=== PATIENT | female | born 1960 | race Caucasian/White ===

== ENCOUNTER 2019-07-05 10:53 | Outpatient (CLI) | payer MEDICARE, OTHER, SELFPAY ==
[2019-07-05 13:50] LABS: Hemoglobin A1C 6.2 % (<5.7)
[2019-07-05 13:51] LABS: Alanine Aminotransferase 25 U/L (4-35); Albumin Level 3.9 g/dL (3.5-5.1); Alkaline Phosphatase 64 U/L (38-126); Aspartate Amino Transferase 26 U/L (14-36); Bilirubin,Total 0.5 mg/dL (0.2-1.3); Blood Urea Nitrogen 26 mg/dL (7-17); Calcium 9.3 mg/dL (8.4-10.2); Carbon Dioxide 28 mmol/L (22-30); Chloride 97 mmol/L (98-107); Cholesterol 132 mg/dL (0-200); Estimated Glomerular Filt Rate 57; Glucose 81 mg/dL (65-105); HDL Direct 62 mg/dL; Potassium 3.7 mmol/L (3.4-5.0); Sodium 137 mmol/L (137-145); Triglycerides 83 mg/dL (<150)
[2019-07-05 14:02] LABS: LDL Cholesterol Direct 63 mg/dL
[2019-07-08 00:56] LABS: Homocysteine 11.9 umol/L (<10.4)
== END 2019-07-05 10:54 | disposition home or self-care (01) ==
LOC: ANHWCLAB 10:58
PROVIDERS: PCP Internal Medicine; Visit Provider Internal Medicine
DX: E78.5 Hyperlipidemia, unspecified (principal); R73.03 Prediabetes; Z79.899 Other long term (current) drug therapy
CPT/HCPCS: 36415; 80048; 80061; 80076; 83036; 83090; 84443

== ENCOUNTER 2019-11-07 08:48 | Outpatient (CLI) | payer MEDICARE, OTHER, SELFPAY ==
[2019-11-07 10:18] LABS: Add Urine Microscopic? NO; Appearance Urine Clear (Clear); Bilirubin Urine Negative (Negative); Blood Urine Negative (Negative); Color Urine Straw (Yellow); Glucose Urine UA Negative (Negative); Ketones Urine Negative (Negative); Leukocyte Esterase Ur Negative LEU/UL (NEGATIVE); Nitrate Urine Negative (Negative); Protein Urine Negative (Negative); Specific Grav Ur 1.011 (1.001-1.035); Urobilinogen Urine Negative mg/dL (<2.0)
[2019-11-07 10:36] LABS: Alanine Aminotransferase 21 U/L (4-35); Albumin Level 4.3 g/dL (3.5-5.1); Alkaline Phosphatase 62 U/L (38-126); Aspartate Amino Transferase 26 U/L (14-36); Bilirubin,Total 0.4 mg/dL (0.2-1.3); Blood Urea Nitrogen 21 mg/dL (7-17); Calcium 8.8 mg/dL (8.4-10.2); Carbon Dioxide 30 mmol/L (22-30); Chloride 102 mmol/L (98-107); Cholesterol 155 mg/dL (0-200); Estimated Glomerular Filt Rate > 60; Glucose 97 mg/dL (65-105); HDL Direct 71 mg/dL; Potassium 3.8 mmol/L (3.4-5.0); Sodium 137 mmol/L (137-145); Triglycerides 60 mg/dL (<150)
[2019-11-07 10:47] LABS: LDL Cholesterol Direct 71 mg/dL
[2019-11-07 11:01] LABS: Hemoglobin A1C 6.2 % (<5.7)
[2019-11-11 04:50] LABS: Homocysteine 9.7 umol/L (<10.4)
== END 2019-11-07 08:49 | disposition home or self-care (01) ==
PROVIDERS: PCP Internal Medicine; Visit Provider Internal Medicine
DX: R73.03 Prediabetes (principal); Z79.899 Other long term (current) drug therapy; E78.2 Mixed hyperlipidemia; R79.89 Other specified abnormal findings of blood chemistry
CPT/HCPCS: 36415; 80048; 80061; 80076; 81003; 83036; 83090

== ENCOUNTER 2019-12-25 01:11 | Outpatient (CLI) | payer MEDICARE, OTHER, SELFPAY ==
[2019-12-25 19:35] LABS: SARS-CoV-2 RNA PCR Negative
== END 2019-12-25 01:12 | disposition home or self-care (01) ==
LOC: ANHCOVIDDT 01:11
PROVIDERS: PCP Internal Medicine; Visit Provider Internal Medicine Gastroenterology
DX: Z01.812 Encounter for preprocedural laboratory examination (principal); Z11.59 Encounter for screening for other viral diseases
CPT/HCPCS: 87635; C9803; U0003

== ENCOUNTER 2019-12-27 01:48 | Day surgery (SDC) | payer MEDICARE, OTHER, SELFPAY ==
[2019-12-20 14:50] VITALS: BMI 27.0
[2019-12-27 06:16] VITALS: BP 123/73; PULSE 94; RESP 18; TEMP 37.1; O2SAT 99; BMI 26.4
[2019-12-27] MEDS: LACTATED RINGERS 1,000 ML 150 ML IV CONT (06:45)
--- NOTE | 2019-12-27 07:09 | WPDANESEPPF ---
Anes - Initial Pre Proc Eval Procedure: Operation Date: 12/27/19 07:30 Proposed Procedures p Screening Colonoscopy - Chad Lagos DO Date/Time: 12/27/19 07:09 Surgeon: Chad Lagos DO Pre Op Diagnosis: Neoplasm Screening Patient Data Age: 59 Gender: F Height: 5 ft 6 in Weight: 74.2 kg Last Vital Signs Temp 98.8 F 12/27/19 06:16 Pulse 94 12/27/19 06:16 Resp 18 12/27/19 06:16 BP 123/73 12/27/19 06:16 Pulse Ox 99 12/27/19 06:16 Allergies Allergy/AdvReac Type Severity Reaction Status Date / Time Sulfa (Sulfonamide Allergy Mild Hives Verified 12/27/19 06:29 Antibiotics) Home Medications Medication Instructions Recorded Confirmed Type diclofenac sodium 75 mg 75 mg PO BID #180 tablet 04/13/19 12/20/19 Rx tablet,delayed release famotidine 40 mg tablet 40 mg PO BID #180 tablet 04/16/19 12/20/19 Rx indapamide 2.5 mg tablet 2.5 mg PO DAILY #90 tablet 06/26/19 12/20/19 Rx montelukast 10 mg tablet 10 mg PO DAILY #90 tablet 06/26/19 12/20/19 Rx albuterol sulfate 90 mcg/actuation 1 puff INHALATION Q4H PRN 06/27/19 12/20/19 History aerosol inhaler budesonide-formoterol HFA 160 2 puff INHALATION Q12H 06/27/19 12/20/19 History mcg-4.5 mcg/actuation aerosol inhaler esterified 1 tablet PO DAILY 06/27/19 12/20/19 History estrogens-methyltestosterone 0.625 mg-1.25 mg tablet fluticasone propionate 50 2 spray NASAL DAILY #15.8 ml 06/27/19 12/20/19 Rx mcg/actuation nasal spray,suspension zolpidem 10 mg tablet 10 mg PO .COMPLEX PRN #90 tablet 07/19/19 12/20/19 Rx magnesium 250 mg tablet 250 mg PO DAILY 11/13/19 12/20/19 History niacin 500 mg capsule,extended 500 mg PO QAM 11/13/19 12/20/19 History release omega-3 fatty acids 1,000 mg 2,000 mg PO BID cap 11/13/19 12/20/19 History capsule pravastatin 80 mg tablet 80 mg PO DAILY #90 tablet 12/19/19 12/20/19 Rx cetirizine 10 mg tablet 10 mg PO DAILY #90 tablet 12/20/19 12/20/19 Rx Patient hx anesthesia problems: none Family hx anesthesia problems: none PMFSH Past Medical History Medical History (Updated 12/13/19 @ 13:59 by Oma Rodriguez) BMI 26.0-26.9,adult BMI 27.0-27.9,adult Colon cancer screening DJD (degenerative joint disease), multiple sites Elevated homocysteine Encounter for routine adult health examination without abnormal findings FHx: colon cancer GERD (gastroesophageal reflux disease) Hx of fracture of foot Hyperlipidemia On snf drug therapy Otitis media Pre-diabetes Reactive airway disease Sinusitis Trochanteric bursitis of right hip URI (upper respiratory infection) Social History Social History Second hand tobacco smoke exposure: No Alcohol intake: never Anes - Eval Final PreProcedure Day of Procedure 12/27/19 07:09 Patient weight: normal Heart: regular rate and rhythm Lungs: clear to auscultation Airway: Mallampati scale class III Neurological: alert and oriented Last oral intake: >/= 8 hours ASA classification: II Emergent: no Anesthetic plan: proceed Anesthesia type and monitoring: general GIVS and standard monitoring Informed Consent: The patient's anesthetic plan and its attendant risks and benefits were discussed with the patient/family/POA. Questions were solicited and answers provided to the satisfaction of the patient/family/POA.
--- NOTE | 2019-12-27 07:16 | PM.IMHP ---
H&P: HPI History of Present Illness Date/Time: 12/27/19 07:16 Chief complaint: Neoplasm Screening Narrative: Reason for visit colonoscopy. Impression: This very pleasant lady's here for screening and surveillance colonoscopy. She has a history of adenomatous colon polyps and family history colorectal cancer. GERD well controlled on medication. Recommendation: Colonoscopy. History: This very pleasant lady's here for screening and surveillance colonoscopy. She has a family history colorectal cancer and a history of adenomatous colon polyps. The patient's GI review systems essentially unremarkable. She does have a history of GERD well controlled on medication. Physical examination: General: very pleasant patient in no acute distress. HEENT: Head was normocephalic sclerae is clear mouth without masses neck was supple. Heart: Rate rhythm regular without S3 or S4. Lungs: CTA. Abdomen: Soft with no guarding or rigidity. Bowel sounds were active. Neurologic: Cranial nerves 2 through 12 intact. No focal defects. No clonus. Musculoskeletal system: Revealed no joint tenderness or swelling no muscle atrophy. Extremities: Reveal no significant edema. Skin: Warm and dry with normal turgor. Mental status: intact. Patient is alert and oriented. Review of Systems Review of Systems: All systems reviewed & are unremarkable except as noted in HPI and below PMFSH Past Medical History Medical History Adenomatous colon polyp Asthma BMI 27.0-27.9,adult DJD (degenerative joint disease), multiple sites GERD (gastroesophageal reflux disease) HLD (hyperlipidemia) Otitis media Pre-diabetes Sinusitis Surgical History Surgical History H/O colonoscopy Family History Family History Other Carcinoma of colon Hypertension Social History Social History Second hand tobacco smoke exposure: No Alcohol intake: never Meds Home Medications and Allergies Home Medications Medication Instructions Recorded Confirmed Type diclofenac sodium 75 mg 75 mg PO BID #180 tablet 04/13/19 12/20/19 Rx tablet,delayed release famotidine 40 mg tablet 40 mg PO BID #180 tablet 04/16/19 12/20/19 Rx indapamide 2.5 mg tablet 2.5 mg PO DAILY #90 tablet 06/26/19 12/20/19 Rx montelukast 10 mg tablet 10 mg PO DAILY #90 tablet 06/26/19 12/20/19 Rx albuterol sulfate 90 mcg/actuation 1 puff INHALATION Q4H PRN 06/27/19 12/20/19 History aerosol inhaler budesonide-formoterol HFA 160 2 puff INHALATION Q12H 06/27/19 12/20/19 History mcg-4.5 mcg/actuation aerosol inhaler esterified 1 tablet PO DAILY 06/27/19 12/20/19 History estrogens-methyltestosterone 0.625 mg-1.25 mg tablet fluticasone propionate 50 2 spray NASAL DAILY #15.8 ml 06/27/19 12/20/19 Rx mcg/actuation nasal spray,suspension zolpidem 10 mg tablet 10 mg PO .COMPLEX PRN #90 tablet 07/19/19 12/20/19 Rx magnesium 250 mg tablet 250 mg PO DAILY 11/13/19 12/20/19 History niacin 500 mg capsule,extended 500 mg PO QAM 11/13/19 12/20/19 History release omega-3 fatty acids 1,000 mg 2,000 mg PO BID cap 11/13/19 12/20/19 History capsule pravastatin 80 mg tablet 80 mg PO DAILY #90 tablet 12/19/19 12/20/19 Rx cetirizine 10 mg tablet 10 mg PO DAILY #90 tablet 12/20/19 12/20/19 Rx Allergies Allergy/AdvReac Type Severity Reaction Status Date / Time Sulfa (Sulfonamide Allergy Mild Hives Verified 12/27/19 06:29 Antibiotics) Vital Signs Vital Signs - 24 hr 12/27/19 06:16 Temperature 37.1 C Pulse Rate 94 Respiratory Rate 18 Blood Pressure 123/73 Pulse Oximetry 99
[2019-12-27 07:53] VITALS: BP 102/62; PULSE 78; RESP 18; O2SAT 96
[2019-12-27 08:03] VITALS: BP 111/69; PULSE 76; RESP 18; O2SAT 96
[2019-12-27 08:13] VITALS: BP 113/73; PULSE 75; RESP 18; O2SAT 98
[2019-12-27 08:31] VITALS: BP 113/73; PULSE 75; RESP 18; O2SAT 98
== END 2019-12-27 08:40 | disposition home or self-care (01) ==
PROVIDERS: PCP Internal Medicine; Visit Provider Internal Medicine Gastroenterology
PROC: 0DJD8ZZ Inspection of Lower Intestinal Tract, Via Natural or Artificial Opening Endoscopic (ICD-10-PCS; CPT 45378; principal; 2019-12-27 07:30)
DX: Z12.11 Encounter for screening for malignant neoplasm of colon (principal); Z86.010 Personal history of colon polyps; Z80.0 Family history of malignant neoplasm of digestive organs; K21.9 Gastro-esophageal reflux disease without esophagitis; E78.5 Hyperlipidemia, unspecified; R73.03 Prediabetes
CPT/HCPCS: G0105; J2001; J2704; J7120

== ENCOUNTER 2020-03-06 12:10 | Emergency (ER) | payer MEDICARE, OTHER, SELFPAY ==
[2020-03-06 12:21] VITALS: BP 141/80; PULSE 73; RESP 16; TEMP 36.5; O2SAT 97
--- NOTE | 2020-03-06 12:28 | ED.GENADULT ---
HPI - General Adult General Chief complaint: Wound/Laceration Stated complaint: R/knee pain Time Seen by Provider: 03/06/20 12:29 Source: patient and RN notes reviewed Mode of arrival: ambulatory Limitations: no limitations History of Present Illness HPI narrative: 59-year-old female presents with complaints of laceration to right knee, caused by hitting knee against something during a fall in the laundry room for the past 13.5 hours. Dahlia says she was doing laundry and tripped over a pile of dirt clothing, unable to stop the bleeding to RT knee. Denies focal weakness, altered sensation, and rash. Denies pain, numbness or tingling, or loss of mobility. No foreign body sensation. Tetanus up to date. The patient reports she have not been diagnosed with COVID-19. The patient reports she is not waiting for the results of a COVID-19 lab test. The patient reports she do not have fever, chills, weakness, or fatigue. The patient reports she do not have a new or worsening cough or shortness of breath. Denies chest pain. The patient reports she do not have any rhinorrhea, congestion, sore throat, loss of taste, nausea, vomiting, abdominal pain, and diarrhea. Tolerating po intake well. Denies recent traveling. Denies concerns for COVID-19 or exposures been home with limited outdoor exposure except for essential household needs and return home. At this time, patient is not suspected of having COVID-19. Some parts of this dictation were generated by voice recognition software and may contain typographical and/or grammatical inaccuracies. Related Data Home Medications Medication Instructions Recorded Confirmed albuterol sulfate 90 mcg/actuation 1 puff INHALATION Q4H PRN 06/27/19 03/06/20 aerosol inhaler esterified 1 tablet PO DAILY 06/27/19 03/06/20 estrogens-methyltestosterone 0.625 mg-1.25 mg tablet magnesium 250 mg tablet 250 mg PO DAILY 11/13/19 03/06/20 niacin 500 mg capsule,extended 500 mg PO QAM 11/13/19 03/06/20 release omega-3 fatty acids 1,000 mg 2,000 mg PO BID cap 11/13/19 03/06/20 capsule calcium carbonate [Calcium 500] 1,250 mg PO DAILY 03/06/20 03/06/20 fluticasone furoate-vilanterol 1 ea INHALATION DAILY 03/06/20 03/06/20 [Breo Ellipta] zolpidem 10 mg PO HS PRN 03/06/20 03/06/20 Allergies Allergy/AdvReac Type Severity Reaction Status Date / Time Sulfa (Sulfonamide Allergy Mild Hives Verified 03/06/20 12:31 Antibiotics) Review of Systems Review of Systems: Narrative: CONSTITUTIONAL: Denies fever, chills, sweats. EYES: Denies visual changes, redness, discharge. ENT: Denies rhinorrhea, congestion, sore throat, otalgia. CARDIOVASCULAR: Denies chest pain, palpitations, edema. RESPIRATORY: Denies dyspnea, wheezing, cough. GASTROINTESTINAL: Denies abdominal pain, nausea, vomiting, or diarrhea. SKIN: Denies rash or itching. Complains of laceration to RT knee. MUSCULOSKELETAL: Denies acute back pain, joint pain, or myalgia. NEUROLOGIC: Denies numbness or focal weakness. PSYCHIATRIC: Denies anxiety or depression. All systems reviewed & are unremarkable except as noted in HPI and below. [facility] Past Medical History Medical History (Updated 03/07/20 @ 00:00 by Background Daemon) Adenomatous colon polyp Asthma BMI 27.0-27.9,adult DJD (degenerative joint disease), multiple sites Ganglion cyst of both wrists GERD (gastroesophageal reflux disease) HLD (hyperlipidemia) Hx of fracture of foot Otitis media Pre-diabetes Sinusitis Trochanteric bursitis of right hip Surgical History Surgical History (Updated 03/06/20 @ 17:12 by RICHA Cullen) H/O colonoscopy removal of ganglion cysts from wrist History of foot surgery 3 surgeries on LT foot History of removal of cyst Family History Family History (Updated 03/06/20 @ 17:14 by RICHA Cullen) Father Esophageal cancer Lung cancer Mother , Due to breathing unsure what Respiratory a
--- NOTE | 2020-03-06 13:08 | PC.NURSE ---
Lidocaine administered by provider.
== END 2020-03-06 13:24 | disposition home or self-care (01) ==
PROVIDERS: Emergency Provider Nurse Practitioner Family; PCP Internal Medicine
DX: S81.011A Laceration without foreign body, right knee, initial encounter (principal); W18.09XA Striking against other object with subsequent fall, initial encounter; Z87.891 Personal history of nicotine dependence; J45.909 Unspecified asthma, uncomplicated; K21.9 Gastro-esophageal reflux disease without esophagitis; E78.5 Hyperlipidemia, unspecified; R73.03 Prediabetes
CPT/HCPCS: 12001; 99212; G0463

== ENCOUNTER 2020-03-10 07:49 | Outpatient (CLI) | payer MEDICARE, OTHER, SELFPAY ==
[2020-03-10 08:39] LABS: Potassium 3.9 mmol/L (3.4-5.0)
[2020-03-10 08:41] LABS: Anion Gap 6 mmol/L (8-16); Blood Urea Nitrogen 27 mg/dL (7-17); Calcium 9.6 mg/dL (8.4-10.2); Carbon Dioxide 33 mmol/L (22-30); Chloride 99 mmol/L (98-107); Cholesterol 148 mg/dL (0-200); Estimated Glomerular Filt Rate 56; Glucose 103 mg/dL (65-105); HDL Direct 53 mg/dL; Sodium 138 mmol/L (137-145); Triglycerides 120 mg/dL (<150)
[2020-03-10 08:44] LABS: Hemoglobin A1C 5.8 % (<5.7)
[2020-03-10 08:51] LABS: LDL Cholesterol Direct 76 mg/dL
== END 2020-03-10 07:50 | disposition home or self-care (01) ==
PROVIDERS: PCP Internal Medicine; Visit Provider Internal Medicine
DX: Z79.899 Other long term (current) drug therapy (principal); Z80.0 Family history of malignant neoplasm of digestive organs; Z12.11 Encounter for screening for malignant neoplasm of colon; R73.03 Prediabetes; E78.2 Mixed hyperlipidemia
CPT/HCPCS: 36415; 80048; 80061; 83036; 84443

== ENCOUNTER 2020-04-04 14:52 | Outpatient (CLI) | payer MEDICARE, OTHER, SELFPAY ==
--- NOTE | ~2020-04-04 | CT_ITS ---
EXAMINATION: CT lung screening DATE: 04/04/2020 15:21 INDICATION: Z87.891 - Personal history of nicotine dependence TECHNIQUE: Computed tomography (CT) of the chest was performed without intravenous contrast. Addition al 3D reconstructions utilizing coronal maximum intensity projection (MIP) were performed. Automated exposure control and iterative reconstruction technique were employed. The dose-length product was 96 .45 mGy-cm. COMPARISON: 02/19/2015 FINDINGS: Moderate emphysema with mild to moderate biapical pleural-parenchymal scarring, right greater than le ft. 4 mm triangular likely intrafissural lymph node along the right minor fissure unchanged since ruthie or study. A few scattered 2 mm smaller calcified nodules in the right lower and left upper lobes. 3-4 mm nodule in the left lower lobe also unchanged. Small region of discoid atelectasis/scarring in the right middle lobe. No pleural effusion. Heart size is normal. No pericardial effusion. Small amount of aortic valve calcification. Thoracic aorta is normal in caliber. No pathologically enlarged thorac ic lymphadenopathy. Small sliding-type hiatal hernia. Visualized upper abdomen is unremarkable. Mild thoracic spondylosis. C6-C7 anterior spinal fusion with anterior plate and screw fixation. IMPRESSION: 1. . Lung-RADS category 2: Benign appearance or behavior. Continue annual screening with noncontrast low-dose chest CT in 12 months. Reviewed, dictated and finalized at location . RVISOR SAWMILL IMPRESSION: 1. . Lung-RADS category 2: Benign appearance or behavior. Continue annual scree chelsey with noncontrast low-dose chest CT in 12 months.
== END 2020-04-04 14:53 | disposition home or self-care (01) ==
PROVIDERS: PCP Internal Medicine; Visit Provider Internal Medicine
DX: Z12.2 Encounter for screening for malignant neoplasm of respiratory organs (principal); Z87.891 Personal history of nicotine dependence
CPT/HCPCS: G0297

== ENCOUNTER 2020-06-29 20:00 | Inpatient (IN) | payer MEDICARE, OTHER, SELFPAY ==
[2020-06-29] VITALS (24 sets, daily range): BP systolic 97–143; BP diastolic 58–80; PULSE 107–130; RESP 16–31; TEMP 37.3–38.2; O2SAT 91–97; BMI 27.6
--- NOTE | ~2020-06-29 | XR_ITS ---
EXAMINATION: XR chest 1V portable 06/29/2020 20:34 INDICATION: Fever. Leg infection. PROCEDURE: AP portable chest COMPARISON: Comparison to multiple prior studies sequentially, with oldest reviewed study dated 03/24. FINDINGS: The lungs are clear. The cardiomediastinal silhouette is within normal limits. There are no pleural effusions. There is no pneumothorax suspected. IMPRESSION: 1: NO ACUTE CARDIOPULMONARY DISEASE. Reviewed, dictated and finalized at location A. [employer] DESIGNER
--- NOTE | ~2020-06-29 | US_ITS ---
EXAMINATION: US soft tissue LE RT DATE: 07/02/2020 12:00 INDICATION: Right lower limb wound. TECHNIQUE: Multiple grayscale and Doppler ultrasound images of the right lower limb were obtained. COMPARISON: None FINDINGS: In the right lateral calf in the patient's area of concern, there is subcutaneous edema wit h echogenic fat, consistent with inflammation. No drainable fluid collection. IMPRESSION: 1. Subcutaneous edema and inflammation in right lateral calf. No drainable fluid collection. Reviewed, dictated and finalized at location A. BUILDER IMPRESSION: 1. Subcutaneous edema and inflammation in right lateral calf. No drainable flui d collection.
--- NOTE | 2020-06-29 20:15 | ECG_ITS ---
Measurements Intervals [place] Rate: 123 P: 42 AL: 160 QRS: -11 QRSD: 68 T: 34 QT: 325 QTc: 467 Interpretive Statements SINUS TACHYCARDIA LOW QRS VOLTAGE IN PRECORDIAL LEADS CANNOT RULE OUT SEPTAL INFARCT, AGE INDETERMINATE BASELINE WANDER- I, II, AVR, AVL, AVF, V1, V5-V6 ABNORMAL ECG Electronically Signed On 06-30-2020 7:01:18 [employer]ONEM[employer]ON HELPER by Juan M Sy D.O.
[2020-06-29 20:40] LABS: Basophils Absolute Auto 0.1 K/mm3 (0.0-0.1); Basophils Percent Auto 0.3 % (0.2-1.2); Hematocrit 41.1 % (37.0-47.0); Immature Granulocyte Absolute 0.26 K/mm3 (0.00-0.031); Immature Granulocyte Percent A 1.1 % (0-0.5); Lymphocytes Absolute Auto 0.99 K/mm3 (0.9-3.2); Mean Corpuscular HGB Conc 34.1 g/dl (32-36); Mean Corpuscular Hemoglobin 30.8 pg (26-34); Mean Corpuscular Volume 90.3 fl (80-100); Mean Platelet Volume 10.4 fl (7.4-10.4); Monocytes Absolute Auto 1.3 K/mm3 (0.1-0.6); Monocytes Percent Auto 5.2 % (2.6-8.5); Neutrophils Absolute Auto 21.9 K/mm3 (1.3-6.7); Neutrophils Percent Auto 89.4 % (45.5-73.1); Platelet Count Result 286 k/mm3 (150-375); Red Blood Count 4.55 M/mm3 (4.2-5.4); Red Cell Distribution Width 13.6 % (11.5-14.5); White Blood Count 24.6 K/mm3 (4.5-10.0)
[2020-06-29 20:50] LABS: Prothrombin Time 13.7 Seconds (11.1-14.7)
[2020-06-29] MEDS: IBUPROFEN IV 400 MG in SODIUM CHLORIDE 0.9% IV 100 ML 200 MG IVPB (20:50)
[2020-06-29] MEDS: SODIUM CHLORIDE 0.9% IV 1,000 ML 999 ML IV CONT (20:50)
[2020-06-29 20:51] LABS: Partial Thromboplastin Time 28.3 SECONDS (22.3-36.8)
[2020-06-29 20:52] LABS: Lactic Acid Reflex 1.1 mmol/L (0.7-2.1)
[2020-06-29 20:54] LABS: Alanine Aminotransferase 22 U/L (4-35); Albumin Level 4.2 g/dL (3.5-5.1); Alkaline Phosphatase 66 U/L (38-126); Anion Gap 9 mmol/L (8-16); Aspartate Amino Transferase 35 U/L (14-36); Bilirubin,Total 0.6 mg/dL (0.2-1.3); Blood Urea Nitrogen 19 mg/dL (7-17); CRP 5.2 mg/dL (<1.0); Calcium 9.6 mg/dL (8.4-10.2); Carbon Dioxide 25 mmol/L (22-30); Chloride 101 mmol/L (98-107); Estimated CRCL calculation 60 ml/min; Estimated Glomerular Filt Rate > 60; Glucose 124 mg/dL (65-105); Potassium 3.4 mmol/L (3.4-5.0); Sodium 135 mmol/L (137-145)
[2020-06-29 20:59] LABS: Add Urine Microscopic? YES; Appearance Urine Clear (Clear); Bilirubin Urine Negative (Negative); Blood Urine 1+ (Negative); Color Urine Yellow (Yellow); Glucose Urine UA Negative (Negative); Ketones Urine 2+ mg/dL (Negative); Leukocyte Esterase Ur Negative LEU/UL (Negative); Mucus Urine Rare /lpf; Nitrate Urine Negative (Negative); Protein Urine 1+ mg/dL (Negative); Squamous Epithelial Cell Urine Many /hpf (Few); Urobilinogen Urine Negative mg/dL (<2.0); WBC Urine 0-3 /hpf
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
--- NOTE | 2020-06-29 23:40 | ADMGEN ---
This patient, Dahlia Bacon, was admitted to 2 Medical Room 256-01. Patient/family oriented to hospital policies and general routines including ID bracelet, bed and alarms, visiting hours, pain management, procedures, bathroom and other care routines, personal items, smoking policy, room service/diet, and visiting hours. Information on how to activate the Rapid Response Team has been discussed. Patient/Family are encouraged to report perceived risks to care and to ask questions if they do not understand what they are told or what they should do.
[2020-06-30] VITALS (8 sets, daily range): BP systolic 97–124; BP diastolic 48–69; PULSE 68–111; RESP 16–18; TEMP 36.4–37.8; O2SAT 96–98; BMI 27.6
[2020-06-30] MEDS: ACETAMINOPHEN 325 MG TABLET 650 MG PO ×5 (00:18→21:48)
[2020-06-30] MEDS: SODIUM CHLORIDE 0.9% IV 1,000 ML 125 ML IV CONT ×3 (00:20→20:37)
[2020-06-30] MEDS: ZOLPIDEM TARTRATE (*CRX) 5 MG TABLET 10 MG PO ×2 (01:22→21:45)
[2020-06-30] MEDS: SODIUM CHLORIDE 0.9% IV 1,000 ML 999 ML IV CONT (03:37)
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
[2020-06-30 06:25] LABS: Basophils Absolute Auto 0.1 K/mm3 (0.0-0.1); Basophils Percent Auto 0.3 % (0.2-1.2); Eosinophils Absolute Auto 0.1 K/mm3 (0-0.3); Eosinophils Percent Auto 0.4 % (0-4.4); Hematocrit 33.6 % (37.0-47.0); Hemoglobin 11.5 g/dL (12.0-15.0); Immature Granulocyte Absolute 0.17 K/mm3 (0.00-0.031); Immature Granulocyte Percent A 0.8 % (0-0.5); Lymphocytes Absolute Auto 0.95 K/mm3 (0.9-3.2); Lymphocytes Percent Auto 4.6 % (18.3-44.2); Mean Corpuscular HGB Conc 34.2 g/dl (32-36); Mean Corpuscular Hemoglobin 30.6 pg (26-34); Mean Corpuscular Volume 89.4 fl (80-100); Mean Platelet Volume 9.9 fl (7.4-10.4); Monocytes Absolute Auto 0.6 K/mm3 (0.1-0.6); Monocytes Percent Auto 3.1 % (2.6-8.5); Neutrophils Absolute Auto 18.7 K/mm3 (1.3-6.7); Neutrophils Percent Auto 90.8 % (45.5-73.1); Platelet Count Result 223 k/mm3 (150-375); Red Blood Count 3.76 M/mm3 (4.2-5.4); Red Cell Distribution Width 13.7 % (11.5-14.5); White Blood Count 20.6 K/mm3 (4.5-10.0)
[2020-06-30 06:41] LABS: Anion Gap 6 mmol/L (8-16); Blood Urea Nitrogen 13 mg/dL (7-17); Calcium 7.6 mg/dL (8.4-10.2); Carbon Dioxide 24 mmol/L (22-30); Chloride 104 mmol/L (98-107); Estimated CRCL calculation 68 ml/min; Estimated Glomerular Filt Rate > 60; Glucose 125 mg/dL (65-105); Potassium 3.1 mmol/L (3.4-5.0); Sodium 134 mmol/L (137-145)
[2020-06-30] MEDS: DICLOFENAC SOD 75 MG TABLET.EC PO ×2 (07:58→17:07)
[2020-06-30] MEDS: CALCIUM CARBONATE (OSCAL) 500 MG TABLET 1000 MG PO (07:59)
[2020-06-30] MEDS: FAMOTIDINE 20 MG TABLET 40 MG PO ×2 (08:00→17:07)
[2020-06-30] MEDS: ENOXAPARIN 40 MG/0.4 ML SYRINGE SUB-Q (08:00)
[2020-06-30] MEDS: FLUTICASONE PROPIONATE 0.05% NA SPR 16 GM BTL (*BKC) 2 SPRAY NASAL (08:00)
[2020-06-30] MEDS: INDAPAMIDE 2.5 MG TABLET PO (08:02)
[2020-06-30] MEDS: OMEGA 3 POLYUNSAT FATTY ACIDS 1 GM CAP 2 GM PO ×2 (08:02→17:07)
[2020-06-30] MEDS: MONTELUKAST SODIUM 10 MG TABLET PO (08:02)
[2020-06-30] MEDS: LORATADINE 10 MG TABLET PO (08:02)
[2020-06-30] MEDS: MAGNESIUM OXIDE 200 MG TABLET PO (08:02)
[2020-06-30] MEDS: NIACIN SA 500 MG TABLET PO (08:02)
[2020-06-30 08:34] LABS: Magnesium 1.6 mg/dL (1.6-2.3)
--- NOTE | 2020-06-30 09:36 | PM.IMPN ---
Progress Note: A&P Assessment and Plan (1) Sepsis: Qualifiers: Sepsis acute organ dysfunction status: without acute organ dysfunction Sepsis type: sepsis due to unspecified organism Qualified Code(s): A41.9 - Sepsis, unspecified organism Code(s): A41.9 - Sepsis, unspecified organism Status: Acute Assessment and Plan: Sepsis based on criteria of leukocytosis, fever, tachycardia and tachypnea. Sepsis likely due to cellulitis of the right lower extremity. Patient does appear mildly volume depleted. Were mildly low but she was not truly hypotensive. Her blood pressures were 97/58. An additional 1 L fluid bolus was ordered. The patient's blood pressures have rebounded up to 106 systolic. She was started on Ancef on admission. It has been almost 12 hours since 1st dose of Ancef, and she does have signs of erythema and warmth extending outside of the initial marker lines. However, her vitals at 0800 show she is afebrile, nontachycardic for the first time, improved blood pressure and normal respiration/oxygenation and improvement of leukocytosis. The patients primary care provider, Dr. Grace, recommended adding on MRSA coverage antibiotics. Patients vitals, labs seem to be improving in just the short 12 hours she has been here, but since her cellulitis has still spread, will add Vancomycin IV for broader spectrum of coverage. Blood cultures are pending. Told the nurse if she sees drainage from her wound to order a Culture. I have left her wound open to air to see if a sample can be taken. Otherwise, we will rewrap the wound. Continue monitoring vitals, labs, improvement (2) Cellulitis of leg, right: Code(s): L03.115 - Cellulitis of right lower limb Status: Acute Assessment and Plan: Acute. She was started on Ancef on admission. It has been almost 12 hours since 1st dose of Ancef, and she does have signs of erythema and warmth extending outside of the initial marker lines. However, her vitals at 0800 show she is afebrile, nontachycardic for the first time, improved blood pressure and normal respiration/oxygenation and improvement of leukocytosis. The patients primary care provider, Dr. Grace, recommended adding on MRSA coverage antibiotics. Patients vitals, labs seem to be improving in just the short 12 hours she has been here, but since her cellulitis has still spread, will add Vancomycin IV for broader spectrum of coverage. Blood cultures are pending. Told the nurse if she sees drainage from her wound to order a Culture. I have left her wound open to air to see if a sample can be taken. Otherwise, we will rewrap the wound. Continue monitoring. IV antibiotics. (3) Hypokalemia: Code(s): E87.6 - Hypokalemia Status: Acute Assessment and Plan: Patient's potassium was 3.1 this morning and was replenished. Patient's magnesium was 1.6 which is on the low normal side. Will give IV magnesium as well. Will recheck these labs in the morning. (4) Pre-diabetes: Code(s): R73.03 - Prediabetes Status: Acute Assessment and Plan: Chronic. Patient is prediabetic but her glucoses are within target range. Her last hemoglobin A1c was 5.8 on 02/2020. She is not on diabetic medications. Glucose this morning was 125. Will continue monitoring along with infection. (5) Asthma: Code(s): J45.909 - Unspecified asthma, uncomplicated Status: Acute Assessment and Plan: Chronic. Will continue her home inhalers. Lungs are clear at this time without any respiratory symptoms. Continue monitoring. (6) Microscopic hematuria: Code(s): R31.29 - Other microscopic hematuria Status: Acute Assessment and
[2020-06-30] MEDS: CALCIUM CARBONATE (OSCAL) 250 MG TABLET PO (09:55)
[2020-06-30] MEDS: POTASSIUM CHLORIDE 20 MEQ TABLET 40 MEQ PO (10:27)
[2020-06-30] MEDS: MAGNESIUM SULF 2 GM/WATER 50ML 2 GM/50 ML BAG IVPB (12:08)
[2020-06-30] MEDS: PRAVASTATIN SODIUM 20 MG TABLET 80 MG PO (20:34)
[2020-07-01 05:08] VITALS: BP 104/54; PULSE 86; RESP 16; TEMP 36.9; O2SAT 96
[2020-07-01 05:48] LABS: Basophils Percent Auto 0.2 % (0.2-1.2); Eosinophils Absolute Auto 0.1 K/mm3 (0-0.3); Eosinophils Percent Auto 0.8 % (0-4.4); Hematocrit 34.2 % (37.0-47.0); Hemoglobin 11.3 g/dL (12.0-15.0); Immature Granulocyte Absolute 0.08 K/mm3 (0.00-0.031); Immature Granulocyte Percent A 0.6 % (0-0.5); Lymphocytes Absolute Auto 1.54 K/mm3 (0.9-3.2); Lymphocytes Percent Auto 11.4 % (18.3-44.2); Mean Corpuscular Hemoglobin 30.2 pg (26-34); Mean Corpuscular Volume 91.4 fl (80-100); Mean Platelet Volume 10.3 fl (7.4-10.4); Monocytes Absolute Auto 0.7 K/mm3 (0.1-0.6); Neutrophils Absolute Auto 11.1 K/mm3 (1.3-6.7); Platelet Count Result 202 k/mm3 (150-375); Red Blood Count 3.74 M/mm3 (4.2-5.4); Red Cell Distribution Width 14.3 % (11.5-14.5); White Blood Count 13.5 K/mm3 (4.5-10.0)
[2020-07-01 06:04] LABS: Alanine Aminotransferase 16 U/L (4-35); Albumin Level 3.1 g/dL (3.5-5.1); Alkaline Phosphatase 50 U/L (38-126); Anion Gap 5 mmol/L (8-16); Aspartate Amino Transferase 24 U/L (14-36); Bilirubin,Total 0.2 mg/dL (0.2-1.3); Blood Urea Nitrogen 11 mg/dL (7-17); Calcium 7.9 mg/dL (8.4-10.2); Carbon Dioxide 26 mmol/L (22-30); Chloride 106 mmol/L (98-107); Estimated CRCL calculation 68 ml/min; Estimated Glomerular Filt Rate > 60; Glucose 131 mg/dL (65-105); Potassium 3.2 mmol/L (3.4-5.0); Sodium 137 mmol/L (137-145)
[2020-07-01] MEDS: SODIUM CHLORIDE 0.9% IV 1,000 ML 125 ML IV CONT (06:33)
[2020-07-01 06:35] LABS: CRP 30.7 mg/dL (<1.0)
[2020-07-01 08:00] VITALS: BP 109/52; PULSE 93; RESP 16; TEMP 37.1; O2SAT 95
[2020-07-01] MEDS: POTASSIUM CHLORIDE 20 MEQ TABLET PO (08:25)
[2020-07-01] MEDS: CALCIUM CARBONATE (OSCAL) 500 MG TABLET 1000 MG PO (08:26)
[2020-07-01] MEDS: DICLOFENAC SOD 75 MG TABLET.EC PO ×2 (08:26→17:07)
[2020-07-01] MEDS: INDAPAMIDE 2.5 MG TABLET PO (08:28)
[2020-07-01] MEDS: ENOXAPARIN 40 MG/0.4 ML SYRINGE SUB-Q (08:28)
[2020-07-01] MEDS: FAMOTIDINE 20 MG TABLET 40 MG PO ×2 (08:28→17:07)
[2020-07-01] MEDS: OMEGA 3 POLYUNSAT FATTY ACIDS 1 GM CAP 2 GM PO ×2 (08:28→17:07)
[2020-07-01] MEDS: MAGNESIUM OXIDE 200 MG TABLET PO (08:28)
[2020-07-01] MEDS: LORATADINE 10 MG TABLET PO (08:28)
[2020-07-01] MEDS: NIACIN SA 500 MG TABLET PO (08:28)
[2020-07-01] MEDS: MONTELUKAST SODIUM 10 MG TABLET PO (08:29)
[2020-07-01] MEDS: CALCIUM CARBONATE (OSCAL) 250 MG TABLET PO (08:32)
[2020-07-01] MEDS: ACETAMINOPHEN 325 MG TABLET 650 MG PO (08:40)
[2020-07-01 08:42] VITALS: TEMP 37.3
[2020-07-01] MEDS: FLUTICASONE PROPIONATE 0.05% NA SPR 16 GM BTL (*BKC) 2 SPRAY NASAL (11:24)
--- NOTE | 2020-07-01 13:41 | PM.IMPN ---
Progress Note: A&P Assessment and Plan (1) Sepsis: Qualifiers: Sepsis type: sepsis due to unspecified organism Sepsis acute organ dysfunction status: without acute organ dysfunction Qualified Code(s): A41.9 - Sepsis, unspecified organism Code(s): A41.9 - Sepsis, unspecified organism Status: Acute Assessment and Plan: Met SIRS criteria with leukocytosis, fever, tachycardia, and tachypnea on arrival, lactic acid WNL; Right lower leg cellulitis as suspected source. Patient has been on Ancef and Vanc since 06/30. BCx NGTD x 2 after 2 days; wound culture pending; wound gram stain shows few WBCs and no organisms seen Continue treatment of cellulitis of right leg as detailed below Will d/c IV fluids as she appears euvolemic Monitor VS, leukocytosis (2) Cellulitis of leg, right: Code(s): L03.115 - Cellulitis of right lower limb Status: Acute Assessment and Plan: Cellulitis of right lower leg. She has been on Ancef and Vanc since 06/30. Appears to be improving. Leukocytosis improved overnight. No fevers since early 06/30. Continue IV vanc and ancef for now; likely discharge on PO doxy and Keflex when ready for discharge to complete abx course Monitor keep leg elevated (3) Hypokalemia: Code(s): E87.6 - Hypokalemia Status: Acute Assessment and Plan: K+ 3.2 today; replaced this morning. Likely from poor PO intake Monitor daily Replace as needed. (4) Pre-diabetes: Code(s): R73.03 - Prediabetes Status: Chronic Assessment and Plan: A1c 5.8 on 02/2020. Serum BGL 131 this morning. She is not on diabetic medications. Will continue to monitor (5) Asthma: Code(s): J45.909 - Unspecified asthma, uncomplicated Status: Chronic Assessment and Plan: No acute issues Continue home medications Monitor (6) Microscopic hematuria: Code(s): R31.29 - Other microscopic hematuria Status: Acute Assessment and Plan: No symptoms. UA otherwise not indicative to UTI. F/u with PCP as outpatient Consider Urology consultation Subjective Date/time seen: 07/01/20 13:41 Interval history: Patient is a 59 yo F with history of hyperlipidemia, asthma and prediabetes who is seen in follow up for treatment of right lower leg cellulitis. Patient states she feels somewhat better today. Her right lower leg is still red and a bit swollen, but she thinks this has improved. She felt slight subjective fevers/chills this morning, but overall feels better. She has no other complaints at this time. Denies cp/palpitations, sob/cough, n/v/d/c, abd pain, changes in BMs, dysuria, gross hematuria, cloudy urine, calf pain/swelling. Review of Systems Review of Systems: All systems reviewed & are unremarkable except as noted in HPI and below Exam Narrative: Exam Narrative: General: Patient sitting upright in bed in no acute distress. HEENT: Normocephalic, EOMI, oral mucosa moist. Cardiovascular: Rate and rhythm are regular. No notable murmur, rub, or gallop. Respiratory: Lungs clear to auscultation all ferraro; diminished breath sounds b/l. Non-labored breathing. Abdomen: Soft, non-tender, non-distended, bowel sounds present. Extremities: Peripheral pulses intact. right lower leg has a irregularly shaped roughly 2x3 cm sized healing wound with dried clear discharge to surface, there is surrounding erythema and warmth which looks improved compared to outlined area of concern. She is NVI in b/l LE. NTTP b/l calves Neuro: No focal neurological deficits. Speech is clear. Objective Data Vital Signs Vital Signs: Last Vital Signs Temp 99.1 F 07/01/20 08:
[2020-07-01 14:20] VITALS: BP 104/51; PULSE 88; RESP 16; TEMP 36.4; O2SAT 98
[2020-07-01 20:00] VITALS: PULSE 83; RESP 14; O2SAT 98
[2020-07-01] MEDS: PRAVASTATIN SODIUM 20 MG TABLET 80 MG PO (20:42)
[2020-07-01 21:34] VITALS: BP 104/57; PULSE 83; RESP 14; TEMP 37; O2SAT 98
[2020-07-01] MEDS: ZOLPIDEM TARTRATE (*CRX) 5 MG TABLET 10 MG PO (22:10)
[2020-07-02 05:07] VITALS: BP 102/55; PULSE 85; RESP 18; TEMP 37.1; O2SAT 98
[2020-07-02 06:09] LABS: Anion Gap 7 mmol/L (8-16); Blood Urea Nitrogen 10 mg/dL (7-17); Calcium 8.7 mg/dL (8.4-10.2); Carbon Dioxide 26 mmol/L (22-30); Chloride 105 mmol/L (98-107); Estimated CRCL calculation 68 ml/min; Estimated Glomerular Filt Rate > 60; Glucose 93 mg/dL (65-105); Magnesium 1.7 mg/dL (1.6-2.3); Potassium 3.5 mmol/L (3.4-5.0); Sodium 138 mmol/L (137-145)
[2020-07-02 06:13] LABS: Basophils Percent Auto 0.3 % (0.2-1.2); Eosinophils Absolute Auto 0.2 K/mm3 (0-0.3); Eosinophils Percent Auto 2.6 % (0-4.4); Hematocrit 36.1 % (37.0-47.0); Hemoglobin 11.9 g/dL (12.0-15.0); Immature Granulocyte Absolute 0.03 K/mm3 (0.00-0.031); Immature Granulocyte Percent A 0.3 % (0-0.5); Lymphocytes Absolute Auto 1.55 K/mm3 (0.9-3.2); Lymphocytes Percent Auto 16.7 % (18.3-44.2); Mean Corpuscular Hemoglobin 30.7 pg (26-34); Mean Platelet Volume 10.8 fl (7.4-10.4); Monocytes Absolute Auto 0.8 K/mm3 (0.1-0.6); Monocytes Percent Auto 8.7 % (2.6-8.5); Neutrophils Absolute Auto 6.6 K/mm3 (1.3-6.7); Neutrophils Percent Auto 71.4 % (45.5-73.1); Platelet Count Result 218 k/mm3 (150-375); Red Blood Count 3.88 M/mm3 (4.2-5.4); Red Cell Distribution Width 14.1 % (11.5-14.5); White Blood Count 9.3 K/mm3 (4.5-10.0)
[2020-07-02 06:15] LABS: CRP 21.6 mg/dL (<1.0)
[2020-07-02] MEDS: DICLOFENAC SOD 75 MG TABLET.EC PO ×2 (07:43→16:57)
[2020-07-02] MEDS: CALCIUM CARBONATE (OSCAL) 500 MG TABLET 1000 MG PO (07:44)
[2020-07-02] MEDS: ENOXAPARIN 40 MG/0.4 ML SYRINGE SUB-Q (07:45)
[2020-07-02] MEDS: FLUTICASONE PROPIONATE 0.05% NA SPR 16 GM BTL (*BKC) 2 SPRAY NASAL (07:45)
[2020-07-02] MEDS: FAMOTIDINE 20 MG TABLET 40 MG PO ×2 (07:45→16:57)
[2020-07-02] MEDS: LORATADINE 10 MG TABLET PO (07:46)
[2020-07-02] MEDS: MAGNESIUM OXIDE 200 MG TABLET PO (07:46)
[2020-07-02] MEDS: OMEGA 3 POLYUNSAT FATTY ACIDS 1 GM CAP 2 GM PO ×2 (07:46→16:57)
[2020-07-02] MEDS: NIACIN SA 500 MG TABLET PO (07:46)
[2020-07-02] MEDS: INDAPAMIDE 2.5 MG TABLET PO (07:46)
[2020-07-02] MEDS: MONTELUKAST SODIUM 10 MG TABLET PO (07:47)
[2020-07-02] MEDS: CALCIUM CARBONATE (OSCAL) 250 MG TABLET PO (10:05)
--- NOTE | 2020-07-02 10:14 | PM.IMPN ---
Progress Note: A&P Assessment and Plan (1) Sepsis: Qualifiers: Sepsis type: sepsis due to unspecified organism Sepsis acute organ dysfunction status: without acute organ dysfunction Qualified Code(s): A41.9 - Sepsis, unspecified organism Code(s): A41.9 - Sepsis, unspecified organism Status: Acute Assessment and Plan: Met SIRS criteria with leukocytosis, fever, tachycardia, and tachypnea on arrival, lactic acid WNL; Right lower leg cellulitis as suspected source. Patient has been on Ancef and Vanc since 06/30. BCx NGTD x 2 after 3 days; wound culture pending; wound gram stain shows few WBCs and no organisms seen. Leukocytosis appears improved/resolved Continue treatment of cellulitis of right leg as detailed below Monitor VS, leukocytosis (2) Cellulitis of leg, right: Code(s): L03.115 - Cellulitis of right lower limb Status: Acute Assessment and Plan: Cellulitis of right lower leg. She has been on Ancef and Vanc since 06/30. Appears to be overall improving, although wound itself appears more purulent/wet compared to yesterday. Underlying abscess seems less likely but will obtain imaging to reevaluate. Leukocytosis improved overnight. No fevers since early 06/30. Will obtain US of right le to assess for underlying abscess Will consult anchor tack puller for further input and to advise if patient needs bedside debridement Pending above evaluations, considering General Surgery consultation Continue IV vanc and ancef for now; likely discharge on PO doxy and Keflex when ready for discharge to complete abx course Monitor keep leg elevated (3) Hypokalemia: Code(s): E87.6 - Hypokalemia Status: Acute Assessment and Plan: K+ 3.5 today; replaced this morning. Likely from poor PO intake Monitor daily Replace as needed. (4) Pre-diabetes: Code(s): R73.03 - Prediabetes Status: Chronic Assessment and Plan: A1c 5.8 on 02/2020. Serum BGL 93 this morning. She is not on diabetic medications. Will continue to monitor (5) Asthma: Code(s): J45.909 - Unspecified asthma, uncomplicated Status: Chronic Assessment and Plan: No acute issues Continue home medications Monitor (6) Microscopic hematuria: Code(s): R31.29 - Other microscopic hematuria Status: Acute Assessment and Plan: No symptoms. UA otherwise not indicative to UTI. F/u with PCP as outpatient Consider Urology referral as outpatient Subjective Date/time seen: 07/02/20 10:14 Interval history: Patient is a 59 yo F with history of hyperlipidemia, asthma and prediabetes who is seen in follow up for treatment of right lower leg cellulitis. Patient states she overall feels somewhat better today, although now is concerned that the redness/swelling is moving distally towards her ankle. When examining it with her, the new area of concern appeared similar color/warmth to noninfected areas, or maybe slightly more red. She disagrees with this assessment. She has full sensation in right lower leg/foot and is able to dorsiflex right foot, but with some pain. She has no other complaints at this time. Denies subjective f/c/s, cp/palpitations, sob/cough, n/v/d/c, abd pain, changes in BMs, dysuria, gross hematuria, cloudy urine, calf pain/swelling. Review of Systems Review of Systems: All systems reviewed & are unremarkable except as noted in HPI and below Exam Narrative: Exam Narrative: General: Patient sitting upright in bed in no acute distress. HEENT: Normocephalic, EOMI, oral mucosa moist. Cardiovascular: Rate and rhythm are regular. No notable murmur, rub, or gallop. Respiratory
[2020-07-02 14:00] VITALS: BP 102/59; PULSE 80; RESP 18; TEMP 36.7; O2SAT 98
[2020-07-02 16:48] LABS: Vancomycin Trough < 5.0 ug/mL (10.0-20.0)
[2020-07-02] MEDS: SILVERGEL (ELTA) 45 ML 1 APPLIC TOPICAL (17:40)
[2020-07-02] MEDS: PRAVASTATIN SODIUM 20 MG TABLET 80 MG PO (21:00)
[2020-07-02] MEDS: ZOLPIDEM TARTRATE (*CRX) 5 MG TABLET 10 MG PO (21:01)
[2020-07-02 22:00] VITALS: BP 128/82; PULSE 84; RESP 16; TEMP 36.9; O2SAT 98
[2020-07-03 05:21] VITALS: BP 101/56; PULSE 67; RESP 18; TEMP 37.1; O2SAT 98
[2020-07-03 05:59] LABS: Basophils Absolute Auto 0.1 K/mm3 (0.0-0.1); Basophils Percent Auto 0.7 % (0.2-1.2); Eosinophils Absolute Auto 0.2 K/mm3 (0-0.3); Eosinophils Percent Auto 2.9 % (0-4.4); Hematocrit 37.4 % (37.0-47.0); Hemoglobin 12.4 g/dL (12.0-15.0); Immature Granulocyte Absolute 0.03 K/mm3 (0.00-0.031); Immature Granulocyte Percent A 0.4 % (0-0.5); Lymphocytes Absolute Auto 2.23 K/mm3 (0.9-3.2); Lymphocytes Percent Auto 31.8 % (18.3-44.2); Mean Corpuscular HGB Conc 33.2 g/dl (32-36); Mean Corpuscular Hemoglobin 30.1 pg (26-34); Mean Corpuscular Volume 90.8 fl (80-100); Mean Platelet Volume 10.3 fl (7.4-10.4); Monocytes Absolute Auto 0.7 K/mm3 (0.1-0.6); Neutrophils Absolute Auto 3.8 K/mm3 (1.3-6.7); Neutrophils Percent Auto 54.2 % (45.5-73.1); Platelet Count Result 278 k/mm3 (150-375); Red Blood Count 4.12 M/mm3 (4.2-5.4); Red Cell Distribution Width 13.7 % (11.5-14.5)
[2020-07-03 06:09] LABS: Anion Gap 6 mmol/L (8-16); Blood Urea Nitrogen 16 mg/dL (7-17); Calcium 8.9 mg/dL (8.4-10.2); Carbon Dioxide 29 mmol/L (22-30); Chloride 104 mmol/L (98-107); Estimated CRCL calculation 68 ml/min; Estimated Glomerular Filt Rate > 60; Glucose 120 mg/dL (65-105); Magnesium 1.5 mg/dL (1.6-2.3); Potassium 3.2 mmol/L (3.4-5.0); Sodium 139 mmol/L (137-145)
[2020-07-03 06:19] LABS: CRP 13.3 mg/dL (<1.0)
[2020-07-03] MEDS: ACETAMINOPHEN 325 MG TABLET 650 MG PO (08:11)
[2020-07-03] MEDS: MAGNESIUM OXIDE 200 MG TABLET PO (08:12)
[2020-07-03] MEDS: FAMOTIDINE 20 MG TABLET 40 MG PO ×2 (08:12→17:09)
[2020-07-03] MEDS: POTASSIUM CHLORIDE 20 MEQ TABLET 40 MEQ PO (08:12)
[2020-07-03] MEDS: OMEGA 3 POLYUNSAT FATTY ACIDS 1 GM CAP 2 GM PO ×2 (08:12→17:09)
[2020-07-03] MEDS: LORATADINE 10 MG TABLET PO (08:13)
[2020-07-03] MEDS: CALCIUM CARBONATE (OSCAL) 500 MG TABLET 1000 MG PO (08:13)
[2020-07-03] MEDS: MONTELUKAST SODIUM 10 MG TABLET PO (08:13)
[2020-07-03] MEDS: FLUTICASONE PROPIONATE 0.05% NA SPR 16 GM BTL (*BKC) 2 SPRAY NASAL (08:13)
[2020-07-03] MEDS: INDAPAMIDE 2.5 MG TABLET PO (08:13)
[2020-07-03] MEDS: ENOXAPARIN 40 MG/0.4 ML SYRINGE SUB-Q (08:14)
[2020-07-03] MEDS: NIACIN SA 500 MG TABLET PO (08:14)
[2020-07-03] MEDS: CALCIUM CARBONATE (OSCAL) 250 MG TABLET PO (08:14)
[2020-07-03] MEDS: SILVERGEL (ELTA) 45 ML 1 APPLIC TOPICAL (08:15)
[2020-07-03] MEDS: MAGNESIUM SULF 1 GM/D5W 100 ML 1 GM/100 ML BAG IVPB (09:17)
[2020-07-03] MEDS: DICLOFENAC SOD 75 MG TABLET.EC PO ×2 (09:17→17:09)
--- NOTE | 2020-07-03 12:21 | PM.IMPN ---
Progress Note: A&P Assessment and Plan (1) Sepsis: Qualifiers: Sepsis type: sepsis due to unspecified organism Sepsis acute organ dysfunction status: without acute organ dysfunction Qualified Code(s): A41.9 - Sepsis, unspecified organism Code(s): A41.9 - Sepsis, unspecified organism Status: Acute Assessment and Plan: Met SIRS criteria with leukocytosis, fever, tachycardia, and tachypnea on arrival, lactic acid WNL; Right lower leg cellulitis as suspected source. Patient has been on Ancef and Vanc since 06/30 with good response to the cellulitis. BCx NGTD x 2 after 3 days; wound culture isolated group a strep; wound gram stain shows few WBCs and no organisms seen. Leukocytosis appears improved/resolved Continue treatment of cellulitis of right leg as detailed below Monitor VS, leukocytosis (2) Cellulitis of leg, right: Code(s): L03.115 - Cellulitis of right lower limb Status: Acute Assessment and Plan: Cellulitis of right lower leg. She has been on Ancef and Vanc since 06/30. Appears to be overall improving, including wound. acid polymerization operator evaluated wound and rec silver gel. Soft tissue US of are shows no evidence of fluid collection. Leukocytosis resolved. No fevers since early 06/30. Continue local wound care with silver gel daily Switch to PO doxycycline BID tonight. D/c IV vanc and ancef; see below Monitor keep leg elevated Likely discharge tomorrow if improved rash; see below (3) Generalized rash: Code(s): R21 - Rash and other nonspecific skin eruption Status: Acute Assessment and Plan: New macular erythematous rash overlying b/l LE, UE and chest. Does not have pruritus or pain to rash. No history of topical allergies. [place] this may be allergy to possibly Ancef. Denies difficulty swallowing/breathing. Will d/c vanc and ancef will do benadryl 50 mg PO once and Prednisone 40 mg PO once Monitor rash overnight (4) Hypokalemia: Code(s): E87.6 - Hypokalemia Status: Acute Assessment and Plan: K+ 3.2 today; replaced this morning. Likely from poor PO intake Monitor daily Replace as needed. (5) Pre-diabetes: Code(s): R73.03 - Prediabetes Status: Chronic Assessment and Plan: A1c 5.8 on 02/2020. Serum BGL 120this morning. She is not on diabetic medications. Will continue to monitor (6) Asthma: Code(s): J45.909 - Unspecified asthma, uncomplicated Status: Chronic Assessment and Plan: No acute issues Continue home medications Monitor (7) Microscopic hematuria: Code(s): R31.29 - Other microscopic hematuria Status: Acute Assessment and Plan: No symptoms. UA otherwise not indicative to UTI. F/u with PCP as outpatient Consider Urology referral as outpatient Subjective Date/time seen: 07/03/20 12:21 Interval history: Patient is a 59 yo F with history of hyperlipidemia, asthma and prediabetes who is seen in follow up for treatment of right lower leg cellulitis. Patient states she overall feels better again today. Thinks her swelling, redness, and warmth in right lower leg has improved overnight. Thinks the wound is about the same. She now has noticed a generalized rash on her extremities and chest; they are not painful/itchy and she denies difficulty breathing/swallowing or any swelling in mouth/throat. She has no other complaints at this time. Denies subjective f/c/s, cp/palpitations, sob/cough, n/v/d/c, abd pain, changes in BMs, dysuria, gross hematuria, cloudy urine, calf pain/swelling. Review of Systems Review of Systems: All systems reviewed & are unrem
[2020-07-03] MEDS: diphenhydrAMINE HCl CAP 25 MG CAPSULE 50 MG PO (13:15)
[2020-07-03] MEDS: predniSONE 20 MG TABLET 40 MG PO (13:15)
[2020-07-03 14:00] VITALS: BP 108/66; PULSE 84; RESP 20; TEMP 36.4; O2SAT 96
[2020-07-03] MEDS: DOXYCYCLINE HYCLATE 100 MG TABLET PO (17:09)
[2020-07-03 20:00] VITALS: PULSE 84; RESP 20; O2SAT 96
[2020-07-03] MEDS: PRAVASTATIN SODIUM 20 MG TABLET 80 MG PO (20:37)
[2020-07-03] MEDS: ZOLPIDEM TARTRATE (*CRX) 5 MG TABLET 10 MG PO (20:38)
[2020-07-03 22:00] VITALS: BP 141/79; PULSE 90; RESP 20; TEMP 36.2; O2SAT 98
[2020-07-04 06:00] VITALS: BP 107/54; PULSE 80; RESP 20; TEMP 36.3; O2SAT 97
[2020-07-04 06:26] LABS: Hematocrit 39.1 % (37.0-47.0); Hemoglobin 12.9 g/dL (12.0-15.0); Mean Corpuscular Hemoglobin 29.8 pg (26-34); Mean Corpuscular Volume 90.3 fl (80-100); Mean Platelet Volume 10.2 fl (7.4-10.4); Platelet Count Result 308 k/mm3 (150-375); Red Blood Count 4.33 M/mm3 (4.2-5.4); Red Cell Distribution Width 13.5 % (11.5-14.5); White Blood Count 10.1 K/mm3 (4.5-10.0)
[2020-07-04 06:40] LABS: Anion Gap 8 mmol/L (8-16); Blood Urea Nitrogen 20 mg/dL (7-17); CRP 6.1 mg/dL (<1.0); Calcium 9.2 mg/dL (8.4-10.2); Carbon Dioxide 29 mmol/L (22-30); Chloride 103 mmol/L (98-107); Estimated CRCL calculation 61 ml/min; Estimated Glomerular Filt Rate > 60; Glucose 117 mg/dL (65-105); Magnesium 1.7 mg/dL (1.6-2.3); Sodium 140 mmol/L (137-145)
[2020-07-04 06:51] LABS: Potassium 3.9 mmol/L (3.4-5.0)
[2020-07-04] MEDS: SILVERGEL (ELTA) 45 ML 1 APPLIC TOPICAL (07:33)
[2020-07-04] MEDS: OMEGA 3 POLYUNSAT FATTY ACIDS 1 GM CAP 2 GM PO (08:03)
[2020-07-04] MEDS: CALCIUM CARBONATE (OSCAL) 500 MG TABLET 1000 MG PO (08:03)
[2020-07-04] MEDS: FAMOTIDINE 20 MG TABLET 40 MG PO (08:03)
[2020-07-04] MEDS: CALCIUM CARBONATE (OSCAL) 250 MG TABLET PO (08:03)
[2020-07-04] MEDS: NIACIN SA 500 MG TABLET PO (08:03)
[2020-07-04] MEDS: INDAPAMIDE 2.5 MG TABLET PO (08:03)
[2020-07-04] MEDS: MONTELUKAST SODIUM 10 MG TABLET PO (08:03)
[2020-07-04] MEDS: MAGNESIUM OXIDE 200 MG TABLET PO (08:03)
[2020-07-04] MEDS: DICLOFENAC SOD 75 MG TABLET.EC PO (08:03)
[2020-07-04] MEDS: DOXYCYCLINE HYCLATE 100 MG TABLET PO (08:03)
[2020-07-04] MEDS: FLUTICASONE PROPIONATE 0.05% NA SPR 16 GM BTL (*BKC) 2 SPRAY NASAL (08:04)
[2020-07-04] MEDS: ENOXAPARIN 40 MG/0.4 ML SYRINGE SUB-Q (08:04)
[2020-07-04] MEDS: LORATADINE 10 MG TABLET PO (08:12)
--- NOTE | 2020-07-04 09:32 | PM.DS ---
DS: Admitting Diagnosis Admitting Diagnosis Admitting Diagnosis: Right leg cellulitis/wound, sepsis DS: Discharge Diagnosis Discharge Diagnosis (1) Sepsis: Qualifiers: Sepsis acute organ dysfunction status: without acute organ dysfunction Sepsis type: sepsis due to unspecified organism Qualified Code(s): A41.9 - Sepsis, unspecified organism Code(s): A41.9 - Sepsis, unspecified organism Status: Acute Assessment and Plan: Met SIRS criteria with leukocytosis, fever, tachycardia, and tachypnea on arrival, lactic acid WNL; Right lower leg cellulitis as suspected source. Patient has been on Ancef and Vanc since 06/30-07/03 with good response to the cellulitis; switched to PO doxy on 07/03. BCx NGTD x 2 after 5 days; wound culture isolated group a strep; wound gram stain shows few WBCs and no organisms seen. Leukocytosis appears improved, mildly elevated today likely from steroids yesterday Continue treatment of cellulitis of right leg as detailed below Monitor VS, leukocytosis (2) Cellulitis of leg, right: Code(s): L03.115 - Cellulitis of right lower limb Status: Acute Assessment and Plan: Cellulitis of right lower leg. She had been on Ancef and Vanc 06/30-07/03; switched to doxycycline on 07/03 due to apparent rash likely from vanc or ancef. Appears to be overall improving, including wound. wardrobe specialty worker evaluated wound and rec silver gel daily. Soft tissue US of area shows no evidence of fluid collection. Leukocytosis improved. No fevers since early 06/30. Continue local wound care with silver gel daily Continue Doxy at discharge F/u with PCP for recommendations on duration of antibiotics keep leg elevated (3) Generalized rash: Code(s): R21 - Rash and other nonspecific skin eruption Status: Acute Assessment and Plan: Macular erythematous rash overlying b/l LE, UE and chest found on 07/03. No pruritus or pain to rash. No history of topical allergies. [place] this may be allergy to possibly vanc or Ancef; these have been added to drug allergy list. Denies difficulty swallowing/breathing. Rash has resolved since yesterday after benadyrl 50 mg PO once and prednisone 40 mg PO once f/u with PCP (4) Hypokalemia: Code(s): E87.6 - Hypokalemia Status: Acute Assessment and Plan: K+ 3.9 today (5) Pre-diabetes: Code(s): R73.03 - Prediabetes Status: Chronic Assessment and Plan: A1c 5.8 on 02/2020. Serum BGL 117 this morning. She is not on diabetic medications; diet controlled Follow up with PCP (6) Asthma: Code(s): J45.909 - Unspecified asthma, uncomplicated Status: Chronic Assessment and Plan: No acute issues Continue home medications (7) Microscopic hematuria: Code(s): R31.29 - Other microscopic hematuria Status: Acute Assessment and Plan: No symptoms. UA otherwise not indicative to UTI. F/u with PCP as outpatient Consider Urology referral as outpatient DS: Summary Hospital Course Reason for hospitalization: Right lower leg wound with associated cellulitis, sepsis Hospital Course: Date of arrival: 06/29/20 Date of discharge: 07/04/20 Patient is a 59 year old female with a past medical history of hyperlipidemia, asthma and prediabetes who presented to the ER on 06/29 with right lower leg infection after being sent under direction of her PCP. Patient suffered an injury to the right lower leg the week prior and the day of arrival noticed acute development of associated cellulitis to the injured extremity. She had taken one dose of doxycycline prescribed by her PCP prior to arrival to the
[2020-07-04 09:51] VITALS: BP 122/77; PULSE 83; RESP 16; TEMP 35.7; O2SAT 96
--- NOTE | 2020-07-04 15:14 | PC.NURSE ---
On 07/04/20, the student, [ Gregorio Trejo], provided care and completed [facility] documentation on this patient. I have reviewed the student's documentation and agree with the findings.
== END 2020-07-04 12:00 | disposition home or self-care (01) | DRG 872 ==
LOC: ANHED 22:39 → ANH2MED 22:51
PROVIDERS: Physician Assistant; Admitting Provider Internal Medicine; Emergency Provider Emergency Medicine; PCP Internal Medicine; Visit Provider Internal Medicine
DX: A41.9 Sepsis, unspecified organism (principal); L03.115 Cellulitis of right lower limb; E87.6 Hypokalemia; R73.03 Prediabetes; J45.909 Unspecified asthma, uncomplicated; R31.29 Other microscopic hematuria; L27.0 Generalized skin eruption due to drugs and medicaments taken internally; T36.8X5A Adverse effect of other systemic antibiotics, initial encounter; T36.1X5A Adverse effect of cephalosporins and other beta-lactam antibiotics, initial encounter; M15.9 Polyosteoarthritis, unspecified; E78.5 Hyperlipidemia, unspecified; M70.61 Trochanteric bursitis, right hip; K21.9 Gastro-esophageal reflux disease without esophagitis; R91.1 Solitary pulmonary nodule; Z85.828 Personal history of other malignant neoplasm of skin; Z90.710 Acquired absence of both cervix and uterus; Z98.1 Arthrodesis status; Z87.891 Personal history of nicotine dependence
CPT/HCPCS: 36415; 71045; 76882; 80048; 80053; 80202; 81001; 83605; 83735; 85025; 85027; 85610; 85730; 86140; 87040; 87070; 87147; 87186; 87205; 93005; 96361; 96365; 96366; 96367; 96372; 96375; 99285; A9270; G0378; J0690; J1650; J1741; J3370; J3475; J3480; J7030; J7512

== ENCOUNTER 2020-07-18 15:20 | Outpatient (CLI) | payer MEDICARE, OTHER, SELFPAY ==
--- NOTE | ~2020-07-18 | CT_ITS ---
EXAMINATION: CT abdomen pelvis wo con DATE: 07/18/2020 15:35 INDICATION: Microscopic hematuria TECHNIQUE: Computed tomography (CT) of the abdomen and pelvis was performed without intravenous contr ast. Automated exposure control and iterative reconstruction technique were employed. Exam dose: 478 .87 mGy-cm total exam DLP. COMPARISON: 01/17/[address] abdomen pelvis FINDINGS: The lung bases are clear of consolidation. Normal heart size. No pericardial or pleural eff usion. Small sliding hiatal hernia. The liver, gallbladder, bile ducts, spleen, pancreas, pancreatic duct, and adrenal glands and kidneys are unremarkable on this limited noncontrast examination. No bile duct or pancreatic duct dilatation . No urinary tract calculus or hydroureteronephrosis. The urinary bladder is unremarkable. Status post hysterectomy. There is calcification of the abdominal aorta and calcifications at the origins of both renal arterie s. No abdominal aortic aneurysm. No intraperitoneal or retroperitoneal or pelvic mass lesion or adeno fletcher or ascites. Diverticulosis of the sigmoid colon; no CT evidence of diverticulitis. No bowel obstruction, bowel wa ll thickening, pneumatosis or intraperitoneal free air. No evidence of appendicitis. No suspicious osteolytic or osteoblastic lesions are noted. Transitional L5 lumbosacral vertebra with bilateral sacralization and pseudoarthrosis.. Degenerative change at the apophyseal joints, with associated grade 1 anterolisthesis at L4-5. Severe degenerative disc disease at L1-2. IMPRESSION: No cause for microhematuria is identified on this limited noncontrast examination Diverticulosis of the sigmoid colon Small sliding hiatal hernia Reviewed, dictated and finalized at [facility] Reviewed, dictated and finalized at [facility] IMPRESSION: No cause for microhematuria is identified on this limited noncontr ast examination Diverticulosis of the sigmoid colon Small sliding hiatal hernia
== END 2020-07-18 15:21 | disposition home or self-care (01) ==
LOC: ANHIMG 15:23
PROVIDERS: PCP Internal Medicine; Visit Provider Internal Medicine
DX: R31.29 Other microscopic hematuria (principal); K57.30 Diverticulosis of large intestine without perforation or abscess without bleeding; K44.9 Diaphragmatic hernia without obstruction or gangrene
CPT/HCPCS: 74176

== ENCOUNTER 2020-08-04 08:32 | Outpatient (CLI) | payer MEDICARE, OTHER, SELFPAY ==
[2020-08-04 08:48] LABS: Basophils Absolute Auto 0.1 K/mm3 (0.0-0.1); Basophils Percent Auto 0.7 % (0.2-1.2); Eosinophils Absolute Auto 0.3 K/mm3 (0-0.3); Eosinophils Percent Auto 3.4 % (0-4.4); Hemoglobin 13.1 g/dL (12.0-15.0); Immature Granulocyte Absolute 0.04 K/mm3 (0.00-0.031); Immature Granulocyte Percent A 0.5 % (0-0.5); Lymphocytes Percent Auto 38.5 % (18.3-44.2); Mean Corpuscular HGB Conc 32.8 g/dl (32-36); Mean Corpuscular Hemoglobin 29.8 pg (26-34); Mean Corpuscular Volume 90.9 fl (80-100); Mean Platelet Volume 9.9 fl (7.4-10.4); Monocytes Absolute Auto 0.6 K/mm3 (0.1-0.6); Monocytes Percent Auto 7.2 % (2.6-8.5); Neutrophils Absolute Auto 4.4 K/mm3 (1.3-6.7); Neutrophils Percent Auto 49.7 % (45.5-73.1); Platelet Count Result 266 k/mm3 (150-375); Red Cell Distribution Width 14.2 % (11.5-14.5); White Blood Count 8.8 K/mm3 (4.5-10.0)
[2020-08-04 08:54] LABS: Add Urine Microscopic? YES; Appearance Urine Cloudy (Clear); Bacteria Urine Trace /hpf; Bilirubin Urine Negative (Negative); Blood Urine Negative (Negative); Color Urine Yellow (Yellow); Glucose Urine UA Negative (Negative); Ketones Urine Negative (Negative); Leukocyte Esterase Ur 3+ LEU/UL (NEGATIVE); Mucus Urine Rare /lpf; Nitrate Urine Negative (Negative); Protein Urine 1+ mg/dL (Negative); RBC Urine 21-50 /hpf (0-2); Squamous Epithelial Cell Urine Many /hpf (Few); Urobilinogen Urine Negative mg/dL (<2.0); WBC Urine 21-30 /hpf (0-3)
[2020-08-04 09:03] LABS: Alanine Aminotransferase 19 U/L (4-35); Albumin Level 3.9 g/dL (3.5-5.1); Alkaline Phosphatase 57 U/L (38-126); Anion Gap 3 mmol/L (8-16); Aspartate Amino Transferase 25 U/L (14-36); Bilirubin,Total 0.3 mg/dL (0.2-1.3); Blood Urea Nitrogen 25 mg/dL (7-17); Calcium 8.4 mg/dL (8.4-10.2); Carbon Dioxide 33 mmol/L (22-30); Chloride 102 mmol/L (98-107); Cholesterol 141 mg/dL (0-200); Estimated Glomerular Filt Rate > 60; Glucose 100 mg/dL (65-105); HDL Direct 54 mg/dL; Potassium 3.7 mmol/L (3.4-5.0); Sodium 138 mmol/L (137-145); Triglycerides 77 mg/dL (<150)
[2020-08-04 09:14] LABS: LDL Cholesterol Direct 67 mg/dL
[2020-08-04 13:13] LABS: Hemoglobin A1C 5.8 % (<5.7)
[2020-08-06 13:49] LABS: Homocysteine 9.2 umol/L (<10.4)
[2020-08-06 23:21] LABS: Vitamin D 1,25 (OH)2 Total 26 pg/mL (18-72); Vitamin D2 1,25 (OH)2 <8 pg/mL; Vitamin D3 1,25 (OH)2 26 pg/mL
== END 2020-08-04 08:33 | disposition home or self-care (01) ==
PROVIDERS: PCP Internal Medicine; Visit Provider Internal Medicine
DX: E55.9 Vitamin D deficiency, unspecified (principal); R79.89 Other specified abnormal findings of blood chemistry; Z51.81 Encounter for therapeutic drug level monitoring; R73.03 Prediabetes; E78.2 Mixed hyperlipidemia; R82.81 Pyuria
CPT/HCPCS: 36415; 80053; 80061; 81001; 82652; 83036; 83090; 85025; 87086; 87088

== ENCOUNTER 2020-08-05 09:45 | Outpatient (RCR) | payer MEDICARE, OTHER, SELFPAY ==
[2020-08-05 10:00] VITALS: BMI 27.0
== END 2020-10-21 14:10 | disposition home or self-care (01) ==
LOC: ANHWOC 09:45
PROVIDERS: PCP Internal Medicine; Visit Provider Internal Medicine
DX: L03.115 Cellulitis of right lower limb (principal); T14.8XXD Other injury of unspecified body region, subsequent encounter
CPT/HCPCS: 99212; G0463

== ENCOUNTER 2020-12-15 08:31 | Outpatient (CLI) | payer MEDICARE, OTHER, SELFPAY ==
[2020-12-15 09:42] LABS: Anion Gap 7 mmol/L (8-16); Blood Urea Nitrogen 14 mg/dL (7-17); Calcium 9.1 mg/dL (8.4-10.2); Carbon Dioxide 24 mmol/L (22-30); Chloride 106 mmol/L (98-107); Cholesterol 154 mg/dL (0-200); Estimated Glomerular Filt Rate > 60; Glucose 96 mg/dL (65-110); HDL Direct 58 mg/dL; Potassium 4.3 mmol/L (3.4-5.0); Sodium 137 mmol/L (137-145); Triglycerides 129 mg/dL (<150)
[2020-12-15 09:53] LABS: LDL Cholesterol Direct 76 mg/dL
[2020-12-15 11:40] LABS: Hemoglobin A1C 6.1 % (<5.7)
== END 2020-12-15 08:32 | disposition home or self-care (01) ==
PROVIDERS: PCP Internal Medicine; Visit Provider Internal Medicine
DX: E78.2 Mixed hyperlipidemia (principal); R73.03 Prediabetes; Z79.899 Other long term (current) drug therapy
CPT/HCPCS: 36415; 80048; 80061; 83036

== ENCOUNTER → 2021-01-10 01:19 | Outpatient (CLI) | payer MEDICARE, OTHER, SELFPAY ==
[2021-01-11 02:40] LABS: SARS-CoV-2 RNA PCR Negative
== END ==
PROVIDERS: PCP Internal Medicine; Visit Provider Internal Medicine
DX: Z20.822 Contact with and (suspected) exposure to COVID-19 (principal)
CPT/HCPCS: 87426; C9803; U0003; U0005

== ENCOUNTER 2021-02-16 10:01 | Emergency (ER) | payer MEDICARE, OTHER, SELFPAY ==
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
[2021-02-16 10:12] VITALS: BP 109/71; PULSE 84; RESP 18; TEMP 36.8; O2SAT 98
== END 2021-02-16 11:10 | disposition home or self-care (01) ==
PROVIDERS: Emergency Provider Nurse Practitioner; PCP Internal Medicine
DX: S61.012A Laceration without foreign body of left thumb without damage to nail, initial encounter (principal); E78.5 Hyperlipidemia, unspecified; Z87.891 Personal history of nicotine dependence; W45.8XXA Other foreign body or object entering through skin, initial encounter
CPT/HCPCS: 12001; 99213; G0463

== ENCOUNTER 2021-04-28 10:50 | Outpatient (CLI) | payer MEDICARE, OTHER, SELFPAY ==
--- NOTE | ~2021-04-28 | CT_ITS ---
EXAMINATION: CT lung screening EXAM DATE: 04/28/2021 11:23 INDICATION: Z87.891 - Personal history of nicotine dependence. TECHNIQUE: Spiral low dose CT of the chest without contrast. Axial, coronal and sagittal images were reviewed. The dose-length product (DLP) for this examination was 81.25 mGy-cm. The exposure was ta ilored according to patient size (auto mA exposure control), and iterative reconstruction (ASIR) was used as additional dose reduction technique. Comparison is made to prior examination from 04/04/2020. FINDINGS: The lungs are clear. Small amount of right basilar endobronchial debris without discrete focal nodule. There is moderate emphysema. Biapical opacities, appearance consistent with scarring, unchanged There is no mediastinal, hilar or axillary lymphadenopathy. There are no pleural or sherrill cardial effusions. There is no pneumothorax. Heart normal in size. There is mild coronary arter ial calcification, arterial sclerosis. There is small sliding gastroesophageal hiatal hernia. Upper abdomen is unremarkable. There is thoracic spondylosis without osteoblastic or osteolytic lesions i dentified. IMPRESSION: Lung-RADS category 2, benign appearance or behavior (<1% chance of malignancy); recommend continued LDCT screening in 1 year. > Reviewed, dictated and finalized at location A. ENGINEER
== END 2021-04-28 10:51 | disposition home or self-care (01) ==
LOC: ANHIMG 10:51
PROVIDERS: PCP Internal Medicine; Visit Provider Internal Medicine
DX: Z12.2 Encounter for screening for malignant neoplasm of respiratory organs (principal); Z87.891 Personal history of nicotine dependence
CPT/HCPCS: 71271

== ENCOUNTER 2021-05-26 08:19 | Outpatient (CLI) | payer MEDICARE, SELFPAY ==
[2021-05-26 09:31] LABS: Add Urine Microscopic? YES; Appearance Urine Cloudy (Clear); Bacteria Urine Trace /hpf; Bilirubin Urine Negative (Negative); Blood Urine Negative (Negative); Color Urine Yellow (Yellow); Glucose Urine UA Negative (Negative); Ketones Urine Negative (Negative); Leukocyte Esterase Ur Negative LEU/UL (NEGATIVE); Mucus Urine Rare /lpf; Nitrate Urine Negative (Negative); Protein Urine Negative (Negative); RBC Urine 0-2 /hpf (0-2); Specific Grav Ur 1.021 (1.001-1.035); Squamous Epithelial Cell Urine Many /hpf (Few); Urobilinogen Urine Negative mg/dL (<2.0); WBC Urine 0-3 /hpf (0-3)
[2021-05-26 10:13] LABS: Alanine Aminotransferase 28 U/L (4-35); Albumin Level 4.3 g/dL (3.5-5.1); Alkaline Phosphatase 66 U/L (38-126); Anion Gap 9 mmol/L (8-16); Aspartate Amino Transferase 33 U/L (14-36); Bilirubin,Total 0.4 mg/dL (0.2-1.3); Blood Urea Nitrogen 27 mg/dL (7-17); Calcium 9.1 mg/dL (8.4-10.2); Carbon Dioxide 27 mmol/L (22-30); Chloride 102 mmol/L (98-107); Cholesterol 140 mg/dL (0-200); Estimated Glomerular Filt Rate 50; Glucose 99 mg/dL (65-110); HDL Direct 50 mg/dL; Potassium 4.2 mmol/L (3.4-5.0); Sodium 138 mmol/L (137-145); Triglycerides 117 mg/dL (<150)
[2021-05-26 10:24] LABS: Free T4 Free Thyroxine 1.16 ng/mL (0.78-2.19)
[2021-05-26 10:35] LABS: LDL Cholesterol Direct 75 mg/dL
[2021-05-26 10:37] LABS: Hemoglobin A1C 6.3 % (<5.7)
[2021-05-26 11:22] LABS: Folic Acid > 20.0 ng/mL (2.76->20)
== END 2021-05-26 08:20 | disposition home or self-care (01) ==
PROVIDERS: PCP Internal Medicine; Visit Provider Internal Medicine
DX: R73.03 Prediabetes (principal); E78.5 Hyperlipidemia, unspecified; Z51.81 Encounter for therapeutic drug level monitoring; Z79.899 Other long term (current) drug therapy; R79.89 Other specified abnormal findings of blood chemistry; E78.2 Mixed hyperlipidemia; E55.9 Vitamin D deficiency, unspecified
CPT/HCPCS: 36415; 80053; 80061; 81001; 82607; 82746; 83036; 84439; 84443

== ENCOUNTER 2021-06-08 10:50 | Outpatient (CLI) | payer MEDICARE, SELFPAY ==
[2021-06-08 11:07] LABS: Basophils Absolute Auto 0.1 K/mm3 (0.0-0.1); Basophils Percent Auto 0.9 % (0.2-1.2); Eosinophils Absolute Auto 0.2 K/mm3 (0-0.3); Eosinophils Percent Auto 1.7 % (0-4.4); Hematocrit 44.9 % (37.0-47.0); Hemoglobin 14.8 g/dL (12.0-15.0); Immature Granulocyte Absolute 0.04 K/mm3 (0.00-0.031); Immature Granulocyte Percent A 0.4 % (0-0.5); Lymphocytes Absolute Auto 3.16 K/mm3 (0.9-3.2); Mean Corpuscular Hemoglobin 29.7 pg (26-34); Mean Platelet Volume 10.4 fl (7.4-10.4); Monocytes Absolute Auto 0.9 K/mm3 (0.1-0.6); Monocytes Percent Auto 8.2 % (2.6-8.5); Neutrophils Absolute Auto 6.2 K/mm3 (1.3-6.7); Neutrophils Percent Auto 58.8 % (45.5-73.1); Platelet Count Result 373 k/mm3 (150-375); Red Blood Count 4.99 M/mm3 (4.2-5.4); Red Cell Distribution Width 14.7 % (11.5-14.5); White Blood Count 10.6 K/mm3 (4.5-10.0)
== END 2021-06-08 10:51 | disposition home or self-care (01) ==
PROVIDERS: PCP Internal Medicine; Visit Provider Internal Medicine
DX: R00.0 Tachycardia, unspecified (principal)
CPT/HCPCS: 36415; 83735; 85025; 85380

== ENCOUNTER 2021-06-08 13:01 | Outpatient (CLI) | payer MEDICARE, SELFPAY ==
--- NOTE | ~2021-06-08 | CT_ITS ---
EXAMINATION: CTA chest PE protocol DATE: 06/08/2021 13:46 INDICATION: Shortness of breath. Tachycardia. Recent surgery. Elevated d-dimer. TECHNIQUE: Computed tomography angiography (CTA) of the chest was performed with 100 mL Omnipaque-350 intravenous contrast timed to evaluate the pulmonary arteries. Coronal maximum intensity projection 3D-reconstructions were created by the technologist. Automated exposure control and iterative reconst ruction technique were employed. Exam dose: 309.03 mGy-cm total exam DLP. COMPARISON: 04/28/2021 CT lung screening FINDINGS: There is diagnostic contrast enhancement of the pulmonary arteries and no evidence of pulmo nary embolism. Normal heart size. No pericardial effusion. No thoracic aortic aneurysm or dissection. No hilar or me diastinal mass lesion or lymphadenopathy. No pleural effusion. Prominent emphysematous changes of the lungs. Bilateral apical scarring. No pulmonary consolidation. No pneumothorax. The adrenal glands are of normal morphology. Small sliding hiatal hernia. Status post lower anterior cervical spine surgical fusion. IMPRESSION: Emphysema No evidence of pulmonary embolism Reviewed, dictated and finalized at Location A. Reviewed, dictated and finalized at location A. RVISOR ASSEMBLY ROOM
== END 2021-06-08 13:02 | disposition home or self-care (01) ==
LOC: ANHIMG 13:02
PROVIDERS: PCP Internal Medicine; Visit Provider Internal Medicine
DX: R00.0 Tachycardia, unspecified (principal); R06.02 Shortness of breath; R79.89 Other specified abnormal findings of blood chemistry; J43.9 Emphysema, unspecified
CPT/HCPCS: 36415; 71275; 83735; 85025; 85380; Q9967

== ENCOUNTER 2021-08-28 09:18 | Outpatient (CLI) | payer MEDICARE, SELFPAY ==
[2021-08-28 09:32] LABS: Basophils Absolute Auto 0.1 K/mm3 (0.0-0.1); Basophils Percent Auto 0.8 % (0.2-1.2); Eosinophils Absolute Auto 0.2 K/mm3 (0-0.3); Eosinophils Percent Auto 2.5 % (0-4.4); Hematocrit 40.8 % (37.0-47.0); Hemoglobin 13.1 g/dL (12.0-15.0); Immature Granulocyte Absolute 0.02 K/mm3 (0.00-0.031); Immature Granulocyte Percent A 0.3 % (0-0.5); Lymphocytes Absolute Auto 3.25 K/mm3 (0.9-3.2); Lymphocytes Percent Auto 41.2 % (18.3-44.2); Mean Corpuscular HGB Conc 32.1 g/dl (32-36); Mean Corpuscular Hemoglobin 29.8 pg (26-34); Mean Corpuscular Volume 92.9 fl (80-100); Mean Platelet Volume 10.2 fl (7.4-10.4); Monocytes Absolute Auto 0.7 K/mm3 (0.1-0.6); Monocytes Percent Auto 8.6 % (2.6-8.5); Neutrophils Absolute Auto 3.7 K/mm3 (1.3-6.7); Neutrophils Percent Auto 46.6 % (45.5-73.1); Platelet Count Result 330 k/mm3 (150-375); Red Blood Count 4.39 M/mm3 (4.2-5.4); Red Cell Distribution Width 15.3 % (11.5-14.5); White Blood Count 7.9 K/mm3 (4.5-10.0)
[2021-08-28 10:15] LABS: Vitamin D 25 Hydroxy 82.1 ng/mL
[2021-08-28 10:47] LABS: Anion Gap 7 mmol/L (8-16); Blood Urea Nitrogen 22 mg/dL (7-17); Calcium 8.9 mg/dL (8.4-10.2); Carbon Dioxide 25 mmol/L (22-30); Chloride 104 mmol/L (98-107); Cholesterol 155 mg/dL (0-200); Estimated Glomerular Filt Rate 50; Glucose 106 mg/dL (65-110); HDL Direct 47 mg/dL; Potassium 4.3 mmol/L (3.4-5.0); Sodium 136 mmol/L (137-145); Triglycerides 143 mg/dL (<150)
[2021-08-28 10:56] LABS: LDL Cholesterol Direct 70 mg/dL
== END 2021-08-28 09:19 | disposition home or self-care (01) ==
LOC: ANHLAB 09:21
PROVIDERS: PCP Internal Medicine; Visit Provider Internal Medicine
DX: E55.9 Vitamin D deficiency, unspecified (principal); Z51.81 Encounter for therapeutic drug level monitoring; Z79.899 Other long term (current) drug therapy; R73.03 Prediabetes; E78.2 Mixed hyperlipidemia
CPT/HCPCS: 36415; 80048; 80061; 82306; 85025

== ENCOUNTER 2021-09-03 11:22 | Outpatient (CLI) | payer MEDICARE, SELFPAY ==
[2021-09-03 12:16] LABS: Hemoglobin A1C 5.6 % (<5.7)
== END 2021-09-03 11:23 | disposition home or self-care (01) ==
PROVIDERS: PCP Internal Medicine; Visit Provider Internal Medicine
DX: R73.03 Prediabetes (principal); Z51.81 Encounter for therapeutic drug level monitoring; Z79.899 Other long term (current) drug therapy
CPT/HCPCS: 36415; 83036

== ENCOUNTER 2021-10-23 13:08 | Outpatient (CLI) | payer MEDICARE, SELFPAY ==
--- NOTE | ~2021-10-23 | XR_ITS ---
XR hip LT min 2V 10/23/2021 13:42 Indication: Left hip pain Procedure: 2 views left hip Comparison: 01/31/2012 Findings: No fracture, subluxation or dislocation. There is mild osteoarthritis of the left hip. Ther e is anatomic alignment. No significant soft tissue abnormality. No foreign body. Impression: 1: Mild osteoarthritis of the left hip. Reviewed, dictated and finalized at location A. Impression: 1: Mild osteoarthritis of the left hip.
--- NOTE | ~2021-10-23 | XR_ITS ---
EXAMINATION: XR lumbar spine 2-3V DATE: 10/23/2021 13:42 INDICATION: Left hip pain TECHNIQUE: Anteroposterior and lateral views of the lumbar spine, and cone-down lateral view of the l umbosacral junction were obtained. COMPARISON: 01/31/2012 FINDINGS: There are 6 mm of stable anterolisthesis of L4 on L5. Bone alignment is otherwise normal. T here is severe loss of intervertebral disc space height at L1-2 and moderate loss of intervertebral d isc space height at L5-S1. The vertebral body heights are maintained. There is no fracture. There is moderate facet osteoarthritis of the lower lumbar spine. IMPRESSION: 1. Interval worsening of now severe spondylosis at L1-2, otherwise moderate lumbar spondylosis. Reviewed, dictated and finalized at location F. IMPRESSION: 1. Interval worsening of now severe spondylosis at L1-2, otherwise moderate lum bar spondylosis.
== END 2021-10-23 13:09 | disposition home or self-care (01) ==
PROVIDERS: PCP Internal Medicine; Visit Provider Internal Medicine
DX: M54.50 Low back pain, unspecified (principal); M47.816 Spondylosis without myelopathy or radiculopathy, lumbar region; M16.12 Unilateral primary osteoarthritis, left hip
CPT/HCPCS: 72100; 73502

== ENCOUNTER 2022-01-11 09:16 | Outpatient (CLI) | payer MEDICARE, SELFPAY ==
[2022-01-11 11:46] LABS: Anion Gap 5 mmol/L (8-16); Blood Urea Nitrogen 24 mg/dL (7-17); Calcium 8.9 mg/dL (8.4-10.2); Carbon Dioxide 28 mmol/L (22-30); Chloride 103 mmol/L (98-107); Cholesterol 134 mg/dL (0-200); Estimated Glomerular Filt Rate 50; Glucose 91 mg/dL (65-110); HDL Direct 50 mg/dL; Potassium 4.1 mmol/L (3.4-5.0); Sodium 136 mmol/L (137-145); Triglycerides 135 mg/dL (<150)
[2022-01-11 11:57] LABS: LDL Cholesterol Direct 62 mg/dL
[2022-01-11 12:08] LABS: Hemoglobin A1C 5.6 % (<5.7)
== END 2022-01-11 09:17 | disposition home or self-care (01) ==
LOC: ANHLAB 09:19
PROVIDERS: PCP Internal Medicine; Visit Provider Internal Medicine
DX: E78.2 Mixed hyperlipidemia (principal); R73.03 Prediabetes; Z79.899 Other long term (current) drug therapy
CPT/HCPCS: 36415; 80048; 80061; 83036

== ENCOUNTER 2022-03-31 15:04 | Outpatient (CLI) | payer MEDICARE, SELFPAY ==
--- NOTE | ~2022-03-31 | CT_ITS ---
EXAMINATION: CT sinus wo con DATE: 03/31/2022 15:27 INDICATION: Chronic sinus infections TECHNIQUE: Computed tomography (CT) of the paranasal sinuses was performed without contrast. Iterativ e reconstruction technique was employed. Exam dose: 300.40 mGy-cm total exam DLP. COMPARISON: 08/31/2016 CT sinuses FINDINGS: Status post left frontal craniotomy with bone flap secured in place by plates and screws. There is postoperative change of the paranasal sinuses as well, with bilateral partial ethmoidectomi es, left nasal antral window and resection of the uncinate processes. There is rightward bowing of the anterior portion of the nasal septum and leftward bowing of the post erior nasal septum. Intralamellar cell of left middle nasal turbinate. There is prominent symmetric soft tissue thickenin g of the middle and inferior nasal turbinates. The frontal sinuses, ethmoid air cells, maxillary and sphenoid sinuses are well aerated. No opacifica tion or air-fluid level. The mastoid air cells are normally developed and aerated. IMPRESSION: Status post bilateral partial ethmoidectomies, resection of uncinate processes, left rosio al antral window Patent paranasal sinuses and mastoid air cells Reviewed, dictated and finalized at Location A. Reviewed, dictated and finalized at location A. ERSAL BANKER IMPRESSION: Status post bilateral partial ethmoidectomies, resection of uncina te processes, left nasal antral window Patent paranasal sinuses and mastoid air cells
== END 2022-03-31 15:05 | disposition home or self-care (01) ==
LOC: ANHIMG 15:07
PROVIDERS: PCP Internal Medicine; Visit Provider Internal Medicine
DX: J32.9 Chronic sinusitis, unspecified (principal); Z98.890 Other specified postprocedural states
CPT/HCPCS: 70486

== ENCOUNTER 2022-05-20 08:38 | Outpatient (CLI) | payer MEDICARE, SELFPAY ==
[2022-05-20 09:22] LABS: Alanine Aminotransferase 19 U/L (6-35); Alkaline Phosphatase 69 U/L (38-126); Anion Gap 5 mmol/L (8-16); Aspartate Amino Transferase 22 U/L (14-36); Bilirubin,Total 0.4 mg/dL (0.2-1.3); Blood Urea Nitrogen 21 mg/dL (7-17); Calcium 8.4 mg/dL (8.4-10.2); Carbon Dioxide 29 mmol/L (22-30); Chloride 106 mmol/L (98-107); Cholesterol 136 mg/dL (0-200); Estimated Glomerular Filt Rate 45; Glucose 101 mg/dL (65-110); HDL Direct 45 mg/dL; Potassium 4.2 mmol/L (3.4-5.0); Sodium 140 mmol/L (137-145); Triglycerides 132 mg/dL (<150)
[2022-05-20 09:34] LABS: LDL Cholesterol Direct 64 mg/dL
[2022-05-20 10:11] LABS: Hemoglobin A1C 6.2 % (<5.7)
[2022-05-20 10:54] LABS: Free T4 Free Thyroxine 1.16 ng/mL (0.78-2.19); Vitamin D 25 Hydroxy 65.9 ng/mL
[2022-05-20 11:14] LABS: Bacteria Urine Trace /hpf; Mucus Urine Rare /lpf; Squamous Epithelial Cell Urine Many /hpf (Few); WBC Urine 0-3 /hpf
[2022-05-20 11:23] LABS: Add Urine Microscopic? YES; Appearance Urine Slightly Cloudy (Clear); Bilirubin Urine Negative (Negative); Blood Urine Negative (Negative); Color Urine Yellow (Yellow); Glucose Urine UA Negative (Negative); Ketones Urine Trace mg/dL (Negative); Leukocyte Esterase Ur Negative LEU/UL (Negative); Nitrate Urine Negative (Negative); Protein Urine Negative (Negative); Specific Grav Ur 1.015 (1.001-1.035); Urobilinogen Urine 0.2 mg/dL (<2.0)
== END 2022-05-20 08:39 | disposition home or self-care (01) ==
LOC: ANHLAB 08:40
PROVIDERS: PCP Internal Medicine; Visit Provider Internal Medicine
DX: E55.9 Vitamin D deficiency, unspecified (principal); R79.89 Other specified abnormal findings of blood chemistry; E78.5 Hyperlipidemia, unspecified; R73.03 Prediabetes; Z13.29 Encounter for screening for other suspected endocrine disorder; Z79.899 Other long term (current) drug therapy
CPT/HCPCS: 36415; 80053; 80061; 81001; 82306; 83036; 84439; 84443

== ENCOUNTER 2022-09-09 08:29 | Outpatient (CLI) | payer MEDICARE, SELFPAY ==
--- NOTE | ~2022-09-09 | NM_ITS ---
EXAMINATION: NM lj stress w perfusion DATE: 09/09/2022 10:24 INDICATION: Chest discomfort TECHNIQUE: Rest images were obtained following intravenous administration of 10.6 mCi Tc99m tetrofosm in (Myoview). The patient was infused intravenously with Lexiscan (Regadenoson). Then, 33.2 mCi Tc99m tetrofosmin (Myoview) was administered intravenously, and stress images were obtained. Data was yu nstructed into short axis and horizontal and vertical long axis SPECT images. Gated SPECT images were also obtained. COMPARISON: None. FINDINGS: There is no definite reversible or fixed perfusion abnormality to suggest ischemia or infar ction. There is normal left ventricular chamber size, wall motion and ejection fraction. Left ventr icular ejection fraction measures >70%. IMPRESSION: 1. Normal myocardial perfusion at rest and during stress. 2. Left ventricular ejection fraction measuring >70%. Reviewed, dictated and finalized at location A.
--- NOTE | 2022-09-09 08:44 | EST_ITS ---
Patient Info Name: Dahlia Bacon Age: 62 years : 1960 Gender: Female Ht: 66 in Wt: 173 lbs BSA: 1.93 m2 HR: 60 bpm BP: 11 / 69 mmHg Heart Rhythm: Sinus Rhythm Exam Date: 09/09/2022 9:25 AM Exam Location: [facility] Stress Patient Status: Outpatient Admit Date: 09/09/2022 Staff Ordering Physician: Jose Grace MD Attending Provider: Jose Grace MD Exercise Technologist: Clara Pollock CT Exercise Physician: Juan M Sy DO Exam Type: CA stress jl w NM Study Info Indications R06.02 - Shortness of breath R07.89 - Other chest pain A regadenoson stress test was performed. Summary 1. 1. Negative lexiscan stress test for ischemic ST changes by ECG criteria. 2. 2. Stable hemodynamics throughout the test. 3. 3. Nuclear scan to follow and will be reported separately. Please correlate with it. 4. 4. Patient informed of the above results. Protocol: Lexiscan Stress ECG Details Stage: REST Duration (min): 0 min : 51 sec HR (bpm): 62 SBP (mmHg): 111 DBP (mmHg): 69 Stage: REST Duration (min): 6 min : 41 sec HR (bpm): 66 SBP (mmHg): 111 DBP (mmHg): 69 Stage: STAGE 1 Duration (min): 0 min : 59 sec HR (bpm): 81 SBP (mmHg): 128 DBP (mmHg): 72 Stage: RECOVERY Duration (min): 1 min : 0 sec HR (bpm): 92 SBP (mmHg): 128 DBP (mmHg): 72 Stage: RECOVERY Duration (min): 2 min : 0 sec HR (bpm): 90 SBP (mmHg): 128 DBP (mmHg): 72 Stage: RECOVERY Duration (min): 2 min : 55 sec HR (bpm): 81 SBP (mmHg): 112 DBP (mmHg): 69 Rest HR: 66 bpm Peak HR: 94 bpm Rest Sys BP: 111 mmHg Peak Sys BP: 128 mmHg Max Pred HR: 156 bpm % Max Pred HR: 60 % Target HR: 133 bpm Max RPP: 12,032 bpm*mmHg Termination Reason: Completed protocol Cardiac Symptoms: Shortness of breath Total Time: 1 min : 0 sec Rest Day BP: 69 mmHg Peak Day BP: 72 mmHg Total Dose: 0.4 mg Resting ECG Sinus rhythm. Stress ECG No ST changes. Arrhythmias None. Report Signatures
== END 2022-09-09 08:30 | disposition home or self-care (01) ==
LOC: ANHCARD 08:34
PROVIDERS: PCP Internal Medicine; Visit Provider Internal Medicine
DX: R07.89 Other chest pain (principal); R07.9 Chest pain, unspecified; R53.83 Other fatigue
CPT/HCPCS: 78452; 93017; A9502; J2785

== ENCOUNTER 2022-10-13 09:47 | Outpatient (CLI) | payer MEDICARE, SELFPAY ==
[2022-10-13 10:20] LABS: Hemoglobin A1C 6.1 % (<5.7)
[2022-10-13 10:26] LABS: Alanine Aminotransferase 23 U/L (6-35); Albumin Level 3.9 g/dL (3.5-5.1); Alkaline Phosphatase 71 U/L (38-126); Anion Gap 6 mmol/L (8-16); Aspartate Amino Transferase 27 U/L (14-36); Bilirubin,Total 0.4 mg/dL (0.2-1.3); Blood Urea Nitrogen 21 mg/dL (7-17); Calcium 8.3 mg/dL (8.4-10.2); Carbon Dioxide 28 mmol/L (22-30); Chloride 103 mmol/L (98-107); Cholesterol 131 mg/dL (0-200); Estimated Glomerular Filt Rate 41; Glucose 98 mg/dL (65-110); HDL Direct 41 mg/dL; Potassium 4.2 mmol/L (3.4-5.0); Sodium 137 mmol/L (137-145); Triglycerides 153 mg/dL (<150)
[2022-10-13 10:37] LABS: LDL Cholesterol Direct 70 mg/dL
== END 2022-10-13 09:48 | disposition home or self-care (01) ==
PROVIDERS: PCP Internal Medicine; Visit Provider Internal Medicine
DX: R73.03 Prediabetes (principal); Z79.899 Other long term (current) drug therapy; R79.89 Other specified abnormal findings of blood chemistry; E78.5 Hyperlipidemia, unspecified
CPT/HCPCS: 36415; 80053; 80061; 83036

== ENCOUNTER 2022-10-28 09:36 | Outpatient (CLI) | payer MEDICARE, SELFPAY ==
--- NOTE | ~2022-10-28 | XR_ITS ---
EXAMINATION: XR UGI w barium swallow DATE: 10/28/2022 10:06 INDICATION: Gastroesophageal reflux disease. Chest pain. TECHNIQUE: The patient drank thick barium, gas-producing crystals, and thin barium. Fluoroscopy of th e esophagus, stomach, and proximal small bowel was performed. Fluoroscopy exposure time was 0.7 minut es. The total number of images was 434. Total dose-area product was 2.22 Gy-cm^2. COMPARISON: Chest CT 06/08/2021 FINDINGS: There are changes of anterior fusion procedure in cervical spine. There is no mass or stric ture of the esophagus. Esophageal motility is normal. There is no hiatal hernia. There was no gastroe sophageal reflux with provocative maneuvers. The stomach and proximal small bowel show normal folding patterns. IMPRESSION: 1. Normal upper gastrointestinal series and esophagram. Reviewed, dictated and finalized at location A.
== END 2022-10-28 09:37 | disposition home or self-care (01) ==
LOC: ANHIMG 09:37
PROVIDERS: PCP Internal Medicine; Visit Provider Internal Medicine
DX: K21.9 Gastro-esophageal reflux disease without esophagitis (principal); R07.89 Other chest pain
CPT/HCPCS: 74240

== ENCOUNTER → 2023-01-17 14:33 | Outpatient (CLI) | payer MEDICARE, SELFPAY ==
--- NOTE | ~2023-01-17 | MR_ITS ---
MRI of the cervical spine Clinical History: Cervicalgia Technique: Axial T2-weighted and gradient images, and sagittal T1-weighted, T2-weighted, and STIR claudia ges were acquired. Following intravenous administration of 17 cc MultiHance gadolinium, T1-weighted f at-sat imaging was performed in the axial and sagittal planes. Findings: There is no acute fracture the cervical spine. There is minimal grade 1 retrolisthesis of C 4 over C5. There is anterior fusion extending from C5 through C7, with associated susceptibility madina fact. No suspicious bone marrow signal abnormality seen. At C2-C3, there is no disc bulge or herniation. There is mild facet arthropathy in the right side. No spinal canal stenosis, cord compression, or definite neural foraminal narrowing. At C3-C4, there is no significant disc bulge or herniation. There is bilateral facet arthropathy, rig ht worse than left. There is right neural foraminal narrowing. No central canal stenosis or cord comp ression. Left neural foramen preserved. At C4-C5, there is severe degenerative disc narrowing with mild disc osteophyte complex. No heavenly spi nal canal stenosis or cord compression. There is probable left neural foraminal narrowing. Right neur al foramen preserved. At C5-C6, there is no disc bulge or herniation. No spinal canal stenosis, cord compression, or defini te neural foraminal narrowing. At C6-C7, there is no disc bulge or herniation. No spinal canal stenosis, cord compression, or defini te neural foraminal narrowing. No abnormal signal seen in the spinal cord. Paravertebral soft tissues are otherwise unremarkable. No abnormal postcontrast enhancement identified. Impression: Mild degenerative spondylosis in the upper cervical spine, as detailed above. Anterior fusion from C5 through C7. Reviewed, dictated and finalized at [facility]. Impression: Mild degenerative spondylosis in the upper cervical spine, as detailed above. Anterior fusion from C5 through C7.
== END ==
PROVIDERS: PCP Internal Medicine; Visit Provider Internal Medicine
DX: M47.892 Other spondylosis, cervical region (principal); Z98.1 Arthrodesis status
CPT/HCPCS: 72156; A9577

== ENCOUNTER 2023-02-15 08:17 | Outpatient (CLI) | payer MEDICARE, SELFPAY ==
[2023-02-15 09:30] LABS: Appearance Urine Clear (Clear); Bilirubin Urine Negative (Negative); Blood Urine Negative (Negative); Color Urine Yellow (Yellow); Glucose Urine UA Negative (Negative); Ketones Urine Negative (Negative); Leukocyte Esterase Ur Negative LEU/UL (Negative); Nitrate Urine Negative (Negative); Protein Urine Negative (Negative); Specific Grav Ur 1.011 (1.001-1.035); Urobilinogen Urine 0.2 mg/dL (<2.0)
[2023-02-15 09:33] LABS: Add Urine Microscopic? NO
[2023-02-15 09:34] LABS: Basophils Absolute Auto 0.1 K/mm3 (0.0-0.1); Basophils Percent Auto 0.8 % (0.2-1.2); Eosinophils Absolute Auto 0.3 K/mm3 (0-0.3); Eosinophils Percent Auto 4.7 % (0-4.4); Hematocrit 39.9 % (37.0-47.0); Hemoglobin 12.5 g/dL (12.0-15.0); Immature Granulocyte Absolute 0.02 K/mm3 (0.00-0.031); Immature Granulocyte Percent A 0.3 % (0-0.5); Lymphocytes Absolute Auto 2.58 K/mm3 (0.9-3.2); Mean Corpuscular HGB Conc 31.3 g/dl (32-36); Mean Corpuscular Hemoglobin 29.3 pg (26-34); Mean Corpuscular Volume 93.7 fl (80-100); Mean Platelet Volume 10.9 fl (7.4-10.4); Monocytes Absolute Auto 0.5 K/mm3 (0.1-0.6); Monocytes Percent Auto 7.6 % (2.6-8.5); Neutrophils Absolute Auto 3.2 K/mm3 (1.3-6.7); Neutrophils Percent Auto 47.6 % (45.5-73.1); Platelet Count Result 310 k/mm3 (150-375); Red Blood Count 4.26 M/mm3 (4.2-5.4); Red Cell Distribution Width 13.5 % (11.5-14.5); White Blood Count 6.6 K/mm3 (4.5-10.0)
[2023-02-15 09:45] LABS: Sodium 136 mmol/L (137-145)
[2023-02-15 09:46] LABS: Alanine Aminotransferase 20 U/L (6-35); Alkaline Phosphatase 75 U/L (38-126); Anion Gap 5 mmol/L (8-16); Aspartate Amino Transferase 27 U/L (14-36); Bilirubin,Total 0.4 mg/dL (0.2-1.3); Blood Urea Nitrogen 25 mg/dL (7-17); Calcium 8.6 mg/dL (8.4-10.2); Carbon Dioxide 27 mmol/L (22-30); Chloride 104 mmol/L (98-107); Cholesterol 145 mg/dL (0-200); Estimated Glomerular Filt Rate 45; Glucose 98 mg/dL (65-110); HDL Direct 32 mg/dL; Potassium 4.1 mmol/L (3.4-5.0); Triglycerides 155 mg/dL (<150)
[2023-02-15 09:57] LABS: LDL Cholesterol Direct 79 mg/dL
[2023-02-15 10:10] LABS: Vitamin D 25 Hydroxy 79.5 ng/mL
== END 2023-02-15 08:18 | disposition home or self-care (01) ==
PROVIDERS: PCP Internal Medicine; Visit Provider Internal Medicine
DX: E55.9 Vitamin D deficiency, unspecified (principal); E78.5 Hyperlipidemia, unspecified; R73.03 Prediabetes; Z79.899 Other long term (current) drug therapy
CPT/HCPCS: 36415; 80053; 80061; 81003; 82306; 83036; 85025

== ENCOUNTER 2023-06-01 09:05 | Outpatient (CLI) | payer MEDICARE, SELFPAY ==
[2023-06-01 09:37] LABS: Add Urine Microscopic? NO; Appearance Urine Clear (Clear); Blood Urine Negative (Negative); Color Urine Yellow (Yellow); Glucose Urine UA Negative (Negative); Ketones Urine Negative (Negative); Nitrate Urine Negative (Negative); Protein Urine Negative (Negative)
[2023-06-01 09:38] LABS: Bilirubin Urine Negative (Negative); Leukocyte Esterase Ur Negative LEU/UL (Negative); Urobilinogen Urine 0.2 mg/dL (<2.0)
[2023-06-01 09:44] LABS: Hemoglobin A1C 6.4 % (<5.7)
[2023-06-01 09:51] LABS: Anion Gap 7 mmol/L (8-16); Blood Urea Nitrogen 27 mg/dL (7-17); Calcium 8.7 mg/dL (8.4-10.2); Carbon Dioxide 26 mmol/L (22-30); Chloride 105 mmol/L (98-107); Cholesterol 153 mg/dL (0-200); Estimated Glomerular Filt Rate 45; Glucose 97 mg/dL (65-110); HDL Direct 40 mg/dL; Potassium 4.5 mmol/L (3.4-5.0); Sodium 138 mmol/L (137-145); Triglycerides 141 mg/dL (<150)
[2023-06-01 10:03] LABS: LDL Cholesterol Direct 88 mg/dL
[2023-06-01 10:05] LABS: Free T4 Free Thyroxine 1.22 ng/mL (0.78-2.19); Vitamin D 25 Hydroxy 74.3 ng/mL
== END 2023-06-01 09:06 | disposition home or self-care (01) ==
LOC: ANHLAB 09:07
PROVIDERS: PCP Internal Medicine; Visit Provider Internal Medicine
DX: E78.5 Hyperlipidemia, unspecified (principal); E55.9 Vitamin D deficiency, unspecified; R73.03 Prediabetes; R79.89 Other specified abnormal findings of blood chemistry; Z79.899 Other long term (current) drug therapy; Z13.29 Encounter for screening for other suspected endocrine disorder
CPT/HCPCS: 36415; 80048; 80061; 81003; 82306; 83036; 84439; 84443

== ENCOUNTER 2023-06-29 14:59 | Outpatient (CLI) | payer MEDICARE, OTHER, SELFPAY ==
--- NOTE | ~2023-06-29 | CT_ITS ---
EXAMINATION:CT lung screening DATE: 06/29/2023 15:16 INDICATION: Personal history of nicotine dependence. Smoker who quit 14 years ago with 20 pack year h istory. TECHNIQUE: Computed tomography (CT) of the chest was performed without intravenous contrast. Automate d exposure control and iterative reconstruction technique were employed. The dose-length product (DLP ) was 134.62 mGy-cm. COMPARISON: Chest CT 06/08/2021 FINDINGS: There is moderate emphysema. There is chronic scarring at the lung apices. There are a few scattered nodules in the lungs measuring up to 3 mm. There is mild atelectasis bilaterally. No pleura l effusion. The heart size is normal. No pericardial effusion. There is a small sliding hiatal hernia . There are changes of anterior fusion procedure in cervical spine. There is severe lumbar spondylosi s. IMPRESSION: 1. Lung-RADS category 2: Benign appearance or behavior. Continue annual screening with noncontrast lo w-dose chest CT in 12 months. Reviewed, dictated and finalized at location E. L CLERK IMPRESSION: 1. Lung-RADS category 2: Benign appearance or behavior. Continue annual screeni ng with noncontrast low-dose chest CT in 12 months.
== END 2023-06-29 15:00 | disposition home or self-care (01) ==
LOC: ANHIMG 15:02
PROVIDERS: PCP Internal Medicine; Visit Provider Internal Medicine
DX: Z12.2 Encounter for screening for malignant neoplasm of respiratory organs (principal); R91.1 Solitary pulmonary nodule; Z87.891 Personal history of nicotine dependence
CPT/HCPCS: 71271

== ENCOUNTER 2023-08-20 13:45 | Emergency (ER) | payer MEDICARE, OTHER, SELFPAY ==
--- NOTE | ~2023-08-20 | XR_ITS ---
EXAMINATION: XR knee RT min 4V DATE: 08/20/2023 14:58 INDICATION: Right knee pain. Injury. TECHNIQUE: 5 views of right knee were obtained. COMPARISON: None. FINDINGS: Bone alignment is normal. No fracture. There is a benign bone island in proximal tibia. The re is mild tricompartmental osteoarthritis. No knee joint effusion. There is prepatellar soft tissue swelling. IMPRESSION: 1. Mild right knee osteoarthritis. Reviewed, dictated and finalized at location A.
[2023-08-20 14:05] VITALS: BP 114/72; PULSE 80; RESP 18; TEMP 36.7; O2SAT 96
--- NOTE | 2023-08-20 14:43 | ED.GENADULT ---
HPI - General Adult General Chief complaint: Extremity Injury, Lower Stated complaint: fall / rt knee injury Time Seen by Provider: 08/20/23 14:43 Source: patient, RN notes reviewed and old records reviewed Mode of arrival: ambulatory Limitations: no limitations History of Present Illness HPI narrative: 63-year-old female presents to the [facility] with complaints of right knee injury post fall. Abrasions noted. Patient states that she was walking down the bleachers, must have tripped over something landing on her right knee on some concrete. 3 x 3 abrasion noted to the right knee with a hematoma. Abrasion that measures 12 cm to left anterior lower anthony. Bleeding is controlled. No treatment prior to Related Data Home Medications Medication Instructions Recorded Confirmed magnesium 250 mg tablet 250 mg PO DAILY 11/13/19 08/20/23 omega-3 fatty acids 1,000 mg 2,000 mg PO BID 11/13/19 08/20/23 capsule (Fish Oil Concentrate) calcium carbonate 500 mg calcium 1,250 mg PO DAILY 03/06/20 08/20/23 (1,250 mg) tablet (Calcium 500) aspirin 81 mg tablet,delayed 81 mg PO DAILY 12/01/22 08/20/23 release Allergies Allergy/AdvReac Type Severity Reaction Status Date / Time Sulfa (Sulfonamide Allergy Mild Hives Verified 08/20/23 14:24 Antibiotics) Cephalosporins Allergy Rash Verified 08/20/23 14:24 vancomycin Allergy Rash Verified 08/20/23 14:24 Review of Systems Review of Systems: All systems reviewed & are unremarkable except as noted in HPI and below Constitutional: Constitutional: Reports no additional constitutional complaints Eyes: Eyes: Reports no additional eye complaints ENT: Reports system reviewed and no additional complaints, except as documented Cardiovascular: Cardiovascular: Reports no additional cardiovascular complaints, Denies chest pain and Denies dyspnea Respiratory: Respiratory: Reports no additional respiratory complaints, Denies chest congestion, Denies cough and Denies dyspnea Gastrointestinal: Gastrointestinal: Reports no additional gastrointestinal complaints, Denies abdominal pain, Denies nausea and Denies vomiting Musculoskeletal: Musculoskeletal: Reports as per HPI, Reports arthralgias and Reports joint swelling Integumentary/Breasts: Skin/Breast: Reports as per HPI Neurologic: Reports system reviewed and no additional complaints, except as documented Psychiatric: Psychiatric: Reports no additional psychiatric complaints Allergic/Immunologic: Allergic/Immunologic: Reports no additional allergic/immunologic complaints PMFSH Past Medical History Medical History MONA-inhibitor cough Acute recurrent pansinusitis Adenomatous colon polyp Asthma Basal cell carcinoma BMI 26.0-26.9,adult BMI 28.0-28.9,adult BMI 29.0-29.9,adult Breast cancer screening Bronchitis with chronic airway obstruction Cellulitis Cellulitis of left upper extremity Cervicalgia Chest discomfort Chronic ankle pain Colon cancer screening Contact dermatitis Cough DJD (degenerative joint disease), multiple sites Elevated glucose Elevated homocysteine Encounter for Medicare annual wellness exam Encounter for preventive health examination Encounter for routine adult health examination with abnormal findings Encounter for routine adult health examination without abnormal findings Follow up Generalized rash GERD (gastroesophageal reflux disease) Grade I diastolic dysfunction History of colon polyps History of tobacco abuse Hyperlipidemia Infected skin tear Insomnia Left otitis media Lung nodule Microscopic hematuria Microscopic hematuria Muscle spasm Non-healing wound of right lower extremity Osteoarthritis involving multiple joints on both sides of body Otitis media Paresthesia Pre-diabetes Puncture wound Pyuria Right hip pain Seasonal allergies Sepsis Sinusitis Solitary pulmonary nodule Stasis ulcer of right ankle Tachycardia Trochanteric bursit
== END 2023-08-20 15:57 | disposition home or self-care (01) ==
PROVIDERS: Emergency Provider Nurse Practitioner; PCP Internal Medicine
DX: S80.01XA Contusion of right knee, initial encounter (principal); S80.211A Abrasion, right knee, initial encounter; S80.811A Abrasion, right lower leg, initial encounter; W19.XXXA Unspecified fall, initial encounter; J45.909 Unspecified asthma, uncomplicated; K21.9 Gastro-esophageal reflux disease without esophagitis; E78.5 Hyperlipidemia, unspecified; R73.03 Prediabetes; M15.9 Polyosteoarthritis, unspecified; Z87.891 Personal history of nicotine dependence; Z79.82 Long term (current) use of aspirin; Z85.828 Personal history of other malignant neoplasm of skin
CPT/HCPCS: 73564; 99213; G0463

== ENCOUNTER 2023-10-24 08:32 | Outpatient (CLI) | payer MEDICARE, OTHER, SELFPAY ==
[2023-10-24 09:19] LABS: Basophils Percent Auto 0.5 % (0.2-1.2); Eosinophils Absolute Auto 0.2 K/mm3 (0-0.3); Eosinophils Percent Auto 2.7 % (0-4.4); Hematocrit 39.9 % (37.0-47.0); Hemoglobin 12.9 g/dL (12.0-15.0); Immature Granulocyte Absolute 0.02 K/mm3 (0.00-0.031); Immature Granulocyte Percent A 0.3 % (0-0.5); Lymphocytes Absolute Auto 3.03 K/mm3 (0.9-3.2); Lymphocytes Percent Auto 39.1 % (18.3-44.2); Mean Corpuscular HGB Conc 32.3 g/dl (32-36); Mean Corpuscular Hemoglobin 30.4 pg (26-34); Mean Corpuscular Volume 93.9 fl (80-100); Mean Platelet Volume 10.8 fl (7.4-10.4); Monocytes Absolute Auto 0.6 K/mm3 (0.1-0.6); Neutrophils Absolute Auto 3.8 K/mm3 (1.3-6.7); Neutrophils Percent Auto 49.4 % (45.5-73.1); Platelet Count Result 281 k/mm3 (150-375); Red Blood Count 4.25 M/mm3 (4.2-5.4); Red Cell Distribution Width 14.8 % (11.5-14.5); White Blood Count 7.7 K/mm3 (4.5-10.0)
[2023-10-24 09:28] LABS: Alanine Aminotransferase 16 U/L (6-35); Albumin Level 3.9 g/dL (3.5-5.1); Alkaline Phosphatase 68 U/L (38-126); Anion Gap 4 mmol/L (4-12); Aspartate Amino Transferase 24 U/L (14-36); Bilirubin,Total 0.5 mg/dL (0.2-1.3); Blood Urea Nitrogen 24 mg/dL (7-17); Calcium 9.2 mg/dL (8.4-10.2); Carbon Dioxide 28 mmol/L (22-30); Chloride 105 mmol/L (98-107); Cholesterol 115 mg/dL (0-200); Estimated Glomerular Filt Rate 41; Glucose 91 mg/dL (65-110); HDL Direct 45 mg/dL; Potassium 4.1 mmol/L (3.4-5.0); Sodium 137 mmol/L (137-145); Triglycerides 96 mg/dL (<150)
[2023-10-24 09:38] LABS: LDL Cholesterol Direct 68 mg/dL
[2023-10-24 09:50] LABS: Hemoglobin A1C 5.9 % (<5.7)
[2023-10-24 10:23] LABS: Free T4 Free Thyroxine 1.14 ng/mL (0.78-2.19)
== END 2023-10-24 08:33 | disposition home or self-care (01) ==
LOC: ANHLAB 08:35
PROVIDERS: PCP Internal Medicine; Visit Provider Internal Medicine
DX: E78.2 Mixed hyperlipidemia (principal); Z13.29 Encounter for screening for other suspected endocrine disorder; R73.03 Prediabetes; Z79.899 Other long term (current) drug therapy
CPT/HCPCS: 36415; 80053; 80061; 83036; 84439; 84443; 85025

== ENCOUNTER 2023-11-03 09:43 | Outpatient (CLI) | payer MEDICARE, OTHER, SELFPAY ==
--- NOTE | ~2023-11-03 | US_ITS ---
Renal-Bladder ultrasound Clinical History: Chronic kidney disease Technique: Real-time sonographic imaging of the kidneys and urinary bladder was performed. Findings: The right kidney measures 7.3 cm in length and the left kidney measures 7.9 cm. There is no hydronephrosis or renal calculus identified. Renal cortical echogenicity is within normal limits. No renal mass lesion is identified. The urinary bladder is moderately distended at the time of this exam. No intraluminal echoes are iden tified. No abnormal wall thickening is seen. Impression: Unremarkable ultrasound of the kidneys and urinary bladder. Reviewed, dictated and finalized at location M. Impression: Unremarkable ultrasound of the kidneys and urinary bladder.
== END 2023-11-03 09:44 ==
PROVIDERS: PCP Internal Medicine; Visit Provider Internal Medicine
DX: N18.9 Chronic kidney disease, unspecified (principal)
CPT/HCPCS: 76775

== ENCOUNTER 2023-11-30 10:41 | Outpatient (CLI) | payer MEDICARE, OTHER, SELFPAY ==
[2023-11-30 11:51] LABS: Anion Gap 9 mmol/L (4-12); Blood Urea Nitrogen 27 mg/dL (7-17); Calcium 8.6 mg/dL (8.4-10.2); Carbon Dioxide 26 mmol/L (22-30); Chloride 105 mmol/L (98-107); Estimated Glomerular Filt Rate 35; Glucose 104 mg/dL (65-110); Potassium 3.8 mmol/L (3.4-5.0); Sodium 140 mmol/L (137-145)
[2023-11-30 14:27] LABS: Appearance Urine Clear (Clear); Bilirubin Urine Negative (Negative); Blood Urine Negative (Negative); Color Urine Yellow (Yellow); Glucose Urine UA 3+ mg/dL (Negative); Ketones Urine Trace mg/dL (Negative); Leukocyte Esterase Ur Negative LEU/UL (Negative); Nitrate Urine Negative (Negative); Protein Urine Negative (Negative); Specific Grav Ur 1.024 (1.001-1.035); pH Urine 6.5 (5.0-9.0)
[2023-11-30 14:34] LABS: Add Urine Microscopic? NO
== END 2023-11-30 10:42 | disposition home or self-care (01) ==
PROVIDERS: PCP Internal Medicine; Visit Provider Internal Medicine
DX: R79.89 Other specified abnormal findings of blood chemistry (principal); Z79.899 Other long term (current) drug therapy
CPT/HCPCS: 36415; 80048; 81003

== ENCOUNTER 2023-12-12 09:38 | Outpatient (CLI) | payer MEDICARE, OTHER, SELFPAY ==
[2023-12-12 10:37] LABS: Hematocrit 41.1 % (37.0-47.0); Hemoglobin 13.1 g/dL (12.0-15.0); Mean Corpuscular HGB Conc 31.9 g/dl (32-36); Mean Corpuscular Hemoglobin 29.6 pg (26-34); Mean Corpuscular Volume 92.8 fl (80-100); Mean Platelet Volume 10.8 fl (7.4-10.4); Platelet Count Result 344 k/mm3 (150-375); Red Blood Count 4.43 M/mm3 (4.2-5.4); Red Cell Distribution Width 14.6 % (11.5-14.5); White Blood Count 7.5 K/mm3 (4.5-10.0)
[2023-12-12 10:40] LABS: Appearance Urine Turbid (Clear); Bacteria Urine 4+ /hpf; Bilirubin Urine 1+ (Negative); Blood Urine Negative (Negative); Color Urine Dark Yellow (Yellow); Glucose Urine UA 1+ mg/dL (Negative); Hyaline Casts Urine Present /lpf; Ketones Urine 1+ mg/dL (Negative); Leukocyte Esterase Ur 3+ LEU/UL (Negative); Mucus Urine Present /lpf; Nitrate Urine Negative (Negative); Non Pathogenic Casts >20; Protein Urine 1+ mg/dL (Negative); Specific Grav Ur 1.019 (1.001-1.035); Squamous Epithelial Cell Urine Many /hpf (Few); WBC Urine >100 /hpf (0-3); pH Urine 5.5 (5.0-9.0)
[2023-12-12 10:52] LABS: Albumin Level 4.4 g/dL (3.5-5.1); Anion Gap 9 mmol/L (4-12); Blood Urea Nitrogen 29 mg/dL (7-17); Calcium 9.1 mg/dL (8.4-10.2); Carbon Dioxide 28 mmol/L (22-30); Chloride 99 mmol/L (98-107); Creatine Kinase 69 U/L (30-135); Estimated Glomerular Filt Rate 27; Glucose 91 mg/dL (65-110); Phosphorus 2.6 mg/dL (2.5-4.5); Potassium 4.2 mmol/L (3.4-5.0); Sodium 136 mmol/L (137-145)
[2023-12-12 10:57] LABS: Add Urine Microscopic? YES
[2023-12-12 10:58] LABS: Complement C3 128 mg/dL (88-165)
[2023-12-12 11:00] LABS: Parathyroid Intact 91.2 pg/mL (7.5-53.5)
[2023-12-12 11:14] LABS: Erythrocyte Sedimentation Rate 15 mm/hr (0-20)
[2023-12-14 15:17] LABS: Complement Total CH50 >60 U/mL (31-60)
[2023-12-15 15:45] LABS: Kappa\\Lambda Light Chains 1.61 (0.26-1.65)
[2023-12-17 20:08] LABS: Immunofixation, Serum Normal pattern.
[2023-12-28 14:15] LABS: Add Urine Microscopic? NO
== END 2023-12-12 09:39 | disposition home or self-care (01) ==
PROVIDERS: PCP Internal Medicine; Visit Provider Internal Medicine Nephrology
DX: R79.89 Other specified abnormal findings of blood chemistry (principal); N18.32 Chronic kidney disease, stage 3b; E78.2 Mixed hyperlipidemia
CPT/HCPCS: 36415; 80069; 81001; 81003; 82550; 82570; 83883; 83970; 84156; 85027; 85652; 86038; 86039; 86160; 86162; 86334; 87077; 87086; 87088; 87186

== ENCOUNTER 2023-12-14 09:29 | Outpatient (CLI) | payer MEDICARE, OTHER, SELFPAY ==
[2023-12-14 12:34] LABS: Total Volume 24 Hour Urine 2100 ml; Urea Nitrogen 24 Hour Urine 6.2 G/DAY (12-20)
[2023-12-15 11:53] LABS: Creat 24 Hr 1.22 g/24 h (0.50-2.15); Pro/Creat Ratio 86 mg/g creat (<150); Pro/Creat Ratio mg/mg 0.086 (<0.150); Protein,total, 24 Hr Ur 105 mg/24 h (<150)
[2023-12-16 15:33] LABS: Albumin 0 %
== END 2023-12-14 09:30 | disposition home or self-care (01) ==
PROVIDERS: PCP Internal Medicine; Visit Provider Internal Medicine Nephrology
DX: N18.32 Chronic kidney disease, stage 3b (principal); N39.0 Urinary tract infection, site not specified
CPT/HCPCS: 81050; 84540; 86335; 87086

== ENCOUNTER 2024-01-05 10:01 | Outpatient (CLI) | payer MEDICARE, OTHER, SELFPAY ==
[2024-01-05 10:31] LABS: Add Urine Microscopic? NO; Appearance Urine Clear (Clear); Bilirubin Urine Negative (Negative); Blood Urine Negative (Negative); Color Urine Yellow (Yellow); Glucose Urine UA Negative (Negative); Ketones Urine Negative (Negative); Leukocyte Esterase Ur Negative LEU/UL (Negative); Nitrate Urine Negative (Negative); Protein Urine Negative (Negative); Specific Grav Ur 1.013 (1.001-1.035); Urobilinogen Urine 0.2 mg/dL (<2.0)
[2024-01-05 10:44] LABS: Anion Gap 9 mmol/L (4-12); Blood Urea Nitrogen 18 mg/dL (7-17); Calcium 8.8 mg/dL (8.4-10.2); Carbon Dioxide 26 mmol/L (22-30); Chloride 98 mmol/L (98-107); Estimated Glomerular Filt Rate 50; Glucose 126 mg/dL (65-110); Phosphorus 1.9 mg/dL (2.5-4.5); Potassium 3.9 mmol/L (3.4-5.0); Sodium 133 mmol/L (137-145)
== END 2024-01-05 10:02 | disposition home or self-care (01) ==
LOC: ANHLAB 10:08
PROVIDERS: PCP Internal Medicine; Visit Provider Internal Medicine Nephrology
DX: R73.03 Prediabetes (principal); N18.32 Chronic kidney disease, stage 3b; N39.0 Urinary tract infection, site not specified
CPT/HCPCS: 36415; 80069; 81003; 87086

== ENCOUNTER 2024-04-02 10:28 | Outpatient (CLI) | payer MEDICARE, OTHER, SELFPAY ==
--- NOTE | ~2024-04-02 | XR_ITS ---
XR chest 2V Ordering provider: Jose Grace MD History: 63 years Female with . R05.9 - Cough, unspecified . Comparison: None. FINDINGS: MEDIASTINUM: The cardiac silhouette is not enlarged. Slightly prominent hoang. LUNGS: No effusions or pneumothorax. Opacification in the left lower lobe area suggestive of atelecta sis versus pneumonia. Minimal opacification in the right lung base suggestive of early pneumonia. OTHER: No free air under the diaphragm. Postoperative changes in the lower cervical area. IMPRESSION: Highly suggestive bilateral basal pneumonia. Follow-up advised. Reviewed, dictated and finalized at location A. SHEARER
[2024-04-02 11:05] LABS: Basophils Percent Auto 0.3 % (0.2-1.2); Eosinophils Absolute Auto 0.1 K/mm3 (0-0.3); Eosinophils Percent Auto 0.9 % (0-4.4); Hematocrit 36.5 % (37.0-47.0); Hemoglobin 11.7 g/dL (12.0-15.0); Immature Granulocyte Absolute 0.07 K/mm3 (0.00-0.031); Immature Granulocyte Percent A 0.5 % (0-0.5); Lymphocytes Absolute Auto 1.94 K/mm3 (0.9-3.2); Mean Corpuscular HGB Conc 32.1 g/dl (32-36); Mean Corpuscular Volume 90.3 fl (80-100); Monocytes Absolute Auto 1.2 K/mm3 (0.1-0.6); Monocytes Percent Auto 9.6 % (2.6-8.5); Neutrophils Absolute Auto 9.5 K/mm3 (1.3-6.7); Neutrophils Percent Auto 73.7 % (45.5-73.1); Platelet Count Result 352 k/mm3 (150-375); Red Blood Count 4.04 M/mm3 (4.2-5.4); Red Cell Distribution Width 14.5 % (11.5-14.5); White Blood Count 12.9 K/mm3 (4.5-10.0)
== END 2024-04-02 10:29 | disposition home or self-care (01) ==
PROVIDERS: PCP Internal Medicine; Visit Provider Internal Medicine
DX: R73.03 Prediabetes (principal); R05.9 Cough, unspecified
CPT/HCPCS: 36415; 71046; 85025

== ENCOUNTER 2024-04-10 07:06 | Outpatient (CLI) | payer MEDICARE, OTHER, SELFPAY ==
[2024-04-10 07:56] LABS: Basophils Absolute Auto 0.1 K/mm3 (0.0-0.1); Basophils Percent Auto 0.7 % (0.2-1.2); Eosinophils Absolute Auto 0.3 K/mm3 (0-0.3); Eosinophils Percent Auto 2.9 % (0-4.4); Hematocrit 35.6 % (37.0-47.0); Hemoglobin 11.3 g/dL (12.0-15.0); Immature Granulocyte Absolute 0.04 K/mm3 (0.00-0.031); Immature Granulocyte Percent A 0.4 % (0-0.5); Lymphocytes Absolute Auto 2.43 K/mm3 (0.9-3.2); Lymphocytes Percent Auto 26.8 % (18.3-44.2); Mean Corpuscular HGB Conc 31.7 g/dl (32-36); Mean Corpuscular Hemoglobin 28.6 pg (26-34); Mean Corpuscular Volume 90.1 fl (80-100); Mean Platelet Volume 9.4 fl (7.4-10.4); Monocytes Absolute Auto 0.7 K/mm3 (0.1-0.6); Monocytes Percent Auto 7.4 % (2.6-8.5); Neutrophils Absolute Auto 5.6 K/mm3 (1.3-6.7); Neutrophils Percent Auto 61.8 % (45.5-73.1); Platelet Count Result 472 k/mm3 (150-375); Red Blood Count 3.95 M/mm3 (4.2-5.4); Red Cell Distribution Width 14.2 % (11.5-14.5); White Blood Count 9.1 K/mm3 (4.5-10.0)
[2024-04-10 08:05] LABS: Alanine Aminotransferase 30 U/L (6-35); Albumin Level 3.6 g/dL (3.5-5.1); Alkaline Phosphatase 64 U/L (38-126); Anion Gap 7 mmol/L (4-12); Aspartate Amino Transferase 27 U/L (14-36); Bilirubin,Total 0.3 mg/dL (0.2-1.3); Blood Urea Nitrogen 13 mg/dL (7-17); Calcium 8.6 mg/dL (8.4-10.2); Carbon Dioxide 31 mmol/L (22-30); Chloride 97 mmol/L (98-107); Cholesterol 86 mg/dL (0-200); Estimated Glomerular Filt Rate 56; Glucose 97 mg/dL (65-110); HDL Direct 34 mg/dL; Potassium 3.9 mmol/L (3.4-5.0); Sodium 135 mmol/L (137-145); Triglycerides 94 mg/dL (<150)
[2024-04-10 08:16] LABS: LDL Cholesterol Direct 33 mg/dL
[2024-04-10 08:51] LABS: Hemoglobin A1C 6.5 % (<5.7)
[2024-04-10 10:11] LABS: Creatinine Urine 94.4 mg/dL
[2024-04-10 10:18] LABS: Microalbumin Urine Random < 6.0 mg/L (0-16.7)
[2024-04-10 10:19] LABS: MALB Creatinine Ratio < 6.4 mg/g (0-30)
== END 2024-04-10 07:07 | disposition home or self-care (01) ==
PROVIDERS: PCP Internal Medicine; Visit Provider Internal Medicine
DX: R73.03 Prediabetes (principal); N18.9 Chronic kidney disease, unspecified; E78.5 Hyperlipidemia, unspecified; I10 Essential (primary) hypertension; Z13.29 Encounter for screening for other suspected endocrine disorder; Z79.899 Other long term (current) drug therapy
CPT/HCPCS: 36415; 80053; 80061; 82043; 83036; 84439; 84443; 85025

== ENCOUNTER 2024-04-11 11:10 | Outpatient (CLI) | payer MEDICARE, OTHER, SELFPAY ==
[2024-04-11 22:01] LABS: Iron 70 ug/dL (37-170)
[2024-04-11 22:10] LABS: Percent Iron Saturation 20 % (20-50)
== END 2024-04-11 11:11 | disposition home or self-care (01) ==
PROVIDERS: PCP Internal Medicine; Visit Provider Internal Medicine
DX: D64.9 Anemia, unspecified (principal); R79.89 Other specified abnormal findings of blood chemistry
CPT/HCPCS: 36415; 82728; 83540; 83550

== ENCOUNTER 2024-08-15 08:33 | Outpatient (CLI) | payer MEDICARE, OTHER, SELFPAY ==
--- OUTSIDE RECORDS SUMMARY | 2024-08-15 08:57 | XMS_ITS | Clinical Summary ---
Author Organization [facility] Address [address] [place] [address] Care Team Providers Care Vice President Business Development Name Role Phone Jose Grace MD Primary Care Provider [phone] Source Comments [facility],non-[facility] Affiliates and Associated Physician Practices is amultiple site organization consisting of ambulatory clinics and hospital sitesin [place], [place], [place] and [place]. This disclosure is being madepursuant to the Care Everywhere program and may not contain all information available regarding this patient. Last updated 18.[facility] Allergies Active Allergy Reactions Criticality Noted Date Comments Sulfa Drugs Urticaria,Rash Medium 02/14/2018 Encounters Date Type Department Care Team Description 08/14/2024 Lab Requisition [facility] [address] [place] [id number] Jocelynn Gotti PA from Last 3 Months Immunizations Name Administration Dates Next Due iNFLUENZA VACCINE, RECOM-ESPARZA, QUADR. (FLUBLOCK QUADRIVALENT; 18Y+) (RIV4) 02/14/2018 Social History Tobacco Use Types Packs/Day Years Used Date Smoking Tobacco: Never Assessed Sex and Gender Information Value Date Recorded Sex Assigned at Not on file Gender Identity Not on file Sexual Orientation Not on file Plan of Treatment Health Maintenance Due Date Last Done Comments BONE DENSITY TESTING 1960 COLOGUARD (AGES 45-75) - COL ON CA SCREENING 1960 COLON MONITORING 1960 COLONOSCOPY - COLON CA SCREENING 1960 CT COLONOGRAPHY - COLON CA SCREENING 1960 Colorectal Cancer Screening 1960 FIT - COLON CA SCREENING 1960 FLEX SIG - COLON CA SCREENING 1960 LIPID TESTING 1960 MAMMOGRAM 1960 MEDICARE AWV 12 MONTHS 1960 PAP SMEAR 1960 HIV SCREENING 1973 HEPATITIS C SCREENING 07/05/1976 DTAP/TDAP/TD VACCINES (1 - Tdap) 1977 PNEUMOCOCCAL VACCINE 50+ (1 of 1 - PCV) 2008 ZOSTER VACCINE (1 of 2) 2008 COVID-19 VACCINE (1 - 2023-2 5 season) 2024 INFLUENZA VACCINE (#1) 2024 02/14/2018 DEPRESSION SCREENING 05/23/2024 Respiratory Syncytial Virus (RSV) Vaccine Pt: or over 60 yrs (1 - 1-dose 75+ series) 2033 HEPATITIS B VACCINE Aged Out No longe r eligible based on patient's age to complete this topic HIB VACCINE Aged Out No longer eligi ble based on patient's age to complete this topic HPV VACCINE Aged Out No longer eligi ble based on patient's age to complete this topic MENINGOCOCCAL (Group B) VACC INE SHARED DECISION-MAKING Aged Out No longer eligibl e based on patient's age to complete this topic MENINGOCOCCAL GROUPS A/C/Y/W VACCINE Aged Out No longer eligible b ased on patient's age to complete this topic Care Teams Vice President Business Development Relationship Specialty Start Date End Date Jose Grace MD [address] [place] [id number] PCP - General Internal Medicine 02/14/18
--- OUTSIDE RECORDS SUMMARY | 2024-08-15 08:57 | XMS_ITS | Encounter Summary ---
Author Organization [facility] Address [address] [place] [address] Phone Care Team Providers Care Recovery Advocate Name Role Phone Jose Grace MD Primary Care Provider [phone] Llao Mejia MD Unavailable [phone] Encounter Details Date Type Department Care Team (Latest Contact Info) Description 04/02/2024 Orders Only [facility] Scanning, Provider Social History Tobacco Use Types Packs/Day Years Used Date Smoking Tobacco: Former Cigarettes 1.3 33 0 05/23/1976 - 11/04/2009 Smokeless Tobacco: Never Alcohol Use Standard Drinks/Week Comments Yes 0 (1 standard drink = 0.6 oz pur e alcohol) 1 per month AUDIT-C Answer Date Recorded Q1: How often do you have a drink containing alc ohol? Monthly or less 09/27/2023 Q2: How many drinks containi ng alcohol do you have on a typical day when you are drinking? 1 or 2 09/27/2023 Q3: How often do you have si x or more drinks on one occasion? Never 09/27/2023 Personal Safety Answer Date Recorded Have you ever been in or are you currently in a harmful physical or emotional relationship or is someone making you feel afraid or unsafe? Denies 05/03/2023 Comments No Sex and Gender Information Value Date Recorded Sex Assigned at Not on file Legal Sex Female 1:38 PM BEATER OUT Gender Identity Not on file Sexual Orientation Straight 11/05/2019 9: 49 AM CDT documented as of this encounter Plan of Treatment Not on file documented as of this encounter Goals Goal Patient Goal Type Associated Problems Recent Progress Patient-Stated? Author CCM Chronic Pain Care Plan Chronic Care Management No Yael Bean, RN Note: Problem: Chronic Pain Goals: 1. Minimize further functional decline 2. Maximize quality of life 3. Control pain Strategies: - Activity/exercise program recommendation - Conservative stepwise pain medicine strategy with multi-disciplinary approach - Recommend healthy lifestyle strategies and compensatory methods as needed Reduce the likelihood of falling Lifestyle No Yael Bean, DONAVAN Note: Below are four things you can do to prevent falls: Begin an exercise program to improve your leg strength & balance Ask your doctor or pharmacist to review your medicines Get annual eye check-ups & update your eyeglasses Make your home safer by: Removing clutter & tripping hazards Putting railings on all stairs & adding grab bars in the bathroom Having good lighting, especially on stairs Contact your local community or [facility] for information on exercise, fall prevention programs, or options for improving home safety. documented as of this encounter Procedures Procedure Name Priority Date/Time Associated Diagnosis Comments SCAN - LABS 04/02/2024 documented in this encounter Results * SCAN - LABS (04/02/2024) us Provider Scanning Edited Result - Final documented in this encounter Visit Diagnoses Not on filedocumented in this encounter Care Teams Recovery Advocate Relationship Specialty Start Date End Date Jose Grace MD [address] [facility] [address] [place] [address] PCP - General 09/23/16 Lalo Mejia MD [address] [place] [address] Rn Shift Mgr Nephrology 03/12/24 documented as of this encounter
--- OUTSIDE RECORDS SUMMARY | 2024-08-15 08:57 | XMS_ITS | Encounter Summary ---
Author Organization [facility] Address [address] [place] [address] Care Team Providers Care Caseworker Intake Name Role Phone Emily French MD Primary Care Provider + Encounter Details Date Type Department Care Team (Latest Contact Info) Description 01/03/[address] 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 Gender Identity Not on file Sexual Orientation Not on file documented as of this encounter Plan of Treatment Upcoming Encounters Date Type Department Care Team (Late st Contact Info) Description 08/08/2025 10:10 AM CDT Appointment [address] [place] [address] Randy Lunsford MD [address] [place] [phone] 08/08/2025 11:00 AM CDT Office Visit [facility] GLUTEN SETTLING TENDER - [facility] [address] [place] [phone] Jai Callaway MD [address] [place] [phone] documented as of this encounter Procedures Procedure Name Priority Date/Time Associated Diagnosis Comments MAMMO SCREEN BILAT W OR WO CAD Routine 01/03/2009 10:16 AM CDT documented in this encounter Results * MAMMO DIGITAL SCREEN BILAT (01/03/2009 10:16 AM CDT) Anatomical Region Laterality Modality Breast Bilateral Other 01/03/2009 10:1 6 AM CDT Narrative 01/05/2009 7:34 PM CDT [id number] [place], [place] [address] Admit Date: 01/03/2009 DAHLIA BACON Sex: F Admit Prov: CHEMO MCMAHON Date: 1960 Primary Care Prov: EMILY FRENCH CMRN: [id number] Room: Noe [facility]: [id number] IMAGING SERVICES Ordering Prov: CHEMO MCMAHON Accession Number: [id number] Interpretation BILATERAL SCREENING DIGITAL MAMMOGRAMS WITH COMPUTER ASSISTED DIAGNOSIS 01/02/09 HISTORY: Annual screening study. Comparison mammograms dating back to 2006 FINDINGS: The parenchyma is moderately dense bilaterally. There is no mass, malignant calcification, lymphadenopathy or other sign of malignancy. The images were reviewed using the CAD system. IMPRESSION: No mammographic evidence of malignancy. OVERALL ASSESSMENT: BIRADS category 1 - Negative Assessment BIRADS: 1-Negative Recommendation: Normal interval follow-up Dictated by: ALYSON DELEON Electronically signed by: ALYSON DELEON 01/05/2009 19:32 Transcribed: 01/03/2009 10:41 AMK Procedure Note Alyson Deleon MD - 01/05/2009 [id number] [place], [place] [address] Admit Date: 01/03/2009 DAHLIA BACON Sex: F Admit Prov: CHEMO MCMAHON Date: 1960 Primary Care Prov: EMILY FRENCH CMRN: [id number] Room: [facility] N: [id number] IMAGING SERVICES Ordering Prov: CHEMO MCMAHON Interpretation BILATERAL SCREENING DIGITAL MAMMOGRAMS WITH COMPUTER ASSISTEDDIAGNOSIS 01/02/09 HISTORY: Annual screening study. Comparison mammograms dating back to 2006 FINDINGS: The parenchyma is moderately dense bilaterally. There isno mass, malignant calcification, lymphadenopathy or other sign ofmalignancy. The images were reviewed using the CAD system. IMPRESSION: No mammographic evidence of malignancy. OVERALL ASSESSMENT: BIRADS category 1 - Negative Assessment BIRADS: 1-Negative Recommendation: Normal interval follow-up Dictated by: ALYSON DELEON Electronically signed by: ALYSON DELEON 01/05/2009 19:32 Transcribed: 01/03/2009 10:41 AMK us Chemo Mcmahon MD MAMMO ORDERABLES Final Result documented in this encounter Visit Diagnoses Diagnosis Other screening mammogram documented in this encounter Care Teams Caseworker Intake Relationship Specialty Start Date End Date Emily French MD [address] [place] [address] PCP - General 03/30/04 documented as of this encounter
--- OUTSIDE RECORDS SUMMARY | 2024-08-15 08:57 | XMS_ITS | Encounter Summary ---
Author Organization [facility] Address 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 Gender Identity Not on file Sexual Orientation Not on file documented as of this encounter Plan of Treatment Upcoming Encounters Date Type Department Care Team (Late st Contact Info) Description 08/08/2025 10:10 AM CDT Appointment [address] [place] [address] Randy Lunsford MD [address] [place] [phone] 08/08/2025 11:00 AM CDT Office Visit [facility] MEDICAL ASSISTING INSTRUCTOR - [facility] [address] [place] [phone] Jai Callaway MD [address] [place] [phone] documented as of this encounter Procedures Procedure Name Priority Date/Time Associated Diagnosis Comments XR DEXA BONE DENSITY AXIAL 1 OR MORE SITES Routine 01/03/2009 9:30 AM CDT documented in this encounter Results * XR DEXA BONE DENSITY AXIAL 1 OR MORE SITES (01/03/2009 9:30 AM CDT) Anatomical Region Laterality Modality Other 01/03/2009 9:30 AM CDT Narrative 01/03/2009 9:44 AM CDT [facility] [place] [address], [place] [address] Admit Date: 01/03/2009 BINA BACONROCK [place] Sex: F Admit Prov: CHEMO MCMAHON Date: 1960 Primary Care Prov: JOSE FRENCH CMRN: [id number] [facility] [address] [place] [address] IMAGING SERVICES Ordering Prov: N/A Accession Number: [id number] Interpretation Examination: Bone Density Study (DEXA) Clinical History: 48 year-old menopausal female. Monitor for osteoporosis. Findings: Lateral radiograph of the lumbar spine: No evidence of fracture. Comparison values to prior exams: Lumbar Spine (L 1-4 ) bone mineral density is 1.41 g/sq cm which corresponds to a T-score of +1.9. The prior spine bone mineral density on 07/27/2006 was 1.25 g/sq cm which represents an increase of 0.016 g/sq cm or +12.8 %. Left femoral neck bone mineral density is 0.88 g/sq cm which corresponds to a T-score of -1.1. The prior femoral neck bone mineral density on 07/27/2006 was 0.87 g/sq cm which represents an increase of 0.01 g/sq cm or +1.1 %. Right femoral neck bone mineral density is 0.85 g/sq cm which corresponds to a T-score of -1.3. Impressions: Lumbar spine: This patient's bone mineral density of the spine is normal when compared to the normal range of young adults and present fracture risk is considered to be very low. Hips: This patient's bone mineral density of the hip is mildly osteopenic when compared to the normal range of young adults and present fracture risk is considered to be very low but could increase by age 65. Comments: Substantial improvement in spine bone mineral density. Detailed report to follow. . Dictated by: JUSTINE THAKKAR 01/03/2009 09:40 Electronically signed by: JUSTINE THAKKAR 01/03/2009 09:42 Procedure Note Justine Thakkar MD - 01/03/2009 [facility] [place] [address], [place] [address] Admit Date: 01/03/2009 ABMONESRRAT AMBER J Sex: F Admit Prov: CHEMO MCMAHON Date: 1960 Primary Care Prov: JOSE FRENCH CMRN: [id number] Room: [facility] SSN: [address] [place] [address] IMAGING SERVICES Ordering Prov: N/A Interpretation Examination: Bone Density Study (DEXA) Clinical History: 48 year-old menopausal female. Monitor forosteoporosis. Findings: Lateral radiograph of the lumbar spine: No evidence of fracture. Comparison values to prior exams: Lumbar Spine (L 1-4 ) bone mineral density is 1.41 g/sq cm which corresponds to a T-score of +1.9. The prior spine bone mineraldensity on 07/27/2006 was 1.25 g/sq cm which represents an increase of 0.016 g/sqcm or +12.8 %. Left femoral neck bone mineral density is 0.88 g/sq cm whichcorresponds to a T-score of -1.1. The prior femoral neck bone mineral density on07/27/2006 was 0.87 g/sq cm which represents an increase of 0.01 g/sq cm or+1.1 %. Right femoral neck bone mineral density is 0.85 g/sq cm whichcorresponds to a T-score of -1.3. Impressions: Lumbar spine: This patient's bone mineral density of the spine isnormal when compared to the normal range of young adults and presentfracture risk is considered to be very low. Hips: This patient's bone mineral density of the hip is mildlyosteopenic when compared to the normal range of young adults and presentfracture risk is considered to be very low but could increase by age 65. Comments: Substantial improvement in spine bone mineral density. Detailed report to follow. . Dictated by: JUSTINE THAKKAR 01/03/2009 09:40 Electronically signed by: JUSTINE THAKKAR 01/03/2009 09:42 us Chemo Mcmahon MD DIAGNOSTIC IMAGING ORDERABLES Final Result documented in this encounter Visit Diagnoses Diagnosis Special screening for osteoporosis Premenopausal menorrhagia documented in this encounter Care Teams Press Tender Short Goods Relationship Specialty Start Date End Date Jose French MD [address] [place] [address] PCP - General 03/30/04 documented as of this encounter
--- OUTSIDE RECORDS SUMMARY | 2024-08-15 08:57 | XMS_ITS | Encounter Summary ---
Author Organization [facility] Address 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 Gender Identity Not on file Sexual Orientation Not on file documented as of this encounter Plan of Treatment Upcoming Encounters Date Type Department Care Team (Late st Contact Info) Description 08/08/2025 10:10 AM CDT Appointment [address] [place] [address] Randy Lunsford MD [address] [place] [phone] 08/08/2025 11:00 AM CDT Office Visit [facility] OPERA SINGER - [facility] [address] [address] [address] Jai Callaway MD [address] [place] [phone] documented as of this encounter Procedures Procedure Name Priority Date/Time Associated Diagnosis Comments MAMMO SCREEN BILAT W OR WO CAD Routine 08/21/2007 1:12 PM CDT documented in this encounter Results * MAMMO DIGITAL SCREEN BILAT (08/21/2007 1:12 PM CDT) Anatomical Region Laterality Modality Breast Bilateral Other 08/21/2007 1:12 PM CDT Narrative 08/23/2007 2:38 PM CDT [address] [place], [place] [address] Admit Date: 08/21/2007 ABMONSERRATDAHLIA Sex: F Admit Prov: GABINO MCMAHONIN Vickie Date: 1960 Primary Care Prov: EMILY FRENCH CMRN: [id number] Room: [facility]: [id number] IMAGING SERVICES Ordering Prov: CHEMO MCMAHON Accession Number: [id number] Interpretation BILATERAL SCREENING DIGITAL MAMMOGRAMS WITH COMPUTER ASSISTED DIAGNOSIS 08/21/07 Findings: The parenchyma is moderately dense bilaterally. There is no mass, malignant calcification, lymphadenopathy or other sign of malignancy. No change since 07/2006. The films were reviewed using the CAD system. Summary: No mammographic evidence of malignancy. Assessment BIRADS: 1-Negative Recommendation: Normal interval follow-up Dictated by: KOBE CALLAWAY Electronically signed by: KOBE CALLAWAY 08/23/2007 14:38 Transcribed: 08/23/2007 14:27 AMK Procedure Note Kobe Callaway MD - 08/23/2007 [address] [place], [place] [address] Admit Date: 08/21/2007 DAHLIA BACON Sex: F Admit Prov: CHEMO MCMAHON Date: 1960 Primary Care Prov: EMILY FRENCH CMRN: [id number] Room: Noe N: [id number] IMAGING SERVICES Ordering Prov: CHEMO MCMAHON Interpretation BILATERAL SCREENING DIGITAL MAMMOGRAMS WITH COMPUTER ASSISTEDDIAGNOSIS 08/21/07 Findings: The parenchyma is moderately dense bilaterally. There isno mass, malignant calcification, lymphadenopathy or other sign ofmalignancy. No change since 07/2006. The films were reviewed using the [place]. Summary: No mammographic evidence of malignancy. Assessment BIRADS: 1-Negative Recommendation: Normal interval follow-up Dictated by: KOBE CALLAWAY Electronically signed by: KOBE CALLAWAY 08/23/2007 14:38 Transcribed: 08/23/2007 14:27 AMK us Chemo Mcmahon MD MAMMO ORDERABLES Final Result documented in this encounter Visit Diagnoses Diagnosis Other screening mammogram documented in this encounter Care Teams Adolescent Medicine Specialist Relationship Specialty Start Date End Date Emily French MD [address] [place] [address] PCP - General 03/30/04 documented as of this encounter
--- OUTSIDE RECORDS SUMMARY | 2024-08-15 08:57 | XMS_ITS | Encounter Summary ---
Author Organization [facility] Address 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 HONEST JOHN ROCKET CREW MEMBER - [facility] [address] [place] [address] Jai Callaway MD [address] [place] [phone] documented as of this encounter Visit Diagnoses Diagnosis Other screening mammogram- Primary documented in this encounter Care Teams Medical Liaison Relationship Specialty Start Date End Date Jose Grace MD [address] [place] [address] PCP - General 03/30/04 documented as of this encounter
--- OUTSIDE RECORDS SUMMARY | 2024-08-15 08:57 | XMS_ITS | Encounter Summary ---
Author Organization [facility] Address 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 Gender Identity Not on file Sexual Orientation Not on file documented as of this encounter Plan of Treatment Upcoming Encounters Date Type Department Care Team (Late st Contact Info) Description 08/08/2025 10:10 AM CDT Appointment [address] [place] [address] Randy Lunsford MD [address] [place], [place] [address] [place] [address] 08/08/2025 11:00 AM CDT Office Visit [facility] ENVIRONMENT ARTIST - [facility] [address] [place] [phone] Jai Callaway MD [address] [place] [phone] documented as of this encounter Visit Diagnoses Diagnosis Screening mammogram for high-risk patient- Primary documented in this encounter Care Teams Hand Tire Trimmer Relationship Specialty Start Date End Date Jose Grace MD [address] [place] [address] PCP - General 03/30/04 documented as of this encounter
--- OUTSIDE RECORDS SUMMARY | 2024-08-15 08:57 | XMS_ITS | Encounter Summary ---
Author Organization [facility] Address [address] [place] [address] Care Team Providers Care Technical Aide Name Role Phone oJse Grace MD Primary Care Provider [phone] Encounter Details Date Type Department Care Team (Late st Contact Info) Description 08/14/2024 Lab Requisition [facility] [address] [facility] [place] [address] KalpeshJocelynn PA [address] [place] [address] Social History Tobacco Use Types Packs/Day Years Used Date Smoking Tobacco: Never Assessed Sex and Gender Information Value Date Recorded Sex Assigned at Not on file Gender Identity Not on file Sexual Orientation Not on file documented as of this encounter Plan of Treatment Scheduled Orders Name Type Priority Associated Diagnoses Orde r Schedule DERMATOPATHOLOGY Pathology Cytology Routine Ordered: 08/14/2024 documented as of this encounter Visit Diagnoses Not on filedocumented in this encounter Care Teams Technical Aide Relationship Specialty Start Date End Date Jose Grace MD [address] [place] [address] PCP - General Internal Medicine 02/14/18 documented as of this encounter
--- OUTSIDE RECORDS SUMMARY | 2024-08-15 08:57 | XMS_ITS | Encounter Summary ---
Author Organization [facility] Address [address] [place] [place] [address] Care Team Providers Care Pressure Vessel Inspector Name Role Phone Jose Grace MD Primary Care Provider [phone] Encounter Details Date Type Department Care Team (Late st Contact Info) Description 07/26/2023 Lab Requisition [facility] - DermPath Lab [address] [facility] [place] [phone] Letty Dixon DO [address] [facility] [address] [place] [address] Social History Tobacco Use Types Packs/Day Years Used Date Smoking Tobacco: Never Assessed Sex and Gender Information Value Date Recorded Sex Assigned at Not on file Gender Identity Not on file Sexual Orientation Not on file documented as of this encounter Plan of Treatment Not on file documented as of this encounter Procedures Procedure Name Priority Date/Time Associated Diagnosis Comments DERMATOPATHOLOGY Routine 07/26/2023 10:5 8 AM ASSISTANT DIRECTOR OF ADMISSIONS documented in this encounter Results * DERMATOPATHOLOGY (07/26/2023 10:58 AM ASSISTANT DIRECTOR OF ADMISSIONS) Case Report Dermatopathology Report Case: [id number] Authorizing Provider: Letty Dixon DO Collected: 07/26/2023 10:58 AM Ordering Location: [facility] Physician [facility] - Received: 07/26/2023 04:24 PM DermPath Lab Pathologist: Lily Carrera MD Specimens: A) - Skin, right thigh B) - Skin, right forehead 2:48 PM [facility] Final Diagnosis Specimen A. 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 Lent r/o Atypia 2:48 PM [facility] Gross Description Specimen A: Received is one formalin filled container labeled with the patient's name and designated right thigh. The specimen consists of a shave biopsy measuring 15x7x1 mm. Jar 0. Specimen B: Received is one formalin filled container labeled with the patient's name and designated right forehead. The specimen consists of a shave biopsy measuring 3x3x1 mm. Jar 0. 2:48 PM [facility] Microscopic Description Specimen A. SKIN, right thigh: There is orthokeratosis. There is a slight increase in epidermal thickness with lentiginous buds of hyperpigmented keratinocytes. The number of melanocytes, highlighted by MART-1/Melan-A immunohistochemical staining, is only mildly increased. In the dermis, there is basophilic degeneration of elastic fibers. In the dermis, there are also focal dilated vascular spaces surrounded by widely spaced endothelial cells. Specimen B. SKIN, right forehead: The epidermis shows parakeratosis, full thickness disorderly maturation of keratinocytes, mitoses at different levels, and dyskeratotic cells. There is prominent pigmentation in some of the keratinocytes. Charlotte-1/Melan-A immunohistochemical stain fails to highlight a melanocytic proliferation. Ki-67 stain highlights an increased proliferative index in throughout the epidermis. 2:48 PM [facility] Disclaimer An external and internal positive and negative controls are appropriate for the histochemical, immunohistochemical and immunofluorescence stain(s) in this case (if any), except where stated explicitly. The performance characteristics of the stain(s) cited in this report were developed and its performance characteristic determined by the Dermatopathology Laboratory at [facility], directed by Dr. Deric Nascimento. These tests need not be, and therefore are not, approved by the [place] Food and Drug Administration. The tests are used for clinical purposes. Billing Codes Specimen Charges Stain Charges 03843 28091 1 1 33760 22161 31904 1 1 1 4 2:48 PM ASSISTANT DIRECTOR OF ADMISSIONS DERMATOPATHOLOGY LABORATORY Embedded Images 2:48 PM ASSISTANT DIRECTOR OF ADMISSIONS DERMATOPATHOLOGY LABORATORY Pathology/Cytology TISSUE SPECIMEN FROM SKIN / Unknown 07/26/2023 10:58 AM ASSISTANT DIRECTOR OF ADMISSIONS 07/26/2023 4:24 PM ASSISTANT DIRECTOR OF ADMISSIONS Miscellaneous samples (specimen) TISSUE SPECIMEN FROM SKIN / Unknown 07/26/2023 10:58 AM ASSISTANT DIRECTOR OF ADMISSIONS 07/26/2023 4:24 PM ASSISTANT DIRECTOR OF ADMISSIONS Letty Dixon DO LAB - PATHOLOGY/C YTOLOGY ORDERABLES DERMATOPATHOLOGY LABORATORY [facility] - Department of Dermatology [facility] [address] [place] [address] [phone] documented in this encounter Visit Diagnoses Not on filedocumented in this encounter Care Teams Pressure Vessel Inspector Relationship Specialty Start Date End Date Jose Grace MD [address] [place] [phone] PCP - General Internal Medicine 02/14/18 documented as of this encounter
--- OUTSIDE RECORDS SUMMARY | 2024-08-15 08:57 | XMS_ITS | Encounter Summary ---
Author Organization [facility] Address [address] [place] [address] Care Team Providers Care Laydown Machine Operator Name Role Phone Jose Grace MD Primary Care Provider + Encounter Details Date Type Department Care Team (Latest Contact Info) Description 07/26/2000 Outpatient Historical [facility] Dolan, Luis Johnston MD NO ADDRESS ON FILE Other screening mammogram (Primary Dx) Social History Tobacco Use Types Packs/Day Years Used Date Smoking Tobacco: Never Assessed Comments Unknown Sex and Gender Information Value Date Recorded Sex Assigned at Not on file Legal Sex Female 3:49 AM REGIONAL DIRECTOR Gender Identity Not on file Sexual Orientation Not on file documented as of this encounter Plan of Treatment Upcoming Encounters Date Type Department Care Team (Late st Contact Info) Description 08/08/2025 10:10 AM CDT Appointment [address] [place] [address] Randy Lunsford MD [address] [place] [address] [place] [phone] 08/08/2025 11:00 AM CDT Office Visit [facility] SENIOR SHAREPOINT ARCHITECT - [facility] [address] [place] [phone] Jai Callaway MD [address] [place] [address] [place] [phone] documented as of this encounter Visit Diagnoses Diagnosis Other screening mammogram- Primary documented in this encounter Care Teams Laydown Machine Operator Relationship Specialty Start Date End Date Jose Grace MD [address] [place] [address] PCP - General 03/30/04 documented as of this encounter
--- OUTSIDE RECORDS SUMMARY | 2024-08-15 08:57 | XMS_ITS | Encounter Summary ---
Author Organization [facility] Address [address] [place] [address] Care Team Providers Care Economic Specialist Name Role Phone Jose Grace MD Primary Care Provider + Encounter Details Date Type Department Care Team (Late st Contact Info) Description 01/11/2003 Outpatient Historical HIS [facility] Luis Mendoza MD NO ADDRESS ON FILE SCREENING MAMM-MAILG NEOPL-OTHER (Primary Dx) Social History Tobacco Use Types Packs/Day Years Used Date Smoking Tobacco: Never Assessed Comments Unknown Sex and Gender Information Value Date Recorded Sex Assigned at Not on file Legal Sex Female 3:49 AM COLORED LIQUID PLASTIC APPLIER Gender Identity Not on file Sexual Orientation Not on file documented as of this encounter Plan of Treatment Upcoming Encounters Date Type Department Care Team (Late st Contact Info) Description 08/08/2025 10:10 AM CDT Appointment [address] [place] [address] Randy Lunsford MD [address] [place], [place] [address] [address] 08/08/2025 11:00 AM CDT Office Visit [facility] JOB TRAINING SUPERVISOR - [facility] [address] [place] [phone] Jai Callaway MD [address] [place] [phone] documented as of this encounter Visit Diagnoses Diagnosis Other screening mammogram- Primary documented in this encounter Care Teams Economic Specialist Relationship Specialty Start Date End Date Jose Grace MD [address] [place] [phone] PCP - General 03/30/04 documented as of this encounter
--- OUTSIDE RECORDS SUMMARY | 2024-08-15 08:57 | XMS_ITS | Encounter Summary ---
Author Organization [facility] Address [address] [place] [address] Care Team Providers Care Wet Cleaner Machine Name Role Phone Jose Grace MD Primary Care Provider + Encounter Details Date Type Department Care Team (Late st Contact Info) Description 11/21/2001 Outpatient Historical HIS [facility] Luis Mendoza MD NO ADDRESS ON FILE SCREENING MAMM-MALIG NEOPL-HI RISK (Primary Dx) Social History Tobacco Use Types Packs/Day Years Used Date Smoking Tobacco: Never Assessed Comments Unknown Sex and Gender Information Value Date Recorded Sex Assigned at Not on file Legal Sex Female 3:49 AM FITNESS/WELLNESS DIRECTOR Gender Identity Not on file Sexual Orientation Not on file documented as of this encounter Plan of Treatment Upcoming Encounters Date Type Department Care Team (Late st Contact Info) Description 08/08/2025 10:10 AM CDT Appointment [address] [place] [address] Randy Lunsford MD [address] [place], [place] [address] [place] [address] 08/08/2025 11:00 AM CDT Office Visit [facility] [place] TRAVELING ENGINEER - [facility] [address] [place] [phone] Jai Callaway MD [address] [place] [phone] documented as of this encounter Visit Diagnoses Diagnosis Screening mammogram for high-risk patient- Primary documented in this encounter Care Teams Wet Cleaner Machine Relationship Specialty Start Date End Date Jose Grace MD [address] [place] [phone] PCP - General 03/30/04 documented as of this encounter
--- OUTSIDE RECORDS SUMMARY | 2024-08-15 08:57 | XMS_ITS | Encounter Summary ---
Author Organization [facility] Address [address] [place] [address] Phone Care Team Providers Care Instructor Ballroom Dancing Name Role Phone Jose Grace MD Primary Care Provider [phone] Lalo Mejia MD Unavailable [phone] Encounter Details Date Type Department Care Team (Latest Contact Info) Description 04/10/2024 Orders Only [facility] Scanning, Provider [...] on file Legal Sex Female 1:38 PM MEDICAL CASE MANAGER Gender Identity Not on file Sexual Orientation [...] on stairs Contact your local community or [facility] for information on exercise, fall prevention programs, or options for improving home safety. documented as of this encounter Procedures Procedure Name Priority Date/Time Associated Diagnosis Comments SCAN - LABS 04/10/2024 documented in this encounter Results * SCAN - LABS (04/10/2024) us Provider Scanning Edited Result - Final documented in this encounter Visit Diagnoses Not on filedocumented in this encounter Care Teams Instructor Ballroom Dancing Relationship Specialty Start Date End Date Jose Grace MD [address] [facility] [address] [place] [address] PCP - General 09/23/16 Lalo Mejia MD [address] [place] [address] Hands And Dial Inspector Nephrology 03/12/24 documented as of this encounter
--- OUTSIDE RECORDS SUMMARY | 2024-08-15 08:57 | XMS_ITS | Clinical Summary ---
Author Organization [facility] Address [address] [place] [address] Phone Care Team Providers Care Pantry Goods Worker Name Role Phone Emily French MD Primary Care Provider + Allergies Active Allergy Reactions Criticality Noted Date Comments Cephalexin Rash Medium 07/07/2020 09/26/[address] Lino Edward - patient has tolerated cefazolin in the past (2015); however, cephalexin allergy added to profile Jun 2020; [facility] PharmD Sulfa (Sulfonamide Antibiotics) Rash Low 06/04/2014 Vancomycin Rash Medium 07/07/2020 Medications montelukast (SINGULAIR) 10 mg tablet TK 1 T PO D 9 Active diclofenac sodium (VOLTAREN) 75 mg Tablet, Delayed Release (E.C.) TK 1 T PO BID 9 Active zolpidem (AMBIEN) 10 mg tablet Take 10 mg by mouth daily at bedtime. Active valACYclovir (VALTREX) 1 gram tablet Take 1,000 mg by mouth. 1 Active pravastatin (PRAVACHOL) 80 mg tablet Take 80 mg by mouth daily at bedtime. 1 Active cetirizine (ZyrTEC) 10 mg tablet Take 10 mg by mouth. 9 Active albuterol sulfate 90 mcg/Actuation inhaler Take 2 Puffs by inhalation. Active niacin SR 500 mg capsule Take 500 mg by mouth. Active multivitamin (DAILY-MAGED) tablet Take 1 Tablet by mouth daily in the morning. Active metoprolol succinate (TOPROL XL) 25 mg Extended Release 24 hour tablet 2 Active metFORMIN (GLUCOPHAGE) 500 mg tablet Take 500 mg by mouth daily with breakfast. Active lisinopril-hydr oCHLOROthiazide (ZESTORETIC) 10-12.5 mg tablet 2 Active fluticasone-ume clidinium-vilan terol (Trelegy Ellipta) 100-62.5-25 mcg Disk with Device Take 1 Puff by inhalation daily before breakfast. Active fluticasone propionate (FLONASE) 50 mcg/spray [place], Suspension nasal inhaler Administer 2 Sprays in each nostril daily before breakfast. 1 Active calcium carb and citrate-vitD3 600 mg-12.5 mcg (500 unit) Tablet Sustained Release Take 2 Tablets by mouth. Active omega-3 fatty acids-fish oil 300-1,000 mg Capsule Take 2 Tablets by mouth. Active MAGNESIUM CITRATE ORAL Take 1 Tablet by mouth daily in the morning. Active pantoprazole (PROTONIX) 40 mg Tablet, Delayed Release (E.C.) Take 40 mg by mouth 2 times daily. Active losartan-hydroC HLOROthiazide (HYZAAR) 50-12.5 mg tablet Take 1 Tablet by mouth daily. Active nitroglycerin (NITROSTAT) 0.4 mg Tablet, Sublingual Place 0.4 mg under tongue every 5 minutes as needed. 3 Active amLODIPine (NORVASC) 2.5 mg tablet Take 2.5 mg by mouth daily. 3 Active ezetimibe (ZETIA) 10 mg tablet Take 10 mg by mouth daily. Active isosorbide mononitrate (IMDUR) 30 mg Extended Release 24 hour tablet Take 30 mg by mouth daily. Active TURMERIC ORAL Take 1,000 mg by mouth daily. 4 Active aspirin (ECOTRIN EC) 81 mg Tablet, Delayed Release (E.C.) Take 81 mg by mouth daily. Active est estrogens-methy lTESTOSTERone (ESTRATEST H.S.) 0.625-1.25 mg tabletIndicatio ns:Menopausal symptoms Take 1 Tablet by mouth daily. 90 Tablet 1 5 Active est estrogens-methy lTESTOSTERone (ESTRATEST H.S.) 0.625-1.25 mg tabletIndicatio ns:Menopausal symptoms TAKE 1 TABLET BY MOUTH EVERY DAY 90 Tablet 5 08/08/19 25 Discontin ued(Reord er) Active Problems Problem Noted Date Diagnosed Date Chest pain 11/25/2022 Essential hypertension 11/25/2022 Gastroesophageal reflux disease without esophagi tis 08/11/2020 Overview (10/10/2023): Last Assessment & Plan: Followed by her PCP and controlled on a PPI. Dislocation of metatarsophalangeal joint of righ t great toe 06/24/2020 Overview (10/10/2023): Added automatically from request for surgery [id number] Spinal stenosis of cervical region 12/24/2016 TTS (tarsal tunnel syndrome) 02/06/2015 Encounters Date Type Department Care Team Description 08/08/2024 External Device Data STL ABSTRACTION Provider, Abstract 08/07/2024 1:00 PM CDT Office Visit [facility] CONTROLLER REPAIRER AND TESTER - [facility] [address] [facility] [address] [place] [phone] Randy Lunsford MD Encounter for gynecological examination with abnormal finding (Primary Dx); Body mass index 30.0-30.9, adult; Breast cancer screening by mammogram; Menopausal symptoms 08/02/2024 Results Follow-Up [facility] CONTROLLER REPAIRER AND TESTER - [facility] [address] [facility] [address] [place] [phone] Randy Lunsford MD MAMMO 3D CHUNG SCREEN BILAT W OR WO CAD 08/01/2024 2:19 PM CDT - 08/01/2024 11:59 PM CDT Hospital Encounter [facility] A [address] [facility] [facility] [address] [place] [phone] Randy Lunsford MD Discharge Disposition: Home or Self Care 07/28/2024 External Device Data STL ABSTRACTION Provider, Abstract 07/27/2024 External Device Data STL ABSTRACTION Provider, Abstract 07/25/2024 External Device Data STL ABSTRACTION Provider, Abstract 07/11/2024 External Device Data STL ABSTRACTION Provider, Abstract 07/11/2024 External Device Data STL ABSTRACTION Provider, Abstract 07/05/2024 [facility] CONTROLLER REPAIRER AND TESTER - [facility] [address] [facility] [address] [place] [address] Randy Lunsford MD Menopausal symptoms 06/14/2024 External Device Data STL ABSTRACTION Provider, Abstract from Last 3 Months Immunizations Immunization Administration Dates Next Due (PNEUMOVAX 23)(50 YRS UP) PN EUMOCOCCAL POLYSACCHARIDE (PPV23) 0.5 ML, IM 04/17/2017 INFLUENZA VACCINE QUADRIVALENT 3 YR UP PF IM ,01/11/2019 INFLUENZA VACCINE QUADRIVALE NT 6 MOS UP CELL DERIVED PF IM 02/08/2017 INFLUENZA VACCINE QUADRIVALENT 6 MOS UP IM 01/11 INFLUENZA VACCINE QUADRIVALENT RECOMB 18 YR UP P F IM 02/14/2018 Influenza Seasonal Unspecified Formulation IM Influenza Seasonal Unspecified Formulation PF IM 02/22/2016,03/06/2015 Influenza, Unspecified Formulation 03/06/2013, Family History Medical History Relation Name Comments Cancer - Other Brother Miroslava gandara Hypertension Father Breast Cancer Mother early 60s 65 or 66 Hypertension Sister Maia Ovarian Cancer Sister Maia Uterine or Endometrial Cance r, Not Including Cervical Sister Maia Cancer - Other Son Bon Right Kidney Cancer Relation Name Status Comments Brother Miroslava Alive Father Mother early 60s Sister Maia Son Bon Alive Social History Tobacco Use Types Packs/Day Years Used Date Smoking Tobacco: Former Cigarettes Q uit: 11/04/2009 Passive Smoke Exposure: Past Smokeless Tobacco: Never Tobacco Cessation:Counseling Given: Not Answered Alcohol Use Standard Drinks/Week Comments Yes 1 (1 standard drink = 0.6 oz pur e alcohol) occasional Comments No Sex and Gender Information Value Date Recorded Sex Assigned at Not on file Legal Sex Female 3:49 AM APPLIANCE ADJUSTER Gender Identity Not on file Sexual Orientation Not on file Occupation Industry Job Start Date Job End Date Not on file Not on file Not on file Not on file Not on file Not on file Not on file Not on file Last Filed Vital Signs Vital Sign Reading Time Taken Comments Blood Pressure 122/78 08/07/2024 12:48 PM CDT Pulse - - Temperature - - Respiratory Rate - - Oxygen Saturation - - Inhaled Oxygen Concentration - - Weight 79.8 kg (176 lb) 08/07/2024 12:48 PM CDT Height 161.9 cm (5' 3.75 ) 08/07/2024 12:48 PM C DT Body Mass Index 30.45 08/07/2024 12:48 PM CDT Plan of Treatment Upcoming Encounters Date Type Department Care Team (Late st Contact Info) Description 08/08/2025 10:10 AM CDT Appointment [facility] A [address] [facility] [facility] [address] [place] [phone] Randy Lunsford MD [address] [place] [address] [address] [phone] 08/08/2025 11:00 AM CDT Office Visit [facility] CONTROLLER REPAIRER AND TESTER - [facility] [address] [facility] [address] [place] [phone] Jai Callaway MD [address] [place] [address] [place] [phone] Health Maintenance Due Date Last Done Comments Pre-Diabetes and Diabetes Screening 1960 DTAP/TDAP/TD VACCINES (1 - Tdap) 1977 Traditional Medicare (ACO) A nnual Wellness Visit 1977 FIT-DNA Q 3 years 2003 Flex Sig/CT Colonography Q 5 years 2003 ZOSTER VACCINE (1 of 2) 2008 PNEUMOCOCCAL VACCINE 50+ YEA RS (2 of 2 - PCV) 04/17/2018 04/17/2017 FIT/FOBT Q 1 year 06/09/2021 06/09/2020, 06/05/2019 BREAST CANCER SCREENING 08/01/2025 08/02/19 25, 07/11/2023, 07/07/2022, Additional history exists COLORECTAL SCREENING 12/26/2029 12/27/2019 Colorectal Cancer Screening 12/26/2029 RSV VACCINE (60+ or ) (1 - 1-dose 75+ series) 2033 OSTEOPOROSIS SCREENING Completed , 10/27/2023, 10/21/2022, Additional history exists INFLUENZA VACCINE Completed 02/21/2024, , 01/11/2019, Additional history exists Procedures Procedure Name Priority Date/Time Associated Diagnosis Comments MAMMO 3D CHUNG SCREEN BILAT W OR WO CAD Routine 08/01/2024 2:35 PM CDT Breast cancer screening by mammogram POC OCCULT BLOOD, IMMUNO, QUAL, STOOL Routine 06/09/2020 11:53 AM APPLIANCE ADJUSTER Screening for malignant neoplasm of the rectum XR DEXA BONE DENSITY AXIAL 1 OR MORE SITES Routine 01/03/2009 9:30 AM CDT from Last 3 Months or Most Recently Relevant to Health Maintenance Results * MAMMO 3D CHUNG SCREEN BILAT W OR WO CAD (08/01/2024 2:35 PM CDT) Anatomical Region Laterality Modality Breast Bilateral Mammography 08/01/2024 2:36 PM CDT Impressions 08/01/2024 2:50 PM CDT IMPRESSION: No mammographic evidence of malignancy in the bilateral breasts. Routine screening mammography is recommended in one year. OVERALL FINAL ASSESSMENT: BI-RADS CATEGORY 1 - Negative DICTATION LOCATION: [facility] 08/01/2024 2:50 PM CDT EXAMINATION: BILATERAL SCREENING DIGITAL MAMMOGRAPHY WITH TOMOSYNTHESIS AND CAD DATE: 08/01/2024 2:35 PM HISTORY: Routine screening mammography. COMPARISON: Mammography with dates ranging from 07/11/2023 to 06/05/2019. TECHNIQUE: A bilateral screening mammogram was performed. Low-dose full-field digital breast tomosynthesis examination was performed with 2D and 3D acquisitions. Examination is read in conjunction with computer aided detection. BREAST COMPOSITION: There are scattered areas of fibroglandular density. FINDINGS: There are no suspicious masses, suspicious calcifications, or other suspicious findings in either breast. There has been no suspicious interval change. us Randy Lunsford MD MAMMO ORDERABLES Final Resul t * POC OCCULT BLOOD, IMMUNO, QUAL, STOOL (06/09/2020 11:53 AM APPLIANCE ADJUSTER) OCCULT BLOOD, IMMUNOASSAY POC Negative Negative [facility] CONTROLLER REPAIRER AND TESTER TOWER A [address] INTERNAL KIT QC Pass Pass [facility] CONTROLLER REPAIRER AND TESTER TOWER A [address] KIT LOT NUMBER POC [phone] [facility] CONTROLLER REPAIRER AND TESTER TOWER A [address] KIT EXPIRATION DATE POC 07/25/21 [facility] CONTROLLER REPAIRER AND TESTER TOWER A [address] Stool STOOL SPECIMEN / Unknown 06/09/2020 11:53 AM APPLIANCE ADJUSTER us Randy Lunsford MD POINT OF CARE TESTING Final Result Performing Organization Address City/State/[facility] Co de Phone Number [facility] CONTROLLER REPAIRER AND TESTER TOWER A [address] CLIA# [id number] [address] [facility] [address] [place] [address] * XR DEXA BONE DENSITY AXIAL 1 OR MORE SITES (01/03/2009 9:30 AM CDT) Anatomical Region Laterality Modality Other 01/03/2009 9:30 AM CDT Narrative 01/03/2009 9:44 AM CDT [facility] [address] [place], [place] [address] Admit Date: 01/03/2009 BELINDABERRYDAHLIA Sex: F Admit Prov: CHEMO MCMAHON Date: 1960 Primary Care Prov: EMILY FRENCH CMRN: [id number] Room: [facility] SSN: [id number] IMAGING SERVICES Ordering Prov: N/A Accession Number: [id number] Interpretation Examination: Bone Density Study (DEXA) Clinical [...] Procedure Note Justine Thakkar MD - 01/03/[address] [address] Admit Date: 01/03/2009 DAHLIA BACON Sex: F Admit Prov: CHEMO MCMAHON Date: 1960 Primary Care Prov: EMILY FRENCH CMRN: [id number] Room: [facility] SSN: [id number] IMAGING SERVICES Ordering Prov: N/A Interpretation Examination: [...] Mcmahon MD DIAGNOSTIC IMAGING ORDERABLES Final Result from Last 3 Months or Most Recently Relevant to [place] [address] MEDICARE PART A AND B [facility] [place] [id number] Care Teams Pantry Goods Worker Relationship Specialty Start Date End Date Emily French MD [address] [place] [address] PCP - General 03/30/04
--- OUTSIDE RECORDS SUMMARY | 2024-08-15 08:57 | XMS_ITS | Encounter Summary ---
Author Organization [facility] Address [address] [place] [address] Phone Care Team Providers Care Rouge Miller Name Role Phone Jose Grace MD Primary Care Provider [phone] Lalo Mejia MD Unavailable Encounter Details Date Type Department Care Team (Latest Contact Info) Description 12/12/2023 Orders Only [facility] Scanning, Provider Social History Tobacco Use Types Packs/Day Years Used Date Smoking Tobacco: Former Cigarettes 1.3 33 1 977 - 2010 Smokeless Tobacco: Never Alcohol Use Standard Drinks/Week [...] on file Legal Sex Female 1:38 PM PATTERNMAKER SAMPLE Gender Identity Not on file Sexual Orientation [...] likelihood of falling Lifestyle No Yael Bean, RN Note: Below are four things you can [...] on stairs Contact your local community or [facility] for information on exercise, fall prevention programs, or options for improving home safety. documented as of this encounter Procedures Procedure Name Priority Date/Time Associated Diagnosis Comments SCAN - LABS 12/12/2023 documented in this encounter Results * SCAN - LABS (12/12/2023) Provider Scanning Final Result documented in this encounter Visit Diagnoses Not on filedocumented in this encounter Care Teams Rouge Miller Relationship Specialty Start Date End Date Jose Grace MD [address] [facility] [address] [place] [address] PCP - General 09/23/16 Lalo Mejai MD [address] [facility] [address] [place] [address] Biophysics Scientist Nephrology 03/12/24 documented as of this encounter
--- OUTSIDE RECORDS SUMMARY | 2024-08-15 08:57 | XMS_ITS | Encounter Summary ---
Author Organization [facility] Address 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 Gender Identity Not on file Sexual Orientation Not on file documented as of this encounter Plan of Treatment Upcoming Encounters Date Type Department Care Team (Late st Contact Info) Description 08/08/2025 10:10 AM CDT Appointment [address] [place] [address] Randy Lunsford MD [address] [place] [address] [place] [phone] 08/08/2025 11:00 AM CDT Office Visit [facility] 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
--- OUTSIDE RECORDS SUMMARY | 2024-08-15 08:57 | XMS_ITS | Clinical Summary ---
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 Gender Identity Not on file Sexual Orientation Not on file Plan of Treatment Health Maintenance Due Date Last Done Comments DEXA Bone Density 1960 Hepatitis C Virus (HCV) Screening 1960 TdaP Immunization 1960 Pap Smear 1979 Cervical Cancer Screening (CCS) 1988 HPV/Cotest 1988 Cologuard 2008 Immunochemical Fecal Occult Blood 2008 Mammogram 2008 Pneumococcal Immunization (5 0+ years) (1 of 1 - PCV) 2008 Zoster Immunization (1 of 2) 2008 Influenza Immunization (#1) 2024 SARS-COV-2 Immunization ( - season) 2024 Colonoscopy 12/26/2024 12/27/2019 Colorectal Cancer Screening 12/26/2024 Respiratory Syncytial Virus (RSV) Immunization (Adult) (1 - 1-dose 75+ series) 2033 12/27/2019 Hepatitis B Immunization Aged Out No longer eligible based on patient's age to complete this topic Meningococcal Immunization (ACWY) Aged Out No longer eligible based on patient's age to complete this topic Rotavirus Immunization Aged Out No lo nger eligible based on patient's age to complete this topic Procedures Procedure Name Priority Date/Time Associated Diagnosis Comments COLONOSCOPY Routine 12/27/2019 from Last 3 Months or Most Recently Relevant to Health Maintenance Results * COLONOSCOPY (12/27/2019) Chad Carlos Lagos DO PROCEDURE/MINOR SURGICAL ORDERA BLES Final Result from Last 3 Months or Most Recently Relevant to Health Maintenance Insurance MEDICARE Care Teams Overhead Foreman Relationship Specialty Start Date End Date Jose Grace MD [address] [place] [address] PCP - General Internal Medicine 07/19/19
--- OUTSIDE RECORDS SUMMARY | 2024-08-15 08:57 | XMS_ITS | Clinical Summary ---
Author Organization [facility] Address [address] [address] Care Team Providers Care Training And Development Professional Name Role Phone Jose Grace MD Primary Care Provider [phone] Lalo Mejia MD Unavailable [phone] Allergies Active Allergy Reactions Criticality Noted Date Comments Cephalexin Rash Medium 07/07/2020 09/26/[address] Lino Edward - patient has tolerated cefazolin in the past (2015); however, cephalexin allergy added to profile Jun 2020; [facility] PharmD Sulfa (Sulfonamide Antibiotics) Hives,Rash Medium 06/04/2014 Vancomycin Rash Medium 07/07/2020 Medications zolpidem (AMBIEN) 10 mg tabletIndication s:Sleep-Onset Insomnia Take 1 tablet (10 mg total) by mouth nightly as needed for sleep Active estrogens-methyl TESTOSTERone (EEMT,COVARYX) 0.625-1.25 mg per tabletIndication s:Vasomotor Symptoms associated with Menopause Take 1 tablet by mouth every morning Active montelukast (SINGULAIR) 10 mg tabletIndication s:Maintenance Therapy for Asthma Take 1 tablet (10 mg total) by mouth nightly 8 Active multivitamin tabletIndication s:Vitamin Deficiency Prevention Take 1 tablet by mouth every morning Active albuterol HFA (PROVENTIL HFA,VENTOLIN HFA,PROAIR HFA) 90 mcg/actuation inhalerIndicatio ns:Acute Asthma Attack Inhale 2 puffs every 4 (four) hours as needed for wheezing or shortness of breath Active cetirizine (ZyrTEC) 10 mg tabletIndication s:Perennial Allergic Rhinitis,Seasona l Allergic Rhinitis Take 1 tablet (10 mg total) by mouth every morning 1 9 Active calcium carb, citrate/vit D3 (CALCIUM CARB AND CITRATE-VITD3 ORAL)Indications :Hypocalcemia Prevention,Preve ntion of Vitamin D Deficiency Take 2 tablets by mouth every morning 1200 mg + 500 iu's Active pravastatin (PRAVACHOL) 80 mg tabletIndication s:hyperlipidemia Take 1 tablet (80 mg total) by mouth nightly 1 Active fluticasone propionate (FLONASE) 50 mcg/actuation nasal sprayIndications :Chronic Non-Allergic Rhinitis Administer 2 sprays into each nostril every morning 1 Active fluticasone-umec lidin-vilanter (Trelegy Ellipta) 100-62.5-25 mcg inhalerIndicatio ns:Maintenance Therapy for Asthma Inhale 1 puff every morning Active metFORMIN (GLUCOPHAGE) 500 mg tabletIndication s:type 2 diabetes mellitus Take 1 tablet (500 mg total) by mouth nightly Active metoprolol XL (TOPROL-XL) 25 mg extended release tabletIndication s:Atrial Arrhythmia Take 1 tablet (25 mg total) by mouth every morning Elevated HR 2 Active MAGNESIUM ORALIndications: hypomagnesemia Take 250 mg by mouth every morning Active losartan-hydroCH LOROthiazide (HYZAAR) 50-12.5 mg per tabletIndication s:hypertension Take 1 tablet by mouth every morning 3 Active nitroglycerin (NITROSTAT) 0.[address] 1 tablet (0.4 mg total) under the tongue every 5 (five) minutes as needed for chest pain [address] (PROTONIX) 40 mg EC tabletIndication s:gerd Take 1 tablet (40 mg total) by mouth 2 (two) times a day 3 Active ezetimibe (ZETIA) 10 mg tablet Take 1 tablet (10 mg total) by mouth daily 4 Active turmeric root extract 1,053 mg tablet Take by mouth daily Active aspirin 81 mg enteric coated tablet Take 1 tablet (81 mg total) by mouth daily Active TURMERIC ORAL Take 1,000 mg by mouth daily Active isosorbide mononitrate ER (IMDUR) 30 mg 24 hr tablet Take 1 tablet (30 mg total) by mouth daily 30 tablet 11 4 03/08/20 25 Active Active Problems Problem Noted Date Diagnosed Date Coronary artery vasospasm 03/08/2024 Myalgia 09/27/2023 Spondylosis of cervical jatinder on without myelopathy or radiculopathy 06/03/2023 Left foot pain 04/12/2023 Former smoker 11/25/2022 Prediabetes 11/25/2022 Chest pain 11/25/2022 Essential hypertension 11/25/2022 Hallux valgus of left foot 04/24/2021 Overview (04/24/2021): Added automatically from request for surgery [id number] Open wound of right lower leg 08/11/2020 Assessment & Plan (08/11/2020 9:24 AM CDT): Patient has a nonhealing right lateral leg wound. There are no perforators seen underneath this wound and she has no leg swelling. Plan will be for Santyl to this wound as well as compression therapy for the next 2 weeks. I will have her follow up at that time for wound check. Mild intermittent asthma without complication Assessment & Plan (08/11/2020 9:07 AM CDT): Followed by her PCP and controlled on inhalers at this time. Gastroesophageal reflux disease without esophagi tis 08/11/2020 Assessment & Plan (08/11/2020 9:07 AM CDT): Followed by her PCP and controlled on a PPI. Dislocation of metatarsophalangeal joint of righ t great toe 06/24/2020 Overview (06/24/2020): Added automatically from request for surgery [id number] Postlaminectomy syndrome of cervical region 08/2016 Spinal stenosis of cervical region 12/24/2016 Osteopenia 12/09/2016 Overview (10/27/2023): Ms. BOATENG is here for follow-up on her bones and a history of a non-healing second metatarsal fractures. She's had no fractures in her feet >5 years. She's had an arthrodesis on her left great toe per Dr. Edward and has a healed fusion now. For treatment of bone disease she still takes calcium 1200 mg per day and vitamin D 1000 units per day in her MVI. She remains on low dose hormone replacement since her total hysterectomy at age 34. She remains off of other bone modifying agents at this juncture. She's had 0 falls in the past year and no falls. She exercises with biking because her feet have too much pain with any weight-bearing. 07/2023 [facility] [address] [place] [id number] XR Foot Left 3+ View Status: Final result Study Result Narrative & Impression XR FOOT LEFT 3 OR MORE VIEWS HISTORY: Left foot pain. FINDINGS: 3 weightbearing views of the left foot are obtained and compared with 06/13/2023. There is unchanged healed and fused 1st metatarsophalangeal arthrodesis with previous hardware removal. A screw fragment remains present in the metatarsal head. There is unchanged internally fixated 2nd tarsometatarsal arthrodesis with dorsal plate and screw construct and single retrograde longitudinal screw. Hardware is intact. There is no acute fracture. Joint spaces are preserved. There is a small plantar calcaneal spur. IMPRESSION: 1. Healed 1st metatarsophalangeal arthrodesis with hardware removal and retained screw fragment. 2. Internally fixated 2nd tarsometatarsal arthrodesis in expected position. Electronically signed by: Corona Berrios M.D. Assessment & Plan (10/27/2023 3:47 PM CDT): Ms. BOATENG has a history of a slow healing metatarsal fractures (but has had none for >5 years) and now has a a 1st MTP arthrodesis that has healed and she's doing well. Continue calcium and vitamin D and exercise and follow up with a repeat bone density in 3 years. Assessment & Plan (01/21/2022 3:45 PM CDT): Ms. BOATENG has a history of a slow healing metatarsal fractures (but has had none for >5 years) and now has a non-union of her 1st MTP arthrodesis requiring a bone stimulato per Dr. Edward. Her bone density is stable with mild osteopenia in her femoral neck only. If she requires a revision then it would be ok to try an anabolic therapy at the time of the revision and I've told her she can get the medication at that time if we have samples available. Assessment & Plan (01/18/2019 2:48 PM CDT): Ms. BOATENG has a history of a slow healing metatarsal fracture and has had a 2nd metatarsal ORIF and bone graft and a TMT arthrodesis. Her bone density remains stable with mild osteopenia in her femoral neck only. She can follow-up in 3 years and avoid falls in the meantime. TTS (tarsal tunnel syndrome) 02/06/2015 Hyperlipidemia LDL goal <70 10/07/2014 Assessment & Plan (08/11/2020 9:07 AM CDT): Followed by her PCP and controlled on a statin at this time. Meningioma 10/15/2008 Resolved Problems Problem Noted Date Diagnosed Date Resolved Date Brachial neuritis 12/24/2016 11/22/2019 Neck pain 09/06/2016 11/22/2019 Left shoulder pain 06/21/2016 0 Swelling of extremity 06/23/20152019 Chronic pain 02/06/2015 11/22/2019 Neuralgia 02/06/2015 11/22/2019 Bronchitis 10/07/2014 11/22/2019 Injury of nerve of lower extremity 10/07/2014 11/22/2019 Pneumonia 10/07/2014 11/22/2019 Lumbago 06/11/2014 11/22/2019 Pain of foot 06/04/2013 11/22/2019 Subdeltoid bursitis 12/29/2011 11/22/19 20 Sprain of rotator cuff capsule 11/11/2011 11/22/2019 Complete tear of rotator cuff 08/17/2011 11/22/2019 Rotator cuff tendonitis 04/20/201106/2019 Arthralgia of shoulder 04/12/201111/21 Encounter for preventive health examination 10/02/2008 11/22/2019 Encounters Date Type Department Care Team Description 06/14/2024 Orders Only [facility] Archana Haas NP Primary osteoarthritis of right knee 05/24/2024 Telephone [facility] - [facility] [address] [place] [address] Archana Haas NP 05/17/2024 Orders Only [facility] Orthopa[facility] Surgery [address] [place] [id number] Archana Haas NP Primary osteoarthritis of right knee (Primary Dx) from Last 3 Months Immunizations Immunization Administration Dates Next Due Flucelvax Influenza Quad 02/08/2017 Influenza, Quadrivalent, Rec ombinant, Egg Free, Preservative Free, Intramuscular 02/14/2018 Influenza, Quadrivalent, Split, Intramuscular Influenza, Quadrivalent, Spl it, Preservative Free, Intramuscular 01/17/2020,01/11/2019 Influenza, Trivalent, Preservative Free, Intramu scular 02/22/2016,03/06/2015 Influenza, Unspecified 03/06/2013,05/07/2012 Pneumococcal Polysaccharide PPV23 04/17/2017 Surgical History Surgery Date Site/Laterality Comments ASPIRATION OF ABSCESS HEMATOMA CYST 06/26/2015 N/A FLUORO GUIDED ASPIRATION OR INJECTION INTERMEDIATE JOINT RIGHT 03/03/2018 Right FLUORO GUIDED ASPIRATION OR INJECTION INTERMEDIATE JOINT RIGHT 02/06/2019 Right FOOT SURGERY 05/23/2013 - 05/22/[address];2015 and 2016 LEG SURGERY 05/23/2009 - 05/22/2010 Left nerve surgery BRAIN MENINGIOMA EXCISION 05/23/2006 - 05/22/2007 meningioma head- hardware in place CERVICAL FUSION 05/23/2008 - 05/22/2009 anterior - hardware in place HYSTERECTOMY 05/23/1989 - 05/22/1990 WRIST SURGERY 05/23/2009 - 05/22/2010 Bilateral x5 surgeries ganglion cyst related COLONOSCOPY 05/23/2018 - 05/22/2019 BASAL CELL CARCINOMA EXCISION 05/23/2019 - 05/22/2020 nose RESECTION RIB PARTIAL 05/23/1982 - 05/22/1983 rib removed ARTHRODESIS 09/26/2020 Right right foot- hardware in place ARTHRODESIS 05/29/2021 Left and 05/05/2022 BREAST BIOPSY 06/04/2014 Right FRACTURE SURGERY Left foot 2nd medatorsal Medical History Medical History Date Comments Cellulitis 06/2020 Right leg- resol fallon. Mild intermittent asthma well co ntrolled PONV (postoperative nausea and vomiting) sucess with scoplamine GERD (gastroesophageal reflux disease) well controlled Diabetes mellitus (HCC) on metfo rmin- started ~1mo ago. Reports A1C 6.3 05/2021 Insomnia Allergic rhinitis Edema occ BLE- takes L ozol daily HLD (hyperlipidemia) statin Chest pain Shortness of breath Neck pain Family History Medical History Relation Name Comments Cancer Brother Les Colon cancer Brother Les w/ liver mets Hypertension Brother Jaime Cancer Father Donavon Esophageal cancer Father Donavon Respiratory failure Mother Diabetes Paternal Grandmother Amelia Cancer Sister 1 Maia Diabetes Sister 1 Maia Hypertension Sister 1 Maia Hypertension Sister 2 Anesthesia problems Neg Hx Broken bones Neg Hx Hip fracture Neg Hx Kyphosis Neg Hx Osteoporosis Neg Hx Scoliosis Neg Hx Relation Name Status Comments Brother Jaime (Age 52) Father Donavon (Age 66 ) Mother (Age 73) Paternal Grandmother Amelia Sister 1 Maia (Age 55) Sister 2 Alive Social History Tobacco Use Types Packs/Day Years Used Date Smoking Tobacco: Former Cigarettes 1.3 33 0 05/23/1976 - 11/04/2009 Smokeless Tobacco: Never Tobacco Cessation:Counseling Given: Not Answered Alcohol Use Standard Drinks/Week Comments Yes 0 [...] on file Legal 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 Gender Identity Not on file Sexual Orientation Straight 11/05/2019 9: 49 AM CDT Obstetrics History Last Filed Vital Signs Vital Sign Reading Time Taken Comments Blood Pressure 132/80 05/03/2024 10:30 AM SOIL FERTILITY SPECIALIST Pulse 63 05/03/2024 10:30 AM SOIL FERTILITY SPECIALIST Temperature 36.4 C (97.5 F) 03/07/2024 8:34 AM CDT Respiratory Rate 16 09/27/2023 1:26 PM CDT Oxygen Saturation 98% 05/03/2024 10:30 AM SOIL FERTILITY SPECIALIST Inhaled Oxygen Concentration - - Weight 80 kg (176 lb 4.8 oz) 05/03/2024 10:30 AM SOIL FERTILITY SPECIALIST Height 167.6 cm (5' 6 ) 05/03/2024 10:30 AM SOIL FERTILITY SPECIALIST Body Mass Index 28.46 05/03/2024 10:30 AM SOIL FERTILITY SPECIALIST Plan of Treatment Health Maintenance Due Date Last Done Comments Colon Cancer Screening-Colonoscopy 1960 Depression Screening 1960 Hepatitis C Screening 1960 DTaP/Tdap/Td Vaccine (1 - Tdap) 1969 Hepatitis B Screening 1976 Lung Cancer Screening 2008 Zoster Vaccine (1 of 2) 2008 Pneumococcal vaccine 65+ (2 of 2 - PCV) 04/17/2018 04/17/2017 Well Visit 65+ 2023 Covid-19 Vaccine (6 - 2023-2 5 season) 2024 02/02/2022, 09/09/2021, 04/05/2021, Additional history exists Influenza Vaccine (#1) 2024 2, 02/05/2021, 01/17/2020, Additional history exists Breast Cancer Screening-Mammogram 07/11/2024 07/11/2023, 07/11/2023, 07/07/2022, Additional history exists Fall Risk Assessment 09/26/2024 09/27/2023, 08/23/2023, 07/22/2023, Additional history exists Osteoporosis Screening-Bone Density Scan 10/26/2025 10/27/2023, 10/21/2022, 10/21/2022, Additional history exists Goals Goal Patient Goal Type Associated Problems [...] on stairs Contact your local community or channing home for information on exercise, fall prevention programs, or options for improving home safety. Medical Devices Implanted Type Area Pillowcase Sewer Device Identifier Shelf Expiration Date Model / Serial / Lot Connecture [id number] Ortholoc 3.5mm 2.5mm 18mm Low Profile Head Self Tap Midfoot - S00 - [id number] Implanted:Qty: 1 on 09/26/2020 by Lino Edward MD at [facility] Screw Right: Foot Connecture [id number] / Orthohelix [id number] Maxtorque 4mm 30mm Cannulated Blunt Foot Long Thread Screw Bone Latex Free - S00 - [id number] Implanted:Qty: 1 on 09/26/2020 by Lino Edward MD at [facility] Screw Right: Foot Orthohelix CSS-011-40- [id number] / Orthohelix Maxtorque 4mm 35mm Cannulated Self Drill Foot Ankle Short Thread [id number] - [id number] - [id number] Implanted:Qty: 1 on 05/05/2022 by Lino Edward MD at [facility] Screw Left: Ankle Orthohelix MSD--40- 035S / MSD--40- 035S / Hardware From Fusion N/A: Neck Orthohelix [id number] Maxtorque 4mm 35mm Cannulated Self Drill Foot Ankle Long Thread - [id number] Implanted:Qty: 1 on 05/29/2021 by Lino Edward MD at [facility] Left: Foot Orthohelix MSD--40- 035L / / [employer] [id number] Ortholoc 47mm 3di Fusion Low Profile Compression Slot Foot Left - [id number] Implanted:Qty: 1 on 05/29/2021 by Lino Edward MD at [facility] [place] Left: Foot [employer] [id number] / / [employer] [id number] Ortholoc 2.7mm 2mm 18mm Lock On [place] Polyaxial Self Tap Midfoot - [id number] Implanted:Qty: 3 on 05/29/2021 by Lino Edward MD at [facility] Left: Foot [employer] [id number] / / [employer] [id number] Ortholoc 3.5mm 2.5mm 18mm Low Profile Head Self Tap Midfoot - [id number] Implanted:Qty: 1 on 05/29/2021 by Lino Edward MD at [facility] Left: Foot [employer] [id number] / / [employer] Ortholoc [id number] Fusion Low Profile Revision Foot Left First [id number] - [id number] Implanted:Qty: 1 on 05/05/2022 by Lino Edward MD at [facility] [employer] [id number] / / [employer] Ortholoc 3.5mm 2.8mm 14mm Lock On [place] Polyaxial Self Tap Midfoot [id number] - [id number] Implanted:Qty: 1 on 05/05/2022 by Lino Edward MD at [facility] Left: Ankle [employer] [id number] / / [employer] Ortholoc 2.7mm 2mm 12mm Lock On [place] Polyaxial Self Tap Midfoot [id number] - [id number] Implanted:Qty: 2 on 05/05/2022 by Lino Edward MD at [facility] Left: Ankle [employer] [id number] / / [employer] Ortholoc 3.5mm 2.5mm 18mm Low Profile Head Self Tap Midfoot [id number] - [id number] Implanted:Qty: 2 on 05/05/2022 by Lino Edward MD at [facility] Left: Ankle [employer] [id number] / / [employer] Ortholoc 2.7mm 2mm 16mm Lock On [place] Polyaxial Self Tap Midfoot [id number] - [id number] Implanted:Qty: 1 on 05/05/2022 by Lino Edward MD at [facility] Left: Ankle Connecture [id number] / / [employer] Angio-Seal Vip 6fr Closere Device [id number] - [id number] Implanted:Qty: 1 on 12/13/2022 by Jerardo Myles MD at [facility] [employer] 05/22/2023 [id number] / / [id number] Explanted Type Area Pillowcase Sewer Device Identifier Shelf Expiration Date Model / Serial / Lot [employer] [id number] Ortholoc 2.7mm 2mm 14mm Lock On [place] Polyaxial Self Tap Midfoot - S00 - [id number] Implanted:Qty: 1 on 09/26/2020 by Lino Edward MD at [facility] Explanted:Qty: 1 on 05/03/2023 at [facility] Screw Right: Foot [employer] [id number] / 00 [employer] [id number] Ortholoc 2.7mm 2mm 18mm Lock On [place] Polyaxial Self Tap Midfoot - S00 - [id number] Implanted:Qty: 2 on 09/26/2020 by Lino Edward MD at [facility] Explanted:Qty: 2 on 05/03/2023 at [facility] Screw Right: Foot [employer] [id number] / 00 / 00 [employer] [id number] Ortholoc 2.7mm 2mm 16mm Lock On [place] Polyaxial Self Tap Midfoot - S00 - [id number] Implanted:Qty: 2 on 09/26/2020 by Lino Edward MD at [facility] [place] Explanted:Qty: 2 on 05/03/2023 at [facility] Screw Right: Foot [employer] [id number] / 00 [employer] [id number] Rolo .062in 9in 1 Trocar Smooth Wire Fixation - [id number] Explanted:Qty: 2 on 05/29/2021 by Lino Edward MD at [facility] Left: Foot [employer] [id number] / / [employer] [id number] Ortholoc 47mm 3di Fusion Low Profile Compression Slot Foot Right - S00 - [id number] Implanted:Qty: 1 on 09/26/2020 by Lino Edward MD at [facility] Explanted:Qty: 1 on 05/03/2023 at [facility] Right: Foot [employer] [id number] / 00 00 [employer] [id number] Ortholoc 2.7mm 2mm 14mm Lock On [place] Polyaxial Self Tap Midfoot - [id number] Implanted:Qty: 1 on 05/29/2021 by Lino Edward MD at [facility] [place] Explanted:Qty: 1 on 05/03/2023 at [facility] Left: Foot [employer] [id number] / / [employer] [id number] Ortholoc 2.7mm 2mm 16mm Lock On [place] Polyaxial Self Tap Midfoot - [id number] Implanted:Qty: 1 on 05/29/2021 by Lino Edward MD at [facility] [place] Explanted:Qty: 1 on 05/03/2023 at [facility] Left: Foot [employer] [id number] / / Procedures Procedure Name Priority Date/Time Associated Diagnosis Comments MRI KNEE RIGHT WO CONTRAST Schedule Routine, Read Routine (OP Routine) 06/01/2024 3:21 PM [employer]IL [employer]ILITY [employer]IST Primary osteoarthritis of right knee DEXA TBS AXIAL SKELETON BONE DENSITY 1 OR MORE SITES Schedule Routine, Read Routine (OP Routine) 10/27/2023 11:19 AM CDT Osteopenia of neck of left femur from Last 3 Months or Most Recently Relevant to Health Maintenance Results * MRI Knee Right WO Contrast (06/01/2024 3:21 PM 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 Based on machine cross-calibration and precision studies the least significant changes of this densitometer is 0.024 g/cm2 at the spine, 0.020 g/cm2 at the total proximal femur, and 0.014g/cm2 at the forearm. HISTORY: This is a 63 y.o. postmenopausal female with a history of asthma and low bone mass. She reports that she quit smoking about 14 years ago. Her smoking use included cigarettes. She started smoking about 47 years ago. She has a 41.3 pack-year smoking history. She has never used smokeless tobacco. Currently on treatment with calcium, vitamin D, hormone replacement therapy, and diuretics and previously treated with teriparatide (Forteo). INDICATIONS: Menopause status, treatment monitoring, and history of low bone mass. FINDINGS: BONE MINERAL DENSITY OF THE LUMBAR SPINE Bone Mineral Density (BMD) of the lumbar spine was measured from L1-L4 and the average density was calculated to be 1.425 gm/cm2. This corresponds to a T-score (standard deviations from the mean of young adults) of 3.4. When compared to the previous study of 10/21/2022 there has been a 0.037 gm/cm (2.7%) increase in bone density that is considered significant. BONE MINERAL DENSITY OF THE PROXIMAL FEMUR Bone Mineral Density (BMD) of the left hip total was found to be 0.987 gm/cm2. This corresponds to a T-score standard deviations from the mean of young adults of 0.4. Femoral neck is 0.715 gm/cm2 with a T-score (standard deviations from the mean of young adults) of -1.2. When compared to the previous study of 10/21/2022 there has been no significant changes in bone density. SUMMARY: Bone mineral density shows evidence of low bone mass at the proximal femur and moderately increased fracture risk (Osteopenia). There has been a significant increase in bone density since previous measurement. Note the previous spine scans were reanalyzed to provide accurate comparison. ADDITIONAL COMMENTS: Postmenopausal Women and Men Over 50: Diagnostic criteria: Osteoporosis: BMD at or below -2.5 T-score; Osteopenia (low bone mass): BMD between -1.0 and -2.5 T-score. If the patient has a history of a fragility fracture, a fracture that occurred with trauma equivalent to a fall from a standing position or less, then the diagnosis is osteoporosis regardless of bone density. The history and data sections of the bone mineral density scan were prepared by Caridad Still (R)(CBDT) who is accredited by the International Society of Clinical Densitometry. The overall patient assessment and scan interpretation were performed by Maia Snyder M.D. who is certified by the International Society of Clinical Densitometry. [id number] Deb Max [facility] DXA PROCEDURES Final Result from Last 3 Months or Most Recently Relevant to [place] [address] MEDICARE [facility] MEDICARE ON LICENSE OF [facility] MEDICARE [employer] [facility] Advance Directives For more information, please contact: [phone] * Full Code (Latest Code Status on File) Date Activated Date Inactivated Comments 12/13/2022 9:47 AM 12/13/2022 4:55 PM Care Teams Training And Development Professional Relationship Specialty Start Date End Date Jose Grace MD [address] [facility] [address] [place] [address] PCP - General 09/23/16 Lalo Mejia MD [address] [facility] [address] [place] [address] Stamp Clerk Nephrology 03/12/24
--- OUTSIDE RECORDS SUMMARY | 2024-08-15 08:57 | XMS_ITS | Encounter Summary ---
Author Organization [facility] Address [address] [place] [address] Care Team Providers Care Kapok Machine Operator Name Role Phone Jose Grace MD Primary Care Provider + Encounter Details Date Type Department Care Team (Latest Contact Info) Description 08/04/2006 Outpatient Historical HIS [facility] Dolan, Luis Johnston MD NO ADDRESS ON FILE Diffuse Cystic Mastopathy (Primary Dx) Social History Tobacco Use Types Packs/Day Years Used Date Smoking Tobacco: Never Assessed Comments Unknown Sex and Gender Information Value Date Recorded Sex Assigned at Not on file Legal Sex Female 3:49 AM NURSE CHARGE RN Gender Identity Not on file Sexual Orientation Not on file documented as of this encounter Plan of Treatment Upcoming Encounters Date Type Department Care Team (Late st Contact Info) Description 08/08/2025 10:10 AM CDT Appointment [address] [place] [address] Randy Lunsford MD [address] [place] [address] [place] [address] 08/08/2025 11:00 AM CDT Office Visit [facility] SOCIAL INSURANCE SPECIALIST - [facility] [address] [place] [address] Jai Callaway MD [address] [place] [address] [place] [address] documented as of this encounter Visit Diagnoses Diagnosis Diffuse cystic mastopathy- Primary documented in this encounter Care Teams Kapok Machine Operator Relationship Specialty Start Date End Date Jose Grace MD [address] [place] [address] PCP - General 03/30/04 documented as of this encounter
--- OUTSIDE RECORDS SUMMARY | 2024-08-15 08:57 | XMS_ITS | Referral Summary ---
Author Organization [facility] Address [address] [place] [address] Care Team Providers Care Roof Truss Builder Name Role Phone Jose Grace MD Primary Care Provider [phone] Lalo Mejia MD Unavailable [phone] Encounters Date Type Department Care Team Description 06/14/2024 Orders Only [facility] Archana Haas NP Primary osteoarthritis of right knee 05/24/2024 Telephone [facility] [place] ([facility]) - [facility] [address] [place] [address] Archana Haas NP 05/17/2024 Orders Only [facility] Orthopaedic Surgery [address] [facility] 2nd Floor [address] [place] [address] Archana Haas NP Primary osteoarthritis of right knee (Primary Dx) from Last 3 Months Allergies Active Allergy Reactions Criticality Noted Date [...] ORAL Take 1,000 mg by mouth daily 4 Active isosorbide mononitrate ER (IMDUR) 30 mg [...] (04/24/2021): Added automatically from request for surgery [id number] Open wound of right lower leg 08/11/2020 [...] (06/24/2020): Added automatically from request for surgery [id number] Postlaminectomy syndrome of cervical region 08/2016 Spinal [...] too much pain with any weight-bearing. 07/2023 [facility] [address] [place] [address] XR Foot Left 3+ View Status: Final [...] foot 06/04/2013 11/22/2019 Subdeltoid bursitis 12/29/2011 11/22/19 Sprain of rotator cuff capsule 11/11/2011 11/22/2019 Complete tear of rotator cuff 08/17/2011 11/22/2019 Rotator cuff tendonitis 04/20/201106/2019 Arthralgia of shoulder 04/12/201111/21 Encounter for preventive health examination 10/02/2008 11/22/2019 Immunizations Immunization Administration Dates Next Due Flucelvax Influenza Quad 02/08/2017 Influenza, Quadrivalent, Rec ombinant, Egg Free, Preservative Free, Intramuscular 02/14/2018 Influenza, Quadrivalent, Split, Intramuscular Influenza, Quadrivalent, Spl it, Preservative Free, Intramuscular 01/17/2020,01/11/2019 Influenza, Trivalent, Preservative Free, Intramu scular 02/22/2016,03/06/2015 Influenza, Unspecified 03/06/2013,05/07/2012 Pneumococcal Polysaccharide PPV23 04/17/2017 Social History Tobacco Use Types Packs/Day Years [...] on file Legal Sex Female 1:38 PM NON PROFIT FINANCIAL CONTROLLER Gender Identity Not on file Sexual Orientation Straight 11/05/2019 9: 49 AM CDT Last Filed Vital Signs Vital Sign Reading Time Taken Comments Blood Pressure 132/80 05/03/2024 10:30 AM NON PROFIT FINANCIAL CONTROLLER Pulse 63 05/03/2024 10:30 AM NON PROFIT FINANCIAL CONTROLLER Temperature 36.4 C (97.5 F) 03/07/2024 8:34 AM CDT Respiratory Rate 16 09/27/2023 1:26 PM CDT Oxygen Saturation 98% 05/03/2024 10:30 AM NON PROFIT FINANCIAL CONTROLLER Inhaled Oxygen Concentration - - Weight 80 kg (176 lb 4.8 oz) 05/03/2024 10:30 AM NON PROFIT FINANCIAL CONTROLLER Height 167.6 cm (5' 6 ) 05/03/2024 10:30 AM NON PROFIT FINANCIAL CONTROLLER Body Mass Index 28.46 05/03/2024 10:30 AM NON PROFIT FINANCIAL CONTROLLER Plan of Treatment Not on file Goals Goal Patient Goal Type Associated Problems Recent Progress Patient-Stated? Author CCM Chronic Pain Care Plan Chronic Care Management No Yael Bean, DONAVAN Note: Problem: Chronic Pain Goals: 1. Minimize [...] on stairs Contact your local community or senior center for information on exercise, fall prevention programs, or options for improving home safety. Medical Devices Implanted Type Area Maid Housekeeper Device Identifier Shelf Expiration Date Model / Serial / Lot Entrada [id number] Ortholoc 3.5mm 2.5mm 18mm Low Profile Head Self Tap Midfoot - S00 - [id number] Implanted:Qty: 1 on 09/26/2020 by Lino Edward MD at [facility] [place] Screw Right: Foot [employer] [id number] / Orthohelix [id number] Maxtorque 4mm 30mm Cannulated Blunt Foot Long Thread Screw Bone Latex Free - S00 - [id number] Implanted:Qty: 1 on 09/26/2020 by Lino Edward MD at [facility] [place] Screw Right: Foot Orthohelix CSS-011-40- [id number] / 00 Orthohelix Maxtorque 4mm 35mm Cannulated Self Drill Foot Ankle Short Thread [id number] - [id number] - [id number] Implanted:Qty: 1 on 05/05/2022 by Lino Edward MD at [facility] Screw Left: Ankle Orthohelix MSD-010-40- [id number] / MSD-010-40- 035S / Hardware From Fusion N/A: Neck Orthohelix [id number] Maxtorque 4mm 35mm Cannulated Self Drill Foot Ankle Long Thread - [id number] Implanted:Qty: 1 on 05/29/2021 by Lino Edward MD at [facility] [place] Left: Foot Orthohelix MSD-010-40- 035L / / Fan[employer]read [employer] [id number] Ortholoc 47mm 3di Fusion Low Profile Compression Slot Foot Left - [id number] Implanted:Qty: 1 on 05/29/2021 by Lino Edward MD at [facility] [place] Left: Foot [employer] [id number] / / Noel [employer] [id number] Ortholoc 2.7mm 2mm 18mm Lock On Molina Polyaxial Self Tap Midfoot - [id number] Implanted:Qty: 3 on 05/29/2021 by Lino Edward MD at [facility] [place] Left: Foot [employer] [id number] / / [employer] [id number] Ortholoc 3.5mm 2.5mm 18mm Low Profile Head Self Tap Midfoot - [id number] Implanted:Qty: 1 on 05/29/2021 by Lino Edward MD at [facility] Left: Foot [employer] [id number] / / [employer] Ortholoc [id number] Fusion Low Profile Revision Foot Left First [id number] - [id number] Implanted:Qty: 1 on 05/05/2022 by Lino Edward MD at [facility] [employer] [id number] / / [employer] Ortholoc 3.5mm 2.8mm 14mm Lock On Molina Polyaxial Self Tap Midfoot [id number] - [id number] Implanted:Qty: 1 on 05/05/2022 by Lino Edward MD at [facility] Left: Ankle [employer] [id number] / / [employer] Ortholoc 2.7mm 2mm 12mm Lock On Molina Polyaxial Self Tap Midfoot [id number] - [id number] Implanted:Qty: 2 on 05/05/2022 by Lino Edward MD at [facility] Left: Ankle [employer] [id number] / / [employer] Ortholoc 3.5mm 2.5mm 18mm Low Profile Head Self Tap Midfoot [id number] - [id number] Implanted:Qty: 2 on 05/05/2022 by Lino Edward MD at [facility] Left: Ankle [employer] [id number] / / [employer] Ortholoc 2.7mm 2mm 16mm Lock On Molina Polyaxial Self Tap Midfoot [id number] - [id number] Implanted:Qty: 1 on 05/05/2022 by Lino Edward MD at [facility] Left: Ankle [employer] [id number] / / Cynergen Angio-Seal Vip 6fr Closere Device [id number] - [id number] Implanted:Qty: 1 on 12/13/2022 by Jerardo Myles MD at [facility] [employer] [facility] 05/22/2023 [id number] / / [id number] Explanted Type Area Maid Housekeeper Device Identifier Shelf Expiration Date Model / Serial / Lot [employer]well [employer] Inc [id number] Ortholoc 2.7mm 2mm 14mm Lock On Molina Polyaxial Self Tap Midfoot - S00 - [id number] Implanted:Qty: 1 on 09/26/2020 by Lino Edward MD at [facility] [place] Explanted:Qty: 1 on 05/03/2023 at [facility] Screw Right: Foot [employer] [id number] / [employer] Inc [id number] Ortholoc 2.7mm 2mm 18mm Lock On Molina Polyaxial Self Tap Midfoot - S00 - [id number] Implanted:Qty: 2 on 09/26/2020 by Lino Edward MD at [facility] Explanted:Qty: 2 on 05/03/2023 at [facility] Screw Right: Foot [employer] [id number] / [employer] Inc [id number] Ortholoc 2.7mm 2mm 16mm Lock On Molina Polyaxial Self Tap Midfoot - S00 - [id number] Implanted:Qty: 2 on 09/26/2020 by Lino Edward MD at [facility] Explanted:Qty: 2 on 05/03/2023 at [facility] Screw Right: Foot [employer] [id number] / [employer] [id number] Rolo .062in 9in 1 Trocar Smooth Wire Fixation - [id number] Explanted:Qty: 2 on 05/29/2021 by Lino Edward MD at [facility] Left: Foot [employer] [id number] / / [employer] Inc [id number] Ortholoc 47mm 3di Fusion Low Profile Compression Slot Foot Right - S00 - [id number] Implanted:Qty: 1 on 09/26/2020 by Lino Edward MD at [facility] Explanted:Qty: 1 on 05/03/2023 at [facility] Right: Foot [employer] [id number] / 00 / 00 [employer] Inc [id number] Ortholoc 2.7mm 2mm 14mm Lock On Molina Polyaxial Self Tap Midfoot - [id number] Implanted:Qty: 1 on 05/29/2021 by Lion Edward MD at [facility] [place] Explanted:Qty: 1 on 05/03/2023 at [facility] Left: Foot [employer] [id number] / / Noel [employer] Inc [id number] Ortholoc 2.7mm 2mm 16mm Lock On Molina Polyaxial Self Tap Midfoot - [id number] Implanted:Qty: 1 on 05/29/2021 by Lino Edward MD at [facility] [place] Explanted:Qty: 1 on 05/03/2023 at [facility] Left: Foot [employer] [id number] / / Procedures Procedure Name Priority Date/Time Associated Diagnosis Comments MRI KNEE RIGHT WO CONTRAST Schedule Routine, Read Routine (OP Routine) 06/01/2024 3:21 PM NON PROFIT FINANCIAL CONTROLLER Primary osteoarthritis of right knee DEXA TBS AXIAL SKELETON BONE DENSITY 1 OR MORE SITES Schedule Routine, Read Routine (OP Routine) 10/27/2023 11:19 AM CDT Osteopenia of neck of left femur from Last 3 Months or Most Recently Relevant to Health Maintenance Results * MRI Knee Right WO Contrast (06/01/2024 3:21 PM NON PROFIT FINANCIAL CONTROLLER) Anatomical Region Laterality Modality Lower Extremities Right [...] Bone mineral density was performed on a Hologic Discovery Densitometer. Based on machine cross-calibration and [...] by the International Society of Clinical Densitometry. [id number] Deb Max [facility] IM DXA PROCEDURES Final Result from Last 3 Months or Most Recently Relevant to Health Maintenance Insurance MEDICARE [facility] MEDICARE [facility] [place] [address] MEDICARE [facility] Advance Directives For more information, please contact: [phone] * Full Code (Latest Code Status on File) Date Activated Date Inactivated Comments 12/13/2022 9:47 AM 12/13/2022 4:55 PM Care Teams Roof Truss Builder Relationship Specialty Start Date End Date Jose Grace MD [address] [facility] [address] [facility] [address] [place] [address] PCP - General 09/23/16 Lalo Mejia MD [address] [place] [address] Graphite Grinder Nephrology 03/12/24
--- OUTSIDE RECORDS SUMMARY | 2024-08-15 08:57 | XMS_ITS | Encounter Summary ---
Author Organization [facility] Address [address] [place] [address] Care Team Providers Care Wheel Press Clerk Name Role Phone Jose Grace MD Primary Care Provider + Encounter Details Date Type Department Care Team (Late Contact Info) Description 08/02/2024 Results Follow-Up [facility] TIRE STRIPPER - [facility] [address] [place] [address] Randy Lunsford MD [address] [place] [address] [address] [place] [address] MAMMO 3D CHUNG SCREEN BILAT W OR WO CAD Social History Tobacco Use Types Packs/Day Years Used Date Smoking Tobacco: Former Cigarettes Q uit: 11/04/2009 Smokeless Tobacco: Never Alcohol Use Standard Drinks/Week Comments Yes 1 (1 standard drink = 0.6 oz pur e alcohol) occasional Comments No Sex and Gender Information Value Date Recorded Sex Assigned at Not on file Legal Sex Female 3:49 AM LEASING AGENT Gender Identity Not on file Sexual Orientation Not on file Occupation Industry Job Start Date Job End Date Not on file Not on file Not on file Not on file Not on file Not on file Not on file Not on file documented as of this encounter Plan of Treatment Upcoming Encounters Date Type Department Care Team (Late Contact Info) Description 08/08/2025 10:10 AM CDT Appointment [facility] A [address] [place] [address] [address] [place] [address] Randy Lunsford MD [facility] [facility] [address] [address] 08/08/2025 11:00 AM CDT Office Visit [facility] TIRE STRIPPER - [facility] [address] [facility] [address] [place] [phone] Jai Callaway MD [address] [address] documented as of this encounter Visit Diagnoses Not on filedocumented in this encounter Care Teams Wheel Press Clerk Relationship Specialty Start Date End Date Jose Grace MD [address] [place] [address] PCP - General 03/30/04 documented as of this encounter
--- OUTSIDE RECORDS SUMMARY | 2024-08-15 08:57 | XMS_ITS | Encounter Summary ---
Author Organization [facility] Address [address] [place] [address] Care Team Providers Care Sign Poster Name Role Phone Jose Grace MD Primary Care Provider + Encounter Details Date Type Department Care Team (Latest Contact Info) Description 07/27/2006 Outpatient Historical HIS [facility] Dolan, Luis Johnston MD NO ADDRESS ON FILE Screening Mammogram for High-Risk Patient (Primary Dx) Social History Tobacco Use Types Packs/Day Years Used Date Smoking Tobacco: Never Assessed Comments Unknown Sex and Gender Information Value Date Recorded Sex Assigned at Not on file Legal Sex Female 3:49 AM NETWORK ADMIN Gender Identity Not on file Sexual Orientation Not on file documented as of this encounter Plan of Treatment Upcoming Encounters Date Type Department Care Team (Late st Contact Info) Description 08/08/2025 10:10 AM CDT Appointment [address] [place] [address] Randy Lunsford MD [address] [place], [place] [address] [place] [address] 08/08/2025 11:00 AM CDT Office Visit [facility] KEG HEADER - [facility] [address] [place] [address] Jai Callaway MD [address] [place] [address] documented as of this encounter Visit Diagnoses Diagnosis Screening mammogram for high-risk patient- Primary documented in this encounter Care Teams Sign Poster Relationship Specialty Start Date End Date Jose Grace MD [address] [place] [address] PCP - General 03/30/04 documented as of this encounter
[2024-08-15 10:03] LABS: Basophils Absolute Auto 0.1 K/mm3 (0.0-0.1); Basophils Percent Auto 0.8 % (0.2-1.2); Eosinophils Absolute Auto 0.4 K/mm3 (0-0.3); Eosinophils Percent Auto 5.1 % (0-4.4); Hematocrit 39.1 % (37.0-47.0); Hemoglobin 12.2 g/dL (12.0-15.0); Immature Granulocyte Absolute 0.02 K/mm3 (0.00-0.031); Immature Granulocyte Percent A 0.3 % (0-0.5); Lymphocytes Percent Auto 33.8 % (18.3-44.2); Mean Corpuscular HGB Conc 31.2 g/dl (32-36); Mean Corpuscular Hemoglobin 27.5 pg (26-34); Mean Corpuscular Volume 88.3 fl (80-100); Monocytes Absolute Auto 0.7 K/mm3 (0.1-0.6); Monocytes Percent Auto 9.2 % (2.6-8.5); Neutrophils Absolute Auto 3.6 K/mm3 (1.3-6.7); Neutrophils Percent Auto 50.8 % (45.5-73.1); Platelet Count Result 284 k/mm3 (150-375); Red Blood Count 4.43 M/mm3 (4.2-5.4); Red Cell Distribution Width 16.5 % (11.5-14.5); White Blood Count 7.1 K/mm3 (4.5-10.0)
[2024-08-15 10:11] LABS: Alanine Aminotransferase 18 U/L (6-35); Alkaline Phosphatase 69 U/L (38-126); Anion Gap 6 mmol/L (4-12); Aspartate Amino Transferase 28 U/L (14-36); Bilirubin,Total 0.3 mg/dL (0.2-1.3); Blood Urea Nitrogen 16 mg/dL (7-17); Calcium 9.2 mg/dL (8.4-10.2); Carbon Dioxide 28 mmol/L (22-30); Chloride 103 mmol/L (98-107); Cholesterol 123 mg/dL (0-200); Estimated Glomerular Filt Rate 48; Glucose 103 mg/dL (65-110); HDL Direct 44 mg/dL; Hemoglobin A1C 6.2 % (<5.7); Potassium 4.1 mmol/L (3.4-5.0); Sodium 137 mmol/L (137-145); Triglycerides 111 mg/dL (<150)
[2024-08-15 10:22] LABS: LDL Cholesterol Direct 54 mg/dL
[2024-08-15 10:34] LABS: Free T4 Free Thyroxine 1.12 ng/dL (0.78-2.19); Vitamin D 25 Hydroxy 72.4 ng/mL
== END 2024-08-15 08:34 | disposition home or self-care (01) ==
LOC: ANHLAB 08:35
PROVIDERS: PCP Internal Medicine; Visit Provider Internal Medicine
DX: E55.9 Vitamin D deficiency, unspecified (principal); I10 Essential (primary) hypertension; E78.5 Hyperlipidemia, unspecified; R73.03 Prediabetes; Z79.899 Other long term (current) drug therapy; Z13.29 Encounter for screening for other suspected endocrine disorder
CPT/HCPCS: 36415; 80053; 80061; 82306; 83036; 84439; 84443; 85025

== ENCOUNTER 2024-08-30 00:38 | Day surgery (SDC) | payer MEDICARE, OTHER, SELFPAY ==
[2024-08-22 11:34] VITALS: BMI 27.9
--- OUTSIDE RECORDS SUMMARY | 2024-08-30 00:41 | XMS_ITS | Encounter Summary ---
Author Organization [facility] Address [address] [place] [address] Phone Care Team Providers Care Deliverer Outside Name Role Phone Jose Grace MD Primary Care Provider [phone] Lalo Mejia MD Unavailable [phone] Encounter Details Date Type Department Care Team [...] on file Legal Sex Female 1:38 PM MUSEUM REGISTRAR Gender Identity Not on file Sexual Orientation [...] on stairs Contact your local community or [facility] for information on exercise, fall prevention programs, or options for improving home safety. documented as of this encounter Procedures Procedure Name Priority Date/Time Associated Diagnosis Comments SCAN - LABS 12/12/2023 documented in this encounter Results * SCAN - LABS (12/12/2023) Provider Scanning Final Result documented in this encounter Visit Diagnoses Not on filedocumented in this encounter Care Teams Deliverer Outside Relationship Specialty Start Date End Date Jose Grace MD [address] [facility] [address] [place] [address] PCP - General 09/23/16 Lalo Mejia MD [address] [facility] [address] [place] [address] Railway Station Manager Nephrology 03/12/24 documented as of this encounter
--- OUTSIDE RECORDS SUMMARY | 2024-08-30 00:41 | XMS_ITS | Clinical Summary ---
Author Organization [facility] Address [address] [place] [address] Phone Care Team Providers Care Mud Car Worker Name Role Phone Emily French MD [...] breakfast. Active fluticasone propionate (FLONASE) 50 mcg/spray [place], Suspension nasal inhaler Administer 2 Sprays in [...] (10/10/2023): Added automatically from request for surgery [id number] Spinal stenosis of cervical region 12/24/2016 TTS (tarsal tunnel syndrome) 02/06/2015 Encounters Date Type Department Care Team Description 08/08/2024 External Device Data STL ABSTRACTION Provider, Abstract 08/07/2024 1:00 PM CDT Office Visit [facility] MUSIC PROMOTER - [facility] [address] [facility] [address] [place] [address] Randy Lunsford MD Encounter for gynecological examination with abnormal finding (Primary Dx); Body mass index 30.0-30.9, adult; Breast cancer screening by mammogram; Menopausal symptoms 08/02/2024 Results Follow-Up [facility] MUSIC PROMOTER - [facility] [address] [facility] [address] [place] [phone] Randy Lunsford MD MAMMO 3D CHUNG SCREEN BILAT W OR WO CAD 08/01/2024 2:19 PM CDT - 08/01/2024 11:59 PM CDT Hospital Encounter [facility] A [address] [facility] [address] [place] [address] Randy Lunsford MD Discharge Disposition: Home or Self Care 07/28/2024 External Device Data STL ABSTRACTION Provider, Abstract 07/27/2024 External Device Data STL ABSTRACTION Provider, Abstract 07/25/2024 External Device Data STL ABSTRACTION Provider, Abstract 07/11/2024 External Device Data STL ABSTRACTION Provider, Abstract 07/11/2024 External Device Data STL ABSTRACTION Provider, Abstract 07/05/2024 [facility] MUSIC PROMOTER - [facility] [address] [facility] [address] [place] [address] Randy Lunsford MD Menopausal symptoms [...] on file Legal Sex Female 3:49 AM ORNAMENTAL METAL FABRICATOR APPRENTICE Gender Identity Not on file Sexual Orientation [...] Info) Description 08/08/2025 10:10 AM CDT Appointment [facility] [address] [place] [address] [address] [place] [address] Randy Lunsford MD [address] [place] [address] [address] [place] [phone] 08/08/2025 11:00 AM CDT Office Visit [facility] MUSIC PROMOTER - [facility] [address] [facility] [address] [place] [address] Jai Callaway MD [address] [place] [address] [place] [address] Health Maintenance Due Date Last Done Comments Pre-Diabetes and Diabetes Screening 1960 DTAP/TDAP/TD VACCINES (1 - Tdap) 1977 FIT-DNA Q 3 years 2003 Flex [...] IMMUNO, QUAL, STOOL Routine 06/09/2020 11:53 AM ORNAMENTAL METAL FABRICATOR APPRENTICE Screening for malignant neoplasm of the rectum [...] BI-RADS CATEGORY 1 - Negative DICTATION LOCATION: [facility] 08/01/2024 2:50 PM CDT EXAMINATION: BILATERAL SCREENING [...] BLOOD, IMMUNO, QUAL, STOOL (06/09/2020 11:53 AM ORNAMENTAL METAL FABRICATOR APPRENTICE) OCCULT BLOOD, IMMUNOASSAY POC Negative Negative [facility] MUSIC PROMOTER [address] INTERNAL KIT QC Pass Pass [facility] MUSIC PROMOTER TOWER [address] KIT LOT NUMBER POC [phone] [facility] MUSIC PROMOTER [address] KIT EXPIRATION DATE POC 07/25/21 [facility] MUSIC PROMOTER [address] Stool STOOL SPECIMEN / Unknown 06/09/2020 11:53 AM ORNAMENTAL METAL FABRICATOR APPRENTICE Randy Lunsford MD POINT OF CARE TESTING Final Result [facility] MUSIC PROMOTER [address] CLIA# [id number] [address] [facility] [address] [place] [address] * XR DEXA BONE DENSITY AXIAL 1 OR MORE SITES (01/03/2009 9:30 AM CDT) Anatomical Region Laterality Modality Other 01/03/2009 9:30 AM CDT Narrative 01/03/2009 9:44 AM CDT [facility] [address] [place], [place] [address] Admit Date: 01/03/2009 DAHLIA BACON Sex: F Admit Prov: CHEMO MCMAHON Date: 1960 Primary Care Prov: EMILY FRENCH CMRN: [id number] Room: [facility] SSN: [id number] IMAGING SERVICES Ordering Prov: N/A Accession Number: [id number] Interpretation Examination: Bone Density Study (DEXA) Clinical [...] Procedure Note Justine Thakkar MD - 01/03/2009 [facility] [address] [place], [place] [address] Admit Date: 01/03/2009 DAHLIA BACON Sex: F Admit Prov: CHEMO MCMAHON Date: 1960 Primary Care Prov: EMILY FRENCH CMRN: [id number] Room: [facility]: [id number] IMAGING SERVICES Ordering Prov: N/A Interpretation Examination: [...] by: JUSTINE THAKKAR 01/03/2009 09:42 us Chemo Mcmahno MD DIAGNOSTIC IMAGING ORDERABLES Final Result from Last 3 Months or Most Recently Relevant to [place] [address] MEDICARE PART A AND B [facility] [place], [place] [address] Care Teams Mud Car Worker Relationship Specialty Start Date End Date Emily French MD [address] [place] [address] PCP - General 03/30/04
--- OUTSIDE RECORDS SUMMARY | 2024-08-30 00:41 | XMS_ITS | Clinical Summary ---
Author Organization [facility] Address [address] [address] Care Team Providers Care Chip Loft Worker Name Role Phone Jose Grace MD Primary Care Provider [phone] Lalo Mejia MD Unavailable Allergies Active Allergy Reactions Criticality Noted Date [...] 30 tablet 11 4 03/08/20 25 Active Sutab 1.479-0.188- 0.225 gram tablet as directed 5 Active valACYclovir (VALTREX) 1 gram tablet TAKE 2 TABLETS BY MOUTH TWICE A DAY X 1 DAY AT FIRST SIGN NEEDED 5 Active Hospital, Clinic, or Other Facility Administered Medication Ordered Dose Route Frequency Start Date End Date Status lidocaine (XYLOCAINE) 10 mg/mL (1 %) injection 2 mLIndications:Admini stration of Local Anesthesia 2 mL One-Time Injection 08/27/2024 5 Ended methylPREDNISolone acetate (DEPO-medrol) injection 40 mgIndications:Primar y osteoarthritis of right knee,Chronic pain of right knee 40 mg intra-artic One-Time Injection 08/27/2024 5 Ended Active Problems Problem Noted Date Diagnosed Date Coronary artery vasospasm 03/08/2024 Myalgia 09/27/2023 Spondylosis of cervical jatinder on without myelopathy or radiculopathy 06/03/2023 Left foot pain 04/12/2023 Former smoker 11/25/2022 Prediabetes 11/25/2022 Chest pain 11/25/2022 Essential hypertension 11/25/2022 Hallux valgus of left foot 04/24/2021 Overview (04/24/2021): Added automatically from request for surgery [id number] Open wound of right lower leg 08/11/2020 [...] (06/24/2020): Added automatically from request for surgery [id number] Postlaminectomy syndrome of cervical region 08/2016 Spinal [...] too much pain with any weight-bearing. 07/2023 [facility] [address] [place] [id number] XR Foot Left 3+ View Status: Final [...] rotator cuff 08/17/2011 11/22/2019 Rotator cuff tendonitis 04/20/2011 0706/2019 Arthralgia of shoulder 04/12/201111/21 Encounter for preventive health examination 10/02/2008 11/22/2019 Encounters Date Type Department Care Team Description 08/27/2024 11:45 AM CDT Office Visit [facility] Orthopaedic Surgery [address] [facility] [address] [place] [address] Archana Haas NP Primary osteoarthritis of right knee (Primary Dx); Chronic pain of right knee 06/14/2024 Orders Only [facility] Archana Haas NP Primary osteoarthritis of right knee from Last 3 Months Immunizations Immunization Administration [...] SURGERY 05/23/2013 - 05/22/[address];2014 and 2015 LEG SURGERY 05/23/2009 - 05/22/2010 Left nerve [...] [place] Respiratory failure Mother Diabetes Paternal Grandmother Aemlia Cancer Sister 1 Maia Diabetes Sister 1 [...] on file Legal Sex Female 1:38 PM 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 EDIT 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 Gender Identity Not on file Sexual Orientation Straight 11/05/2019 9: 49 AM CDT Obstetrics History Last Filed Vital Signs Vital Sign Reading Time Taken Comments Blood Pressure 132/80 05/03/2024 10:30 AM GRAPHICS EDIT TECHNICIAN Pulse 63 05/03/2024 10:30 AM GRAPHICS EDIT TECHNICIAN Temperature 36.4 C (97.5 F) 03/07/2024 8:34 AM CDT Respiratory Rate 16 09/27/2023 1:26 PM CDT Oxygen Saturation 98% 05/03/2024 10:30 AM GRAPHICS EDIT TECHNICIAN Inhaled Oxygen Concentration - - Weight 79.8 kg (176 lb) 08/27/2024 11:46 AM CDT Height 167.6 cm (5' 6 ) 08/27/2024 11:46 AM CDT Body Mass Index 28.41 08/27/2024 11:46 AM CDT Plan of Treatment Health Maintenance Due Date [...] 2024 02/02/2022, 09/09/2021, 04/05/2021, Additional history exists Fall Risk Assessment 09/26/2024 09/27/2023, 08/23/2023, 07/22/2023, Additional history exists Breast Cancer Screening-Mammogram 08/01/2025 08/01/2024, 08/01/2024, 07/11/2023, Additional history exists Osteoporosis Screening-Bone Density Scan 10/26/2025 10/27/2023, 10/21/2022, 10/21/2022, Additional history exists Influenza Vaccine Completed 02/21/2024, , 02/05/2021, Additional history exists Goals Goal Patient Goal [...] home safety. Medical Devices Implanted Type Area Senior Portfolio Analyst Device Identifier Shelf Expiration Date Model / Serial / Lot [id number] Ortholoc 3.5mm 2.5mm 18mm Low Profile Head Self Tap Midfoot - S00 - [id number] Implanted:Qty: 1 on 09/26/2020 by Lino Edward MD at [facility] Screw Right: Foot 4INFO [id number] / Orthohelix [id number] Maxtorque 4mm 30mm Cannulated Blunt Foot Long Thread Screw Bone Latex Free - S00 - [id number] Implanted:Qty: 1 on 09/26/2020 by Lino Edward MD at [facility] Screw Right: Foot Orthohelix CSS-011-40- 030L / 00 / 00 Orthohelix Maxtorque 4mm 35mm Cannulated Self Drill Foot Ankle Short Thread [id number] - [id number] - [id number] Implanted:Qty: 1 on 05/05/2022 by Lino Edward MD at [facility] Screw Left: Ankle Orthohelix MSD-010-40- 035S / MSD-010-40- 035S / Hardware From Fusion N/A: Neck Orthohelix [id number] Maxtorque 4mm 35mm Cannulated Self Drill Foot Ankle Long Thread - [id number] Implanted:Qty: 1 on 05/29/2021 by Lino Edward MD at [facility] Left: Foot Orthohelix MSD-010-40- 035L / / [employer] [id number] Ortholoc 47mm 3di Fusion Low Profile Compression Slot Foot Left - [id number] Implanted:Qty: 1 on 05/29/2021 by Lino Edward MD at [facility] Left: Foot [employer] [id number] / / [employer] [id number] Ortholoc 2.7mm 2mm 18mm Lock On [place] Polyaxial Self Tap Midfoot - [id number] Implanted:Qty: 3 on 05/29/2021 by Lino Edward MD at [facility] Left: Foot [employer] [id number] / / [employer] [id number] Ortholoc 3.5mm 2.5mm 18mm Low Profile Head Self Tap Midfoot - [id number] Implanted:Qty: 1 on 05/29/2021 by Lino Edward MD at [facility] Left: Foot [employer] [id number] / / [employer] Ortholoc [id number] Fusion Low Profile Revision Foot Left First [id number] - [id number] Implanted:Qty: 1 on 05/05/2022 by Lino Edward MD at [facility] [employer] [id number] / / [employer] Ortholoc 3.5mm 2.8mm 14mm Lock On [place] Polyaxial Self Tap Midfoot [id number] - [id number] Implanted:Qty: 1 on 05/05/2022 by Lino Edward MD at [facility] Left: Ankle [employer] [id number] / / [employer] Ortholoc 2.7mm 2mm 12mm Lock On [place] Polyaxial Self Tap Midfoot [id number] - [id number] Implanted:Qty: 2 on 05/05/2022 by Lino Edward MD at [facility] Left: Ankle [employer] [id number] / / [employer] Ortholoc 3.5mm 2.5mm 18mm Low Profile Head Self Tap Midfoot [id number] - [id number] Implanted:Qty: 2 on 05/05/2022 by Lino Edward MD at [facility] Left: Ankle [employer] [id number] / / [employer] Ortholoc 2.7mm 2mm 16mm Lock On [place] Polyaxial Self Tap Midfoot [id number] - [id number] Implanted:Qty: 1 on 05/05/2022 by Lino Edward MD at [facility] Left: Ankle [employer] [id number] / / [employer] Siria Angio-Seal Vip 6fr Closere Device [id number] - [id number] Implanted:Qty: 1 on 12/13/2022 by Jerardo Myles MD at [facility] [employer] 05/22/2023 [id number] / / [id number] Explanted Type Area Senior Portfolio Analyst Device Identifier Shelf Expiration Date Model / Serial / Lot [employer] [id number] Ortholoc 2.7mm 2mm 14mm Lock On [place] Polyaxial Self Tap Midfoot - S00 - [id number] Implanted:Qty: 1 on 09/26/2020 by Lino Edward MD at [facility] Explanted:Qty: 1 on 05/03/2023 at [facility] Screw Right: Foot [employer] [id number] / [employer] [id number] Ortholoc 2.7mm 2mm 18mm Lock On [place] Polyaxial Self Tap Midfoot - S00 - [id number] Implanted:Qty: 2 on 09/26/2020 by Lino Edward MD at [facility] Explanted:Qty: 2 on 05/03/2023 at [facility] Screw Right: Foot [employer] [id number] / [employer] [id number] Ortholoc 2.7mm 2mm 16mm Lock On [place] Polyaxial Self Tap Midfoot - S00 - [id number] Implanted:Qty: 2 on 09/26/2020 by Lino Edward MD at [facility] Explanted:Qty: 2 on 05/03/2023 at [facility] Screw Right: Foot [employer] [id number] / [employer] [id number] Rolo .062in 9in 1 Trocar Smooth Wire Fixation - [id number] Explanted:Qty: 2 on 05/29/2021 by Lino Edward MD at [facility] Left: Foot [employer] [id number] / / [employer] [id number] Ortholoc 47mm 3di Fusion Low Profile Compression Slot Foot Right - S00 - [id number] Implanted:Qty: 1 on 09/26/2020 by Lino Edward MD at [facility] Explanted:Qty: 1 on 05/03/2023 at [facility] Right: Foot [employer] [id number] / [employer] [id number] Ortholoc 2.7mm 2mm 14mm Lock On [place] Polyaxial Self Tap Midfoot - [id number] Implanted:Qty: 1 on 05/29/2021 by Lino Edward MD at [facility] Explanted:Qty: 1 on 05/03/2023 at [facility] Left: Foot 4INFO [id number] / / 4INFO [id number] Ortholoc 2.7mm 2mm 16mm Lock On [place] Polyaxial Self Tap Midfoot - [id number] Implanted:Qty: 1 on 05/29/2021 by Lino Edward MD at [facility] Explanted:Qty: 1 on 05/03/2023 at [facility] Left: Foot 4INFO [id number] / / Procedures Procedure Name Priority Date/Time Associated Diagnosis Comments [place] ARTHROCENTESIS ASPIR&/INJ MAJOR JT/BURSA W/O US Routine 08/27/2024 11:45 AM CDT Primary osteoarthritis of right knee Chronic pain of right knee MRI KNEE RIGHT WO CONTRAST Schedule Routine, Read Routine (OP Routine) 06/01/2024 3:21 PM GRAPHICS EDIT TECHNICIAN Primary osteoarthritis of right knee DEXA TBS AXIAL SKELETON BONE DENSITY 1 OR MORE SITES Schedule Routine, Read Routine (OP Routine) 10/27/2023 11:19 AM CDT Osteopenia of neck of left femur from Last 3 Months or Most Recently Relevant to Health Maintenance Results * MN ARTHROCENTESIS ASPIR&/INJ MAJOR JT/BURSA W/O US (08/27/2024 11:45 AM CDT) Narrative Archana Haas NP - 08/27/2024 11:45 AM CDT Archana Haas NP 08/27/2024 12:34 PM Large Joint Injection: R knee Performed by: Arcahna Haas NP Authorized by: Archana Haas NP Large Joint Injection/Aspiration: Consent Given by: Patient Site marked: the procedure site was marked Verbal consent obtained: Yes Supporting Documentation: Indications: Pain Procedure Details: Location: Knee Site: R knee Prep: patient was prepped using a clean technique Needle Size: 22 G Approach: Anterolateral Ultrasound guided: No Fluroscopic guidance: No Medications: 2 mL lidocaine 10 mg/mL (1 %); 40 mg methylPREDNISolone acetate 40 mg/mL Patient tolerance: Patient tolerated the procedure well with no immediate complications Archana Parra NP IN CLINIC/BEDS PEDRO ORDERABLES Final Result * MRI Knee Right WO Contrast (06/01/2024 3:21 PM GRAPHICS EDIT TECHNICIAN) Anatomical Region Laterality Modality Lower Extremities Right Magnetic Reson ance Archana Parra NP IMG MRI PROCED URES Final Result * Dexa TBS Axial Skeleton Bone Density 1 or more sites (10/27/2023 11:19 AM CDT) Anatomical Region Laterality Modality Wrist, Body N/A Radiographic Gracy ging Narrative 11/29/2023 10:07 AM CDT Patient Name: Dahlia Boateng Date of : 1960 Date of scan: 10/27/2023 Bone mineral density was performed on a [employer] Discovery Densitometer. Based on machine cross-calibration and [...] by the International Society of Clinical Densitometry. [id number] Deb Max [facility] DXA PROCEDURES Final Result from Last 3 Months or Most Recently Relevant to [place] [address] MEDICARE [place] [id number] [facility] MEDICARE [facility] MEDICARE [facility] Advance Directives For more information, please contact: [phone] * Full Code (Latest Code Status on File) Date Activated Date Inactivated Comments 12/13/2022 9:47 AM 12/13/2022 4:55 PM Care Teams Chip Loft Worker Relationship Specialty Start Date End Date Jose Grace MD [address] [facility] [address] [place] [address] PCP - General 09/23/16 Lalo Mejia MD [address] [place] [address] [facility] 03/12/24
--- OUTSIDE RECORDS SUMMARY | 2024-08-30 00:41 | XMS_ITS | Continuity of Care Document ---
Author Organization [facility] Address [address] [place] [address] [address] [place] [address] Phone Care Team Providers Care Apartment Manager Name Role Phone Randy Lunsford MD Unavailable Unavailable Allergies, Adverse Reactions, Alerts Substance Reaction Status Criticality sulfanilamide Active No Information Medications Medication Instructions Dosage Effective Dates (start - stop) Status Comments esterified estrogens-methyl testosterone 0.625 mg-1.25 mg tablet take 1 by Oral route once - Active Pepcid 40 mg tablet take 1 tablet by oral route every day at bedtime 40 MG - Active ADVAIR DISKUS (unknown strength) inhale 1 puff by inhalation route 2 times every day in the morning and evening approximately 12 hours apart Not Available - Active Singulair 10 mg tablet take 1 tablet (10MG) by oral route every day in the evening 10 MG - Active Ambien 10 mg tablet take 1 tablet (10MG) by oral route every day at bedtime 10 MG - Active XYZAL (unknown strength) take 10 milliliter by oral route every day in the evening Not Available - Active PRAVACHOL (unknown strength) take 1 tablet by oral route every day Not Available - Active indapamide 2.5 mg tablet take 1 tablet (2.5MG) by oral route every day in the morning 2.5 MG - Active esterified estrogens-methyl testosterone 0.625 mg-1.25 mg tablet take 1 by Oral route once - No Longer Active Procedures Procedure Date Obtaining screen pap smear Fecal blood scrn immunoassay CA screen;pelvic/breast exam Fecal blood scrn immunoassay CA screen;pelvic/breast exam Obtaining screen pap smear ASSAY TEST FOR BLOOD FECAL PREV VISIT EST AGE 40-64 ASSAY TEST FOR BLOOD FECAL PREV VISIT EST AGE 40-64 PREV VISIT EST AGE 40-64 DISABILITY EXAMINATION PREV VISIT EST AGE 40-64 PREV VISIT EST AGE 40-64 DXA BONE DENSITY STUDY 1+ SITS AXIAL SKE L Advance Directives Directive Yes / No Effective Date File Name No Information Encounters Encounter Description Practice Location Reason(s) For Visit Diagnoses Date Provider Providers Copied on Encounter [facility] [address] [facility] [address], [place], [address], [phone] [facility] No Information 9 Isatu Padilla. [address] [place], [place], [id number] . tel: [phone] [facility], [address] [facility] [address], [place], [address], [phone] [facility] No Information 9 Janki Alonso. [address] [facility] [address], [place], [place], [id number] . tel: [phone] [facility] [address] [facility] [address], [place], [address], [place] [phone] [facility] annual exam (chief complaint) Body mass index (BMI) 29.0-29.9, adultEncounter for screening for malignant neoplasm of rectumEncounter for screening for malignant neoplasm of cervixEncntr screen mammogram for malignant neoplasm of breast 8 Isatu Padilla. [address] [place], [place], [address] . tel: [phone] [facility] [address] [facility] [address], [place], [address], [place] [phone] [facility] annual exam (chief complaint) Body mass index (BMI) 28.0-28.9, adultEncounter for gynecological examination with abnormal findingEncounte r for screening for malignant neoplasm of cervixAcquired absence of both cervix and uterusAcquired absence of ovaries, bilateral 2 7 Isatu Padilla. [address] [facility], [place], [place], [address] . tel: [phone] PREV VISIT EST AGE 40-64 [facility] [address] [facility] [address] [place] [address], [address], [place] tel:[phone] [facility] annual exam (chief complaint) Encntr for journalists and other writers exam (general) (routine) w/o abn findings 8 6 Isatu Padilla. [address] [facility], [place], [place], [address] . tel: [phone] PREV VISIT EST AGE 40-64 [facility] [address] [facility] [address] [place] [address], [address], [place] tel:[phone] [facility] annual exam (chief complaint) Encntr for journalists and other writers exam (general) (routine) w/o abn findingsEncount er for screening for malignant neoplasm of rectum 5 Isatu Padilla. [address] [facility], [place], [place], [address] . tel: [phone] [facility] [address] [facility] [address] [place] [address], [address], [place] tel:[phone] [facility] Breast mass, right 5 Isatu Padilla. [address] [place], [place], [id number] . tel: [phone] [facility] [address] [facility] [place], [address], [place] tel:[phone] [facility] Abnormal mammogram 0 4 Isatu Padilla. [address] [place], [place], [address] . tel: [phone] PREV VISIT EST AGE 40-64 [facility] [address] [facility] [address], [place], [address], [place] tel:[phone] [facility] annual exam (chief complaint) ROUTINE PARKING CASHIER EXAMINATIONMeno pausal SymptomsOsteopo rosis 4 Isatu Randy. [address] [facility], [place], [place], [address] . tel: [phone] DISABILITY EXAMINATION [facility], [address] [facility] [address], [place], [address], [place] [phone] [facility] Fx metatarsal-clos ed 4 Janki Gavin. [address] [facility] [address], [place], [place], [address] . tel: [phone] PREV VISIT EST AGE 40-64 [facility] [address] [facility] [address], [place], [address], [place] [phone] [facility] annual visit (chief complaint) Well Woman / Routine Income Tax Advisor/PapMenopaus al Symptoms 3 Durel Luis. [address] [facility], [place], [place], [address] . tel: [phone] PREV VISIT EST AGE 40-64 [facility] [address] [facility] [address], [place], [address], [place] tel:[phone] [facility] annual visit (chief complaint) Well Woman / Routine Income Tax Advisor/PapMenopaus al SymptomsHyperch olesterolemiaAs thma 2 Durel Luis. [address] [facility], [place], [place], [address] . tel: [phone] [facility] [address] [facility] [address], [place], [address], [place] [phone] [facility] BMD (chief complaint) Disorder of bone and cartilage, unspecified 2 Durel Luis. [address] [facility], [place], [place], [address] . tel:[phone] [facility] [address] [facility] [address], [place], [address], [place] tel:[phone] [facility] No Information 2 Kelsi Smith. [address] [facility] [address], [place], [place], [address] . tel: [phone] Family History Family Member Type Diagnosis Age At Onset Father Problem (finding) hypertension Problem (finding) Family history of hyper tension Problem (finding) Family history of breas t cancer Payers Payer name Insurance type Covered republican ID Authoriza tion(s) No Information Social History Type Description Quantity Date Captured Comments Sex Female Smoking Status No Information Chief Complaint And Reason For Visit No Information Reason For Referral Reason For Referral No Information Plan Of Treatment Date Type Action Status Goal Lifestyle education regardin g diet completed Goal Lifestyle education regardin g diet completed Referral Ordered: BX BREAST INCL US GUIDANCE Right ordered Referral Ordered: DIAGNOSTIC MAMMOGRAPHY UNILATERAL R ordered Referral Ordered: US BREAST Right ordered Future Order: Lab Order Pap-Liqu id-based ([id number]), Ordered on: Ordered History Of Present Illness Encounter Date Complaint History Of Prese nt Illness annual exam Currently pregna nt: no. Positive for: breast self exam.Postmenopausal: Type: hysterectomy w/BSO. Positive for Hormone replacement therapy (Type: TEST AND estrogen). Menopausal symptoms negative for: hot flashes, insomnia and night sweats. Pertinent negatives include anxiety, depression and urinary incontinence.The patient states her exercise level is moderate. The patient no longer uses tobacco. She does drink alcohol. annual exam Currently pregna nt: no. Positive for: breast self exam.Postmenopausal: Type: hysterectomy w/BSO. Positive for Hormone replacement therapy (Type: TEST AND estrogen). Menopausal symptoms negative for: hot flashes, insomnia and night sweats. Pertinent negatives include anxiety, depression and urinary incontinence.The patient states her exercise level is moderate. The patient does use tobacco. She does drink alcohol. annual exam Currently pregna nt: no. Positive for: breast self exam.Postmenopausal: Type: hysterectomy w/BSO. Positive for Hormone replacement therapy (Type: TEST AND estrogen). Menopausal symptoms positive for: night sweats.The patient states her exercise level is moderate. She does drink alcohol. annual exam Currently pregna nt: no. Positive for: breast self exam.Postmenopausal: Type: hysterectomy w/BSO. Positive for Hormone replacement therapy (Type: TEST AND estrogen). Menopausal symptoms negative for: hot flashes, insomnia, night sweats and vaginal dryness.The patient states her exercise level is moderate. She does drink alcohol. annual exam Currently pregna nt: no. Positive for: breast self exam.Postmenopausal: Type: hysterectomy w/BSO. Positive for Hormone replacement therapy (Type: TEST AND estrogen). Menopausal symptoms negative for: hot flashes, insomnia, night sweats and vaginal dryness.The patient states her exercise level is moderate. She does drink alcohol. Functional Status Date Functional Assessmen t No Information Instructions Date Instruction Additional Infor loreta Takes Estratest with good relief of her symptoms.Has her BMD's and XMG's through other physicians. Related to Encounter for screening for malignant neoplasm of cervix Lifestyle education regarding di et Related to Body mass index (BMI) 29.0-29.9, adult Perform monthly breast self exam s. Related to Encntr screen mammogram for malignant neoplasm of breast Mother with breast c ancer, but was in her 70's. Brother with colon CA. Has yrly screening XMG's and every 3 yr colonoscopy.Has her BMD's at [place].Needs yrly paps as her hyst was for dysplasia. Related to Encounter for gynecological examination with abnormal finding Perform monthly self breast exam . Related to Encounter for gynecological examination with abnormal finding Lifestyle education regarding di et Related to Body mass index (BMI) 28.0-28.9, adult Feels well on Estrat est - written Rx given. Has osteo care at [facility].Cont paps as her hyst was for [facility]. Related to Encntr for journalists and other writers exam (general) (routine) w/o abn findings Perform monthly self breast exam . 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 Co nt yrly paps.Sees [facility] for her osteo.On Estratest with good sx control.Has problems with her foot not healing well from the previous fx. Having surgery again this week. Related to Encntr for journalists and other writers exam (general) (routine) w/o abn findings Perform monthly self breast exam . 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 Related to ROUTINE PARKING CASHIER EXAMINATION Discussed options fo r treatment of menopausal symptoms Discussed risk factors of menopa use Discussed risk factors of menopa use Discussed options fo r treatment of menopausal symptoms Assessments Type Assessment Date No Information Patient Care Teams Name Effective Dates (start - stop) Status Members No Information
--- OUTSIDE RECORDS SUMMARY | 2024-08-30 00:41 | XMS_ITS | Encounter Summary ---
Author Organization [facility] Address 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 Gender Identity Not on file Sexual Orientation Not on file documented as of this encounter Plan of Treatment Upcoming Encounters Date Type Department Care Team (Late st Contact Info) Description 08/08/2025 10:10 AM CDT Appointment [address] [place] [address] Randy Lunsford MD [address] [place] [address] [place] [address] 08/08/2025 11:00 AM CDT Office Visit [facility] [address] [place] [address] Jai Callaway MD [address] [place] [address] [place] [address] documented as of this encounter Visit Diagnoses Diagnosis Diffuse cystic mastopathy- Primary documented in this encounter Care Teams Database Design Analyst Relationship Specialty Start Date End Date Jose Grace MD [address] [place] [address] PCP - General 03/30/04 documented as of this encounter
--- OUTSIDE RECORDS SUMMARY | 2024-08-30 00:41 | XMS_ITS | Encounter Summary ---
Author Organization 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 documented as of this encounter Procedures Procedure Name Priority Date/Time Associated Diagnosis Comments SCAN - LABS 04/02/2024 documented in this encounter Results * SCAN - LABS (04/02/2024) us Provider Scanning Edited Result - Final documented in this encounter Visit Diagnoses Not on filedocumented in this encounter Care Teams Spider Assembler Relationship Specialty Start Date End Date Jose Grace MD [address] [facility] [address] [place] [address] PCP - General 09/23/16 Lalo Mejia MD [address] [place] [address] Edging Supervisor Nephrology 03/12/24 documented as of this encounter
--- OUTSIDE RECORDS SUMMARY | 2024-08-30 00:41 | XMS_ITS | Encounter Summary ---
Author Organization [facility] Address [address] [place] [address] Care Team Providers Care Administrative Office Specialist Name Role Phone Jose Grace MD Primary Care Provider [phone] Encounter Details Date Type Department Care Team (Late st Contact Info) Description 08/14/2024 Lab Requisition [facility] Physician [facility] - DermPath Lab [address] [facility] [place] [address] Parisa Healy MD [address] [facility] [address] [place] [address] Social History Tobacco Use Types Packs/Day Years Used Date Smoking Tobacco: Never Assessed Sex and Gender Information Value Date Recorded Sex Assigned at Not on file Gender Identity Not on file Sexual Orientation Not on file documented as of this encounter Plan of Treatment Not on file documented as of this encounter Procedures Procedure Name Priority Date/Time Associated Diagnosis Comments DERMATOPATHOLOGY Routine 08/14/2024 1:56 PM CDT documented in this encounter Results * DERMATOPATHOLOGY (08/14/2024 1:56 PM CDT) Case Report Dermatopathology Report Case: [id number] Authorizing Provider: Parisa Healy MD Collected: 08/14/2024 01:56 PM Ordering Location: [facility] - Received: 08/16/2024 09:50 AM DermPath Lab Pathologist: Khris Nascimento MD Specimen: Skin, left upper chest 03/28/202 5 5:11 PM CDT DERMATOPATHOLOGY LABORATORY Final Diagnosis Specimen A. SKIN, left upper chest: BENIGN VERRUCOUS KERATOSIS, INFLAMED (L82.1) 5 5:11 PM CDT DERMATOPATHOLOGY LABORATORY Clinical History ISK vs SCC 5:11 PM CDT DERMATOPATHOLOGY LABORATORY Gross Description Specimen A: Received is one formalin filled container labeled with the patient's name and designated left upper chest. The specimen consists of a shave biopsy measuring 9x6x2 mm. Jar 0. 5:11 PM CDT DERMATOPATHOLOGY LABORATORY Microscopic Description Specimen A. SKIN, left upper chest: Sections show hyperkeratosis, papillomatosis, hypergranulosis, and acanthosis. Inflammatory cells are present within the dermis. These histological findings can be seen in a verruca vulgaris or a seborrheic keratosis. 5:11 PM CDT DERMATOPATHOLOGY LABORATORY Disclaimer An external and internal positive and negative controls are appropriate for the histochemical, immunohistochemical and immunofluorescence stain(s) in this case (if any), except where stated explicitly. The performance characteristics of the stain(s) cited in this report were developed and its performance characteristic determined by the Dermatopathology Laboratory at [facility], directed by Dr. Deric Nascimento. These tests need not be, and therefore are not, approved by the [place] Food and Drug Administration. The tests are used for clinical purposes. Billing Codes Specimen Charges Stain Charges 77881 1 5:11 PM CDT DERMATOPATHOLOGY LABORATORY Embedded Images 5:11 PM CDT DERMATOPATHOLOGY LABORATORY Pathology/Cytolo gy TISSUE SPECIMEN FROM SKIN / Unknown 08/14/2024 1:56 PM CDT 08/16/2024 9:50 AM CDT Parisa Healy MD LAB - PATHOLOGY/CYT OLOGY ORDERABLES DERMATOPATHOLOGY LABORATORY [facility] - Department of Dermatology [address] [phone] documented in this encounter Visit Diagnoses Not on filedocumented in this encounter Care Teams Administrative Office Specialist Relationship Specialty Start Date End Date Jose Grace MD [address] [place] [address] PCP - General Internal Medicine 02/14/18 documented as of this encounter
--- OUTSIDE RECORDS SUMMARY | 2024-08-30 00:41 | XMS_ITS | Encounter Summary ---
Author Organization [facility] Address 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 Gender Identity Not on file Sexual Orientation Not on file documented as of this encounter Plan of Treatment Upcoming Encounters Date Type Department Care Team (Late st Contact Info) Description 08/08/2025 10:10 AM CDT Appointment [address] [place] [address] Randy Lunsford MD [address] [place], [place] [address] [address] 08/08/2025 11:00 AM CDT Office Visit [facility] AUTOMOTIVE SERVICE TECHNICIAN - [facility] [address] [place] [address] Jai Callaway MD [address] [place] [address] documented as of this encounter Visit Diagnoses Diagnosis Screening mammogram for high-risk patient- Primary documented in this encounter Care Teams Supervisor Taping Relationship Specialty Start Date End Date Jose Grace MD [address] [place] [phone] PCP - General 03/30/04 documented as of this encounter
--- OUTSIDE RECORDS SUMMARY | 2024-08-30 00:41 | XMS_ITS | Encounter Summary ---
Author Organization [facility] Address 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 Gender Identity Not on file Sexual Orientation Not on file documented as of this encounter Plan of Treatment Upcoming Encounters Date Type Department Care Team (Late st Contact Info) Description 08/08/2025 10:10 AM CDT Appointment [address] [place] [address] Randy Lunsford MD [address] [place], [place] [address] [place] [address] 08/08/2025 11:00 AM CDT Office Visit [facility] CERTIFIED TECHNICIAN - [facility] [address] [place] [address] Jai Callaway MD [address] [place] [address] documented as of this encounter Visit Diagnoses Diagnosis Screening mammogram for high-risk patient- Primary documented in this encounter Care Teams Zipper Setter Chainstitch Relationship Specialty Start Date End Date Jose Grace MD [address] [place] [phone] PCP - General 03/30/04 documented as of this encounter
--- OUTSIDE RECORDS SUMMARY | 2024-08-30 00:41 | XMS_ITS | Clinical Summary ---
Author Organization [facility] Make Meaning Address [address] [facility] [place] [address] Care Team Providers Care Senior Interaction Designer Name Role Phone Jose Grace MD Primary Care Provider [phone] Source Comments [facility] Affiliates and Associated Physician Practices is amultiple site organization consisting of ambulatory clinics and hospital sitesin [place], [place] and [place]. This disclosure is being madepursuant to the Care Everywhere program and may not contain all information available regarding this patient. Last updated 18.[facility] Allergies Active Allergy Reactions Criticality Noted Date Comments Sulfa Drugs Urticaria,Rash Medium 02/14/2018 Encounters Date Type Department Care Team Description 08/14/2024 Lab Requisition [facility] - DermPath Lab [address] [facility], [place] [phone] Parisa Healy MD from Last 3 Months Immunizations Name Administration [...] MAMMOGRAM 1960 MEDICARE AWV 12 MONTHS 1960 HEPATITIS C SCREENING 07/05/1976 DTAP/TDAP/TD VACCINES (1 - Tdap) 1977 PNEUMOCOCCAL VACCINE 50+ (1 of 1 - PCV) 2008 ZOSTER VACCINE (1 of 2) 2008 COVID-19 VACCINE (1 - 2023-2 5 season) 2024 DEPRESSION SCREENING 05/23/2024 INFLUENZA VACCINE (Season Ended) 2025 02/15/20 Respiratory Syncytial Virus (RSV) Vaccine Pt: or [...] Comments DERMATOPATHOLOGY Routine 08/14/2024 1:56 PM CDT from Last 3 Months Results * DERMATOPATHOLOGY (08/14/2024 1:56 PM CDT) Case Report Dermatopathology Report Case: [id number] Authorizing Provider: Parisa Healy MD Collected: 08/14/2024 01:56 PM Ordering Location: [facility] - Received: 08/16/2024 09:50 AM DermPath Lab Pathologist: Khris Nascimento MD Specimen: Skin, left upper chest 5:11 PM CDT DERMATOPATHOLOGY LABORATORY Final Diagnosis Specimen A. SKIN, left upper chest: BENIGN VERRUCOUS KERATOSIS, INFLAMED (L82.1) 5:11 PM CDT DERMATOPATHOLOGY LABORATORY Clinical History [...] characteristic determined by the Dermatopathology Laboratory at [facility], directed by Dr. Deric Nascimento. These tests need not be, and therefore are not, approved by the [place] Food and Drug Administration. The tests are used for clinical purposes. Billing Codes Specimen Charges Stain Charges 20838 1 5:11 PM CDT DERMATOPATHOLOGY LABORATORY Embedded Images 5:11 PM CDT DERMATOPATHOLOGY LABORATORY Pathology/Cytolo gy TISSUE SPECIMEN FROM SKIN / Unknown 08/14/2024 1:56 PM CDT 08/16/2024 9:50 AM CDT Parisa Healy MD LAB - PATHOLOGY/CYT OLOGY ORDERABLES DERMATOPATHOLOGY LABORATORY [facility] - Department of Dermatology [address], [address] [phone] from Last 3 Months Care Teams Senior Interaction Designer Relationship Specialty Start Date End Date Jose Grace MD [address] [place] [phone] PCP - General Internal Medicine 02/14/18
--- OUTSIDE RECORDS SUMMARY | 2024-08-30 00:41 | XMS_ITS | Encounter Summary ---
Author Organization [facility] Address 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 Gender Identity Not on file Sexual Orientation Not on file documented as of this encounter Plan of Treatment Upcoming Encounters Date Type Department Care Team (Late st Contact Info) Description 08/08/2025 10:10 AM CDT Appointment [address] [place] [address] Randy Lunsford MD [address] [place], [place] [address] [address] 08/08/2025 11:00 AM CDT Office Visit [facility] MEDICAL FRONT DESK SPECIALIST - [facility] [address] [place] [address] Jai Callaway MD [address] [place] [phone] documented as of this encounter Visit Diagnoses Diagnosis Other screening mammogram- Primary documented in this encounter Care Teams Ortho Tech Relationship Specialty Start Date End Date Jose Grace MD [address] [place] [phone] PCP - General 03/30/04 documented as of this encounter
--- OUTSIDE RECORDS SUMMARY | 2024-08-30 00:41 | XMS_ITS | Encounter Summary ---
Author Organization [facility] Address 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 [address] [place] [phone] Jai Callaway MD [address] [place] [phone] documented as of this encounter Procedures Procedure Name Priority Date/Time Associated Diagnosis Comments MAMMO SCREEN BILAT W OR WO CAD Routine 01/03/2009 10:16 AM CDT documented in this encounter Results * MAMMO DIGITAL SCREEN BILAT (01/03/2009 10:16 AM CDT) Anatomical Region Laterality Modality Breast Bilateral Other 01/03/2009 10:1 6 AM CDT Narrative 01/05/2009 7:34 PM CDT [id number] [place] [place], [place] [address] Admit Date: 01/03/2009 DAHLIA BACON Sex: F Admit Prov: CHEMO MCMAHON Date: 1960 Primary Care Prov: MEILY FRENCH CMRN: [id number] Room: Noe [facility]: [id number] IMAGING SERVICES Ordering Prov: CHEMO MCMAHON Accession Number: [id number] Interpretation BILATERAL SCREENING DIGITAL MAMMOGRAMS WITH COMPUTER [...] Procedure Note Alyson Deleon MD - 01/05/2009 [id number] [place] [address] Admit Date: 01/03/2009 DAHLIA BACON Sex: F Admit Prov: CHEMO MCMAHON Date: 1960 Primary Care Prov: EMILY FRENCH CMRN: [id number] Room: [facility] N: [id number] IMAGING SERVICES Ordering Prov: CHEMO MCMAHON Interpretation [...] mammogram documented in this encounter Care Teams Senior Gis Analyst Relationship Specialty Start Date End Date Emily French MD [address] [place] [phone] PCP - General 03/30/04 documented as of this encounter
--- OUTSIDE RECORDS SUMMARY | 2024-08-30 00:41 | XMS_ITS | Encounter Summary ---
Author Organization [facility] Address 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 Gender Identity Not on file Sexual Orientation Not on file documented as of this encounter Plan of Treatment Upcoming Encounters Date Type Department Care Team (Late st Contact Info) Description 08/08/2025 10:10 AM CDT Appointment [address] [place] [address] Randy Lunsford MD [address] [place] [address] [place] [address] 08/08/2025 11:00 AM CDT Office Visit [facility] HORTICULTURAL THERAPIST - [facility] [address] [place] [address] [place] [address] Jai Callaway MD [address] [place] [address] [place] [phone] documented as of this encounter Visit Diagnoses Diagnosis Screening mammogram for high-risk patient- Primary documented in this encounter Care Teams Change Control Specialist Relationship Specialty Start Date End Date Jose Grace MD [address] [place] [phone] PCP - General 03/30/04 documented as of this encounter
--- OUTSIDE RECORDS SUMMARY | 2024-08-30 00:41 | XMS_ITS | Encounter Summary ---
Author Organization [facility] Address 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 Gender Identity Not on file Sexual Orientation Not on file documented as of this encounter Plan of Treatment Upcoming Encounters Date Type Department Care Team (Late st Contact Info) Description 08/08/2025 10:10 AM CDT Appointment [address] [place] [address] Randy Lunsford MD [address] [place] [phone] 08/08/2025 11:00 AM CDT Office Visit [facility] TIME PIECE REPAIRER - [facility] [address] [address] [address] Jai Callaway MD [address] [place] [phone] documented as of this encounter Procedures Procedure Name Priority Date/Time Associated Diagnosis Comments MAMMO SCREEN BILAT W OR WO CAD Routine 08/21/2007 1:12 PM CDT documented in this encounter Results * MAMMO DIGITAL SCREEN BILAT (08/21/2007 1:12 PM CDT) Anatomical Region Laterality Modality Breast Bilateral Other 08/21/2007 1:12 PM CDT Narrative 08/23/2007 2:38 PM CDT [address] [place], [place] [address] Admit Date: 08/21/2007 ABMONSERRATDAHLIA Sex: F Admit Prov: GABINO MCMAHONIN Vickie Date: 1960 Primary Care Prov: EMILY FRENCH CMRN: [id number] Room: [facility]: [id number] IMAGING SERVICES Ordering Prov: CHEMO MCMAHON Accession Number: [id number] Interpretation BILATERAL SCREENING DIGITAL MAMMOGRAMS WITH COMPUTER [...] Procedure Note Kobe Callaway MD - 08/23/2007 [address] [place], [place] [address] Admit Date: 08/21/2007 DAHLIA BACON Sex: F Admit Prov: CHEMO MCMAHON Date: 1960 Primary Care Prov: EMILY FRENCH CMRN: [id number] Room: Noe N: [id number] IMAGING SERVICES Ordering Prov: CHEMO MCMAHON Interpretation BILATERAL SCREENING DIGITAL MAMMOGRAMS WITH COMPUTER ASSISTEDDIAGNOSIS 08/21/07 Findings: The parenchyma is moderately dense bilaterally. There isno mass, malignant calcification, lymphadenopathy or other sign ofmalignancy. No change since 07/2006. The films were reviewed using the [employer]. Summary: No mammographic evidence of malignancy. Assessment BIRADS: 1-Negative Recommendation: Normal interval follow-up Dictated by: KOBE CALLAWAY Electronically signed by: KOBE CALLAWAY 08/23/2007 14:38 Transcribed: 08/23/2007 14:27 AMK us Chemo Mcmahon MD MAMMO ORDERABLES Final Result documented in this encounter Visit Diagnoses Diagnosis Other screening mammogram documented in this encounter Care Teams Measurer Relationship Specialty Start Date End Date Emily French MD [address] [place] [address] PCP - General 03/30/04 documented as of this encounter
--- OUTSIDE RECORDS SUMMARY | 2024-08-30 00:41 | XMS_ITS | Encounter Summary ---
Author Organization [email or web address] Address 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 Gender Identity Not on file Sexual Orientation Not on file documented as of this encounter Plan of Treatment Upcoming Encounters Date Type Department Care Team (Late st Contact Info) Description 08/08/2025 10:10 AM CDT Appointment [address] [place] [address] Randy Lunsford MD [address] [place] [address] 08/08/2025 11:00 AM CDT Office Visit [facility] CHEMIST PHYSICAL - [facility] [address] [place] [phone] Jai Callaway MD [address] [place] [phone] documented as of this encounter Procedures [...] AM CDT [facility] [address] [place], [place] [address] Admit Date: 01/03/2009 BINA BACONROCK Pal[place] Sex: F Admit Prov: CHEMO MCMAHON Date: 1960 Primary Care Prov: JOSE FRENCH CMRN: [id number] [facility] [address] [place] [address] IMAGING SERVICES Ordering Prov: N/A Accession Number: [id number] Interpretation Examination: Bone Density Study (DEXA) Clinical [...] Procedure Note Justine Thakkar MD - 01/03/2009 [facility] [address] [place], [place] [address] Admit Date: 01/03/2009 ABMONSERRAT AMBER J Sex: F Admit Prov: CHEMO MCMAHON Date: 1960 Primary Care Prov: JOSE FRENCH CMRN: [id number] Room: [facility] SSN: [address] [place] [address] IMAGING SERVICES Ordering Prov: N/A Interpretation Examination: [...] menorrhagia documented in this encounter Care Teams Insurance Verification Clerk Relationship Specialty Start Date End Date Jose French MD [address] [place] [address] PCP - General 03/30/04 documented as of this encounter
--- OUTSIDE RECORDS SUMMARY | 2024-08-30 00:41 | XMS_ITS | Encounter Summary ---
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 documented as of this encounter Procedures Procedure Name Priority Date/Time Associated Diagnosis Comments SCAN - LABS 04/10/2024 documented in this encounter Results * SCAN - LABS (04/10/2024) us Provider Scanning Edited Result - Final documented in this encounter Visit Diagnoses Not on filedocumented in this encounter Care Teams Continuous Weld Pipe Mill Supervisor Relationship Specialty Start Date End Date Jose Grace MD [address] [place] [address] PCP - General 09/23/16 Lalo Mejia MD [address] [place] [address] Truck Loader Overhead Crane Nephrology 03/12/24 documented as of this encounter
--- OUTSIDE RECORDS SUMMARY | 2024-08-30 00:41 | XMS_ITS | Encounter Summary ---
Author Organization [facility] Address [address] [facility] [place] [address] Care Team Providers Care Molding Utility Worker Name Role Phone Jose Grace MD Primary Care Provider [phone] Encounter Details Date Type Department Care Team (Late st Contact Info) Description 07/26/2023 Lab Requisition [facility]ician [facility] - DermPath Lab [address] [facility], [place] [phone] Letty Dixon DO [address] [facility] [address] [place] [address] Social History Tobacco Use Types Packs/Day Years [...] Comments DERMATOPATHOLOGY Routine 07/26/2023 10:5 8 AM MAINTENANCE PERSON documented in this encounter Results * DERMATOPATHOLOGY (07/26/2023 10:58 AM MAINTENANCE PERSON) Case Report Dermatopathology Report Case: [id number] Authorizing Provider: Letty Dixon DO Collected: 07/26/2023 10:58 AM Ordering Location: [facility] Physician [facility] - Received: 07/26/2023 04:24 PM DermPath Lab Pathologist: Lily Carrera MD Specimens: A) - Skin, right thigh B) - Skin, right forehead 2:48 PM [facility] DERMATOPATHOLOGY LABORATORY Final Diagnosis Specimen A. 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 Lent r/o Atypia 2:48 PM [facility] DERMATOPATHOLOGY LABORATORY Gross Description Specimen A: Received [...] measuring 3x3x1 mm. Jar 0. 2:48 PM [facility] DERMATOPATHOLOGY LABORATORY Microscopic Description Specimen A. SKIN, [...] prominent pigmentation in some of the keratinocytes. [place]-1/Melan-A immunohistochemical stain fails to highlight a melanocytic proliferation. Ki-67 stain highlights an increased proliferative index in throughout the epidermis. 2:48 PM [facility] DERMATOPATHOLOGY LABORATORY Disclaimer An external and internal positive and negative controls are appropriate for the histochemical, immunohistochemical and immunofluorescence stain(s) in this case (if any), except where stated explicitly. The performance characteristics of the stain(s) cited in this report were developed and its performance characteristic determined by the Dermatopathology Laboratory at [facility], directed by Dr. Deric Nascimento. These tests need not be, and therefore are not, approved by the [place] Food and Drug Administration. The tests are used for clinical purposes. Billing Codes Specimen Charges Stain Charges 97494 68231 1 1 24680 08321 23685 1 1 1 4 2:48 PM MAINTENANCE PERSON DERMATOPATHOLOGY LABORATORY Embedded Images 2:48 PM MAINTENANCE PERSON DERMATOPATHOLOGY LABORATORY Pathology/Cytology TISSUE SPECIMEN FROM SKIN / Unknown 07/26/2023 10:58 AM MAINTENANCE PERSON 07/26/2023 4:24 PM MAINTENANCE PERSON Miscellaneous samples (specimen) TISSUE SPECIMEN FROM SKIN / Unknown 07/26/2023 10:58 AM MAINTENANCE PERSON 07/26/2023 4:24 PM MAINTENANCE PERSON Letty Dixon DO LAB - PATHOLOGY/C YTOLOGY ORDERABLES DERMATOPATHOLOGY LABORATORY [facility] - Department of Dermatology [facility] Specialized Medicine [address] [place] [address] [phone] documented in this encounter Visit Diagnoses Not on filedocumented in this encounter Care Teams Molding Utility Worker Relationship Specialty Start Date End Date Jose Grace MD [address] [place] [address] PCP - General Internal Medicine 02/14/18 documented as of this encounter
--- OUTSIDE RECORDS SUMMARY | 2024-08-30 00:41 | XMS_ITS | Referral Summary ---
Author Organization [facility] Address [address] [place] [address] Care Team Providers Care Chemist Organic Name Role Phone Jose Grace MD Primary Care Provider [phone] Lalo Mejia MD Unavailable [phone] Encounters Date Type Department Care Team Description 08/27/2024 11:45 AM CDT Office Visit [facility] [id number] [place] [address] 2nd [address] [place] [address] Archana Haas NP Primary osteoarthritis of right knee (Primary Dx); Chronic pain of right knee 06/14/2024 Orders Only [facility] Archana Haas NP Primary osteoarthritis of right knee from Last 3 Months Allergies Active Allergy [...] (04/24/2021): Added automatically from request for surgery [id number] Open wound of right lower leg 08/11/2020 [...] (06/24/2020): Added automatically from request for surgery [id number] Postlaminectomy syndrome of cervical region 08/2016 Spinal [...] too much pain with any weight-bearing. 07/2023 [facility] [address] [place] [id number] XR Foot Left 3+ View Status: Final [...] cuff 08/17/2011 11/22/2019 Rotator cuff tendonitis 04/20/2011 07/06/2019 Arthralgia of shoulder 04/12/201111/21 Encounter for preventive [...] on file Legal Sex Female 1:38 PM SENIOR CHEMICAL ENGINEER Gender Identity Not on file Sexual Orientation Straight 11/05/2019 9: 49 AM CDT Last Filed Vital Signs Vital Sign Reading Time Taken Comments Blood Pressure 132/80 05/03/2024 10:30 AM SENIOR CHEMICAL ENGINEER Pulse 63 05/03/2024 10:30 AM SENIOR CHEMICAL ENGINEER Temperature 36.4 C (97.5 F) 03/07/2024 8:34 AM CDT Respiratory Rate 16 09/27/2023 1:26 PM CDT Oxygen Saturation 98% 05/03/2024 10:30 AM SENIOR CHEMICAL ENGINEER Inhaled Oxygen Concentration - - Weight 79.8 kg (176 lb) 08/27/2024 11:46 AM CDT Height 167.6 cm (5' 6 ) 08/27/2024 11:46 AM CDT Body Mass Index 28.41 08/27/2024 11:46 AM CDT Plan of Treatment Not on file Goals [...] home safety. Medical Devices Implanted Type Area Fiberglass Fabricator Device Identifier Shelf Expiration Date Model / Serial / Lot [employer] [id number] Ortholoc 3.5mm 2.5mm 18mm Low Profile Head Self Tap Midfoot - S00 - [id number] Implanted:Qty: 1 on 09/26/2020 by Lino Edward MD at [facility] Screw Right: Foot [employer] [id number] / Orthohelix [id number] Maxtorque 4mm 30mm Cannulated Blunt Foot Long Thread Screw Bone Latex Free - S00 - [id number] Implanted:Qty: 1 on 09/26/2020 by Lino Edward MD at [facility] Screw Right: Foot Orthohelix CSS-011-40- 030L / 00 00 Orthohelix Maxtorque 4mm 35mm Cannulated Self Drill Foot Ankle Short Thread [id number]-[id number] - [id number] - [id number] Implanted:Qty: 1 on 05/05/2022 by Lino Edward MD at [facility] Screw Left: Ankle Orthohelix MSD-010-40- 035S / MSD-010-40- 035S / Hardware From Fusion N/A: Neck Orthohelix [id number] Maxtorque 4mm 35mm Cannulated Self Drill Foot Ankle Long Thread - [id number] Implanted:Qty: 1 on 05/29/2021 by Lino Edward MD at [facility] Left: Foot Orthohelix MSD-010-40- 035L / / Zipzoom Inc [id number] Ortholoc 47mm 3di Fusion Low Profile Compression Slot Foot Left - [id number] Implanted:Qty: 1 on 05/29/2021 by Lino Edward MD at [facility] Left: Foot [employer] Inc [id number] / / [employer] [id number] Ortholoc 2.7mm 2mm 18mm Lock On Yermo Polyaxial Self Tap Midfoot - [id number] Implanted:Qty: 3 on 05/29/2021 by Lino Edward MD at [facility] Left: Foot [employer] [id number] / / [employer] [id number] Ortholoc 3.5mm 2.5mm 18mm Low Profile Head Self Tap Midfoot - [id number] Implanted:Qty: 1 on 05/29/2021 by Lino Edward MD at [facility] Left: Foot [employer] [id number] / / [employer] Ortholoc [id number] Fusion Low Profile Revision Foot Left First [id number] - [id number] Implanted:Qty: 1 on 05/05/2022 by Lino Edward MD at [facility] [employer] [id number] / / [employer] Inc Ortholoc 3.5mm 2.8mm 14mm Lock On Yermo Polyaxial Self Tap Midfoot [id number] - [id number] Implanted:Qty: 1 on 05/05/2022 by Lino Edward MD at [facility] Left: Ankle [employer] [id number] / / [employer] Ortholoc 2.7mm 2mm 12mm Lock On Yermo Polyaxial Self Tap Midfoot [id number] - [id number] Implanted:Qty: 2 on 05/05/2022 by Lino Edward MD at [facility] Left: Ankle [employer] [id number] / / [employer] Ortholoc 3.5mm 2.5mm 18mm Low Profile Head Self Tap Midfoot [id number] - [id number] Implanted:Qty: 2 on 05/05/2022 by Lino Edward MD at [facility] Left: Ankle [employer] [id number] / / [employer] Ortholoc 2.7mm 2mm 16mm Lock On Yermo Polyaxial Self Tap Midfoot [id number] - [id number] Implanted:Qty: 1 on 05/05/2022 by Lino Edward MD at [facility] Left: Ankle [employer] [id number] / / Get [employer] Sales Angio-Seal Vip 6fr Closere Device [id number] - [id number] Implanted:Qty: 1 on 12/13/20[facility] [id number] / / [id number] Explanted Type Area Fiberglass Fabricator Device Identifier Shelf Expiration Date Model / Serial / Lot [employer] Inc [id number] Ortholoc 2.7mm 2mm 14mm Lock On Yermo Polyaxial Self Tap Midfoot - S00 - [id number] Implanted:Qty: 1 on 09/26/2020 by Lino Edward MD at [facility] Explanted:Qty: 1 on 05/03/2023 at [facility] Screw Right: Foot [employer] Inc [id number] / Zip[employer] Inc [id number] Ortholoc 2.7mm 2mm 18mm Lock On Yermo Polyaxial Self Tap Midfoot - S00 - [id number] Implanted:Qty: 2 on 09/26/2020 by Lino Edward MD at [facility] Explanted:Qty: 2 on 05/03/2023 at [facility] Screw Right: Foot [employer] Inc [id number] / [employer] Inc [id number] Ortholoc 2.7mm 2mm 16mm Lock On Yermo Polyaxial Self Tap Midfoot - S00 - [id number] Implanted:Qty: 2 on 09/26/2020 by Lino Edward MD at [facility] Explanted:Qty: 2 on 05/03/2023 at [facility] Screw Right: Foot [employer] Inc [id number] / [employer] [id number] Rolo .062in 9in 1 Trocar Smooth Wire Fixation - [id number] Explanted:Qty: 2 on 05/29/2021 by Lino Edward MD at [facility] Left: Foot [employer] [id number] / / [employer] [id number] Ortholoc 47mm 3di Fusion Low Profile Compression Slot Foot Right - S00 - [id number] Implanted:Qty: 1 on 09/26/2020 by Lino Edward MD at [facility] Explanted:Qty: 1 on 05/03/2023 at [facility] Right: Foot [employer] Inc [id number] / 00 / 00 [employer] Inc [id number] Ortholoc 2.7mm 2mm 14mm Lock On Yermo Polyaxial Self Tap Midfoot - [id number] Implanted:Qty: 1 on 05/29/2021 by Lino Edward MD at [facility] Explanted:Qty: 1 on 05/03/2023 at [facility] Left: Foot [employer] [id number] / / [employer] [id number] Ortholoc 2.7mm 2mm 16mm Lock On Yermo Polyaxial Self Tap Midfoot - [id number] Implanted:Qty: 1 on 05/29/2021 by Lino Edward MD at [facility] Explanted:Qty: 1 on 05/03/2023 at [place] [facility] Left: Foot [employer] Inc [id number] / / Procedures Procedure Name Priority Date/Time Associated Diagnosis Comments ME ARTHROCENTESIS ASPIR&/INJ MAJOR JT/BURSA W/O US Routine 08/27/2024 11:45 AM CDT Primary osteoarthritis of right knee Chronic pain of right knee MRI KNEE RIGHT WO CONTRAST Schedule Routine, Read Routine (OP Routine) 06/01/2024 3:21 PM SENIOR CHEMICAL ENGINEER Primary osteoarthritis of right knee DEXA TBS AXIAL SKELETON BONE DENSITY 1 OR MORE SITES Schedule Routine, Read Routine (OP Routine) 10/27/2023 11:19 AM CDT Osteopenia of neck of left femur from Last 3 Months or Most Recently Relevant to Health Maintenance Results * ME ARTHROCENTESIS ASPIR&/INJ MAJOR JT/BURSA W/O US (08/27/2024 11:45 AM CDT) Narrative Archana Haas NP - 08/27/2024 11:45 AM CDT Archana Haas NP 08/27/2024 12:34 PM Large Joint Injection: R knee Performed by: Archana Haas NP Authorized by: Archana Haas NP [...] the procedure well with no immediate complications us Archana Parra CONSUMER LOAN SPECIALIST IN CLINIC/BEDS PEDRO ORDERABLES Final Result * MRI Knee Right WO Contrast (06/01/2024 3:21 PM SENIOR CHEMICAL ENGINEER) Anatomical Region Laterality Modality Lower Extremities Right Magnetic Reson ance Archana Parra CONSUMER LOAN SPECIALIST IMG MRI PROCED URES Final Result * Dexa TBS Axial Skeleton Bone Density 1 or more sites (10/27/2023 11:19 AM CDT) Anatomical Region Laterality Modality Wrist, Body N/A Radiographic Gracy ging Narrative 11/29/2023 10:07 AM CDT Patient Name: Dahlia Boateng Date of : 1960 Date of scan: 10/27/2023 Bone mineral density was performed on a [employer]Jabber Discovery Densitometer. Based on machine cross-calibration and [...] by the International Society of Clinical Densitometry. [id number] Deb Max DNP IMG DXA PROCEDURES Final Result from Last 3 Months or Most Recently Relevant to Health Maintenance Insurance MEDICARE [facility] MEDICARE REPLACED BY [facility] MEDICARE [facility] Advance Directives For more information, please contact: [phone] * Full Code (Latest Code Status on File) Date Activated Date Inactivated Comments 12/13/2022 9:47 AM 12/13/2022 4:55 PM Care Teams Chemist Organic Relationship Specialty Start Date End Date Jose Grace MD [address] [facility] [address] [place] [address] PCP - General 09/23/16 Lalo Mejia MD [address] [place] [address] [facility] 03/12/24
--- OUTSIDE RECORDS SUMMARY | 2024-08-30 00:42 | XMS_ITS | Encounter Summary ---
Author Organization [facility] Address 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 Gender Identity Not on file Sexual Orientation Not on file documented as of this encounter Plan of Treatment Upcoming Encounters Date Type Department Care Team (Late st Contact Info) Description 08/08/2025 10:10 AM CDT Appointment [address] [place] [address] Randy Lunsford MD [address] [place], [place] [address] [place] [address] 08/08/2025 11:00 AM CDT Office Visit [facility] LIFT OPERATOR - [facility] [address] [place] [address] Jai Callaway MD [address] [place] [phone] documented as of this encounter Visit Diagnoses Diagnosis Screening mammogram for high-risk patient- Primary documented in this encounter Care Teams Speaker Mounter Relationship Specialty Start Date End Date Jose Grace MD [address] [place] [address] PCP - General 03/30/04 documented as of this encounter
--- OUTSIDE RECORDS SUMMARY | 2024-08-30 00:42 | XMS_ITS | Encounter Summary ---
Author Organization [facility] Address [address] [place] [address] Care Team Providers Care Scrap Drop Engineer Name Role Phone Jose Grace MD Primary Care Provider + Encounter Details Date Type Department Care Team (Latest Contact Info) Description 07/26/2000 Outpatient Historical [facility] Dolan, Luis Johnston MD NO ADDRESS ON FILE Other screening mammogram (Primary Dx) Social History Tobacco Use Types Packs/Day Years Used Date Smoking Tobacco: Never Assessed Comments Unknown Sex and Gender Information Value Date Recorded Sex Assigned at Not on file Legal Sex Female 3:49 AM COSMETIC COUNSELOR Gender Identity Not on file Sexual Orientation Not on file documented as of this encounter Plan of Treatment Upcoming Encounters Date Type Department Care Team (Late st Contact Info) Description 08/08/2025 10:10 AM CDT Appointment [address] [place] [address] Randy Lunsford MD [address] [place] [address] [place] [address] 08/08/2025 11:00 AM CDT Office Visit [facility] BALL RACKER - [facility] [address] [place] [address] Jai Callaway MD [address] [place] [address] [place] [phone] documented as of this encounter Visit Diagnoses Diagnosis Other screening mammogram- Primary documented in this encounter Care Teams Scrap Drop Engineer Relationship Specialty Start Date End Date Jose Grace MD [address] [place] [address] PCP - General 03/30/04 documented as of this encounter
--- OUTSIDE RECORDS SUMMARY | 2024-08-30 00:42 | XMS_ITS | Encounter Summary ---
Author Organization [facility] Address [address] [place] [address] Care Team Providers Care Salesperson Pianos And Organs Name Role Phone Jose Grace MD Primary Care Provider + Encounter Details Date Type Department Care Team (Late Contact Info) Description 08/02/2024 Results Follow-Up [facility] CREDIT COUNSELOR - [facility] [address] [place] [phone] Randy Lunsford MD [address] [place], [place] [address] [place] [address] MAMMO 3D CHUNG SCREEN BILAT [...] on file Legal Sex Female 3:49 AM SCREEN CUTTER AND TRIMMER Gender Identity Not on file Sexual Orientation [...] Info) Description 08/08/2025 10:10 AM CDT Appointment [facility] A [address] [place] [address] [address] [place] [address] Randy Lunsford MD [address] [facility] [address] [address] 08/08/2025 11:00 AM CDT Office Visit [facility] CREDIT COUNSELOR - [facility] [address] [facility] [address] [place] [phone] Jai Callaway MD [address] [address] documented as of this encounter Visit Diagnoses Not on filedocumented in this encounter Care Teams Salesperson Pianos And Organs Relationship Specialty Start Date End Date Jose Grace MD [address] [place] [address] PCP - General 03/30/04 documented as of this encounter
--- OUTSIDE RECORDS SUMMARY | 2024-08-30 00:42 | XMS_ITS | Encounter Summary ---
Author Organization [facility] Address [address] [place] [address] Care Team Providers Care Strategic Partnership Specialist Name Role Phone Jose Grace MD [...] on file Legal Sex Female 3:49 AM MUSHROOM GROWTH MEDIA MIXER Gender Identity Not on file Sexual Orientation Not on file documented as of this encounter Plan of Treatment Upcoming Encounters Date Type Department Care Team (Late st Contact Info) Description 08/08/2025 10:10 AM CDT Appointment [facility] Breast [address] [place] [address] Randy Lunsford MD [address] [place], [place] [address] [place] [address] 08/08/2025 11:00 AM CDT Office Visit [facility] HAM SAWYER - [facility] [address] [place] [address] Jai Callaway MD [address] [place] [phone] documented as of this encounter Visit Diagnoses Diagnosis Other screening mammogram- Primary documented in this encounter Care Teams Strategic Partnership Specialist Relationship Specialty Start Date End Date Jose Grace MD [address] [place] [phone] PCP - General 03/30/04 documented as of this encounter
--- OUTSIDE RECORDS SUMMARY | 2024-08-30 00:42 | XMS_ITS | Clinical Summary ---
Author Organization [facility] Address [address], [address] [address] Phone Care Team Providers Care Mobility Manager Name Role Phone Jose Grace MD Primary Care Provider [phone] Social History Tobacco Use Types Packs/Day Years Used Date Smoking Tobacco: Never Assessed Comments Unknown Sex and Gender Information Value Date Recorded Sex Assigned at Not on file Legal Sex Female 12:44 PM DOG OR HORSE RACING OFFICIAL Gender Identity Not on file Sexual Orientation [...] to Health Maintenance Results * COLONOSCOPY (12/27/2019) Chda Carlos Lagos DO PROCEDURE/MINOR SURGICAL ORDERA BLES Final Result from Last 3 Months or Most Recently Relevant to Health Maintenance Insurance MEDICARE Care Teams Mobility Manager Relationship Specialty Start Date End Date Jose Grace MD [address] [place] [address] PCP - General Internal Medicine 07/19/19
[2024-08-30 11:47] LABS: Glucose Point of Care 85 mg/dl (65-105)
[2024-08-30 11:50] VITALS: BP 129/76; PULSE 63; RESP 18; TEMP 36.1; O2SAT 97
[2024-08-30] MEDS: LACTATED RINGERS 1,000 ML 150 ML IV CONT (12:01)
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
[2024-08-30] MEDS: BENZOCAINE (*SP) 60 ML SPRAY CAN (HURRICAINE) 1 SPRAY MUCOUS MEM (13:24)
[2024-08-30] MEDS: SIMETHICONE ORAL SUSPENSION 20 MG/0.3 ML 30 ML BOTTLE 0.6 ML IRRIGATION (13:48)
[2024-08-30 14:22] VITALS: BP 97/64; PULSE 66; RESP 20; O2SAT 99
[2024-08-30 14:32] VITALS: BP 131/96; PULSE 80; RESP 24; O2SAT 98
[2024-08-30 14:42] VITALS: BP 126/62; PULSE 70; RESP 20; O2SAT 99
== END 2024-08-30 15:01 | disposition home or self-care (01) ==
PROVIDERS: PCP Internal Medicine; Referring Provider Nurse Practitioner Family; Visit Provider Internal Medicine Gastroenterology
PROC: 0DJ08ZZ Inspection of Upper Intestinal Tract, Via Natural or Artificial Opening Endoscopic (ICD-10-PCS; CPT 45378; principal; 2024-08-30 13:00)
DX: D12.2 Benign neoplasm of ascending colon (principal); D12.0 Benign neoplasm of cecum; D12.4 Benign neoplasm of descending colon; D12.5 Benign neoplasm of sigmoid colon; D12.3 Benign neoplasm of transverse colon; K21.9 Gastro-esophageal reflux disease without esophagitis; K31.89 Other diseases of stomach and duodenum; K57.30 Diverticulosis of large intestine without perforation or abscess without bleeding; K44.9 Diaphragmatic hernia without obstruction or gangrene; K29.30 Chronic superficial gastritis without bleeding; I12.9 Hypertensive chronic kidney disease with stage 1 through stage 4 chronic kidney disease, or unspecified chronic kidney disease; E11.22 Type 2 diabetes mellitus with diabetic chronic kidney disease; N18.9 Chronic kidney disease, unspecified; E55.9 Vitamin D deficiency, unspecified; G47.00 Insomnia, unspecified; J45.909 Unspecified asthma, uncomplicated; E78.5 Hyperlipidemia, unspecified; R31.29 Other microscopic hematuria; M15.9 Polyosteoarthritis, unspecified; M62.838 Other muscle spasm; R00.0 Tachycardia, unspecified; G89.29 Other chronic pain; M25.579 Pain in unspecified ankle and joints of unspecified foot; Z79.82 Long term (current) use of aspirin; Z79.51 Long term (current) use of inhaled steroids; Z79.84 Long term (current) use of oral hypoglycemic drugs; Z98.890 Other specified postprocedural states; Z98.1 Arthrodesis status; Z87.891 Personal history of nicotine dependence; Z85.828 Personal history of other malignant neoplasm of skin; Z80.0 Family history of malignant neoplasm of digestive organs; Z80.1 Family history of malignant neoplasm of trachea, bronchus and lung
CPT/HCPCS: 43239; 45385; 82948; 88305; J2003; J2371; J2704; J7120

== ENCOUNTER 2024-09-03 15:13 | Outpatient (CLI) | payer MEDICARE, OTHER, SELFPAY ==
--- NOTE | ~2024-09-03 | CT_ITS ---
CT Scan of the Chest without Contrast: Clinical Indication: Lung cancer screening, nicotine dependence Technique: Contiguous sections were acquired throughout the chest without intravenous contrast. Dose reduction technique was used on this scan by utilizing automated exposure control and iterative recon struction technique. The dose-length product (DLP) was 76.60 mGy-cm. COMPARISON: 06/29/2023 Findings: There is no evidence of any significant mediastinal, hilar or axillary lymphadenopathy. The mediastin al soft tissues appear normal. There is no evidence of pleural or pericardial effusion. Stable emphysema and biapical scarring. There are patchy mild groundglass opacities peripherally in t he right lung. Images through the upper abdomen reveal no abnormalities. Impression: Lung RADS 2: Benign appearance. 12 month follow-up screening CT advised. Reviewed, dictated and finalized at [facility]. Impression: Lung RADS 2: Benign appearance. 12 month follow-up screening CT advised.
--- OUTSIDE RECORDS SUMMARY | 2024-09-03 17:16 | XMS_ITS | Encounter Summary ---
Author Organization [facility] Address [address] [place] [address] Care Team Providers Care Yoker Machine Operator Name Role Phone Jose Grace MD Primary Care Provider + Encounter Details Date Type Department Care Team (Late Contact Info) Description 08/02/2024 Results [facility] HANDBAG DESIGNER - 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 [address] [facility] [address] [place] [phone] Jai Callaway MD [address] [phone] documented as of this encounter Visit Diagnoses Not on filedocumented in this encounter Care Teams Yoker Machine Operator Relationship Specialty Start Date End Date Jose Grace MD [address] [place] [phone] PCP - General 03/30/04 documented as of this encounter
--- OUTSIDE RECORDS SUMMARY | 2024-09-03 17:16 | XMS_ITS | Encounter Summary ---
Author Organization [facility] Address 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 Gender Identity Not on file Sexual Orientation Not on file documented as of this encounter Plan of Treatment Upcoming Encounters Date Type Department Care Team (Late st Contact Info) Description 08/08/2025 10:10 AM CDT Appointment [address] [place] [address] Randy Lunsford MD [address] [place] [phone] 08/08/2025 11:00 AM CDT [facility] [employer] SWEEPER OPERATOR - [facility] [address] [place] [phone] Jai Callaway MD [address] [place] [phone] documented as of this encounter Procedures Procedure Name Priority Date/Time Associated Diagnosis Comments MAMMO SCREEN BILAT W OR WO CAD Routine 01/03/2009 10:16 AM CDT documented in this encounter Results * MAMMO DIGITAL SCREEN BILAT (01/03/2009 10:16 AM CDT) Anatomical Region Laterality Modality Breast Bilateral Other 01/03/2009 10:1 6 AM CDT Narrative 01/05/2009 7:34 PM CDT [id number] [place] [address] Admit Date: 01/03/2009 DAHLIA BACON Sex: F Admit Prov: CHEMO MCMAHON Date: 1960 Primary Care Prov: EMILY FRENCH CMRN: [id number] Room: oNe [facility]: [id number] IMAGING SERVICES Ordering Prov: CHEMO MCMAHON Accession Number: [id number] Interpretation BILATERAL SCREENING DIGITAL MAMMOGRAMS WITH COMPUTER [...] Procedure Note Alyson Deleon MD - 01/05/2009 [id number] [place] [address] Admit Date: 01/03/2009 DAHLIA BACON Sex: F Admit Prov: CHEMO MCMAHON Date: 1960 Primary Care Prov: EMILY FRENCH CMRN: [id number] Room: KATRINANoe N: [id number] IMAGING SERVICES Ordering Prov: CHEMO MMCAHON Interpretation BILATERAL SCREENING DIGITAL MAMMOGRAMS WITH COMPUTER [...] mammogram documented in this encounter Care Teams Sephora Operations Consultant Relationship Specialty Start Date End Date Emily French MD [address] [place] [phone] PCP - General 03/30/04 documented as of this encounter
--- OUTSIDE RECORDS SUMMARY | 2024-09-03 17:16 | XMS_ITS | Clinical Summary ---
Author Organization [facility] Address [address] [facility] [place] [address] Care Team Providers Care Slat Grader Name Role Phone Jose Grace MD Primary Care Provider [phone] Source Comments [facility],non-[facility] Affiliates and Associated Physician Practices is amultiple site organization consisting of ambulatory clinics and hospital sitesin [place], [place], [place] and [place]. This disclosure is being madepursuant to the Care Everywhere program and may not contain all information available regarding this patient. Last updated 18.[facility] Allergies Active Allergy Reactions Criticality Noted Date Comments Sulfa Drugs Urticaria,Rash Medium 02/14/2018 Encounters Date Type Department Care Team Description 08/14/2024 Lab Requisition [facility] - DermPath Lab [address] [facility] [place] [phone] Parisa Healy MD from Last 3 Months Immunizations Immunization Administration Dates Next Due iNFLUENZA VACCINE, RECOM-ESPARZA, QUADR. (FLUBLOCK QUADRIVALENT; 18Y+) (RIV4) 02/14/2018 Social History Tobacco Use Types Packs/Day Years Used Date Smoking Tobacco: Never Assessed Comments Unknown Sex and Gender Information Value Date Recorded Sex Assigned at Not on file Legal Sex Female 10:32 AM CDT Gender Identity Not on file Sexual Orientation [...] PM CDT) Case Report Dermatopathology Report Case: [id number] Authorizing Provider: Parisa Healy MD Collected: 08/14/2024 01:56 PM Ordering Location: [facility] - Received: 08/16/2024 09:50 AM DermPath Lab [...] characteristic determined by the Dermatopathology Laboratory at [facility], directed by Dr. Deric Nascimento. These tests need not be, and therefore are not, approved by the [place] Food and Drug Administration. The tests are used for clinical purposes. Billing Codes Specimen Charges Stain Charges 99742 1 5:11 PM CDT DERMATOPATHOLOGY LABORATORY Embedded Images 5:11 PM CDT DERMATOPATHOLOGY LABORATORY Pathology/Cytolo gy TISSUE SPECIMEN FROM SKIN / Unknown 08/14/2024 1:56 PM CDT 08/16/2024 9:50 AM CDT us Parisa Healy MD LAB - PATHOLOGY/CYTOLOGY OR DERABLES Final Result DERMATOPATHOLOGY LABORATORY [facility] - Department of Dermatology [address] [phone] from Last 3 Months Insurance MEDICARE [facility] Address: [address] [place] [address] MEDICARE Care Teams Slat Grader Relationship Specialty Start Date End Date Jose Grace MD [address] [place] [address] PCP - General Internal Medicine 02/14/18
--- OUTSIDE RECORDS SUMMARY | 2024-09-03 17:16 | XMS_ITS | Encounter Summary ---
Author Organization [facility] Address 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 Gender Identity Not on file Sexual Orientation Not on file documented as of this encounter Plan of Treatment Upcoming Encounters Date Type Department Care Team (Late st Contact Info) Description 08/08/2025 10:10 AM CDT Appointment [address] [place] [address] Randy Lunsford MD [address] [place] [address] [place] [phone] 08/08/2025 11:00 AM CDT Office Visit [facility] NUCLEAR MEDICINE OFFICER - [facility] [address] [place] [phone] Jai Callaway MD [address] [place] [address] [place] [phone] documented as of this encounter Visit Diagnoses Diagnosis Other screening mammogram- Primary documented in this encounter Care Teams Automotive Parts Clerk Relationship Specialty Start Date End Date Jose Grace MD [address] [place] [address] PCP - General 03/30/04 documented as of this encounter
--- OUTSIDE RECORDS SUMMARY | 2024-09-03 17:16 | XMS_ITS | Clinical Summary ---
Author Organization [facility] Address [address], [address] [address] Phone Care Team Providers Care Medical Technologist Prn Name Role Phone Jose Grace MD Primary Care Provider [phone] Social History Tobacco Use Types Packs/Day Years Used Date Smoking Tobacco: Never Assessed Comments Unknown Sex and Gender Information Value Date Recorded Sex Assigned at Not on file Legal Sex Female 12:44 PM GUEST RELATIONS RECEPTIONIST Gender Identity Not on file Sexual Orientation [...] to Health Maintenance Insurance MEDICARE Care Teams Medical Technologist Prn Relationship Specialty Start Date End Date Jose Grace MD [address] [place] [address] PCP - General Internal Medicine 07/19/19
--- OUTSIDE RECORDS SUMMARY | 2024-09-03 17:16 | XMS_ITS | Encounter Summary ---
Author Organization [facility] Address [address] [place] [address] Care Team Providers Care Retail Cosmetics Sales Counter Manager Name Role Phone Jose Grace MD Primary Care Provider + Encounter Details Date Type Department Care Team (Latest Contact Info) Description 08/04/2006 Outpatient Historical HIS [facility] Dolan, Luis Johnston MD NO ADDRESS ON FILE Diffuse Cystic Mastopathy (Primary Dx) Social History Tobacco Use Types Packs/Day Years Used Date Smoking Tobacco: Never Assessed Comments Unknown Sex and Gender Information Value Date Recorded Sex Assigned at Not on file Legal Sex Female 3:49 AM RELAY ASSEMBLER Gender Identity Not on file Sexual Orientation Not on file documented as of this encounter Plan of Treatment Upcoming Encounters Date Type Department Care Team (Late st Contact Info) Description 08/08/2025 10:10 AM CDT Appointment [address] [place] [address] Randy Lunsford MD [address] [place] [address] [place] [phone] 08/08/2025 11:00 AM CDT Office Visit [facility] MEDICATION ASSISTANT - [facility] [address] [place] [address] Jai Callaway MD [address] [place] [address] [place] [phone] documented as of this encounter Visit Diagnoses Diagnosis Diffuse cystic mastopathy- Primary documented in this encounter Care Teams Retail Cosmetics Sales Counter Manager Relationship Specialty Start Date End Date Jose Grace MD [address] [place] [address] PCP - General 03/30/04 documented as of this encounter
--- OUTSIDE RECORDS SUMMARY | 2024-09-03 17:16 | XMS_ITS | Encounter Summary ---
Author Organization [facility] Address 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 Gender Identity Not on file Sexual Orientation Not on file documented as of this encounter Plan of Treatment Upcoming Encounters Date Type Department Care Team (Late st Contact Info) Description 08/08/2025 10:10 AM CDT Appointment [address] [place] [address] Randy Lunsford MD [address] [place], [place] [address] [place] [address] 08/08/2025 11:00 AM CDT Office Visit [facility] INFECTION PREVENTIONIST - [facility] [address] [place] [phone] Jai Callaway MD [address] [place] [phone] documented as of this encounter Visit Diagnoses Diagnosis Screening mammogram for high-risk patient- Primary documented in this encounter Care Teams Manager Strategic Relationship Specialty Start Date End Date Jose Grace MD [address] [place] [phone] PCP - General 03/30/04 documented as of this encounter
--- OUTSIDE RECORDS SUMMARY | 2024-09-03 17:16 | XMS_ITS | Encounter Summary ---
Author Organization [facility] Address 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 Gender Identity Not on file Sexual Orientation Not on file documented as of this encounter Plan of Treatment Upcoming Encounters Date Type Department Care Team (Late st Contact Info) Description 08/08/2025 10:10 AM CDT Appointment [address] [place] [address] Randy Lunsford MD [address] [place] [address] [place] [phone] 08/08/2025 11:00 AM CDT Office Visit [facility] ELECTRICAL CONSTRUCTION PROJECT MANAGER - [facility] [address] [place] [address] [place] [address] Jai Callaway MD [address] [place] [address] [place] [phone] documented as of this encounter Visit Diagnoses Diagnosis Screening mammogram for high-risk patient- Primary documented in this encounter Care Teams Customer Support Consultant Relationship Specialty Start Date End Date Jose Grace MD [address] [place] [address] PCP - General 03/30/04 documented as of this encounter
--- OUTSIDE RECORDS SUMMARY | 2024-09-03 17:16 | XMS_ITS | Encounter Summary ---
Author Organization [facility] Address [address] [place] [address] Care Team Providers Care Making Department Preparer Name Role Phone Emily French MD Primary Care Provider + Encounter Details Date Type Department Care Team (Latest Contact Info) Description 08/21/2007 Outpatient Historical HIS [facility] Mcmahon, Chemo Johnston MD NO ADDRESS ON FILE Other Screening Mammogram Social History Tobacco Use Types Packs/Day Years Used Date Smoking Tobacco: Never Assessed Comments Unknown Sex and Gender Information Value Date Recorded Sex Assigned at Not on file Legal Sex Female 3:49 AM POULTRY PROCESSOR Gender Identity Not on file Sexual Orientation Not on file documented as of this encounter Plan of Treatment Upcoming Encounters Date Type Department Care Team (Late st Contact Info) Description 08/08/2025 10:10 AM CDT Appointment [address] [place] [address] Randy Lunsford MD [address] [place] [phone] 08/08/2025 11:00 AM CDT Office Visit [facility] GRAIN ELEVATOR MOTOR STARTER - [facility] [address] [address] [address] Jai Callaway MD [address] [place] [phone] documented as of this encounter Procedures Procedure Name Priority Date/Time Associated Diagnosis Comments MAMMO SCREEN BILAT W OR WO CAD Routine 08/21/2007 1:12 PM CDT documented in this encounter Results * MAMMO DIGITAL SCREEN BILAT (08/21/2007 1:12 PM CDT) Anatomical Region Laterality Modality Breast Bilateral Other 08/21/2007 1:12 PM CDT Narrative 08/23/2007 2:38 PM CDT [address] [place], [place] [address] Admit Date: 08/21/2007 ABMONSERRATDAHLIA Sex: F Admit Prov: GABINO MCMAHONIN Vickie Date: 1960 Primary Care Prov: EMILY FRENCH CMRN: [id number] Room: [facility]: [id number] IMAGING SERVICES Ordering Prov: CHEMO MCMAHON Accession Number: [id number] Interpretation BILATERAL SCREENING DIGITAL MAMMOGRAMS WITH COMPUTER [...] Procedure Note Kobe Callaway MD - 08/23/2007 [address] [place], [place] [address] Admit Date: 08/21/2007 DAHLIA BACON Sex: F Admit Prov: CHEMO MCMAHON Date: 1960 Primary Care Prov: EMILY FRENCH CMRN: [id number] Room: Noe N: [id number] IMAGING SERVICES Ordering Prov: CHEMO MCMAHON Interpretation BILATERAL SCREENING DIGITAL MAMMOGRAMS WITH COMPUTER ASSISTEDDIAGNOSIS 08/21/07 Findings: The parenchyma is moderately dense bilaterally. There isno mass, malignant calcification, lymphadenopathy or other sign ofmalignancy. No change since 07/2006. The films were reviewed using the CV Ingenuity. Summary: No mammographic evidence of malignancy. Assessment BIRADS: 1-Negative Recommendation: Normal interval follow-up Dictated by: KOBE CALLAWAY Electronically signed by: KOBE CLALAWAY 08/23/2007 14:38 Transcribed: 08/23/2007 14:27 AMK us Chemo Mcmahon MD MAMMO ORDERABLES Final Result documented in this encounter Visit Diagnoses Diagnosis Other screening mammogram documented in this encounter Care Teams Making Department Preparer Relationship Specialty Start Date End Date Emily French MD [address] [place] [phone] PCP - General 03/30/04 documented as of this encounter
--- OUTSIDE RECORDS SUMMARY | 2024-09-03 17:16 | XMS_ITS | Encounter Summary ---
Author Organization [facility] Address 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 Gender Identity Not on file Sexual Orientation Not on file documented as of this encounter Plan of Treatment Upcoming Encounters Date Type Department Care Team (Late st Contact Info) Description 08/08/2025 10:10 AM CDT Appointment [address] [place] [address] Randy Lunsford MD [address] [place], [place] [address]A [place] [address] 08/08/2025 11:00 AM CDT Office Visit [facility] FOLDING MACHINE OPERATOR - [facility] [address] [place] [address] Jai Callaway MD [address] [place] [phone] documented as of this encounter Visit Diagnoses Diagnosis Other screening mammogram- Primary documented in this encounter Care Teams Glass Grinder Relationship Specialty Start Date End Date Jose Grace MD [address] [place] [address] PCP - General 03/30/04 documented as of this encounter
--- OUTSIDE RECORDS SUMMARY | 2024-09-03 17:16 | XMS_ITS | Clinical Summary ---
Author Organization [facility] Address [address] [place] [address] Phone Care Team Providers Care Grain Merchandising Manager Name Role Phone Emily French MD Primary [...] breakfast. Active fluticasone propionate (FLONASE) 50 mcg/spray [place], Suspension nasal inhaler Administer 2 Sprays in [...] (10/10/2023): Added automatically from request for surgery [id number] Spinal stenosis of cervical region 12/24/2016 TTS (tarsal tunnel syndrome) 02/06/2015 Encounters Date Type Department Care Team Description 08/08/2024 External Device Data STL ABSTRACTION Provider, Abstract 08/07/2024 1:00 PM CDT Office Visit [facility] PET ADOPTION COUNSELOR - [facility] [address] [facility] [address] [place] [address] Randy Lunsford MD Encounter for gynecological examination with abnormal finding (Primary Dx); Body mass index 30.0-30.9, adult; Breast cancer screening by mammogram; Menopausal symptoms 08/02/2024 Results Follow-Up [facility] PET ADOPTION COUNSELOR - [facility] [address] [facility] [address] [place] [phone] Randy Lunsford MD MAMMO 3D CHUNG SCREEN BILAT W OR WO CAD 08/01/2024 2:19 PM CDT - 08/01/2024 11:59 PM CDT Hospital Encounter [facility] A [address] [facility] [address] [place] [address] Randy Lunsford MD Discharge Disposition: Home or Self Care 07/28/2024 External Device Data STL ABSTRACTION Provider, Abstract 07/27/2024 External Device Data STL ABSTRACTION Provider, Abstract 07/25/2024 External Device Data STL ABSTRACTION Provider, Abstract 07/11/2024 External Device Data STL ABSTRACTION Provider, Abstract 07/11/2024 External Device Data STL ABSTRACTION Provider, Abstract 07/05/2024 [facility] PET ADOPTION COUNSELOR - [facility] [address] [facility] [address] [place] [address] Randy Lunsford MD Menopausal symptoms [...] Endometrial Cance r, Not Including Cervical Sister aMia Cancer - Other Son Bon Right Kidney [...] on file Legal Sex Female 3: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 RADIAL ARM 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 Gender Identity Not on file Sexual [...] Info) Description 08/08/2025 10:10 AM CDT Appointment [facility] [address] [place] [address] [address] [place] [address] Randy Lunsford MD [address] [place] [address] [address] [place] [phone] 08/08/2025 11:00 AM CDT Office Visit [facility] PET ADOPTION COUNSELOR - [facility] [address] [facility] [address] [place] [address] Jai Callaway MD [address] [place] [address] [place] [address] Health Maintenance Due Date Last Done [...] IMMUNO, QUAL, STOOL Routine 06/09/2020 11:53 AM RADIAL ARM SAW OPERATOR Screening for malignant neoplasm of the rectum [...] BI-RADS CATEGORY 1 - Negative DICTATION LOCATION: [facility] 08/01/2024 2:50 PM CDT EXAMINATION: BILATERAL SCREENING [...] BLOOD, IMMUNO, QUAL, STOOL (06/09/2020 11:53 AM RADIAL ARM SAW OPERATOR) OCCULT BLOOD, IMMUNOASSAY POC Negative Negative [facility] PET ADOPTION COUNSELOR [address] INTERNAL KIT QC Pass Pass [facility] PET ADOPTION COUNSELOR [address] KIT LOT NUMBER POC [phone] [facility] PET ADOPTION COUNSELOR [address] KIT EXPIRATION DATE POC 07/25/21 [facility] PET ADOPTION COUNSELOR [address] Stool STOOL SPECIMEN / Unknown 06/09/2020 11:53 AM RADIAL ARM SAW OPERATOR Randy Lunsford MD POINT OF CARE TESTING Final Result [facility] PET ADOPTION COUNSELOR [address] CLIA# [id number] [address] [facility] [address] [place] [address] * XR DEXA BONE DENSITY AXIAL 1 OR MORE SITES (01/03/2009 9:30 AM CDT) Anatomical Region Laterality Modality Other 01/03/2009 9:30 AM CDT Narrative 01/03/2009 9:44 AM CDT [facility] [address] [place], [place] [address] Admit Date: 01/03/2009 DAHLIA BACON Sex: F Admit Prov: CHEMO MCMAHON Date: 1960 Primary Care Prov: EMILY FRENCH CMRN: [id number] [facility] SSN: [id number] IMAGING SERVICES Ordering Prov: N/A Accession Number: [id number] Interpretation Examination: Bone Density Study (DEXA) Clinical [...] Procedure Note Justine Thakkar MD - 01/03/2009 [facility] [address] [place], [place] [address] Admit Date: 01/03/2009 DAHLIA BACON Sex: F Admit Prov: CHEMO MCMAHON Date: 1960 Primary Care Prov: EMILY FRENCH CMRN: [id number] Room: [facility]: [id number] IMAGING SERVICES Ordering Prov: N/A Interpretation Examination: [...] Most Recently Relevant to [place] [address] MEDICARE PART A AND B [facility] [place], [place] [id number] Care Teams Grain Merchandising Manager Relationship Specialty Start Date End Date Emily French MD [address] [place] [phone] PCP - General 03/30/04
--- OUTSIDE RECORDS SUMMARY | 2024-09-03 17:16 | XMS_ITS | Encounter Summary ---
Author Organization [facility] Address 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 Gender Identity Not on file Sexual Orientation Not on file documented as of this encounter Plan of Treatment Upcoming Encounters Date Type Department Care Team (Late st Contact Info) Description 08/08/2025 10:10 AM CDT Appointment [address] [place] [address] Randy Lunsford MD [address] [place], [place] [address] [place] [address] 08/08/2025 11:00 AM CDT Office Visit [facility] CONTINUOUS PILLOWCASE CUTTER - [facility] [address] [place] [address] Jai Callaway MD [address] [place] [phone] documented as of this encounter Visit Diagnoses Diagnosis Screening mammogram for high-risk patient- Primary documented in this encounter Care Teams Whizzer Operator Relationship Specialty Start Date End Date Jose Grace MD [address] [place] [phone] PCP - General 03/30/04 documented as of this encounter
--- OUTSIDE RECORDS SUMMARY | 2024-09-03 17:16 | XMS_ITS | Encounter Summary ---
Author Organization [employer] [facility] Address [address] [place] [address] Care Team Providers Care Process Line Operator Name Role Phone Jose Grace MD [...] on file Legal Sex Female 3:49 AM ASSOCIATE PRINCIPAL Gender Identity Not on file Sexual Orientation Not on file documented as of this encounter Plan of Treatment Upcoming Encounters Date Type Department Care Team (Late st Contact Info) Description 08/08/2025 10:10 AM CDT Appointment [address] [place] [address] Randy Lunsford MD [address] [place], [place] [address] [place] [address] 08/08/2025 11:00 AM CDT Office Visit [facility] NETWORK OPERATIONS PROJECT MANAGER - [facility] [address] [place] [address] Jai Callaway MD [address] [place] [phone] documented as of this encounter Visit Diagnoses Diagnosis Other screening mammogram- Primary documented in this encounter Care Teams Process Line Operator Relationship Specialty Start Date End Date Jose Grace MD [address] [place] [address] PCP - General 03/30/04 documented as of this encounter
--- OUTSIDE RECORDS SUMMARY | 2024-09-03 17:16 | XMS_ITS | Encounter Summary ---
Author Organization [facility] Address 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 [address] [place] [address] Jai Callaway MD [address] [place] [phone] documented as of this encounter Procedures Procedure Name Priority Date/Time Associated Diagnosis Comments XR DEXA BONE DENSITY AXIAL 1 OR MORE SITES Routine 01/03/2009 9:30 AM CDT documented in this encounter Results * XR DEXA BONE DENSITY AXIAL 1 OR MORE SITES (01/03/2009 9:30 AM CDT) Anatomical Region Laterality Modality Other 01/03/2009 9:30 AM CDT Narrative 01/03/2009 9:44 AM CDT [facility] [address] [place], [place] [address] Admit Date: 01/03/2009 BINA BACONROCK Palomino Sex: F Admit Prov: CHEMO MCMAHON Date: 1960 Primary Care Prov: JOSE FRENCH CMRN: [id number] [facility] [address] [place] [address] IMAGING SERVICES Ordering Prov: N/A Accession Number: [id number] Interpretation Examination: Bone Density Study (DEXA) Clinical [...] Procedure Note Justine Thakkar MD - 01/03/2009 [facility] [address] [place], [place] [address] Admit Date: 01/03/2009 ABMONSERRAT AMBER J Sex: F Admit Prov: CHEMO MCMAHON Date: 1960 Primary Care Prov: JOSE FRENCH CMRN: [id number] Room: [facility] SSN: [address] [place] [address] IMAGING SERVICES Ordering Prov: N/A Interpretation Examination: [...] menorrhagia documented in this encounter Care Teams Assistant Store Manager Sales Relationship Specialty Start Date End Date Jose French MD [address] [place] [address] PCP - General 03/30/04 documented as of this encounter
--- OUTSIDE RECORDS SUMMARY | 2024-09-03 17:16 | XMS_ITS | Encounter Summary ---
Author Organization [facility] Address [address] [facility] [place] [address] Care Team Providers Care Water Systems Designer Name Role Phone Jose Grace MD Primary Care Provider Encounter Details Date Type Department Care Team (Late st Contact Info) Description 07/26/2023 Lab Requisition [facility] - DermPath Lab [address] [facility], [place] [phone] Letty Dixon DO [address] [facility] 3 [place] [address] Social History Tobacco Use Types Packs/Day Years [...] Comments DERMATOPATHOLOGY Routine 07/26/2023 10:5 8 AM CANCER REGISTRY COORDINATOR documented in this encounter Results * DERMATOPATHOLOGY (07/26/2023 10:58 AM CANCER REGISTRY COORDINATOR) Case Report Dermatopathology Report Case: [id number] Authorizing Provider: Letty Dixon DO Collected: 07/26/2023 10:58 AM Ordering Location: [facility] - Received: 07/26/2023 04:24 PM DermPath Lab Pathologist: Lily Carrera MD Specimens: A) - Skin, right thigh B) - Skin, right forehead 2:48 PM [facility] DERMATOPATHOLOGY LABORATORY Final Diagnosis Specimen A. 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 Lent r/o Atypia 2:48 PM [facility] DERMATOPATHOLOGY LABORATORY Gross Description Specimen A: Received [...] measuring 3x3x1 mm. Jar 0. 2:48 PM [facility] DERMATOPATHOLOGY LABORATORY Microscopic Description Specimen A. SKIN, [...] prominent pigmentation in some of the keratinocytes. [place]-1/Melan-A immunohistochemical stain fails to highlight a melanocytic proliferation. Ki-67 stain highlights an increased proliferative index in throughout the epidermis. 2:48 PM [facility] DERMATOPATHOLOGY LABORATORY Disclaimer An external and internal [...] purposes. Billing Codes Specimen Charges Stain Charges 48443 42876 1 1 [id number] 70395 54803 1 1 1 4 2:48 PM CANCER REGISTRY COORDINATOR DERMATOPATHOLOGY LABORATORY Embedded Images 4 2:48 PM CANCER REGISTRY COORDINATOR DERMATOPATHOLOGY LABORATORY Pathology/Cytology TISSUE SPECIMEN FROM SKIN / Unknown 07/26/2023 10:58 AM CANCER REGISTRY COORDINATOR 07/26/2023 4:24 PM CANCER REGISTRY COORDINATOR Miscellaneous samples (specimen) TISSUE SPECIMEN FROM SKIN / Unknown 07/26/2023 10:58 AM CANCER REGISTRY COORDINATOR 07/26/2023 4:24 PM CANCER REGISTRY COORDINATOR us Letty Dixon DO LAB - PATHOLOGY/CYTOLOGY ORDERABLES Final Result DERMATOPATHOLOGY LABORATORY [facility] - Department of Dermatology [facility] Specialized Medicine [address] [place] [address], [address] [phone] documented in this encounter Visit Diagnoses Not on filedocumented in this encounter Care Teams Water Systems Designer Relationship Specialty Start Date End Date Jose Grace MD [address] [place] [phone] PCP - General Internal Medicine 02/14/18 documented as of this encounter
--- OUTSIDE RECORDS SUMMARY | 2024-09-03 17:16 | XMS_ITS | Continuity of Care Document ---
Author Organization [facility] Address [address] [place] [address] [address] [place] [address] Phone Care Team Providers Care Process Control Tech Name Role Phone Randy Lunsford MD Unavailable [...] Diagnoses Date Provider Providers Copied on Encounter DIRECTOR OF CORPORATE MARKETING [facility] [address] [facility] [address], [place], [address], [phone] [facility] No Information 9 Isatu Padilla. [address] [place], [place], [id number] . tel: [phone] [facility], [address] [facility] [address], [place], [address], [phone] [facility] No Information 9 Janki Alonso. [address] [facility] [address], [place], [place], [id number] . tel: [phone] DIRECTOR OF CORPORATE MARKETING [facility] [address] [facility] [address], [place], [address], [place] [phone] [facility] annual exam (chief complaint) Body mass index (BMI) 29.0-29.9, adultEncounter for screening for malignant neoplasm of rectumEncounter for screening for malignant neoplasm of cervixEncntr screen mammogram for malignant neoplasm of breast 8 Isatu Padilla. [address] [place], [place], [address] . tel: [phone] DIRECTOR OF CORPORATE MARKETING [facility] [address] [facility] [address], [place], [address], [place] [phone] [facility] annual exam (chief complaint) Body mass index (BMI) 28.0-28.9, adultEncounter for gynecological examination with abnormal findingEncounte r for screening for malignant neoplasm of cervixAcquired absence of both cervix and uterusAcquired absence of ovaries, bilateral 2 7 Isatu Padilla. [address] [facility], [place], [place], [address] . 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 [address] [facility], [place], [place], [address] . 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 [address] [facility], [place], [place], [address] . tel: [phone] DIRECTOR OF CORPORATE MARKETING [facility] [address] [facility] [address] [place] [address], [address], [place] tel:[phone] [facility] Breast mass, right 5 Isatu Padilla. [address] [place], [place], [address] . tel: [phone] DIRECTOR OF CORPORATE MARKET[employer] [facility] [address] [facility] [address], [address], [place] tel:[phone] [facility] Abnormal mammogram 0 4 Isatu Padilla. [address] [place], [place], [address] . tel: [phone] PREV VISIT EST AGE 40-64 DIRECTOR OF CORPORATE MARKETING [facility] [address] [facility] [address], [place], [address], [place] tel:[phone] [facility] annual exam (chief complaint) ROUTINE ELECTRONICS ENGINEERING MANAGER EXAMINATIONMeno pausal SymptomsOsteopo rosis 4 Isatu Randy. [address] [facility], [place], [place], [address] . tel: [phone] DISABILITY EXAMINATION [facility], [address] [facility] [address], [place], [address], [place] [phone] [facility] Fx metatarsal-clos ed 4 Janki Gavin. [address] [facility] [address], [place], [place], [address] . tel: [phone] PREV VISIT EST AGE 40-64 DIRECTOR OF CORPORATE MARKET[employer] [facility] [address] [facility] [address], [place], [address], [place] [phone] [facility] annual visit (chief complaint) Well Woman / Routine Weigher Packing/PapMenopaus al Symptoms 3 Durel Luis. [address] [facility], [place], [place], [address] . tel: [phone] PREV VISIT EST AGE 40-64 DIRECTOR OF CORPORATE MARKETING [facility] [address] [facility] [address], [place], [address], [place] tel:[phone] [facility] annual visit (chief complaint) Well Woman / Routine Weigher Packing/PapMenopaus al SymptomsHyperch olesterolemiaAs thma 2 Durel Luis. [address] [facility], [place], [place], [address] . tel: [phone] DIRECTOR OF CORPORATE MARKETING [facility] [address] [facility] [address], [place], [address], [place] [phone] [facility] BMD (chief complaint) Disorder of bone and cartilage, unspecified 2 Durel Luis. [address] [facility], [place], [place], [address] . tel:[phone] DIRECTOR OF CORPORATE MARKETING [facility] [address] [facility] [address], [place], [address], [place] tel:[phone] [facility] No Information 2 Kelsi Smith. [address] [facility] [address], [place], [place], [address] . tel: [phone] Family History Family Member Type Diagnosis Age [...] ordered Future Order: Lab Order Pap-Liqu id-based ([id number]), Ordered on: Ordered History Of Present Illness [...] every 3 yr colonoscopy.Has her BMD's at [place].Needs yrly paps as her hyst was for dysplasia. Related to Encounter for gynecological examination with abnormal finding Perform monthly self breast exam . Related to Encounter for gynecological examination with abnormal finding Lifestyle education regarding di et Related to Body mass index (BMI) 28.0-28.9, adult Feels well on Estrat est - written Rx given. Has osteo care at [facility].Cont paps as her hyst was for WILBER. 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 Co nt yrly paps.Sees [facility] for her osteo.On Estratest with good sx control.Has problems with her foot not healing well from the previous fx. Having surgery again this week. 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 Cont yrly paps Related to ROUTINE ELECTRONICS ENGINEERING MANAGER EXAMINATION Perform monthly self breast exam . Related to ROUTINE ELECTRONICS ENGINEERING MANAGER EXAMINATION Discussed options fo r treatment of menopausal symptoms Discussed risk factors of menopa use Discussed risk factors of menopa use Discussed options fo r treatment of menopausal symptoms Assessments Type Assessment Date No Information Patient Care Teams Name Effective Dates (start - stop) Status Members No Information
--- OUTSIDE RECORDS SUMMARY | 2024-09-03 17:16 | XMS_ITS | Encounter Summary ---
Author Organization [facility] Address [address] [place] [address] Care Team Providers Care Wardrobe Manager Name Role Phone Jose Grace MD Primary Care Provider [phone] Encounter Details Date Type Department Care Team (Late st Contact Info) Description 08/14/2024 Lab Requisition [facility] - DermPath Lab [address] [facility], [place] [phone] Parisa Healy MD [address] [facility] 3 [place] [address] Social History Tobacco Use Types Packs/Day Years [...] PM CDT) Case Report Dermatopathology Report Case: [id number] Authorizing Provider: Parsia Healy MD Collected: 08/14/2024 01:56 PM Ordering Location: [facility] - Received: 08/16/2024 09:50 AM DermPath Lab [...] characteristic determined by the Dermatopathology Laboratory at [facility], directed by Dr. Deric Nascimento. These tests need not be, and therefore are not, approved by the [place] Food and Drug Administration. The tests are used for clinical purposes. Billing Codes Specimen Charges Stain Charges 17110 1 5:11 PM CDT DERMATOPATHOLOGY LABORATORY Embedded Images 5:11 PM CDT DERMATOPATHOLOGY LABORATORY Pathology/Cytolo gy TISSUE SPECIMEN FROM SKIN / Unknown 08/14/2024 1:56 PM CDT 08/16/2024 9:50 AM CDT us Parisa Healy MD LAB - PATHOLOGY/CYTOLOGY OR DERABLES Final Result DERMATOPATHOLOGY LABORATORY [facility] - Department of Dermatology [address], [address] [phone] documented in this encounter Visit Diagnoses Not on filedocumented in this encounter Care Teams Wardrobe Manager Relationship Specialty Start Date End Date Jose Grace MD [address] [place] [phone] PCP - General Internal Medicine 02/14/18 documented as of this encounter
--- OUTSIDE RECORDS SUMMARY | 2024-09-03 17:16 | XMS_ITS | Encounter Summary ---
Author Organization [facility] Address [address] [place] [address] Care Team Providers Care Generator Assembler Name Role Phone Jose Grace MD Primary Care Provider + Encounter Details Date Type Department Care Team (Latest Contact Info) Description 07/27/2006 Outpatient Historical HIS [facility] Dolan, Luis Johnston MD NO ADDRESS ON FILE Screening Mammogram for High-Risk Patient (Primary Dx) Social History Tobacco Use Types Packs/Day Years Used Date Smoking Tobacco: Never Assessed Comments Unknown Sex and Gender Information Value Date Recorded Sex Assigned at Not on file Legal Sex Female 3:49 AM FIBERGLASS FINISHER Gender Identity Not on file Sexual Orientation Not on file documented as of this encounter Plan of Treatment Upcoming Encounters Date Type Department Care Team (Late st Contact Info) Description 08/08/2025 10:10 AM CDT Appointment [address] [place] [address] Randy Lunsford MD [address] [place], [place] [address] [place] [address] 08/08/2025 11:00 AM CDT Office Visit [facility] PEOPLESOFT FINANCIAL DEVELOPER - [facility] [address] [place] [phone] Jai Callaway MD [address] [place] [phone] documented as of this encounter Visit Diagnoses Diagnosis Screening mammogram for high-risk patient- Primary documented in this encounter Care Teams Generator Assembler Relationship Specialty Start Date End Date Jose Grace MD [address] [place] [phone] PCP - General 03/30/04 documented as of this encounter
== END 2024-09-03 15:14 | disposition home or self-care (01) ==
PROVIDERS: PCP Internal Medicine; Visit Provider Internal Medicine
DX: Z12.2 Encounter for screening for malignant neoplasm of respiratory organs (principal); Z87.891 Personal history of nicotine dependence; R91.1 Solitary pulmonary nodule
CPT/HCPCS: 71271

== ENCOUNTER 2024-12-19 08:29 | Outpatient (CLI) | payer MEDICARE, OTHER, SELFPAY ==
--- OUTSIDE RECORDS SUMMARY | 2024-12-19 08:41 | XMS_ITS | Encounter Summary ---
Author Organization [facility] Address [address] [place] [address] Care Team Providers Care Hadoop Developer Name Role Phone Jose Grace MD Primary Care Provider [phone] Encounter Details Date Type Department Care Team (Late st Contact Info) Description 07/26/2023 Lab Requisition [facility] - DermPath Lab [address] [facility], [place] [phone] Letty Dixon DO [address] [facility] 3 [place] [address] Social History Tobacco Use Types Packs/Day Years [...] Comments DERMATOPATHOLOGY Routine 07/26/2023 10:5 8 AM SET OFF BLOCKER documented in this encounter Results * DERMATOPATHOLOGY (07/26/2023 10:58 AM SET OFF BLOCKER) Case Report Dermatopathology Report Case: [id number] Authorizing Provider: Letty Dixon DO Collected: 07/26/2023 10:58 AM Ordering Location: [facility] - Received: 07/26/2023 04:24 PM DermPath Lab Pathologist: Lily Carrera MD Specimens: A) - Skin, right thigh B) - Skin, right forehead 2:48 PM [facility] DERMATOPATHOLOGY LABORATORY Final Diagnosis Specimen A. 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 SKIN, right forehead: SQUAMOUS CELL CARCINOMA IN SITU (ABH'S DISEASE), PIGMENTED (D04.39) 2:48 PM [facility] DERMATOPATHOLOGY LABORATORY at 1448 SET OFF BLOCKER Clinical History A: Macular SK r/o Atypia B: SK vs. Lent r/o Atypia 2:48 PM [facility] DERMATOPATHOLOGY LABORATORY Gross Description Specimen A: Received [...] measuring 3x3x1 mm. Jar 0. 2:48 PM [facility] DERMATOPATHOLOGY LABORATORY Microscopic Description Specimen A. SKIN, [...] prominent pigmentation in some of the keratinocytes. [place]-1/Melan-A immunohistochemical stain fails to highlight a melanocytic proliferation. Ki-67 stain highlights an increased proliferative index in throughout the epidermis. 2:48 PM [facility] DERMATOPATHOLOGY LABORATORY Disclaimer An external and internal positive and negative controls are appropriate for the histochemical, immunohistochemical and immunofluorescence stain(s) in this case (if any), except where stated explicitly. The performance characteristics of the stain(s) cited in this report were developed and its performance characteristic determined by the Dermatopathology Laboratory at [facility], directed by Dr. Deric Nascimento. These tests need not be, and therefore are not, approved by the [place] Food and Drug Administration. The tests are used for clinical purposes. Billing Codes Specimen Charges Stain Charges 58765 31957 1 1 46704 75689 79008 1 1 1 4 2:48 PM SET OFF BLOCKER DERMATOPATHOLOGY LABORATORY Embedded Images 2:48 PM SET OFF BLOCKER DERMATOPATHOLOGY LABORATORY Pathology/Cytology TISSUE SPECIMEN FROM SKIN / Unknown 07/26/2023 10:58 AM SET OFF BLOCKER 07/26/2023 4:24 PM SET OFF BLOCKER Miscellaneous samples (specimen) TISSUE SPECIMEN FROM SKIN / Unknown 07/26/2023 10:58 AM SET OFF BLOCKER 07/26/2023 4:24 PM SET OFF BLOCKER us Letty Dixon DO LAB - PATHOLOGY/CYTOLOGY ORDERABLES Final Result DERMATOPATHOLOGY LABORATORY [facility] - Department of Dermatology [facility] Medicine [address] [place] [address], [address] Floor [address] [phone] documented in this encounter Visit Diagnoses Not on filedocumented in this encounter Care Teams Hadoop Developer Relationship Specialty Start Date End Date Jose Grace MD [address] [place] [phone] PCP - General Internal Medicine 02/14/18 documented as of this encounter
--- OUTSIDE RECORDS SUMMARY | 2024-12-19 08:41 | XMS_ITS | Clinical Summary ---
Author Organization [facility] Address [address] [place] [address] Phone Care Team Providers Care Salsa Dance Instructor Name Role Phone Emily French MD Primary [...] mg by mouth daily with breakfast. Active lisinopril-hydro CHLOROthiazide (ZESTORETIC) 10-12.5 mg tablet 2 Active fluticasone-umec lidinium-vilante rol (Trelegy Ellipta) 100-62.5-25 mcg Disk with Device Take 1 Puff by inhalation daily before breakfast. Active fluticasone propionate (FLONASE) 50 mcg/spray [place], Suspension nasal inhaler Administer 2 Sprays in [...] mg by mouth 2 times daily. Active losartan-hydroCH LOROthiazide (HYZAAR) 50-12.5 mg tablet Take 1 Tablet [...] 81 mg by mouth daily. Active est estrogens-methyl TESTOSTERone (ESTRATEST H.S.) 0.625-1.25 mg tabletIndication s:Menopausal symptoms Take 1 Tablet by mouth daily. 90 Tablet 1 5 Active Active Problems Problem Noted Date Diagnosed Date Chest pain 11/25/2022 Essential hypertension 11/25/2022 Gastroesophageal reflux disease without esophagi tis 08/11/2020 Overview (10/10/2023): Last Assessment & Plan: Followed by her PCP and controlled on a PPI. Dislocation of metatarsophalangeal joint of righ t great toe 06/24/2020 Overview (10/10/2023): Added automatically from request for surgery [id number] Spinal stenosis of cervical region 12/24/2016 TTS (tarsal tunnel syndrome) 02/06/2015 Encounters Date Type Department Care Team Description 12/05/2024 External Device Data STL ABSTRACTION Provider, Abstract 12/05/2024 External Device Data STL ABSTRACTION Provider, Abstract 12/05/2024 External Device Data STL ABSTRACTION Provider, Abstract 11/13/2024 External Device Data STL ABSTRACTION Provider, Abstract 10/16/2024 External Device Data STL ABSTRACTION Provider, Abstract 10/12/2024 [facility] SENIOR PRODUCT DESIGNER - [facility] [address] [facility] [address] [facility] [address] [place] [phone] Randy Lunsford MD 10/10/2024 External Device Data STL ABSTRACTION Provider, Abstract 10/09/2024 External Device Data STL ABSTRACTION Provider, Abstract 10/08/2024 [facility] SENIOR PRODUCT DESIGNER [facility] [address] [facility] [address] [place] [phone] Randy Lunsford MD Menopausal symptoms from Last 3 Months Immunizations Immunization Administration [...] on file Legal Sex Female 3:49 AM SAP PI DEVELOPER Gender Identity Not on file Sexual [...] 12:48 PM CDT Height 161.9 cm (5' 3.75) 08/07/2024 12:48 PM C DT Body Mass Index 30.45 08/07/2024 12:48 PM CDT Plan of Treatment Upcoming Encounters Date Type Department Care Team (Late st Contact Info) Description 08/08/2025 10:10 AM CDT Appointment [facility] A [address] [facility] [address] [place] [address] Randy Lunsford MD [address] [facility] [address] [address] 08/08/2025 11:00 AM CDT Office Visit [facility] SENIOR PRODUCT DESIGNER - [facility] [address] [facility] [address] [place] [address] Jai Callaway MD [facility] [address] [place] [address] Health Maintenance Due Date Last Done Comments Pre-Diabetes and Diabetes Screening 1960 DTAP/TDAP/TD VACCINES (1 - Tdap) 1977 FIT-DNA Q 3 years 2003 Flex Sig/CT Colonography Q 5 years 2003 ZOSTER VACCINE (1 of 2) 2008 PNEUMOCOCCAL VACCINE 50+ YEA RS (2 of 2 - PCV) 04/17/2018 04/17/2017 FIT/FOBT Q 1 year 06/09/2021 06/09/2020, 06/05/2019 INFLUENZA VACCINE (#1) 2024 4, 01/17/2020, 01/11/2019, Additional history exists BREAST CANCER SCREENING 08/01/2025 08/02/19 25, 07/11/2023, 07/07/2022, Additional history exists OSTEOPOROSIS SCREENING 10/26/2028 4, 10/27/2023, 10/21/2022, Additional history exists COLORECTAL SCREENING 12/26/2029 12/27/2019 Colorectal Cancer Screening 12/26/2029 RSV VACCINE (60+ or ) (1 - 1-dose 75+ series) 2033 Procedures Procedure Name Priority Date/Time Associated Diagnosis Comments MAMMO 3D CHUNG SCREEN BILAT W OR WO CAD Routine 08/01/2024 2:35 PM CDT Breast cancer screening by mammogram POC OCCULT BLOOD, IMMUNO, QUAL, STOOL Routine 06/09/2020 11:53 AM SAP PI DEVELOPER Screening for malignant neoplasm of the rectum [...] BI-RADS CATEGORY 1 - Negative DICTATION LOCATION: [facility] Narrative 08/01/2024 2:50 PM CDT EXAMINATION: BILATERAL SCREENING [...] There has been no suspicious interval change. Randy Lunsford MD MAMMO ORDERABLES Final Resul t * POC OCCULT BLOOD, IMMUNO, QUAL, STOOL (06/09/2020 11:53 AM SAP PI DEVELOPER) OCCULT BLOOD, IMMUNOASSAY POC Negative Negative [facility] SENIOR PRODUCT DESIGNER [address] INTERNAL KIT QC Pass Pass [facility] SENIOR PRODUCT DESIGNER [address] KIT LOT NUMBER POC [id number] [facility] SENIOR PRODUCT DESIGNER [address] KIT EXPIRATION DATE POC 07/25/21 [facility] SENIOR PRODUCT DESIGNER [address] Stool STOOL SPECIMEN / Unknown 06/09/2020 11:53 AM SAP PI DEVELOPER us Randy Lunsford MD POINT OF CARE TESTING Final Result [facility] SENIOR PRODUCT DESIGNER [address] CLIA# [id number] [address] [facility] [address] [place] [address] * XR DEXA BONE DENSITY AXIAL 1 OR MORE SITES (01/03/2009 9:30 AM CDT) Anatomical Region Laterality Modality Other 01/03/2009 9:30 AM CDT Narrative 01/03/2009 9:44 AM CDT [facility] [address] [place], [place] [address] Admit Date: 01/03/2009 BINA BACONROCK Palomino Sex: F Admit Prov: CHEMO MCMAHON Date: 1960 Primary Care Prov: EMILY FRENCH CMRN: [id number] Room: [facility] SSN: [id number] IMAGING SERVICES Ordering Prov: N/A Accession Number: [id number] Interpretation Examination: Bone Density Study (DEXA) Clinical [...] Procedure Note Justine Thakkar MD - 01/03/2009 [facility] [address] [employer] [facility] [employer] [facility] [place] [address] Admit Date: 01/03/2009 KILO DAHLIA J Sex: F Admit Prov: CHEMO MCMAHON Date: 1960 Primary Care Prov: EMILY FRENCH CMRN: [id number] Room: [facility] SSN: [id number] IMAGING SERVICES Ordering Prov: N/A Interpretation Examination: [...] Recently Relevant to Health Maintenance Insurance MEDICARE PART A AND B [facility] Care Teams Salsa Dance Instructor Relationship Specialty Start Date End Date Emily French MD [address] [place] [phone] PCP - General 03/30/04
--- OUTSIDE RECORDS SUMMARY | 2024-12-19 08:41 | XMS_ITS | Clinical Summary ---
Author Organization [facility] Address [address] [address] Care Team Providers Care Dianetic Counselor Name Role Phone Jose Grace MD Primary Care Provider [phone] Lalo Mejia MD Unavailable [phone] Allergies Active Allergy Reactions Criticality Noted Date Comments Cephalexin Rash Medium 07/07/2020 09/26/[address] Lino Edward - patient has tolerated cefazolin in the past (2015); however, cephalexin allergy added to profile Jun 2020; [facility] PharmD Sulfa (Sulfonamide Antibiotics) Hives,Rash Medium 06/04/2014 Vancomycin Rash Medium 07/07/2020 Medications zolpidem (AMBIEN) 10 mg tabletIndicatio ns:Sleep-Onset Insomnia Take 1 tablet (10 mg total) by mouth nightly as needed for sleep Active estrogens-methy lTESTOSTERone (EEMT,COVARYX) 0.625-1.25 mg per tabletIndicatio ns:Vasomotor Symptoms associated with Menopause Take 1 tablet by mouth every morning Active montelukast (SINGULAIR) 10 mg tabletIndicatio ns:Maintenance Therapy for Asthma Take 1 tablet (10 mg total) by mouth nightly 8 Active multivitamin tabletIndicatio ns:Vitamin Deficiency Prevention Take 1 tablet by mouth every morning Active albuterol HFA (PROVENTIL HFA,VENTOLIN HFA,PROAIR HFA) 90 mcg/actuation inhalerIndicati ons:Acute Asthma Attack Inhale 2 puffs every 4 (four) hours as needed for wheezing or shortness of breath Active cetirizine (ZyrTEC) 10 mg tabletIndicatio ns:Perennial Allergic Rhinitis,Season al Allergic Rhinitis Take 1 tablet (10 mg total) by mouth every morning 1 9 Active calcium carb, citrate/vit D3 (CALCIUM CARB AND CITRATE-VITD3 ORAL)Indication s:Hypocalcemia Prevention,Prev ention of Vitamin D Deficiency Take 2 tablets by mouth every morning 1200 mg + 500 iu's Active pravastatin (PRAVACHOL) 80 mg tabletIndicatio ns:hyperlipidem ia Take 1 tablet (80 mg total) by mouth nightly 1 Active fluticasone propionate (FLONASE) 50 mcg/actuation nasal sprayIndication s:Chronic Non-Allergic Rhinitis Administer 2 sprays into each nostril every morning 1 Active fluticasone-ume clidin-vilanter (Trelegy Ellipta) 100-62.5-25 mcg inhalerIndicati ons:Maintenance Therapy for Asthma Inhale 1 puff every morning Active metFORMIN (GLUCOPHAGE) 500 mg tabletIndicatio ns:Prevention of Type 2 Diabetes Mellitus Take 1 tablet (500 mg total) by mouth daily with breakfast Active metoprolol XL (TOPROL-XL) 25 mg extended release tabletIndicatio ns:Atrial Arrhythmia,hype rtension Take 1 tablet (25 mg total) by mouth every morning Elevated HR 2 Active MAGNESIUM ORALIndications :hypomagnesemia Take 250 mg by mouth every morning Active nitroglycerin (NITROSTAT) 0.[address] 1 tablet (0.4 mg total) under the tongue every 5 (five) minutes as needed for chest pain [address] (PROTONIX) 40 mg EC tabletIndicatio ns:Treatment of Non-Bleeding Gastric Disorder,gerd Take 1 tablet (40 mg total) by mouth 2 (two) times a day 3 Active aspirin 81 mg enteric coated tabletIndicatio ns:prevention of thrombosis Take 1 tablet (81 mg total) by mouth drop machine operator before breakfast Active TURMERIC ORALIndications :supplement Take 1,000 mg by mouth drop machine operator before breakfast 4 Active valACYclovir (VALTREX) 1 gram tabletIndicatio ns:Skin/Soft Tissue Infection,HSV Take 1 tablet (1,000 mg total) by mouth daily as needed Takes with outbreak 5 Active semaglutide (Ozempic) 0.25 mg or 0.5 mg (2 mg/3 mL) pen injector injectionIndica tions:type 2 diabetes mellitus,preven tion Inject 0.5 mg under the skin every 7 days 5 Active isosorbide mononitrate ER (IMDUR) 30 mg 24 hr tablet Take 1.5 tablets (45 mg total) by mouth daily 135 tablet 3 5 026 Active Additional Information Patient taking differently: 30 mgoralDaily (early AM), Indications: HTN, Informant: Self, Reported on 12/06/2024 hydroCHLOROthia zide (MICROZIDE) 12.5 mg capsule Take 1 capsule (12.5 mg total) by mouth every morning 45 capsule 3 5 Active Additional Information Patient taking differently:12.5 mg oral Every morning,Indications: hypertension, Informant: Self, Reported on 12/06/2024 ranolazine ER (RANEXA) 500 mg 12 hr tablet Take 1 tablet (500 mg total) by mouth 2 (two) times a day 180 tablet 3 5 026 Active losartan (COZAAR) 25 mg tablet Take 1 tablet (25 mg total) by mouth daily 90 tablet 3 5 025 Discontin ued(Patie nt Reported) ranolazine ER (RANEXA) 500 mg 12 hr tablet Take one half tab twice a day 90 tablet 3 5 025 Discontin ued(Patie nt Reported) Active Problems Problem Noted Date Diagnosed Date Acute medial meniscus tear of right knee 025 Complex tear of lateral meni scus of right knee as current injury 12/06/2024 Coronary artery vasospasm 03/08/2024 Myalgia 09/27/2023 Spondylosis of cervical jatinder on without myelopathy or radiculopathy 06/03/2023 Left foot pain 04/12/2023 Former smoker 11/25/2022 Prediabetes 11/25/2022 Chest pain 11/25/2022 Essential hypertension 11/25/2022 Hallux valgus of left foot 04/24/2021 Overview (04/24/2021): Added automatically from request for surgery [id number] Open wound of right lower leg 08/11/2020 [...] (06/24/2020): Added automatically from request for surgery [id number] Postlaminectomy syndrome of cervical region 08/2016 Spinal [...] too much pain with any weight-bearing. 07/2023 [facility] [address] [place] [id number] XR Foot Left 3+ View Status: Final [...] cuff 08/17/2011 11/22/2019 Rotator cuff tendonitis 04/20/2011 07/0 06/2019 Arthralgia of shoulder 04/12/201111/21 Encounter for preventive health examination 10/02/2008 11/22/2019 Encounters Date Type Department Care Team Description 12/13/2024 Telephone [facility] Orthopaedic Surgery [address] [facility] 1st Floor [address] [place] [address] German Mendez MD 11/14/2024 12:21 PM CDT - 11/14/2024 11:59 PM CDT Hospital Encounter [facility] [address] [place] [address] Discharge Disposition: Discharge to home or self care 11/14/2024 10:00 AM CDT Office Visit [facility] Orthopaedic Surgery [address] [facility] 2nd Floor [address] [place] [address] German Mendez MD Right knee pain, unspecified chronicity (Primary Dx) 11/14/2024 9:55 AM CDT - 11/14/2024 11:59 PM CDT Hospital Encounter [facility] [address] [place] [address] German Mendez MD Right knee pain, unspecified chronicity Discharge Disposition: Discharge to home or self care 11/06/2024 Telephone [facility] Cardiology [address] [place] [address] [place] [phone] Ernestina Lackey MA 11/01/2024 11:00 AM CDT Office Visit [facility] Cardiology [address] [place] [address] [place] [phone] Silvina Zavala NP Coronary artery vasospasm (Primary Dx); Essential hypertension; Hyperlipidemia LDL goal <70 from Last 3 Months Immunizations Immunization Administration [...] Left and 05/05/2022 BREAST BIOPSY 06/04/2014 Right Medical History Medical History Date Comments Cellulitis 06/2020 Right leg- resol fallon. Mild intermittent asthma well co ntrolled PONV (postoperative nausea and vomiting) nausea and headaches- sucess with scoplamine GERD (gastroesophageal reflux disease) [...] Cancer Father Donavon Esophageal cancer Father Donavon Cancer Mother Damaris Respiratory failure Mother Damaris Diabetes Paternal Grandmother Amelia Cancer Sister 1 Maia Diabetes Sister 1 Maia Hypertension Sister 1 Maia Cancer Sister 2 Ellie Hypertension Sister 2 Fredaetta Cancer Son Bon Anesthesia problems Neg Hx Broken bones Neg Hx Hip fracture Neg Hx Kyphosis Neg Hx Osteoporosis Neg Hx Scoliosis Neg Hx Relation Name Status Comments Brother Jaime (Age 52) Father Donavon (Age 66 ) Mother Damaris (Age 73) Paternal Grandmother Amelia Sister 1 Maia Alive Sister 2 Ellie Son Bon Alive Social History Tobacco Use Types Packs/Day Years Used Date Smoking Tobacco: Former Cigarettes 1.3 34.3 0 05/23/1976 - 11/04/2009 Smokeless Tobacco: Never Tobacco Cessation:Counseling Given: Not Answered Alcohol Use Standard Drinks/Week Comments Yes 0 (1 standard drink = 0.6 oz pur e alcohol) 1 per month AUDIT-C Answer Date Recorded Q1: How often do you have a drink containing alc ohol? Monthly or less 12/06/2024 Q2: How many drinks containi ng alcohol do you have on a typical day when you are drinking? 1 or 2 12/06/2024 Q3: How often do you have si x or more drinks on one occasion? Never 12/06/2024 Personal Safety Answer Date Recorded Have you ever been in or are you currently in a harmful physical or emotional relationship or is someone making you feel afraid or unsafe? Denies 05/03/2023 Comments No Sex and Gender Information Value Date Recorded Sex Assigned at Not on file Legal Sex Female 1:38 PM [employer] Gender Identity Not on file Sexual Orientation Straight 11/05/2019 9: 49 AM CDT Obstetrics History Last Filed Vital Signs Vital Sign Reading Time Taken Comments Blood Pressure 114/74 11/01/2024 10:59 AM CDT Pulse 71 11/01/2024 10:59 AM CDT Temperature 36.4 C (97.5 F) 03/07/2024 8:34 AM CDT Respiratory Rate 16 09/27/2023 1:26 PM CDT Oxygen Saturation 97% 11/01/2024 10:59 AM CDT Inhaled Oxygen Concentration - - Weight 79 kg (174 lb 2.6 oz) 12/06/2024 3:55 PM CDT Height 167.6 cm (5' 6) 12/06/2024 3:55 PM CDT Body Mass Index 28.11 12/06/2024 3:55 PM CDT Plan of Treatment Upcoming Encounters Date Type Department Care Team (Latest Contact Info) Description 12/24/2024 11:05 AM CDT Hospital Encounter [facility] [address] [place] [address] German Mendez MD [address] [place] [address] 12/24/2024 11:05 AM CDT Anesthesia Event [facility] [address] [place] [address] Jessie Damon NP [address] [place] [address] 12/24/2024 11:05 AM CDT - 12/24/2024 12:05 PM CDT Surgery [facility] [address] [place] [address] German Mendez MD [address] [facility] [address]6B[address] [place] [address] ARTHROSCOPY KNEE MENISCAL DEBRIDEMENT-medial and lateral Scheduled Procedures Name Priority Associated Diagnoses Date/Ti me ARTHROSCOPY KNEE MENISCAL DEBRIDEMENT Acute medial meniscus tear of right knee, subsequent encounter Complex tear of lateral meniscus of right knee as current injury, subsequent encounter 12/24/2024 11:05 AM CDT Health Maintenance Due Date Last Done Comments Colon Cancer Screening-Colonoscopy 1960 Depression Screening 1960 Hepatitis C Screening 1960 DTaP/Tdap/Td Vaccine (1 - Tdap) 1969 Hepatitis B Screening 1976 Zoster Vaccine (1 of 2) 2008 Pneumococcal vaccine 65+ (2 of 2 - PCV) 04/17/2018 04/17/2017 Well Visit 65+ 2023 Covid-19 Vaccine (6 - 2023-2 5 season) 2024 02/02/2022, 09/09/2021, 04/05/2021, Additional history exists Fall Risk Assessment 09/26/2024 09/27/2023, 08/23/2023, 07/22/2023, Additional history exists Influenza Vaccine (#1) 2025 , 01/13/2022, 02/05/2021, Additional history exists Breast Cancer Screening-Mammogram 08/01/2025 08/01/2024, 08/01/2024, 07/11/2023, Additional history exists Osteoporosis Screening-Bone Density Scan 10/26/2025 10/27/2023, 10/21/2022, 10/21/2022, Additional history exists Goals Goal Patient Goal Type Associated Problems Recent Progress Patient-Stated? Author CCM Chronic Pain Care Plan Chronic Care Management Yael Jaramillo, RN Note: Problem: Chronic Pain Goals: 1. Minimize further functional decline 2. Maximize quality of life 3. Control pain Strategies: - Activity/exercise program recommendation - Conservative stepwise pain medicine strategy with multi-disciplinary approach - Recommend healthy lifestyle strategies and compensatory methods as needed Reduce the likelihood of falling Lifestyle Yael Jaramillo, RN Note: Below are four things you [...] on stairs Contact your local community or [facility] for information on exercise, fall prevention programs, or options for improving home safety. Medical Devices Implanted Type Area Composite Science Teacher Device Identifier Shelf Expiration Date Model / Serial / Lot Nutrabolt [id number] Ortholoc 3.5mm 2.5mm 18mm Low Profile Head Self Tap Midfoot - S00 - [id number] Implanted:Qty: 1 on 09/26/2020 by Lino Edward MD at [facility] Screw Right: Foot [employer] [id number] / Orthohelix [id number] Maxtorque 4mm 30mm Cannulated Blunt Foot Long Thread Screw Bone Latex Free - S00 - [id number] Implanted:Qty: 1 on 09/26/2020 by Lino Edward MD at [facility] Screw Right: Foot Orthohelix CSS-011-40- 030L / Orthohelix Maxtorque 4mm 35mm Cannulated Self Drill Foot Ankle Short Thread [id number] - [id number] - [id number] Implanted:Qty: 1 on 05/05/2022 by Lino Edward MD at [facility] Screw Left: Ankle Orthohelix MSD-010-40- [id number] / MSD-010-40- 035S / Hardware From Fusion N/A: Neck Orthohelix [id number] Maxtorque 4mm 35mm Cannulated Self Drill Foot Ankle Long Thread - [id number] Implanted:Qty: 1 on 05/29/2021 by Lino Edward MD at [facility] Left: Foot Orthohelix MSD-010-40- 035L / / [employer]el [employer] [id number] Ortholoc 47mm 3di Fusion Low Profile Compression Slot Foot Left - [id number] Implanted:Qty: 1 on 05/29/2021 by Lino Edward MD at [facility] Left: Foot [employer] [id number] / / [employer] [id number] Ortholoc 2.7mm 2mm 18mm Lock On Roxobel Polyaxial Self Tap Midfoot - [id number] Implanted:Qty: 3 on 05/29/2021 by Lino Edward MD at [facility] Left: Foot [employer] [id number] / / [employer] [id number] Ortholoc 3.5mm 2.5mm 18mm Low Profile Head Self Tap Midfoot - [id number] Implanted:Qty: 1 on 05/29/2021 by Lino Edward MD at [facility] Left: Foot [employer] [id number] / / [employer] Ortholoc [id number] Fusion Low Profile Revision Foot Left First [id number] - [id number] Implanted:Qty: 1 on 05/05/2022 by Lino Edward MD at [facility] [employer] [id number] / / [employer] Ortholoc 3.5mm 2.8mm 14mm Lock On Roxobel Polyaxial Self Tap Midfoot [id number] - [id number] Implanted:Qty: 1 on 05/05/2022 by Lino Edward MD at [facility] Left: Ankle [employer] [id number] / / [employer] Ortholoc 2.7mm 2mm 12mm Lock On Roxobel Polyaxial Self Tap Midfoot [id number] - [id number] Implanted:Qty: 2 on 05/05/2022 by Lino Edward MD at [facility] Left: Ankle [employer] [id number] / / [employer] Inc Ortholoc 3.5mm 2.5mm 18mm Low Profile Head Self Tap Midfoot [id number] - [id number] Implanted:Qty: 2 on 05/05/2022 by Lino Edward MD at [facility] Left: Ankle [employer] Inc [id number] / / [employer] Inc Ortholoc 2.7mm 2mm 16mm Lock On Roxobel Polyaxial Self Tap Midfoot [id number] - [id number] Implanted:Qty: 1 on 05/05/2022 by Lino Edward MD at [facility] Left: Ankle [employer] [id number] / / [employer] Angio-Seal Vip 6fr Closere Device [id number] - [id number] Implanted:Qty: 1 on 12/13/20[facility] [id number] / / [id number] Explanted Type Area Composite Science Teacher Device Identifier Shelf Expiration Date Model / Serial / Lot Utel Technology Inc [id number] Ortholoc 2.7mm 2mm 14mm Lock On Roxobel Polyaxial Self Tap Midfoot - S00 - [id number] Implanted:Qty: 1 on 09/26/2020 by Lino Edward MD at [facility] Explanted:Qty: 1 on 05/03/2023 at [facility] Screw Right: Foot [employer] [id number] / Social [employer] Inc [id number] Ortholoc 2.7mm 2mm 18mm Lock On Roxobel Polyaxial Self Tap Midfoot - S00 - [id number] Implanted:Qty: 2 on 09/26/2020 by Lino Edward MD at [facility] Explanted:Qty: 2 on 05/03/2023 at [facility] Screw Right: Foot [employer] [id number] / [employer] Inc [id number] Ortholoc 2.7mm 2mm 16mm Lock On Roxobel Polyaxial Self Tap Midfoot - S00 - [id number] Implanted:Qty: 2 on 09/26/2020 by Lino Edward MD at [facility] Explanted:Qty: 2 on 05/03/2023 at [facility] Screw Right: Foot [employer] [id number] / 00 / [employer] [id number] Rolo .062in 9in 1 Trocar Smooth Wire Fixation - [id number] Explanted:Qty: 2 on 05/29/2021 by Lino Edward MD at [facility] Left: Foot [employer] [id number] / / [employer] [id number] Ortholoc 47mm 3di Fusion Low Profile Compression Slot Foot Right - S00 - [id number] Implanted:Qty: 1 on 09/26/2020 by Lino Edward MD at [facility] Explanted:Qty: 1 on 05/03/2023 at [facility] Right: Foot [employer] [id number] / 00 00 [employer] Inc [id number] Ortholoc 2.7mm 2mm 14mm Lock On Roxobel Polyaxial Self Tap Midfoot - [id number] Implanted:Qty: 1 on 05/29/2021 by Lino Edward MD at [facility] Explanted:Qty: 1 on 05/03/2023 at [facility] Left: Foot [employer] [id number] / / [employer] [id number] Ortholoc 2.7mm 2mm 16mm Lock On Roxobel Polyaxial Self Tap Midfoot - [id number] Implanted:Qty: 1 on 05/29/2021 by Lino Edward MD at [facility] Explanted:Qty: 1 on 05/03/2023 at [facility] Left: Foot [employer] Inc [id number] / / Procedures Procedure Name Priority Date/Time Associated Diagnosis Comments MSK MR OUTSIDE REFERENCE Routine 11/14/2024 12:21 PM CDT XR KNEE RIGHT 3 VIEWS Schedule Routine, Read Routine (OP Routine) 11/14/2024 10:03 AM CDT Right knee pain, unspecified chronicity DEXA TBS AXIAL SKELETON BONE DENSITY 1 OR MORE SITES Schedule Routine, Read Routine (OP Routine) 10/27/2023 11:19 AM CDT Osteopenia of neck of left femur from Last 3 Months or Most Recently Relevant to Health Maintenance Results * MSK MR Outside Reference (11/14/2024 12:21 PM CDT) Impressions [facility] - 11/14/2024 12:21 PM CDT These images are for Reference purposes only and have not been reviewed by [facility]iology. There will be no report generated by a [facility] Radiologist. Narrative [facility]_P[facility] - 11/14/2024 12:21 PM CDT EXAMINATION: Images For Reference Purposes Only us German Mendez MD IMG MRI PROCEDURES Fin al Result [facility] * XR Knee Right 3 View (11/14/2024 10:03 AM CDT) Anatomical Region Laterality Modality Lower Extremities, Knee Right Computed Radiography 11/14/2024 10:5 7 AM CDT Impressions 11/14/2024 10:57 AM CDT 1. Unchanged mild lateral and patellofemoral compartment predominant tricompartmental right knee osteoarthritis. Electronically signed by: Bandar Buckley M.D. Narrative 11/14/2024 10:57 AM CDT EXAMINATION: XR KNEE RIGHT 3 VIEWS HISTORY: Right knee pain FINDINGS: 3 view examination of the right knee is read with comparison to 03/21/2024. Unchanged mild lateral and patellofemoral compartment predominant tricompartmental right knee osteoarthritis. Small joint effusion. No fracture or dislocation. Bone island noted in the proximal tibia. Procedure Note Donaldo Buckley, Bandar Everett MD - 11/14/2024 EXAMINATION: XR KNEE RIGHT 3 VIEWS HISTORY: Right knee pain FINDINGS: 3 view examination of the right knee is read with comparison to 03/21/2024. Unchanged mild lateral and patellofemoral compartment predominant tricompartmental right knee osteoarthritis. Small joint effusion. No fracture or dislocation. Bone island noted in the proximal tibia. IMPRESSION: 1. Unchanged mild lateral and patellofemoral compartment predominant tricompartmental right knee osteoarthritis. Electronically signed by: Bandar Buckley M.D. us German Mendez MD IMG XR PROCEDURES Geeta l Result * Dexa TBS Axial Skeleton Bone Density 1 or more sites (10/27/2023 11:19 AM CDT) Anatomical Region Laterality Modality Wrist, Body N/A Radiographic Gracy ging Narrative 11/29/2023 10:07 AM CDT Patient Name: Dahlia Boateng Date of : 1960 Date of scan: 10/27/2023 Bone mineral density was performed on a [employer] Discovery Densitometer. Based on machine cross-calibration and [...] by the International Society of Clinical Densitometry. [id number] Deb Max [facility] DXA PROCEDURES Final Result from Last 3 Months or Most Recently Relevant to [place] [address] [place] [address] MEDIC[facility] [place] [address] MEDICARE [facility]LY [facility] MEDICARE [employer] [facility] Advance Directives For more information, please contact: [phone] * Full Code (Latest Code Status on File) Date Activated Date Inactivated Comments 12/13/2022 9:47 AM 12/13/2022 4:55 PM Care Teams Dianetic Counselor Relationship Specialty Start Date End Date Jose Grace MD [address] [facility] [address] [place] [address] PCP - General 09/23/16 Lalo Mejia MD [address] [facility] [address] [place] [address] Oracle Database Architect Nephrology 03/12/24
--- OUTSIDE RECORDS SUMMARY | 2024-12-19 08:41 | XMS_ITS | Encounter Summary ---
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 Gender Identity Not on file Sexual Orientation Straight 11/05/2019 9: 49 AM CDT documented as of this encounter Plan of Treatment Upcoming Encounters Date Type Department Care Team (Latest Contact Info) Description 12/24/2024 11:05 AM CDT Hospital Encounter [facility] [address] [place] [address] German Mendez MD [address] [facility] [address] 6A/6B/12A [place] [address] 12/24/2024 11:05 AM CDT Anesthesia Event [facility] [address] [place] [address] Jessie Damon NP [address] [place] [address] 12/24/2024 11:05 AM CDT - 12/24/2024 12:05 PM CDT Surgery [facility] [address] [place] [address] German Mendez MD [address] [facility] [address] T[address] 6A/6B/12A [place] [address] ARTHROSCOPY KNEE MENISCAL DEBRIDEMENT-medial and lateral Scheduled Procedures Name Priority Associated Diagnoses Date/Ti me ARTHROSCOPY KNEE MENISCAL DEBRIDEMENT Acute medial meniscus tear of right knee, subsequent encounter Complex tear of lateral meniscus of right knee as current injury, subsequent encounter 12/24/2024 11:05 AM CDT documented as of this encounter Goals Goal Patient Goal Type Associated Problems Recent Progress Patient-Stated? Author CCM Chronic Pain Care Plan Chronic Care Management No Yael Silver, RN Note: Problem: Chronic Pain Goals: 1. Minimize further functional decline 2. Maximize quality of life 3. Control pain Strategies: - Activity/exercise program recommendation - Conservative stepwise pain medicine strategy with multi-disciplinary approach - Recommend healthy lifestyle strategies and compensatory methods as needed Reduce the likelihood of falling Lifestyle No Yael Silver, RN Note: Below are four things you [...] on stairs Contact your local community or [facility] for information on exercise, fall prevention programs, or options for improving home safety. documented as of this encounter Procedures Procedure Name Priority Date/Time Associated Diagnosis Comments SCAN - LABS 04/10/2024 documented in this encounter Results * SCAN - LABS (04/10/2024) us Provider Scanning Edited Result - Final documented in this encounter Visit Diagnoses Not on filedocumented in this encounter Care Teams Percussion Instrument Tuner Relationship Specialty Start Date End Date Jose Grace MD [address] [facility] [address] [place] [address] PCP - General 09/23/16 Lalo Mejia MD [address] [place] [address] Truck And Transport Mechanic Nephrology 03/12/24 documented as of this encounter
--- OUTSIDE RECORDS SUMMARY | 2024-12-19 08:41 | XMS_ITS | Clinical Summary ---
Author Organization [facility] Address [address] [place] [address] Care Team Providers Care Refrigeration Insulator Name Role Phone Jose Grace MD Primary Care Provider [phone] Source Comments [facility],non-owned Affiliates and Associated Physician Practices is amultiple site organization consisting of ambulatory clinics and hospital sitesin [place], [place], [place] and [place]. This disclosure is being madepursuant to the Care Everywhere program and may not contain all information available regarding this patient. Last updated 18.[facility] Allergies Active Allergy Reactions Criticality Noted Date Comments Sulfa Drugs Urticaria,Rash Medium 02/14/2018 Immunizations Immunization Administration Dates Next Due iNFLUENZA [...] season) 2024 DEPRESSION SCREENING 05/23/2024 INFLUENZA VACCINE (#1) 2025 02/14/2018 Respiratory Syncytial Virus (RSV) Vaccine Pt: or [...] on patient's age to complete [place] [address] MEDICARE [facility] SPECIALTY RISK SELF PAY NO INSURANCE Member Subscriber Plan / Payer (Ef fective for All Dates) Name:Amber Bacon Member ID:Not on file Relation to Subscriber:Not on file Name:AMBER BACON Subscriber ID:Not on file (Home) Address: [address] [place] [address] Payer ID:Not on file Group ID:Not on file Type:Self Pay Address: [place], [place] MEDICARE Care Teams Refrigeration Insulator Relationship Specialty Start Date End Date Jose Grace MD [address] [place] [address] PCP - General Internal Medicine 02/14/18
--- OUTSIDE RECORDS SUMMARY | 2024-12-19 08:41 | XMS_ITS | Encounter Summary ---
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 Gender Identity Not on file Sexual Orientation Straight 11/05/2019 9: 49 AM CDT documented as of this encounter Plan of Treatment Upcoming Encounters Date Type Department Care Team (Latest Contact Info) Description 12/24/2024 11:05 AM CDT Hospital Encounter [facility] [address] [place] [address] German Mendez MD [address] [facility] T[address] 6A/6B/12A [place] [address] 12/24/2024 11:05 AM CDT Anesthesia Event [facility] [address] [place] [address] Jessie Damon NP [address] [facility] [address]A [place] [address] 12/24/2024 11:05 AM CDT - 12/24/2024 12:05 PM CDT Surgery [facility] [address] [place] [address] German Mendez MD [address] [facility] T[address] 6A/6B/12A [place] [address] ARTHROSCOPY KNEE MENISCAL DEBRIDEMENT-medial and lateral Scheduled [...] Plan Chronic Care Management No Yael Silver, DONAVAN Note: Problem: Chronic Pain Goals: 1. [...] encounter Results * SCAN - LABS (12/12/2023) us Provider Scanning Final Result documented in this encounter Visit Diagnoses Not on filedocumented in this encounter Care Teams Blood Bank Laboratory Technician Relationship Specialty Start Date End Date Jose Grace MD [address] [facility] [address] [place] [address] PCP - General 09/23/16 Lalo Mejia MD [address] [facility] [address] [place] [address] Waiter/Waitress Counter Nephrology 03/12/24 documented as of this encounter
--- OUTSIDE RECORDS SUMMARY | 2024-12-19 08:41 | XMS_ITS | Encounter Summary ---
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 Gender Identity Not on file Sexual Orientation Straight 11/05/2019 9: 49 AM CDT documented as of this encounter Plan of Treatment Upcoming Encounters Date Type Department Care Team (Latest Contact Info) Description 12/24/2024 11:05 AM CDT Hospital Encounter [facility] [address] [place] [address] German Mendez MD [address] [facility] [address] T[address] 6A/6B/12A [place] [address] 12/24/2024 11:05 AM CDT Anesthesia Event [facility] [address] [place] [address] Jessie Damon NP [address] [place] [address] 12/24/2024 11:05 AM CDT - 12/24/2024 12:05 PM CDT Surgery [facility] [address] [place] [address] German Mendez MD [address] [facility] [address] TYE 6A/6B/12A [place] [address] ARTHROSCOPY KNEE MENISCAL DEBRIDEMENT-medial and lateral Scheduled [...] on stairs Contact your local community or [facility] for information on exercise, fall prevention programs, or options for improving home safety. documented as of this encounter Procedures Procedure Name Priority Date/Time Associated Diagnosis Comments SCAN - LABS 04/02/2024 documented in this encounter Results * SCAN - LABS (04/02/2024) us Provider Scanning Edited Result - Final documented in this encounter Visit Diagnoses Not on filedocumented in this encounter Care Teams Aviation Safety Inspector Relationship Specialty Start Date End Date Jose Grace MD [address] [facility] [address] [place] [address] PCP - General 09/23/16 Lalo Mejia MD [address] [place] [address] Fabrication Technician Nephrology 03/12/24 documented as of this encounter
--- OUTSIDE RECORDS SUMMARY | 2024-12-19 08:41 | XMS_ITS | Referral Summary ---
Author Organization [facility] Address [address] [place] [address] Care Team Providers Care Dragger Out Name Role Phone Jose Grace MD Primary Care Provider [phone] Lalo Mejia MD Unavailable [phone] Encounters Date Type Department Care Team Description 12/13/[address] [facility] Orthopaedic Surgery [address] [facility] 1st Floor [address] [place] [address] German Mendez MD 11/14/2024 12:21 PM CDT - 11/14/2024 11:59 PM CDT Hospital Encounter [facility] [address] [place] [address] Discharge Disposition: Discharge to home or self care 11/14/2024 9:55 AM CDT - 11/14/2024 11:59 PM CDT Hospital Encounter [facility] [address] [place] [address] German Mendez MD Right knee pain, unspecified chronicity Discharge Disposition: Discharge to home or self care 11/14/2024 10:00 AM CDT Office Visit [facility] Orthopaedic Surgery [address] [facility] 2nd [address] [place] [address] German Mendez MD Right knee pain, unspecified chronicity (Primary Dx) 11/06/2024 Telephone [facility] [address] [facility] [address] [place] [phone] Ernestina Lackey MA 11/01/2024 11:00 AM CDT Office Visit [facility] [address] [facility] [address] [place] [address] Silvina Zavala NP Coronary artery vasospasm (Primary Dx); Essential hypertension; Hyperlipidemia LDL goal <70 from Last 3 Months Allergies Active Allergy [...] 1 tablet (81 mg total) by mouth automation machine operator before breakfast Active TURMERIC ORALIndications :supplement Take 1,000 mg by mouth automation machine operator before breakfast 4 Active valACYclovir [...] (04/24/2021): Added automatically from request for surgery [id number] Open wound of right lower leg 08/11/2020 [...] (06/24/2020): Added automatically from request for surgery [id number] Postlaminectomy syndrome of cervical region 08/2016 Spinal [...] too much pain with any weight-bearing. 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 Gender Identity Not on file Sexual Orientation [...] Description 12/24/2024 11:05 AM CDT Hospital Encounter [facility] [address] [place] [address] German Mendez MD [address] 6A/6B/12A [place] [address] 12/24/2024 11:05 AM CDT Anesthesia Event [facility] [address] [place] [address] Jessie Damon NP [address] [place] [address] 12/24/2024 11:05 AM CDT - 12/24/2024 12:05 PM CDT Surgery [facility] [address] [place] [address] German Mendez MD [address] [facility] 6A/6B/12A [place] [address] ARTHROSCOPY KNEE MENISCAL DEBRIDEMENT-medial and lateral Scheduled Procedures Name Priority Associated Diagnoses Date/Ti me ARTHROSCOPY KNEE MENISCAL DEBRIDEMENT Acute medial meniscus tear of right knee, subsequent encounter Complex tear of lateral meniscus of right knee as current injury, subsequent encounter 12/24/2024 11:05 AM CDT Goals Goal Patient Goal Type Associated Problems Recent Progress Patient-Stated? Author CCM Chronic Pain Care Plan Chronic Care Management Yael Jaramillo, DONAVAN Note: Problem: Chronic Pain Goals: 1. Minimize further functional decline 2. Maximize quality of life 3. Control pain Strategies: - Activity/exercise program recommendation - Conservative stepwise pain medicine strategy with multi-disciplinary approach - Recommend healthy lifestyle strategies and compensatory methods as needed Reduce the likelihood of falling Lifestyle No Yael Silver, DONAVAN Note: Below are four things you [...] home safety. Medical Devices Implanted Type Area Nail Artist Device Identifier Shelf Expiration Date Model / Serial / Lot Kincast [id number] Ortholoc 3.5mm 2.5mm 18mm Low Profile Head Self Tap Midfoot - S00 - [id number] Implanted:Qty: 1 on 09/26/2020 by Lino [place] MD at [facility] Screw Right: Foot Kincast [id number] / Orthohelix [id number] Maxtorque 4mm 30mm Cannulated Blunt Foot Long Thread Screw Bone Latex Free - S00 - [id number] Implanted:Qty: 1 on 09/26/2020 by Lino [place] MD at [facility] Screw Right: Foot Orthohelix CSS-011-40- 030L / Orthohelix Maxtorque 4mm 35mm Cannulated Self Drill Foot Ankle Short Thread [id number] - [id number] - [id number] Implanted:Qty: 1 on 05/05/2022 by Lino [place] MD at [facility] Screw Left: Ankle Orthohelix MSD-010-40- 035S / MSD-010-40- 035S / Hardware From Fusion N/A: Neck Orthohelix [id number] Maxtorque 4mm 35mm Cannulated Self Drill Foot Ankle Long Thread - [id number] Implanted:Qty: 1 on 05/29/2021 by Lino [place] MD at [facility] Left: Foot Orthohelix MSD-010-40- 035L / / [employer] [id number] Ortholoc 47mm 3di Fusion Low Profile Compression Slot Foot Left - [id number] Implanted:Qty: 1 on 05/29/2021 by Lino [place] MD at [facility] Left: Foot [employer] [id number] / / [employer] [id number] Ortholoc 2.7mm 2mm 18mm Lock On [place] Polyaxial Self Tap Midfoot - [id number] Implanted:Qty: 3 on 05/29/2021 by Lino [place] MD at [facility] Left: Foot [employer] [place] [employer] [id number] / / [employer] [id number] Ortholoc 3.5mm 2.5mm 18mm Low Profile Head Self Tap Midfoot - [id number] Implanted:Qty: 1 on 05/29/2021 by Lino [place] MD at [facility] Left: Foot [employer] [id number] / / [employer] Ortholoc [id number] Fusion Low Profile Revision Foot Left First [id number] - [id number] Implanted:Qty: 1 on 05/05/2022 by Lino [place] MD at [facility] [employer] [id number] / / [employer] Ortholoc 3.5mm 2.8mm 14mm Lock On [place] Polyaxial Self Tap Midfoot [id number] - [id number] Implanted:Qty: 1 on 05/05/2022 by Lino [place] MD at [facility] Left: Ankle [employer] [id number] / / [employer] Ortholoc 2.7mm 2mm 12mm Lock On [place] Polyaxial Self Tap Midfoot [id number] - [id number] Implanted:Qty: 2 on 05/05/2022 by Lino [place] MD at [facility] Left: Ankle [employer] [id number] / / [employer] Ortholoc 3.5mm 2.5mm 18mm Low Profile Head Self Tap Midfoot [id number] - [id number] Implanted:Qty: 2 on 05/05/2022 by Lino [place] MD at [facility] Left: Ankle [employer] [id number] / / [employer] [place] [employer] Ortholoc 2.7mm 2mm 16mm Lock On [place] Polyaxial Self Tap Midfoot [id number] - [id number] Implanted:Qty: 1 on 05/05/2022 by Lino [place] MD at [facility] Left: Ankle [employer] [id number] / / [employer] Angio-Seal Vip 6fr Closere Device [id number] - [id number] Implanted:Qty: 1 on 12/13/2022 by Jerardo Myles MD at [facility] [employer] 05/22/2023 [id number] / / [id number] Explanted Type Area Nail Artist Device Identifier Shelf Expiration Date Model / Serial / Lot [employer] [id number] Ortholoc 2.7mm 2mm 14mm Lock On [place] Polyaxial Self Tap Midfoot - S00 - [id number] Implanted:Qty: 1 on 09/26/2020 by Lino [place] MD at [facility] Explanted:Qty: 1 on 05/03/2023 at [facility] Screw Right: Foot [employer] [id number] / [employer] [id number] Ortholoc 2.7mm 2mm 18mm Lock On [place] Polyaxial Self Tap Midfoot - S00 - [id number] Implanted:Qty: 2 on 09/26/2020 by Lino [place] MD at [facility] Explanted:Qty: 2 on 05/03/2023 at [facility] Screw Right: Foot [employer] [id number] / [employer] [id number] Ortholoc 2.7mm 2mm 16mm Lock On [place] Polyaxial Self Tap Midfoot - S00 - [id number] Implanted:Qty: 2 on 09/26/2020 by Lino [place] MD at [facility] Explanted:Qty: 2 on 05/03/2023 at [facility] Screw Right: Foot [employer] [id number] / [employer] [id number] Rolo .062in 9in 1 Trocar Smooth Wire Fixation - [id number] Explanted:Qty: 2 on 05/29/2021 by Lino [place] MD at [facility] Left: Foot [employer] [id number] / / [employer] [id number] Ortholoc 47mm 3di Fusion Low Profile Compression Slot Foot Right - S00 - [id number] Implanted:Qty: 1 on 09/26/2020 by Lino [place] MD at [facility] Explanted:Qty: 1 on 05/03/2023 at [facility] Right: Foot [employer] [id number] / [employer] [id number] Ortholoc 2.7mm 2mm 14mm Lock On [place] Polyaxial Self Tap Midfoot - [id number] Implanted:Qty: 1 on 05/29/2021 by Lino [place] MD at [facility] Explanted:Qty: 1 on 05/03/2023 at [facility] Left: Foot [employer] [id number] / / Kincast [id number] Ortholoc 2.7mm 2mm 16mm Lock On [place] Polyaxial Self Tap Midfoot - [id number] Implanted:Qty: 1 on 05/29/2021 by Lino [place] MD at [facility] Explanted:Qty: 1 on 05/03/2023 at [facility] Left: Foot [employer] [id number] / / Procedures Procedure Name Priority Date/Time [...] Outside Reference (11/14/2024 12:21 PM CDT) Impressions [facility] - 11/14/2024 12:21 PM CDT These images are for Reference purposes only and have not been reviewed by [facility] Radiology. There will be no report generated by a [facility] Radiologist. Narrative [facility] - 11/14/2024 12:21 PM CDT EXAMINATION: Images [...] osteoarthritis. Electronically signed by: Bandar Buckley M.D. German Mendez MD IMG XR PROCEDURES Geeta l Result * Dexa TBS Axial Skeleton Bone Density 1 or more sites (10/27/2023 11:19 AM CDT) Anatomical Region Laterality Modality Wrist, Body N/A Radiographic Gracy ging Narrative 11/29/2023 10:07 AM CDT Patient Name: Dahlia Boateng Date of : 1960 Date of scan: 10/27/2023 Bone mineral density was performed on a CogniTens Discovery Densitometer. Based on machine cross-calibration and [...] by the International Society of Clinical Densitometry. [id number] Deb Max [facility] IM DXA PROCEDURES Final Result from Last 3 Months or Most Recently Relevant to Health Maintenance [place] [address] MEDICARE [facility] MEDICARE [facility] MEDICARE [facility] [place] [id number] Advance Directives For more information, please contact: [phone] * Full Code (Latest Code Status on File) Date Activated Date Inactivated Comments 12/13/2022 9:47 AM 12/13/2022 4:55 PM Care Teams Dragger Out Relationship Specialty Start Date End Date Jose Grace MD [address] [place] [address] INTER[address] MEDICINE [place] [id number] PCP - General 09/23/16 Lalo Mejia MD [address] [address] Funeral Sales Manager Nephrology 03/12/24
--- OUTSIDE RECORDS SUMMARY | 2024-12-19 08:42 | XMS_ITS | Encounter Summary ---
Author Organization [facility] Address 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 Gender Identity Not on file Sexual Orientation Not on file documented as of this encounter Plan of Treatment Upcoming Encounters Date Type Department Care Team (Late st Contact Info) Description 08/08/2025 10:10 AM CDT Appointment [address] [place] [address] Randy Lunsford MD [address] [place] [address] [place] [address] 08/08/2025 11:00 AM CDT Office Visit [facility] [address] [place] [address] Jai Callaway MD [address] [place] [address] [place] [address] documented as of this encounter Visit Diagnoses Diagnosis Diffuse cystic mastopathy- Primary documented in this encounter Care Teams Dinkey Locomotive Engineer Relationship Specialty Start Date End Date Jose Grace MD [address] [place] [address] PCP - General 03/30/04 documented as of this encounter
--- OUTSIDE RECORDS SUMMARY | 2024-12-19 08:42 | XMS_ITS | Continuity of Care Document ---
Author Organization [facility] Address [address] [place] [address] [address] [place] [address] Phone Care Team Providers Care Feed Miller Name Role Phone Randy Lunsford MD Unavailable [...] day at bedtime 40 MG - Active PRAVACHOL (unknown strength) take 1 tablet by oral route every day Not Available - Active XYZAL (unknown strength) take 10 milliliter by oral route every day in the evening Not Available - Active Ambien 10 mg tablet take 1 tablet (10MG) by oral route every day at bedtime 10 MG - Active Singulair 10 mg tablet take 1 tablet (10MG) by oral route every day in the evening 10 MG - Active ADVAIR DISKUS (unknown strength) inhale 1 puff by inhalation route 2 times every day in the morning and evening approximately 12 hours apart Not Available - Active indapamide 2.5 mg [...] Diagnoses Date Provider Providers Copied on Encounter [facility] WALLBO[facility] [address] [facility] [address], [place], [address], [phone] [facility] No Information 9 Isatu Padilla. [address] [place], [place], [id number] . tel: [phone] [facility], [address] [facility] [address], [place], [address], [phone] [facility] No Information 9 Janki Alonso. [address] [facility] [address], [place], [place], [address] . tel: [phone] [facility]BO[employer] [facility] [address] [facility] [address], [place], [address], [place] [phone] [facility] annual exam (chief complaint) Body mass index (BMI) 29.0-29.9, adultEncounter for screening for malignant neoplasm of rectumEncounter for screening for malignant neoplasm of cervixEncntr screen mammogram for malignant neoplasm of breast 8 Isatu Padilla. [address], [place], [address] . tel: [phone] [facility] [address] [facility] [address], [place], [address], [place] [phone] [facility] annual exam (chief complaint) Body mass index (BMI) 28.0-28.9, adultEncounter for gynecological examination with abnormal findingEncounte r for screening for malignant neoplasm of cervixAcquired absence of both cervix and uterusAcquired absence of ovaries, bilateral 2 7 Isatu Padilla. [address] [facility], [place], [place], [address] . tel: [phone] PREV VISIT EST AGE 40-64 [facility] [address] [facility] [address] [place] [address], [address], [place] tel:[phone] [facility] annual exam (chief complaint) Encntr for gynecology teacher exam (general) (routine) w/o abn findings 8 6 Isatu Padilla. [address] [facility], [place], [place], [address] . tel: [phone] PREV VISIT EST AGE 40-64 [facility]BO[employer] [facility] [address] [facility] [address] [place] [address], [address], [place] tel:[phone] [facility] annual exam (chief complaint) Encntr for gynecology teacher exam (general) (routine) w/o abn findingsEncount er for screening for malignant neoplasm of rectum 5 Isatu Padilla. [address] [facility], [place], [place], [address] . tel: [phone] [facility] [address] [facility] [address] [place] [address], [address], [place] tel:[phone] [facility] Breast mass, right 5 Isatu Padilla. [address] [place], [place], [address] . tel: [phone] [facility] [address] [facility] [address], [address], [place] tel:[phone] [facility] Abnormal mammogram 0 4 Isatu Padilla. [address] [place], [place], [address] . tel: [phone] PREV VISIT EST AGE 40-64 [facility]IBROUS WALLBOARD [facility] [address] [facility] [address], [place], [address], [place] tel:[phone] [facility] annual exam (chief complaint) ROUTINE MILITARY PAY TECHNICIAN EXAMINATIONMeno pausal SymptomsOsteopo rosis 4 Isatu Randy. [address] [facility], [place], [place], [address] . tel: [phone] DISABILITY EXAMINATION [facility], [address] [facility] [address], [place], [address], [place] [phone] [facility] Fx metatarsal-clos ed 4 Janki Gavin. [address] [facility] [address], [place], [place], [address] . tel: [phone] PREV VISIT EST AGE 40-64 [facility]BO[facility] [address] [facility] [address], [place], [address], [place] [phone] [facility] annual visit (chief complaint) Well Woman / Routine Interior Surface Insulation Worker/PapMenopaus al Symptoms 3 Durel Luis. [address] [facility], [place], [place], [address] . tel: [phone] PREV VISIT EST AGE 40-64 FIBROUS [facility]BO[employer] [facility] [address] [facility] [address], [place], [address], [place] tel:[phone] [facility] annual visit (chief complaint) Well Woman / Routine Interior Surface Insulation Worker/PapMenopaus al SymptomsHyperch olesterolemiaAs thma 2 Durel Luis. [address] [facility], [place], [place], [address] . tel: [phone] [facility] [address] [facility] [address], [place], [address], [place] [phone] [facility] BMD (chief complaint) Disorder of bone and cartilage, unspecified 2 Durel Luis. [address] [facility], [place], [place], [address] . tel:[phone] [facility]BO[facility] [address], [place], [address], [place] tel:[phone] [facility] No Information 2 Kelsi Smith. [address] [facility] [address], [place], [place], [address] . tel: [phone] Family History Family Member Type Diagnosis Age At Onset Father Problem (finding) hypertension Problem (finding) Family history of hyper tension Problem (finding) Family history of breas t cancer Payers Payer name Insurance type Covered libertarian ID Authoriza tion(s) No Information Social History [...] ordered Future Order: Lab Order Pap-Liqu id-based ([id number]), Ordered on: Ordered History Of Present Illness [...] every 3 yr colonoscopy.Has her BMD's at [facility].Needs yrly paps as her hyst was for dysplasia. Related to Encounter for gynecological examination with abnormal finding Perform monthly self breast exam . Related to Encounter for gynecological examination with abnormal finding Lifestyle education regarding di et Related to Body mass index (BMI) 28.0-28.9, adult Feels well on Estrat est - written Rx given. Has osteo care at [facility].Cont paps as her hyst was for WILBER. Related to Encntr for gynecology teacher exam (general) (routine) w/o abn findings Perform monthly self breast exam . Related to Encntr for gynecology teacher exam (general) (routine) w/o abn findings Hyst was for WILBER. Co nt yrly paps.Sees [facility] for her osteo.On Estratest with good sx control.Has problems with her foot not healing well from the previous fx. Having surgery again this week. Related to Encntr for gynecology teacher exam (general) (routine) w/o abn findings Perform monthly self breast exam . Related to Encntr for gynecology teacher exam (general) (routine) w/o abn findings Hyst was for WILBER. Cont yrly paps Related to ROUTINE MILITARY PAY TECHNICIAN EXAMINATION Perform monthly self breast exam . Related to ROUTINE MILITARY PAY TECHNICIAN EXAMINATION Discussed options fo r treatment of menopausal symptoms Discussed risk factors of menopa use Discussed risk factors of menopa use Discussed options fo r treatment of menopausal symptoms Assessments Type Assessment Date No Information Patient Care Teams Name Effective Dates (start - stop) Status Members No Information
--- OUTSIDE RECORDS SUMMARY | 2024-12-19 08:42 | XMS_ITS | Encounter Summary ---
Author Organization [facility] Address 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 Gender Identity Not on file Sexual Orientation Not on file documented as of this encounter Plan of Treatment Upcoming Encounters Date Type Department Care Team (Late st Contact Info) Description 08/08/2025 10:10 AM CDT Appointment [address] [place] [address] Randy Lunsford MD [address] [place] [address] 08/08/2025 11:00 AM CDT Office Visit [facility] STRATEGIC PLANNING MANAGER - [facility] [address] [place] [address] Jai Callaway MD [address] [place] [address] documented as of this encounter Procedures Procedure Name Priority Date/Time Associated Diagnosis Comments MAMMO SCREEN BILAT W OR WO CAD Routine 01/03/2009 10:16 AM CDT documented in this encounter Results * MAMMO DIGITAL SCREEN BILAT (01/03/2009 10:16 AM CDT) Anatomical Region Laterality Modality Breast Bilateral Other 01/03/2009 10:1 6 AM CDT Narrative 01/05/2009 7:34 PM CDT [id number] [place], [place] [address] Admit Date: 01/03/2009 DAHLIA BACON Sex: F Admit Prov: CHEMO MCMAHON Date: 1960 Primary Care Prov: EMILY FRENCH CMRN: [id number] Room: Noe [facility]: [id number] IMAGING SERVICES Ordering Prov: CHEMO MCMAHON Accession Number: [id number] Interpretation BILATERAL SCREENING DIGITAL MAMMOGRAMS WITH COMPUTER [...] Procedure Note Alyson Deleon MD - 01/05/2009 [id number] [place], [place] [address] Admit Date: 01/03/2009 DAHLIA BACON Sex: F Admit Prov: CHEMO MCMAHON Date: 1960 Primary Care Prov: EMILY FRENCH CMRN: [id number] Room: KATRINANoe N: [id number] IMAGING SERVICES Ordering Prov: CHEMO MCMAHON Interpretation [...] by: ALYSON DELEON Electronically signed by: ALYSON DLEEON 01/05/2009 19:32 Transcribed: 01/03/2009 10:41 AMK us Chemo Mcmahon MD MAMMO ORDERABLES Final Result documented in this encounter Visit Diagnoses Diagnosis Other screening mammogram documented in this encounter Care Teams Paint Prepper Relationship Specialty Start Date End Date Emily French MD [address] [place] [address] PCP - General 03/30/04 documented as of this encounter
--- OUTSIDE RECORDS SUMMARY | 2024-12-19 08:42 | XMS_ITS | Encounter Summary ---
Author Organization [facility] Address 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 Gender Identity Not on file Sexual Orientation Not on file documented as of this encounter Plan of Treatment Upcoming Encounters Date Type Department Care Team (Late st Contact Info) Description 08/08/2025 10:10 AM CDT Appointment [address] [place] [address] Randy Lunsford MD [address] [place] [address] 08/08/2025 11:00 AM CDT Office Visit [facility] PROFESSIONAL DEVELOPMENT DIRECTOR - [facility] [address] [place] [phone] Jai Callaway MD [address] [place] [phone] documented as of this encounter Procedures Procedure Name Priority Date/Time Associated Diagnosis Comments XR DEXA BONE DENSITY AXIAL 1 OR MORE SITES Routine 01/03/2009 9:30 AM CDT documented in this encounter Results * XR DEXA BONE DENSITY AXIAL 1 OR MORE SITES (01/03/2009 9:30 AM CDT) Anatomical Region Laterality Modality Other 01/03/2009 9:30 AM CDT Narrative 01/03/2009 9:44 AM CDT [facility] [address] [place], [place] [address] Admit Date: 01/03/2009 BINA BACONROCK Palomino Sex: F Admit Prov: CHEMO MCMAHON Date: 1960 Primary Care Prov: JOSE FRENCH CMRN: [id number] [facility] [address] [place] [address] IMAGING SERVICES Ordering Prov: N/A Accession Number: [id number] Interpretation Examination: Bone Density Study (DEXA) Clinical [...] Procedure Note Justine Thakkar MD - 01/03/2009 [facility] [address] [place], [place] [address] Admit Date: 01/03/2009 ABMONSERRAT AMBER J Sex: F Admit Prov: CHEMO MCMAHON Date: 1960 Primary Care Prov: JOSE FRENCH CMRN: [id number] Room: [facility] SSN: [address] [place] [address] IMAGING SERVICES Ordering Prov: N/A Interpretation Examination: [...] menorrhagia documented in this encounter Care Teams Data Modeler Relationship Specialty Start Date End Date Jose French MD [address] [place] [address] PCP - General 03/30/04 documented as of this encounter
--- OUTSIDE RECORDS SUMMARY | 2024-12-19 08:42 | XMS_ITS | Encounter Summary ---
Author Organization [facility] Address 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 Gender Identity Not on file Sexual Orientation Not on file documented as of this encounter Plan of Treatment Upcoming Encounters Date Type Department Care Team (Late st Contact Info) Description 08/08/2025 10:10 AM CDT Appointment [address] [place] [address] Randy Lunsford MD [address] [place] [address] [place] [phone] 08/08/2025 11:00 AM CDT Office Visit [facility] ASBESTOS SIDING MECHANIC - [facility] [address] [place] [address] [place] [phone] Jai Callaway MD [address] [place] [address] [place] [address] documented as of this encounter Visit Diagnoses Diagnosis Screening mammogram for high-risk patient- Primary documented in this encounter Care Teams Bicycle Racer Relationship Specialty Start Date End Date Jose Grace MD [address] [place] [address] PCP - General 03/30/04 documented as of this encounter
--- OUTSIDE RECORDS SUMMARY | 2024-12-19 08:42 | XMS_ITS | Encounter Summary ---
Author Organization [facility] Address [address] [place] [address] Care Team Providers Care Reimbursement Coordinator Name Role Phone Jose Grace MD Primary [...] on file Legal Sex Female 3:49 AM RELEASE MANAGER Gender Identity Not on file Sexual Orientation Not on file documented as of this encounter Plan of Treatment Upcoming Encounters Date Type Department Care Team (Late st Contact Info) Description 08/08/2025 10:10 AM CDT Appointment [address] [place] [address] Randy Lunsford MD [address] [place], [place] [address] [place] [address] 08/08/2025 11:00 AM CDT Office Visit [facility] BUCKLE STAPLER - [facility] [address] [place] [address] Jai Callaway MD [address] [place] [phone] documented as of this encounter Visit Diagnoses Diagnosis Screening mammogram for high-risk patient- Primary documented in this encounter Care Teams Reimbursement Coordinator Relationship Specialty Start Date End Date Jose Grace MD [address] [place] [address] PCP - General 03/30/04 documented as of this encounter
--- OUTSIDE RECORDS SUMMARY | 2024-12-19 08:42 | XMS_ITS | Encounter Summary ---
Author Organization [facility] Address 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 Gender Identity Not on file Sexual Orientation Not on file documented as of this encounter Plan of Treatment Upcoming Encounters Date Type Department Care Team (Late st Contact Info) Description 08/08/2025 10:10 AM CDT Appointment [address] [place] [address] Randy Lunsford MD [address] [place] [address] 08/08/2025 11:00 AM CDT Office Visit [facility] DISPLAY DESIGNER - [facility] [address] [address] [address] Jai Callaway MD [address] [place] [phone] documented as of this encounter Procedures Procedure Name Priority Date/Time Associated Diagnosis Comments MAMMO SCREEN BILAT W OR WO CAD Routine 08/21/2007 1:12 PM CDT documented in this encounter Results * MAMMO DIGITAL SCREEN BILAT (08/21/2007 1:12 PM CDT) Anatomical Region Laterality Modality Breast Bilateral Other 08/21/2007 1:12 PM CDT Narrative 08/23/2007 2:38 PM CDT [id number] [place], [place] [address] Admit Date: 08/21/2007 ABMONSERRATDAHLIA Sex: F Admit Prov: GABINO MCMAHONIN Vickie Date: 1960 Primary Care Prov: EMILY FRENCH CMRN: [id number] Room: [facility]: [id number] IMAGING SERVICES Ordering Prov: CHEMO MCMAHON Accession Number: [id number] Interpretation BILATERAL SCREENING DIGITAL MAMMOGRAMS WITH COMPUTER [...] Procedure Note Kobe Callaway MD - 08/23/2007 [id number] [place], [place] [address] Admit Date: 08/21/2007 DAHLIA BACON Sex: F Admit Prov: CHEMO MCMAHON Date: 1960 Primary Care Prov: EMILY FRENCH CMRN: [id number] Room: Noe N: [id number] IMAGING SERVICES Ordering Prov: CHEMO MCMAHON Interpretation BILATERAL SCREENING DIGITAL MAMMOGRAMS WITH COMPUTER ASSISTEDDIAGNOSIS 08/21/07 Findings: The parenchyma is moderately dense bilaterally. There isno mass, malignant calcification, lymphadenopathy or other sign ofmalignancy. No change since 07/2006. The films were reviewed using the Kites. Summary: No mammographic evidence of malignancy. Assessment BIRADS: 1-Negative Recommendation: Normal interval follow-up Dictated by: KOBE CALLAWAY Electronically signed by: KOBE CALLAWAY 08/23/2007 14:38 Transcribed: 08/23/2007 14:27 AMK us Chemo Mcmahon MD MAMMO ORDERABLES Final Result documented in this encounter Visit Diagnoses Diagnosis Other screening mammogram documented in this encounter Care Teams Winder Tender Relationship Specialty Start Date End Date Emily French MD [address] [place] [address] PCP - General 03/30/04 documented as of this encounter
--- OUTSIDE RECORDS SUMMARY | 2024-12-19 08:42 | XMS_ITS | Encounter Summary ---
Author Organization [facility] Address 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 [address] [place] [address] Jai Callaway MD [address] [place] [address] documented as of this encounter Visit Diagnoses Diagnosis Screening mammogram for high-risk patient- Primary documented in this encounter Care Teams Postal Clerk Relationship Specialty Start Date End Date Jose Grace MD [address] [place] [address] PCP - General 03/30/04 documented as of this encounter
--- OUTSIDE RECORDS SUMMARY | 2024-12-19 08:43 | XMS_ITS | Encounter Summary ---
Author Organization [facility] Address [address] [place] [address] Care Team Providers Care Enthone Solder Stripper Name Role Phone Jose Grace MD Primary Care Provider [phone] Encounter Details Date Type Department Care Team (Late st Contact Info) Description 08/14/2024 Lab Requisition [facility] - DermPath Lab [address] [facility], [place] [address] Parisa Healy MD [address] [facility] [address] [place] [address] Social History Tobacco Use Types Packs/Day Years [...] PM CDT) Case Report Dermatopathology Report Case: [id number] Authorizing Provider: Parisa Healy MD Collected: 08/14/2024 01:56 PM Ordering Location: [facility] - Received: 08/16/2024 09:50 AM DermPath Lab Pathologist: Khris Nascimento MD Specimen: Skin, left upper chest 5:11 PM CDT DERMATOPATHOLOGY LABORATORY Final Diagnosis Specimen A. SKIN, left upper chest: BENIGN VERRUCOUS KERATOSIS, INFLAMED (L82.1) 5:11 PM CDT DERMATOPATHOLOGY LABORATORY at 1711 CDT Clinical History ISK vs SCC 5 5:11 PM CDT DERMATOPATHOLOGY LABORATORY Gross Description [...] characteristic determined by the Dermatopathology Laboratory at [facility], directed by Dr. Deric Nascimento. These tests need not be, and therefore are not, approved by the [place] Food and Drug Administration. The tests are used for clinical purposes. Billing Codes Specimen Charges Stain Charges 67358 1 5:11 PM CDT DERMATOPATHOLOGY LABORATORY Embedded Images 5:11 PM CDT DERMATOPATHOLOGY LABORATORY Pathology/Cytolo gy TISSUE SPECIMEN FROM SKIN / Unknown 08/14/2024 1:56 PM CDT 08/16/2024 9:50 AM CDT Parisa Healy MD LAB - PATHOLOGY/CYTOLOGY OR DERABLES Final Result DERMATOPATHOLOGY LABORATORY [facility] - Department of Dermatology [facility] [address] [place] [address], [address] [phone] documented in this encounter Visit Diagnoses Not on filedocumented in this encounter Care Teams Enthone Solder Stripper Relationship Specialty Start Date End Date Jose Grace MD [address] [place] [address] PCP - General Internal Medicine 02/14/18 documented as of this encounter
--- OUTSIDE RECORDS SUMMARY | 2024-12-19 08:43 | XMS_ITS | Encounter Summary ---
Author Organization [facility] Address 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 Gender Identity Not on file Sexual Orientation Not on file documented as of this encounter Plan of Treatment Upcoming Encounters Date Type Department Care Team (Late st Contact Info) Description 08/08/2025 10:10 AM CDT Appointment [address] [place] [address] Randy Lunsford MD [address] [place], [place] [address] [place] [address] 08/08/2025 11:00 AM CDT Office Visit [facility] SHOP LABORER - [facility] [address] [place] [phone] Jai Callaway MD [address] [place] [phone] documented as of this encounter Visit Diagnoses Diagnosis Screening mammogram for high-risk patient- Primary documented in this encounter Care Teams Editor City Relationship Specialty Start Date End Date Jose Grace MD [address] [place] [id number] PCP - General 03/30/04 documented as of this encounter
--- OUTSIDE RECORDS SUMMARY | 2024-12-19 08:43 | XMS_ITS | Encounter Summary ---
Author Organization [facility] Address [address] [place] [address] Care Team Providers Care Bulk Tank Car Unloader Name Role Phone Jose Grace MD Primary Care Provider + Encounter Details Date Type Department Care Team (Late Contact Info) Description 10/12/2024 Refill [facility] WASTE EXAMINER - [facility] [address] [place] [phone] Randy Lunsford MD [address] [place] [address] [address] [place] [address] Social History Tobacco Use Types Packs/Day Years Used Date Smoking Tobacco: Former Cigarettes Q uit: 11/04/2009 Passive Smoke Exposure: Past Smokeless Tobacco: Never Alcohol Use Standard Drinks/Week Comments Yes 1 (1 standard drink = 0.6 oz pur e alcohol) occasional Comments No Sex and Gender Information Value Date Recorded Sex Assigned at Not on file 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 [address] [place] [phone] Jai Callaway MD [address] [facility] [address] [place] [phone] documented as of this encounter Visit Diagnoses Not on filedocumented in this encounter Care Teams Bulk Tank Car Unloader Relationship Specialty Start Date End Date Jose Grace MD [address] [place] [phone] PCP - General 03/30/04 documented as of this encounter
--- OUTSIDE RECORDS SUMMARY | 2024-12-19 08:43 | XMS_ITS | Encounter Summary ---
Author Organization [facility] Address [address] [place] [address] Care Team Providers Care Jig Mill Operator Name Role Phone Jose Grace MD [...] on file Legal Sex Female 3:49 AM ICE SKATER Gender Identity Not on file Sexual Orientation Not on file documented as of this encounter Plan of Treatment Upcoming Encounters Date Type Department Care Team (Late st Contact Info) Description 08/08/2025 10:10 AM CDT Appointment [address] [place] [address] Randy Lunsford MD [address] [place], [place] [address] [place] [address] 08/08/2025 11:00 AM CDT Office Visit [facility] HELMINTHOLOGIST - [facility] [address] [place] [phone] Jai Callaway MD [address] [place] [phone] documented as of this encounter Visit Diagnoses Diagnosis Other screening mammogram- Primary documented in this encounter Care Teams Jig Mill Operator Relationship Specialty Start Date End Date Jose Grace MD [address] [place] [phone] PCP - General 03/30/04 documented as of this encounter
--- OUTSIDE RECORDS SUMMARY | 2024-12-19 08:43 | XMS_ITS | Encounter Summary ---
Author Organization [facility] Address [address] [place] [address] Care Team Providers Care Sign Fabricator Name Role Phone Jose Grace MD Primary [...] on file Legal Sex Female 3:49 AM TONG SETTER Gender Identity Not on file Sexual Orientation Not on file documented as of this encounter Plan of Treatment Upcoming Encounters Date Type Department Care Team (Late st Contact Info) Description 08/08/2025 10:10 AM CDT Appointment [address] [place] [address] Randy Lunsford MD [address] [place], [place] [address] [place] [address] 08/08/2025 11:00 AM CDT Office Visit [facility] ETL CONSULTANT - [facility] [address] [place] [phone] Jai Callaway MD [address] [place] [phone] documented as of this encounter Visit Diagnoses Diagnosis Other screening mammogram- Primary documented in this encounter Care Teams Sign Fabricator Relationship Specialty Start Date End Date Jose Grace MD [address] [place] [phone] PCP - General 03/30/04 documented as of this encounter
--- OUTSIDE RECORDS SUMMARY | 2024-12-19 08:43 | XMS_ITS | Encounter Summary ---
Author Organization [facility] Address [address] [place] [address] Care Team Providers Care Communication Engineer Name Role Phone Jose Grace MD Primary Care Provider + Encounter Details Date Type Department Care Team (Latest Contact Info) Description 07/26/2000 Outpatient Historical [facility] Dolan, Luis Johnston MD NO ADDRESS ON FILE Other screening mammogram (Primary Dx) Social History Tobacco Use Types Packs/Day Years Used Date Smoking Tobacco: Never Assessed Comments Unknown Sex and Gender Information Value Date Recorded Sex Assigned at Not on file Legal Sex Female 3:[address] IN WAITER/WAITRESS Gender Identity Not on file Sexual Orientation Not on file documented as of this encounter Plan of Treatment Upcoming Encounters Date Type Department Care Team (Late st Contact Info) Description 08/08/2025 10:10 AM CDT Appointment [address] [place] [address] Randy Lunsford MD [address] [place] [address] [place] [phone] 08/08/2025 11:00 AM CDT Office Visit [facility] BEARING GRINDER - [facility] [address] [place] [phone] Jai Callaway MD [address] [place] [address] [place] [phone] documented as of this encounter Visit Diagnoses Diagnosis Other screening mammogram- Primary documented in this encounter Care Teams Communication Engineer Relationship Specialty Start Date End Date Jose Grace MD [address] [place] [address] PCP - General 03/30/04 documented as of this encounter
--- OUTSIDE RECORDS SUMMARY | 2024-12-19 08:43 | XMS_ITS | Clinical Summary ---
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 Gender Identity Not on file Sexual Orientation Not on file Plan of Treatment Health Maintenance Due Date Last Done Comments Hepatitis C Virus (HCV) Screening 1960 TdaP Immunization 1960 Cologuard 2003 Immunochemical Fecal Occult Blood 2003 Pneumococcal Immunization (5 0+ years) (1 of 1 - PCV) 2008 Zoster Immunization (1 of 2) 2008 SARS-COV-2 Immunization ( - season) 2024 Colonoscopy 12/26/2024 12/27/2019 Colorectal Cancer Screening 12/26/2024 Influenza Immunization (#1) 2025 Respiratory Syncytial Virus (RSV) Immunization (Adult) (1 - 1-dose 75+ series) 2033 Hepatitis B Immunization Aged Out No longer eligible based on patient's age to complete this topic Human Papillomavirus (HPV) Immunization Aged Out No longer eligible b ased [...] Maintenance Results * COLONOSCOPY (12/27/2019) Chad Carlos Yolis DO PROCEDURE/MINOR SURGICAL ORDERA BLES Final Result from Last 3 Months or Most Recently Relevant to Health Maintenance Insurance MEDICARE Care Teams Diffusion Operator Relationship Specialty Start Date End Date Jose Grace MD PCP - General Internal Medicine 07/19/19
[2024-12-19 09:30] LABS: Free T4 Free Thyroxine 1.18 ng/dL (0.78-2.19)
[2024-12-19 09:56] LABS: Hemoglobin A1C 5.9 % (<5.7)
[2024-12-19 10:56] LABS: Anion Gap 7 mmol/L (4-12); Blood Urea Nitrogen 14 mg/dL (7-17); Calcium 9.4 mg/dL (8.4-10.2); Carbon Dioxide 24 mmol/L (22-30); Chloride 104 mmol/L (98-107); Cholesterol 134 mg/dL (0-200); Estimated Glomerular Filt Rate 53; Glucose 99 mg/dL (65-110); HDL Direct 47 mg/dL; Potassium 4.0 mmol/L (3.4-5.0); Sodium 135 mmol/L (137-145); Triglycerides 86 mg/dL (<150)
[2024-12-19 11:32] LABS: Thyroid Stimulating Hormone 2.260 uIU/mL (0.465-4.680)
== END 2024-12-19 08:30 | disposition home or self-care (01) ==
LOC: ANHLAB 08:31
PROVIDERS: PCP Internal Medicine; Visit Provider Internal Medicine
DX: E78.2 Mixed hyperlipidemia (principal); E11.22 Type 2 diabetes mellitus with diabetic chronic kidney disease; I10 Essential (primary) hypertension; Z13.29 Encounter for screening for other suspected endocrine disorder; Z79.899 Other long term (current) drug therapy
CPT/HCPCS: 36415; 80048; 80061; 82172; 83036; 84439; 84443

== ENCOUNTER 2025-04-05 11:15 | Outpatient (CLI) | payer MEDICARE, OTHER, SELFPAY ==
--- NOTE | ~2025-04-05 | XR_ITS ---
EXAM/PROCEDURE: XR chest 2V HISTORY: R05.9 - Cough, unspecified COMPARISON: April 02, 2024 TECHNIQUE: Two view(s) of the chest. FINDINGS: LUNGS: Clear of acute processes. PLEURAL SPACES: Clear. No evidence of fluid or pneumothorax. HEART/ MEDIASTINUM: Normal in appearance. SOFT TISSUES: No significant findings. BONES: Orthopedic hardware in the C-spine. IMPRESSION: No acute findings. Reviewed, dictated and finalized at location A. REL PRESS HAND IMPRESSION: No acute findings.
== END 2025-04-05 11:16 | disposition home or self-care (01) ==
PROVIDERS: PCP Internal Medicine; Visit Provider Internal Medicine
DX: R05.9 Cough, unspecified (principal); Z96.7 Presence of other bone and tendon implants
CPT/HCPCS: 71046